=== PATIENT | male | born 1940 | race Caucasian/White ===

== ENCOUNTER 2017-01-26 13:54 | Emergency (ER) | payer MEDICARE ==
[2017-01-26] MEDS ORDERED: SODIUM CHLORIDE 0.9% 1,000 ML IV STA (15:17)
[2017-01-26] MEDS ORDERED: RX INFO: IV CONTRAST WAS GIVEN 1 EACH MISC MISCELLANE PRN (15:17)
[2017-01-26] MEDS ORDERED: HYDROmorphone 1 MG/ML 1 ML SYRINGE IVP STA (15:17)
[2017-01-26] MEDS ORDERED: PANTOPRAZOLE 40 MG/10 ML VIAL IVP STA (15:17)
[2017-01-26] MEDS ORDERED: SODIUM CHLORIDE 0.9% 500 ML IV STA (15:17)
[2017-01-26] MEDS ORDERED: ONDANSETRON 4 MG/2 ML VIAL IVP STA (15:17)
--- NOTE | 2017-01-26 15:47 | ED ---
General Adult HPI - General Chief complaint: Abdominal Pain Stated complaint: Abd Pain Time Seen by Provider: 01/26/17 14:25 Source: patient, RN notes reviewed, old records reviewed Mode of arrival: wheelchair Limitations: physical limitation - History of Present Illness Initial comments: This is a 76-year-old male to the ER for evaluation. This patient is coming in the ER for evaluation regarding abdominal pain. Patient has history of different pain issues back pain. On chronic pain medication. Patient did have a bowel movement today was diminished. No pain in his rectum. Patient has history of cuts the patient, no nausea vomiting or fevers - Related Data Home Medications Medication Instructions Recorded Confirmed Omeprazole [PriLOSEC] 40 mg PO DAILY 01/25/14 01/26/17 Simvastatin [Zocor] 80 mg PO HS 01/25/14 01/26/17 Zolpidem Tartrate [Ambien Cr] 10 mg PO HS 01/25/14 01/26/17 clonazePAM [KlonoPIN] 2 mg PO HS 01/25/14 01/26/17 metFORMIN HCL [Glucophage] 500 mg PO BID 01/25/14 01/26/17 Methadone HCl [Dolophine HCl] 10 mg PO Q8HR PRN 08/12/15 01/26/17 Diclofenac Sodium/Misoprostol 1 tab PO BID 01/26/17 01/26/17 [Diclofenac-Misoprost 75-200 Tb] Lidocaine 5% Patch [Lidoderm] 1 patch TOPICAL DAILY PRN 01/26/17 01/26/17 Polyethylene Glycol 3350 [Miralax] 17 gm PO DAILY PRN 01/26/17 01/26/17 oxyCODONE HCL/ACETAMINOPHEN 1 tab PO TID PRN 01/26/17 01/26/17 [Percocet 10-325 mg] Allergies Allergy/AdvReac Type Severity Reaction Status Date / Time No Known Allergies Allergy Verified 01/26/17 14:34 Review of Systems ROS Statement: Those systems with pertinent positive or pertinent negative responses have been documented in the HPI. ROS Other: All systems not noted in ROS Statement are negative. 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 Hiatial hernia repair, hernia repair inguinal X3 Past Anesthesia/Blood Transfusion Reactions: No Reported Reaction Past Psychological History: Anxiety, Depression Smoking Status: Never smoker Past Alcohol Use History: None Reported Past Drug Use History: None Reported - Past Family History Mother Family Medical History: Pneumonia Additional Family Medical History / Comment(s): at age 34 Father Family Medical History: COPD General Exam Limitations: physical limitation General appearance: alert, in no apparent distress Head exam: Present: atraumatic, normocephalic, normal inspection Eye exam: Present: normal appearance, PERRL, EOMI. Absent: scleral icterus, conjunctival injection, periorbital swelling ENT exam: Present: normal exam, mucous membranes moist Neck exam: Present: normal inspection. Absent: tenderness, meningismus, lymphadenopathy Respiratory exam: Present: normal lung sounds bilaterally. Absent: respiratory distress, wheezes, rales, rhonchi, stridor Cardiovascular Exam: Present: regular rate, normal rhythm, normal heart sounds. Absent: systolic murmur, diastolic murmur, rubs, gallop, clicks GI/Abdominal exam: Present: soft, normal bowel sounds. Absent: distended, tenderness, guarding, rebound, rigid Extremities exam: Present: normal inspection, full ROM, normal capillary refill. Absent: tenderness, pedal edema, joint swelling, calf tenderness Back exam: Present: normal inspection Neurological exam: Present: alert, oriented X3, CN II-XII intact Psychiatric exam: Present: normal affect, normal mood Skin exam: Present: warm, dry, intact, normal color. Absent: rash Course Vital Signs 01/26/17 01/26/17 01/26/17 13:59 15:44 16:47 Temperature 98.1 F 97.7 F Pulse Rate 87 80 59 L Respiratory 20 20 19 Rate Blood Pressure 147/73 162/76 130/64 O2 Sat by Pulse 98 94 L 97 Oximetry 01/26/17 17:35 Temperature Pulse Rate 83 Respiratory 16 Rate Blood Pressure 127/58 O2 Sat by Pulse 97 Oximetry - Reevaluation(s) Reevaluation #1: 01/26/17 18:00 Pain is controlled, patient explained and spoke with regarding constipation. Medical Decision Making - Medical Decision Making 36 male here for evaluation. Patient was seen in regards to bowel pain, patient 's about patient appears related to constipation BODY SANDER is negative lab work is normal. Facial given bowel regimen and discharged home - Lab Data Result diagrams: 01/26/17 14:25 01/26/17 14:25 Lab Results 01/26/17 01/26/17 01/26/17 Range/Units 14:25 14:25 14:25 WBC 6.2 (3.8-10.6) k/uL RBC 4.02 L (4.30-5.90) m/uL Hgb 13.6 (13.0-17.5) gm/dL Hct 41.6 (39.0-53.0) % MCV 103.4 H (80.0-100.0) fL MCH 33.9 (25.0-35.0) pg MCHC 32.8 (31.0-37.0) g/dL RDW 13.6 (11.5-15.5) % Plt Count 150 (150-450) k/uL Neutrophils % 81 % Lymphocytes % 12 % Monocytes % 5 % Eosinophils % 1 % Basophils % 1 % Neutrophils # 5.0 (1.3-7.7) k/uL Lymphocytes # 0.7 L (1.0-4.8) k/uL Monocytes # 0.3 (0-1.0) k/uL Eosinophils # 0.0 (0-0.7) k/uL Basophils # 0.0 (0-0.2) k/uL Macrocytosis Slight Sodium 141 (137-145) mmol/L Potassium 4.2 (3.5-5.1) mmol/L Chloride 106 (98-107) mmol/L Carbon Dioxide 26 (22-30) mmol/L Anion Gap 9 mmol/L BUN 22 H (9-20) mg/dL Creatinine 0.95 (0.66-1.25) mg/dL Est GFR (MDRD) Af Amer >60 (>60 ml/min/1.73 sqM) Est GFR (MDRD) Non-Af >60 (>60 ml/min/1.73 sqM) Glucose 129 H (74-99) mg/dL Plasma Lactic Acid Porfirio (0.7-2.0) mmol/L Calcium 9.0 (8.4-10.2) mg/dL Total Bilirubin 0.5 (0.2-1.3) mg/dL AST 26 (17-59) U/L ALT 38 (21-72) U/L Alkaline Phosphatase 60 (38-126) U/L Troponin I <0.012 (0.000-0.034) ng/mL Total Protein 6.5 (6.3-8.2) g/dL Albumin 3.9 (3.5-5.0) g/dL Amylase <30 L (30-110) U/L Lipase 24 (23-300) U/L Urine Color Urine Appearance (Clear) Urine pH (5.0-8.0) Ur Specific [place] (1.001-1.035) Urine Protein (Negative) Urine Glucose (UA) (Negative) Urine Ketones (Negative) Urine Blood (Negative) Urine Nitrite (Negative) Urine Bilirubin (Negative) Urine Urobilinogen (<2.0) mg/dL Ur Leukocyte Esterase (Negative) 01/26/17 01/26/17 Range/Units 15:51 16:09 WBC (3.8-10.6) k/uL RBC (4.30-5.90) m/uL Hgb (13.0-17.5) gm/dL Hct (39.0-53.0) % MCV (80.0-100.0) fL MCH (25.0-35.0) pg MCHC (31.0-37.0) g/dL RDW (11.5-15.5) % Plt Count (150-450) k/uL Neutrophils % % Lymphocytes % % Monocytes % % Eosinophils % % Basophils % % Neutrophils # (1.3-7.7) k/uL Lymphocytes # (1.0-4.8) k/uL Monocytes # (0-1.0) k/uL Eosinophils # (0-0.7) k/uL Basophils # (0-0.2) k/uL Macrocytosis Sodium (137-145) mmol/L Potassium (3.5-5.1) mmol/L Chloride (98-107) mmol/L Carbon Dioxide (22-30) mmol/L Anion Gap mmol/L BUN (9-20) mg/dL Creatinine (0.66-1.25) mg/dL Est GFR (MDRD) Af Amer (>60 ml/min/1.73 sqM) Est GFR (MDRD) Non-Af (>60 ml/min/1.73 sqM) Glucose (74-99) mg/dL Plasma Lactic Acid Porfirio 0.8 (0.7-2.0) mmol/L Calcium (8.4-10.2) mg/dL Total Bilirubin (0.2-1.3) mg/dL AST (17-59) U/L ALT (21-72) U/L Alkaline Phosphatase (38-126) U/L Troponin I (0.000-0.034) ng/mL Total Protein (6.3-8.2) g/dL Albumin (3.5-5.0) g/dL Amylase (30-110) U/L Lipase (23-300) U/L Urine Color Light Yellow Urine Appearance Clear (Clear) Urine pH 6.5 (5.0-8.0) Ur Specific [place] 1.009 (1.001-1.035) Urine Protein Negative (Negative) Urine Glucose (UA) Negative (Negative) Urine Ketones Negative (Negative) Urine Blood Negative (Negative) Urine Nitrite Negative (Negative) Urine Bilirubin Negative (Negative) Urine Urobilinogen <2.0 (<2.0) mg/dL Ur Leukocyte Esterase Negative (Negative) - Radiology Data Radiology results: report reviewed (CT pelvis positive for constipation), image reviewed Disposition Clinical Impression: Abdominal pain, Constipation Disposition: HOME SELF-CARE Condition: Good Instructions: Constipation (ED) Referrals: Marciano Moyer MD [Primary Care Provider] - 1-2 days
[2017-01-26 15:53] LABS: Basophils % (A) 1 %; CH 34.4; CHCM 33.4; Eosinophils % (A) 1 %; HCT 41.6 % (39.0-53.0); HDW 2.49; HGB 13.6 gm/dL (13.0-17.5); Luc # (Auto) 0.07; Luc % (Auto) 1; Lymphocytes # (A) 0.7 k/uL (1.0-4.8); Lymphocytes % (A) 12 %; MCH 33.9 pg (25.0-35.0); MCHC 32.8 g/dL (31.0-37.0); MCV 103.4 fL (80.0-100.0); Macrocytosis Slight; Monocytes # (A) 0.3 k/uL (0-1.0); Monocytes % (A) 5 %; Neutrophils % (A) 81 %; RBC 4.02 m/uL (4.30-5.90); RDW 13.6 % (11.5-15.5); WBC 6.2 k/uL (3.8-10.6)
[2017-01-26 15:57] LABS: ALT 38 U/L (21-72); AST 26 U/L (17-59); Alkaline Phosphatase 60 U/L (38-126); Amylase <30 U/L (30-110); Anion Gap 9 mmol/L; Blood Urea Nitrogen 22 mg/dL (9-20); Carbon Dioxide 26 mmol/L (22-30); Chloride 106 mmol/L (98-107); Glucose 129 mg/dL (74-99); Non-African American GFR(MDRD) >60 (>60 ml/min/1.73 sqM); Potassium 4.2 mmol/L (3.5-5.1); Sodium 141 mmol/L (137-145); Total Bilirubin 0.5 mg/dL (0.2-1.3); Total Protein 6.5 g/dL (6.3-8.2)
[2017-01-26 16:22] LABS: Appearance,Urine Clear (Clear); Bilirubin,Urine Negative (Negative); Glucose,Urine (UA) Negative (Negative); Ketones,Urine Negative (Negative); Leukocyte Esterase,Urine Negative (Negative); Nitrite,Urine Negative (Negative); PH, Urine 6.5 (5.0-8.0); Protein,Urine Negative (Negative); Specific Gravity,Urine 1.009 (1.001-1.035); UA Billing (MACRO vs. MICRO) CHEM; Urobilinogen,Urine <2.0 mg/dL (<2.0)
--- NOTE | 2017-01-26 17:27 | CT ---
EXAMINATION TYPE: CT abdomen pelvis w con DATE OF EXAM: 01/26/2017 COMPARISON: 09/06/2013 HISTORY: Mid abdominal pain x [address] DLP: 1198.00 mGycm Automated exposure control for dose reduction was used. TECHNIQUE: Helical acquisition of images was performed from the lung bases through the pelvis. CONTRAST: Performed without Oral Contrast and with IV Contrast, patient injected with 100 mL of Omnipaque 300. FINDINGS: There is a hiatal hernia. Lung bases are clear of consolidation. There is no pleural effusion. There is thoracolumbar scoliotic deformity. There is multilevel lumbar posterior fusion surgery. There is m etal artifact. Liver shows no focal defect. Bile ducts are not dilated. Gallbladder appears normal. T here is no sign of a pancreatic mass. There are small calcified splenic granulomata. There are small splenic cysts. There is no adrenal mass. Kidneys show satisfactory contrast opacification. There is no hydronephrosi s. There is no retroperitoneal adenopathy. There is mild retained fecal material in the colon. Bladde r distends smoothly. There is no sign of a pelvic mass. Appendix is not seen. The cecum is in the pel vis. I see no focal bone destruction. There is 15% wedging of L1 vertebral body. There is a surgical clip in the left inguinal region. I see no hernia. IMPRESSION: HIATAL HERNIA. CONSTIPATION. NO SIGN OF ACUTE ABDOMEN AND PELVIS. L1 MILD COMPRESSION FRACTURE IS PRO BABLY OLD.
[2017-01-26] MEDS ORDERED: DICYCLOMINE 10 MG/ML 2 ML AMP IM STA (17:49)
[2017-01-26] MEDS ORDERED: KETOROLAC 30 MG/ML 1 ML VIAL IVP STA (17:49)
[2017-01-26] MEDS ORDERED: GLYCERIN ADULT SUPPOSITORY 1 EACH RECTAL STA (17:49)
[2017-01-26] MEDS ORDERED: SENNOSIDES-DOCUSATE SODIUM 1 EACH TAB PO STA (17:49)
[2017-01-26] MEDS ORDERED: POLYETHYLENE GLYCOL 3350 17 GM POWD.PACK PO STA (17:49)
[2017-01-26] MEDS ORDERED: MAGNESIUM CITRATE 296 ML BOTTLE PO ONE (17:50)
[2017-01-26 18:35] VITALS: BP 126/79; PULSE 76; RESP 18; TEMP 97.9
== END 2017-01-26 18:33 | disposition home or self-care (01) ==
LOC: EC 13:54
DX: K59.00 Constipation, unspecified (principal); R10.9 Unspecified abdominal pain; M54.9 Dorsalgia, unspecified; E11.9 Type 2 diabetes mellitus without complications; K21.9 Gastro-esophageal reflux disease without esophagitis; E78.5 Hyperlipidemia, unspecified; M19.90 Unspecified osteoarthritis, unspecified site; F32.9 Major depressive disorder, single episode, unspecified; F41.9 Anxiety disorder, unspecified; Z85.828 Personal history of other malignant neoplasm of skin; Z79.84 Long term (current) use of oral hypoglycemic drugs; Z79.899 Other long term (current) drug therapy
CPT/HCPCS: 99284; 96374; 96375 ×3; 36415; 80053; 82150; 83605; 83690; 84484; 85025; 81003; 87086; 74177; 96361 ×3; 96372; J0500; J2405; J1885; J1170; Q9967; C9113

== ENCOUNTER → 2017-03-10 | Outpatient (CLI) | payer MEDICARE ==
[2017-03-10 17:38] LABS: EKG EKG PERFORMED
[2017-03-10 17:51] LABS: Basophils % (A) 1 %; CH 33.9; CHCM 32.9; Eosinophils # (A) 0.1 k/uL (0-0.7); Eosinophils % (A) 2 %; HCT 39.6 % (39.0-53.0); HDW 2.37; HGB 13.3 gm/dL (13.0-17.5); Luc # (Auto) 0.15; Luc % (Auto) 4; Lymphocytes # (A) 1.1 k/uL (1.0-4.8); Lymphocytes % (A) 29 %; MCH 34.7 pg (25.0-35.0); MCHC 33.5 g/dL (31.0-37.0); MCV 103.6 fL (80.0-100.0); Macrocytosis Slight; Mean Platelet Volume 7.1; Monocytes # (A) 0.3 k/uL (0-1.0); Monocytes % (A) 8 %; Neutrophils # (A) 2.3 k/uL (1.3-7.7); Neutrophils % (A) 57 %; RBC 3.82 m/uL (4.30-5.90); RDW 12.9 % (11.5-15.5); WBC (Perox) 4.12
[2017-03-10 17:58] LABS: INR 1.2 (<1.2); Partial Thromboplastin Time 26.1 sec (22.0-30.0); Prothrombin Time 11.7 sec (9.0-12.0)
[2017-03-10 17:59] LABS: Anion Gap 10 mmol/L; Blood Urea Nitrogen 19 mg/dL (9-20); Calcium 9.5 mg/dL (8.4-10.2); Carbon Dioxide 25 mmol/L (22-30); Chloride 106 mmol/L (98-107); Glucose 109 mg/dL (74-99); Non-African American GFR(MDRD) >60 (>60 ml/min/1.73 sqM); Potassium 4.6 mmol/L (3.5-5.1); Sodium 141 mmol/L (137-145)
--- NOTE | 2017-03-10 18:18 | XR ---
EXAMINATION TYPE: XR abdomen 1V DATE OF EXAM: 03/10/2017 COMPARISON: 07/26/2013 HISTORY: Abdominal pain TECHNIQUE: Single view FINDINGS: There are paraspinal rods stabilizing the thoracolumbar spine. There is no sign of intestin al obstruction or pneumoperitoneum. Fecal pattern is normal. There is no sign of a mass. There are no pathologic definite calcifications over the kidneys. IMPRESSION: Nonacute abdomen. No change.
--- NOTE | 2017-03-10 18:20 | XR ---
EXAMINATION TYPE: XR chest 2V DATE OF EXAM: 03/10/2017 COMPARISON: 04/22/2016 HISTORY: Preop TECHNIQUE: Frontal and lateral views of the chest are obtained. FINDINGS: There is no heart failure nor confluent pneumonic infiltrate. There is thoracolumbar levos coliosis. Costophrenic angles are clear. There are bilateral neural stimulators over the upper chest. There is thoracolumbar kyphotic curvature. IMPRESSION: No active cardiopulmonary disease. Thoracic spine deformity. No change.
== END | disposition home or self-care (01) ==
LOC: LABWHC1 17:02
PROVIDERS: ATTEND Family Medicine
DX: Z01.818 Encounter for other preprocedural examination (principal); I49.9 Cardiac arrhythmia, unspecified; M48.07 Spinal stenosis, lumbosacral region; R10.84 Generalized abdominal pain
CPT/HCPCS: 36415; 71020; 74000; 80048; 85025; 85610; 85730; 93005

== ENCOUNTER 2017-03-12 16:55 | Emergency (ER) | payer MEDICARE ==
[2017-03-12 17:16] VITALS: RESP 18
--- NOTE | 2017-03-12 18:27 | ED ---
General Adult HPI - General Chief complaint: Abdominal Pain Stated complaint: Abd Pain Time Seen by Provider: 03/12/17 18:02 Source: patient, family, RN notes reviewed, old records reviewed Mode of arrival: wheelchair Limitations: no limitations - History of Present Illness Initial comments: Chief complaint history of present illness is a 76-year-old male here with his . Patient takes Percocet on a daily basis for chronic pain. The patient has been having problems with constipation. When trying various preparations without relief. Patient reports she had left lower quadrant pain cramping which his symptoms of subsided. Patient said he had x-rays done yesterday these cannot be found at this time. He did have lab work done which showed a white count of 4 hemoglobin 13 hematocrit 39 INR 1.2 potassium normal sugar 109 , kidney function good. - Related Data Home Medications Medication Instructions Recorded Confirmed Omeprazole [PriLOSEC] 40 mg PO DAILY 01/25/14 03/12/17 Simvastatin [Zocor] 80 mg PO HS 01/25/14 03/12/17 Zolpidem Tartrate [Ambien Cr] 10 mg PO HS 01/25/14 03/12/17 clonazePAM [KlonoPIN] 2 mg PO HS 01/25/14 03/12/17 metFORMIN HCL [Glucophage] 500 mg PO BID 01/25/14 03/12/17 Methadone HCl [Dolophine HCl] 10 mg PO Q8HR PRN 08/12/15 03/12/17 Diclofenac Sodium/Misoprostol 1 tab PO BID 01/26/17 03/12/17 [Diclofenac-Misoprost 75-200 Tb] Lidocaine 5% Patch [Lidoderm] 1 patch TOPICAL DAILY PRN 01/26/17 03/12/17 Polyethylene Glycol 3350 [Miralax] 17 gm PO DAILY PRN 01/26/17 03/12/17 oxyCODONE HCL/ACETAMINOPHEN 1 tab PO TID PRN 01/26/17 03/12/17 [Percocet 10-325 mg] Allergies Allergy/AdvReac Type Severity Reaction Status Date / Time No Known Allergies Allergy Verified 03/12/17 18:26 Review of Systems ROS Statement: Those systems with pertinent positive or pertinent negative responses have been documented in the HPI. Review of systems. The patient takes laxatives which she hadn't needed to be increased of late because of constipation problems. The patient was in emergency room 4-5 days ago with a complaint of abdominal discomfort at that time a CAT scan with contrast was done showing hiatal hernia with constipation but no sign of acute abdomen is also why L1 mild compression fracture that appeared to be old per the radiologist Dr. Cuevas. Patient states does not think been changed since then. His appetite is not significantly changed to eat a hamburger just prior to coming to emergency room today all systems are reviewed. 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 Surgeries 2 back surgeries, gallbladder, bilateral hernia repair. Family history noncontributory no known ALLERGIES. Patient states he never smoked does not drink alcohol. ROS Other: All systems not noted in ROS Statement are negative. 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 Hiatial hernia repair, hernia repair inguinal X3, deep brain stimulator Past Anesthesia/Blood Transfusion Reactions: No Reported Reaction Past Psychological History: Anxiety, Depression Smoking Status: Never smoker Past Alcohol Use History: None Reported Past Drug Use History: None Reported - Past Family History Mother Family Medical History: Pneumonia Additional Family Medical History / Comment(s): at age 34 Father Family Medical History: COPD General Exam - General Exam Comments Initial Comments: General: The patient is awake and alert, states he is here because he had cramping left lower quadrant during the day which is currently gone now. He ate a hamburger prior to coming to emergency room. He states been having difficulty with constipation. He takes Percocet daily for chronic back pain. Vital signs shows temperature 97.5 pulse 87 respiratory rate 18 pulse ox 94% room air blood pressure 120/70 Eye: Pupils are equal, extra-ocular movements are intact; there is normal conjunctiva bilaterally. No signs of icterus. Ears, nose, mouth and throat: There are moist mucous membranes Neck: She has chronic back pain for which he takes Percocet. Patient has severe kyphosis. Cardiovascular: There is a regular rate and rhythm. No murmur, rub or gallop is appreciated. Respiratory: Lungs are clear to auscultation, respirations are non-labored, breath sounds are equal. No wheezes, stridor, rales, or rhonchi. Gastrointestinal: Soft, non-distended, non-tender abdomen without masses or organomegaly noted. There is no rebound or guarding present. No CVA tenderness. Bowel sounds are unremarkable. Currently no complaints of abdominal pain. Back: Chronic back pain. Severe kyphosis. Musculoskeletal: Normal ROM, no tenderness, There is no pedal edema. 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 He has a deep nerve stimulator to help with tremors. He is being scheduled to have a new battery replaced. Skin: Skin is warm and dry and no rashes or lesions are noted. Limitations: no limitations Course Vital Signs 03/12/17 17:11 Temperature 97.5 F L Pulse Rate 87 Respiratory 18 Rate Blood Pressure 120/70 O2 Sat by Pulse 94 L Oximetry Medical Decision Making - Medical Decision Making X-ray performed yesterday was reviewed by radiologist his findings are there are paraspinal chevy stabilizing the thoracolumbar spine. There is no sign of intestinal obstruction or pneumoperitoneum. Fecal pattern is normal. There is no sign of mass. There are no pathologic definite calcifications over the kidneys. Impression nonacute abdomen. No change. As read by Dr. Cuevas x- ray of the chest was done and reviewed by radiologist his impression is no acute cardiopulmonary disease. Thoracic spine deformity. No change. Patient was given enema. With good results. The patient be discharged home and advised to continue with home stool softeners, bulky diet and follow-up with family physician. Disposition Clinical Impression: Constipation due to opioid therapy Disposition: HOME SELF-CARE Condition: Stable Instructions: Constipation (ED), High Fiber Diet (ED), Fleet Enema (ED) Additional Instructions: Follow-up with family physician. Take his few pain medications as he can as these will cause her to be constipated. Use medications suggested by her family physician to help control bowel movements Referrals: Marciano Myoer MD [Primary Care Provider] - 1-2 days Time of Disposition: 20:25
[2017-03-12 20:41] VITALS: BP 133/81; PULSE 73; TEMP 98.8
== END 2017-03-12 20:40 | disposition home or self-care (01) ==
LOC: EC 16:55
DX: K59.00 Constipation, unspecified (principal); E11.9 Type 2 diabetes mellitus without complications; K21.9 Gastro-esophageal reflux disease without esophagitis; E78.5 Hyperlipidemia, unspecified; Z85.828 Personal history of other malignant neoplasm of skin; Z90.49 Acquired absence of other specified parts of digestive tract; Z98.890 Other specified postprocedural states; Z79.4 Long term (current) use of insulin; Z79.899 Other long term (current) drug therapy
CPT/HCPCS: 99284

== ENCOUNTER 2017-06-26 11:57 | Emergency (ER) | payer MEDICARE ==
--- NOTE | 2017-06-26 13:39 | XR ---
EXAMINATION TYPE: XR abdomen acute w cxr DATE OF EXAM: 06/26/2017 COMPARISON: 03/10/2017 HISTORY: Pain TECHNIQUE: 3 views FINDINGS: There is no sign of intestinal obstruction or pneumoperitoneum. Fecal pattern is normal. There are pa raspinal rods stabilizing a thoracolumbar levoscoliosis. There is no sign of pneumothorax. There is a mild infiltrate at the left lung base and also right upper lobe. IMPRESSION: Bilateral mild pulmonary infiltrates. Nonacute abdomen. Abdomen is stable compared to old exam. Small pulmonary infiltrates are consistent with scarring and appear fairly stable compared to 03/10/2017 est x-ray.
--- NOTE | 2017-06-26 13:43 | XR ---
EXAMINATION TYPE: XR lumbar spine 2 or 3V DATE OF EXAM: 06/26/2017 COMPARISON: NONE HISTORY: Pain after a fall TECHNIQUE: 3 views FINDINGS: There are paraspinal rods and screws stabilizing the lumbar spine and lower thoracic spine. There is thoracolumbar levoscoliosis. There is 20% anterior wedging of T12. This appears stable comp ared to CT scan of 01/26/2017.. IMPRESSION: Previous surgery. Mild thoracolumbar levoscoliosis. No acute bony abnormality.
--- NOTE | 2017-06-26 13:46 | XR ---
EXAMINATION TYPE: XR thoracic spine complete DATE OF EXAM: 06/26/2017 COMPARISON: 03/10/2017 HISTORY: Pain after falling TECHNIQUE: 3 views FINDINGS: There is thoracolumbar kyphotic curvature. There is 75% anterior wedging of T10. There is 2 0% wedging of T12. This appears stable compared to old chest x-ray. There is no thoracic paraspinal m ass. Posterior elements appear intact. There is mild levoscoliosis. IMPRESSION: Kyphotic deformity. Old compression fractures. No acute fracture seen.
[2017-06-26 13:47] VITALS: RESP 18
--- NOTE | 2017-06-26 14:08 | ED ---
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 The patient states he was transferring from his wheelchair to a chair when he fell to the ground. He states he felt like the rods in his back moved. He denies any numbness, tingling, or weakness in his extremities that are worse than normal. He also states he has not had a bowel movement in 5 days. He complains of a little bit of lower abdominal cramping however no significant pain. No vomiting. No fevers or chills. No chest pain. No other complaints. - Related Data Home Medications Medication Instructions Recorded Confirmed Omeprazole [PriLOSEC] 40 mg PO DAILY 01/25/14 06/26/17 Simvastatin [Zocor] 80 mg PO HS 01/25/14 06/26/17 Zolpidem Tartrate [Ambien Cr] 10 mg PO HS 01/25/14 06/26/17 clonazePAM [KlonoPIN] 2 mg PO HS 01/25/14 06/26/17 metFORMIN HCL [Glucophage] 500 mg PO BID 01/25/14 06/26/17 Methadone HCl [Dolophine HCl] 10 mg PO Q8HR PRN 08/12/15 06/26/17 Diclofenac Sodium/Misoprostol 1 tab PO BID 01/26/17 06/26/17 [Diclofenac-Misoprost 75-200 Tb] Lidocaine 5% Patch [Lidoderm] 1 patch TOPICAL DAILY PRN 01/26/17 06/26/17 Polyethylene Glycol 3350 [Miralax] 17 gm PO DAILY 01/26/17 06/26/17 oxyCODONE HCL/ACETAMINOPHEN 1 tab PO TID PRN 01/26/17 06/26/17 [Percocet 10-325 mg] Sennosides [Senna] 8.6 mg PO DAILY 06/26/17 06/26/17 Previous Rx's Medication Instructions Recorded Bisacodyl [Dulcolax] 10 mg RECTAL DAILY PRN #20 supp 06/26/17 Allergies Allergy/AdvReac Type Severity Reaction Status Date / Time No Known Allergies Allergy Verified 06/26/17 12:40 Review of Systems ROS Statement: Those systems with pertinent positive or pertinent negative responses have been documented in the HPI. ROS Other: All systems not noted in ROS Statement are negative. 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 Hiatial hernia repair, hernia repair inguinal X3, deep brain stimulator, brain stimulator repair and battery change Past Anesthesia/Blood Transfusion Reactions: No Reported Reaction Past Psychological History: Anxiety, Depression Smoking Status: Never smoker Past Alcohol Use History: None Reported Past Drug Use History: None Reported - Past Family History Mother Family Medical History: Pneumonia Additional Family Medical History / Comment(s): at age 34 Father Family Medical History: COPD General Exam - General Exam Comments Initial Comments: Constitutional: Awake alert Appears comfortable Head: Normocephalic atraumatic Eyes: no conjunctival injection No scleral icterus EOMI Neck: No JVD Supple Heart: Regular rate rhythm normal S1-S2 no murmurs Lungs: Clear to auscultation bilaterally No wheezing No rales Abdomen: Soft nondistended mild superpubic tenderness without guarding Back: Severe kyphosis and scoliosis of the thoracic and lumbar spine, there is tenderness to palpation along the left paraspinal thoracic spine Extremities: Non edematous DP pulses intact Radial pulses intact Neuro: A&Ox3, 5 out of 5 strength with plantar flexion and dorsiflexion of the lower Chev[place], 2 out of 4 patellar reflexes, sensation intact to light touch in bilateral lower extremities No focal neurologic deficits Psych: Appropriate mood and affect . Limitations: no limitations Course Vital Signs 06/26/17 06/26/17 06/26/17 12:02 13:46 16:35 Temperature 97.5 F L 97.6 F Pulse Rate 97 78 62 Respiratory 16 18 Rate Blood Pressure 113/90 160/90 119/65 O2 Sat by Pulse 97 97 96 Oximetry Medical Decision Making - Medical Decision Making Is a 76-year-old male who came in for back pain after a fall. X-rays did not reveal any acute fractures. The patient states he felt improved after the Lidoderm patches that he placed at home. X-ray of his abdomen did not show any obstruction. He is given an enema here with improvement in his symptoms and a bowel movement. The patient wanted some suppository for home which she was provided. Told to follow-up with his primary doctor. He can return if he had worsening symptoms. All questions were answered. - Lab Data Lab Results 06/26/17 Range/Units 14:34 Urine Color Light Yellow Urine Appearance Clear (Clear) Urine pH 5.0 (5.0-8.0) Ur Specific Girard 1.007 (1.001-1.035) Urine Protein Negative (Negative) Urine Glucose (UA) Negative (Negative) Urine Ketones Negative (Negative) Urine Blood Negative (Negative) Urine Nitrite Negative (Negative) Urine Bilirubin Negative (Negative) Urine Urobilinogen <2.0 (<2.0) mg/dL Ur Leukocyte Esterase Negative (Negative) Disposition Clinical Impression: Back pain, Constipation, Abdominal pain Disposition: HOME SELF-CARE Condition: Stable Instructions: Constipation (ED), Abdominal Pain (ED) Prescriptions: Bisacodyl [Dulcolax] 10 mg RECTAL DAILY PRN #20 supp PRN Reason: Constipation Referrals: Marciano Moyer MD [Primary Care Provider] - 1-2 days
[2017-06-26 14:43] LABS: Appearance,Urine Clear (Clear); Bilirubin,Urine Negative (Negative); Blood,Urine Negative (Negative); Color,Urine Light Yellow; Glucose,Urine (UA) Negative (Negative); Ketones,Urine Negative (Negative); Leukocyte Esterase,Urine Negative (Negative); Nitrite,Urine Negative (Negative); Protein,Urine Negative (Negative); Specific Gravity,Urine 1.007 (1.001-1.035); Urobilinogen,Urine <2.0 mg/dL (<2.0)
[2017-06-26 16:36] VITALS: BP 119/65; PULSE 62; TEMP 97.6
== END 2017-06-26 16:40 | disposition home or self-care (01) ==
LOC: EC 11:57
DX: K59.00 Constipation, unspecified (principal); M54.9 Dorsalgia, unspecified; E11.9 Type 2 diabetes mellitus without complications; K21.9 Gastro-esophageal reflux disease without esophagitis; E78.5 Hyperlipidemia, unspecified; M19.90 Unspecified osteoarthritis, unspecified site; F32.9 Major depressive disorder, single episode, unspecified; F41.9 Anxiety disorder, unspecified; Z85.828 Personal history of other malignant neoplasm of skin; Z79.84 Long term (current) use of oral hypoglycemic drugs; Z79.899 Other long term (current) drug therapy; Z98.890 Other specified postprocedural states; W05.0XXA Fall from non-moving wheelchair, initial encounter
CPT/HCPCS: 72072; 72100; 74022; 81003; 99284

== ENCOUNTER → 2017-11-16 | Outpatient (CLI) | payer MEDICARE ==
[2017-11-16 17:39] LABS: Calcium 9.3 mg/dL (8.4-10.2); Potassium 4.9 mmol/L (3.5-5.1)
== END | disposition home or self-care (01) ==
LOC: LABWHC1 16:22
PROVIDERS: ATTEND Family Medicine
DX: M81.0 Age-related osteoporosis without current pathological fracture (principal)
CPT/HCPCS: 36415; 80051; 82310

== ENCOUNTER → 2017-12-07 | Outpatient (CLI) | payer MEDICARE ==
[~2017-12-07] MED LIST: SODIUM CHLORIDE 0.9% 500 ML in EMPTY BAG 1 BAG IV PRN; ZOLEDRONIC ACID 5 MG in SODIUM CHLORIDE 0.9% 100 ML IV ONE
[2017-12-07 15:14] VITALS: BP 141/76; PULSE 85; RESP 16; TEMP 98.4
== END | disposition home or self-care (01) ==
LOC: PROCWHC3 14:43
PROVIDERS: ATTEND Family Medicine
DX: M81.0 Age-related osteoporosis without current pathological fracture (principal)
CPT/HCPCS: 96365; J3489

== ENCOUNTER 2018-03-15 11:54 | Inpatient (IN) | payer MEDICARE ==
--- NOTE | 2018-03-15 12:00 | XR ---
EXAMINATION TYPE: XR chest 2V DATE OF EXAM: 03/15/2018 COMPARISON: 03/10/2017 INDICATION: Pneumothorax on left, left chest pain since back injections TECHNIQUE: Frontal and lateral views of the chest are obtained. FINDINGS: The heart is midline. The pulmonary vasculature is normal. Chin overlies the right apex limiting the evaluation. Bilateral electronic devices overlie the left c hest. There appears to be a left apical pneumothorax estimated at 30%. Report was called to Dr. Chan by Dr Brown at the time of preliminary interpretation 11:40 hours, 03-15-18. There is exaggeration of the AP diameter. Postsurgical changes are through the thoracic spine. There is a wedge deformity of the mid thoracic level with near complete loss of the anterior vertebral body height. This was present previously.. IMPRESSION: 1. Left apical pneumothorax estimated at 30%. 2. Suspicious acute process not otherwise identified.
--- NOTE | 2018-03-15 12:22 | ED ---
SOB HPI - General Chief Complaint: Shortness of Breath Time Seen by Provider: 03/15/18 12:10 Source: patient, RN notes reviewed Mode of arrival: wheelchair Limitations: no limitations - History of Present Illness Initial Comments: This is a 77-year-old male who is brought in today because of shortness of breath and a pneumothorax on the left as per x-ray that was done after procedure. He apparently was getting an injection this morning started developing shortness of breath on x-ray he was found have approximately 30% pneumothorax on the left side. He does complain some pain when he breathes and shortness of breath no fevers chills nausea vomiting sweats or other symptoms. MD Complaint: shortness of breath - Related Data Home Medications Medication Instructions Recorded Confirmed Omeprazole [PriLOSEC] 40 mg PO DAILY 01/25/14 03/15/18 Simvastatin [Zocor] 80 mg PO HS 01/25/14 03/15/18 Zolpidem Tartrate [Ambien Cr] 10 mg PO HS 01/25/14 03/15/18 clonazePAM [KlonoPIN] 2 mg PO HS 01/25/14 03/15/18 metFORMIN HCL [Glucophage] 500 mg PO BID 01/25/14 03/15/18 Methadone HCl [Dolophine HCl] 10 mg PO Q8HR PRN 08/12/15 03/15/18 Diclofenac Sodium/Misoprostol 1 tab PO BID 01/26/17 03/15/18 [Diclofenac-Misoprost 75-200 Tb] Lidocaine 5% Patch [Lidoderm] 3 patch TOPICAL DAILY PRN 01/26/17 03/15/18 Polyethylene Glycol 3350 [Miralax] 17 gm PO DAILY 01/26/17 03/15/18 oxyCODONE HCL/ACETAMINOPHEN 1 tab PO TID PRN 01/26/17 03/15/18 [Percocet 10-325 mg] Sennosides [Senna] 8.6 mg PO DAILY 06/26/17 03/15/18 Lidocaine 5% Oint [Xylocaine 5% 2 gm TOPICAL TID PRN 03/15/18 03/15/18 Oint] Allergies Allergy/AdvReac Type Severity Reaction Status Date / Time No Known Allergies Allergy Verified 03/15/18 12:06 Review of Systems ROS Statement: Those systems with pertinent positive or pertinent negative responses have been documented in the HPI. ROS Other: All systems not noted in ROS Statement are negative. 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 Hiatial hernia repair, hernia repair inguinal X3, deep brain stimulator, brain stimulator repair and battery change Past Anesthesia/Blood Transfusion Reactions: No Reported Reaction Past Psychological History: Anxiety, Depression Smoking Status: Never smoker - Past Family History Mother Family Medical History: Pneumonia Additional Family Medical History / Comment(s): at age 34 Father Family Medical History: COPD General Exam - General Exam Comments Initial Comments: This is a well-developed sec appearing male who is awake alert oriented 3 Limitations: no limitations General appearance: alert, anxious, in distress Head exam: Present: atraumatic, normocephalic, normal inspection Eye exam: Present: normal appearance, PERRL, EOMI. Absent: scleral icterus, conjunctival injection, periorbital swelling ENT exam: Present: normal exam, mucous membranes moist Neck exam: Present: normal inspection. Absent: tenderness, meningismus, lymphadenopathy Respiratory exam: Present: decreased breath sounds (Decreased breath sounds on the left evidence of kyphosis) Cardiovascular Exam: Present: regular rate, normal rhythm, normal heart sounds. Absent: systolic murmur, diastolic murmur, rubs, gallop, clicks GI/Abdominal exam: Present: soft, normal bowel sounds. Absent: distended, tenderness, guarding, rebound, rigid Extremities exam: Present: normal inspection, full ROM, normal capillary refill. Absent: tenderness, pedal edema, joint swelling, calf tenderness Back exam: Present: normal inspection Neurological exam: Present: alert, oriented X3, CN II-XII intact Psychiatric exam: Present: normal affect, normal mood Skin exam: Present: warm, dry, intact, normal color. Absent: rash Course Vital Signs 03/15/18 03/15/18 03/15/18 12:02 14:17 14:40 Temperature 97.4 F L Pulse Rate 93 96 88 Respiratory 20 20 Rate Blood Pressure 169/98 140/86 130/91 O2 Sat by Pulse 95 97 Oximetry 03/15/18 03/15/18 03/15/18 14:47 15:17 15:22 Temperature Pulse Rate 92 98 96 Respiratory Rate Blood Pressure 139/93 129/95 145/88 O2 Sat by Pulse 98 98 96 Oximetry 03/15/18 03/15/18 03/15/18 15:27 15:32 15:37 Temperature Pulse Rate 96 82 80 Respiratory Rate Blood Pressure 168/96 110/76 136/78 O2 Sat by Pulse 97 98 Oximetry 03/15/18 03/15/18 03/15/18 15:42 15:47 15:52 Temperature Pulse Rate 84 90 92 Respiratory Rate Blood Pressure 141/87 143/90 142/101 O2 Sat by Pulse 97 97 94 L Oximetry Procedures - Chest Tube Insertion Consent Obtained: written consent Time Out Performed: Yes Side of Procedure: left Indication: Pneumothorax Placed on monitor/pulse oximetry: Yes Site Prep: Povidone-Iodine, Chloroprep Local Anesthesia: Lidocaine 1% Insertion Site: 5th Intercostal Space, Midaxillary Scalpel: #10 Open into Pleural Space Using: Trocar Tube Size (Nepalese): Other Returns: Air Sutured in Place: Yes Dressing Applied: Petroleum Gauze, 4x4, Tape Attached to Suction: Yes Type of Suction: Pleuravac Repeat X-ray Results: Lung Inflated Patient Tolerated Procedure: well (0 Ethibond was used to suture the tube in place. I did place a #24-Nepalese catheter) - Procedural Sedation Procedural Sedation Start Time: 15:27 Procedural Sedation Stop Time: 15:52 Indications: other ASA Class: III Mallampati Airway Score: 2 Preparation: shank faker applied, pulse oximeter, capnometry used, supplemental O2 applied, reversal agents at bedside, suction/airway equipment at bedside, IV secured IV Propofol Dose (mgs): 70 Complications: none Patient Tolerated Procedure: well, no complications Medical Decision Making - Medical Decision Making I did discuss [employer] the patient and his family members were present initially a door event was attempted without success due to the patient's anatomy. #24- Nepalese thoracostomy tube was placed without difficulty. I did discuss case with Dr. Brower patient will be admitted with consultation by pulmonary medicine. - Lab Data Result diagrams: 03/15/18 13:34 03/15/18 13:34 Lab Results 03/15/18 03/15/18 Range/Units 13:34 13:34 WBC 5.7 (3.8-10.6) k/uL RBC 4.45 (4.30-5.90) m/uL Hgb 14.7 (13.0-17.5) gm/dL Hct 44.0 (39.0-53.0) % MCV 98.9 (80.0-100.0) fL MCH 33.0 (25.0-35.0) pg MCHC 33.4 (31.0-37.0) g/dL RDW 12.9 (11.5-15.5) % Plt Count 157 (150-450) k/uL Neutrophils % 83 % Lymphocytes % 13 % Monocytes % 3 % Eosinophils % 1 % Basophils % 0 % Neutrophils # 4.7 (1.3-7.7) k/uL Lymphocytes # 0.7 L (1.0-4.8) k/uL Monocytes # 0.2 (0-1.0) k/uL Eosinophils # 0.0 (0-0.7) k/uL Basophils # 0.0 (0-0.2) k/uL Sodium 144 (137-145) mmol/L Potassium 4.5 (3.5-5.1) mmol/L Chloride 108 H (98-107) mmol/L Carbon Dioxide 27 (22-30) mmol/L Anion Gap 9 mmol/L BUN 19 (9-20) mg/dL Creatinine 0.99 (0.66-1.25) mg/dL Est GFR (CKD-EPI)AfAm 85 (>60 ml/min/1.73 sqM) Est GFR (CKD-EPI)NonAf 74 (>60 ml/min/1.73 sqM) Glucose 111 H (74-99) mg/dL Calcium 9.5 (8.4-10.2) mg/dL Magnesium 2.0 (1.6-2.3) mg/dL Total Bilirubin 0.7 (0.2-1.3) mg/dL AST 29 (17-59) U/L ALT 31 (21-72) U/L Alkaline Phosphatase 71 (38-126) U/L Total Protein 7.2 (6.3-8.2) g/dL Albumin 4.2 (3.5-5.0) g/dL - Radiology Data Radiology results: report reviewed (I did review the imaging before and after the tube thoracostomy the lung was inflated), image reviewed Disposition Clinical Impression: Pneumothorax on left Disposition: ADMITTED IP TO THIS [facility] Condition: Stable Referrals: Sam Chan DO [Doctor of Osteopathic Medicine] - 1-2 days
[2018-03-15] MEDS ORDERED: fentaNYL (PF) 50 MCG/ML 2 ML AMP IV STA (12:56)
[2018-03-15] MEDS ORDERED: LIDOCAINE 1% INJ 10MG/ML (20 ML MDV) SQ ONE (13:46)
[2018-03-15 13:48] LABS: Basophils % (A) 0 %; Eosinophils % (A) 1 %; HGB 14.7 gm/dL (13.0-17.5); Lymphocytes # (A) 0.7 k/uL (1.0-4.8); Lymphocytes % (A) 13 %; MCHC 33.4 g/dL (31.0-37.0); MCV 98.9 fL (80.0-100.0); Mean Platelet Volume 7.1; Monocytes # (A) 0.2 k/uL (0-1.0); Monocytes % (A) 3 %; Neutrophils # (A) 4.7 k/uL (1.3-7.7); Neutrophils % (A) 83 %; Platelet Count 157 k/uL (150-450); RBC 4.45 m/uL (4.30-5.90); RDW 12.9 % (11.5-15.5); WBC 5.7 k/uL (3.8-10.6)
[2018-03-15] MEDS ORDERED: HYDROmorphone 1 MG/ML 1 ML SYRINGE IVP STA (13:53)
[2018-03-15] MEDS ORDERED: LORazepam 2 MG/ML INJ IV STA (13:53)
[2018-03-15 13:58] LABS: Albumin 4.2 g/dL (3.5-5.0); Calcium 9.5 mg/dL (8.4-10.2); Potassium 4.5 mmol/L (3.5-5.1); Total Bilirubin 0.7 mg/dL (0.2-1.3); Total Protein 7.2 g/dL (6.3-8.2)
[2018-03-15] MEDS ORDERED: PROPOFOL 10 MG/ML 20 ML VIAL IV ONE (14:47)
--- NOTE | 2018-03-15 16:04 | XR ---
EXAMINATION TYPE: XR chest 1V portable DATE OF EXAM: 03/15/2018 COMPARISON: 03/15/2018 earlier exam INDICATION: Tube placement, previous pneumothorax TECHNIQUE: Single frontal view of the chest is obtained. FINDINGS: The heart size is normal. The pulmonary vasculature is normal. The lungs are clear. There is a chest tube along the left base. Previous left pneumothorax has resolved. IMPRESSION: 1. 1 resolution previous left-sided pneumothorax. 2. Chest tube on the left base.
[2018-03-15] MEDS ORDERED: NALOXONE 0.4 MG/ML 1 ML VIAL IV PRN (16:43)
[2018-03-15] MEDS ORDERED: oxyCODONE-APAP 10-325MG 1 EACH TAB PO PRN (16:45)
[2018-03-15] MEDS ORDERED: LIDOCAINE 2% GEL 30 ML TUBE TOPICAL PRN (16:45)
[2018-03-15] MEDS ORDERED: METHADONE 10 MG TAB PO PRN (16:45)
[2018-03-15] MEDS: HYDROmorphone 1 MG/ML 1 ML SYRINGE IVP PRN ×2 (17:52→21:51)
[2018-03-15] MEDS: metFORMIN 500 MG TAB PO SCH (22:10)
[2018-03-15] MEDS: ATORVASTATIN 40 MG TAB PO SCH (22:10)
[2018-03-15] MEDS: ZOLPIDEM 5 MG TAB PO SCH (22:10)
[2018-03-15] MEDS: LIDOCAINE 5% PATCH TOPICAL PRN (22:11)
[2018-03-15] MEDS: SODIUM CHLORIDE 0.9% 1,000 ML IV SCH (22:11)
[2018-03-15 22:34] VITALS: BMI 27.8
[2018-03-16] MEDS: HYDROmorphone 1 MG/ML 1 ML SYRINGE IVP PRN ×3 (01:09→22:49)
[2018-03-16] MEDS: ZOLPIDEM 5 MG TAB PO SCH (03:01)
--- NOTE | 2018-03-16 07:40 | XR ---
EXAMINATION TYPE: XR chest 1V portable DATE OF EXAM: 03/16/2018 CLINICAL HISTORY: Difficulty breathing progress study. TECHNIQUE: Single AP portable upright view of the chest is obtained. COMPARISON: Chest x-ray from one day earlier and older studies FINDINGS: Underlying marked rotary scoliosis is redemonstrated making evaluation suboptimal. There i s partial visualization of fusion hardware in the thoracolumbar spine. There is persistent left basilar chest tube. Stimulator devices overlie the bilateral chest extending into the neck. There is stable mild cardiomegaly. Lungs remain grossly clear without pleural effusio n or pneumothorax seen bilaterally. IMPRESSION: Overall stable findings, persistent left basilar chest tube without sizable pneumothora x. No new suspicious acute pulmonary process.
[2018-03-16 07:59] LABS: Glucose,Whole Blood 126 mg/dL (75-99)
[2018-03-16] MEDS: metFORMIN 500 MG TAB PO SCH ×2 (08:23→17:40)
[2018-03-16] MEDS: PANTOPRAZOLE 40 MG TABLET PO SCH (08:23)
[2018-03-16] MEDS: SENNOSIDES 8.6 MG TAB PO SCH (08:23)
[2018-03-16] MEDS: POLYETHYLENE GLYCOL 3350 17 GM POWD.PACK PO SCH (08:23)
--- NOTE | 2018-03-16 11:15 | P.GSCN ---
<Jennifer Quiroga - Last Filed: 03/16/18 11:02> History of Present Illness Consult date: 03/16/18 Reason for Consult: Left sided pneumothorax, status post chest tube placement by emergency room physicians. Requesting physician: Pedro Ch History of present illness: This is a 77-year-old male patient who follows with Dr. Moyer on an outpatient basis. He has a previous medical history of diabetes, GERD, hyperlipidemia, neurologic disorder, osteoarthritis, skin cancer, multiple orthopedic surgeries, anxiety and depression, and placement of brain stimulator for chronic pain. Yesterday he had a spinal injection by the pain clinic for better pain control. Post procedure the patient developed severe left-sided chest pain and shortness of breath. Chest x-ray was completed which demonstrated a left-sided apical pneumothorax. The patient was taken to the emergency room where the ER physicians placed a chest tube with complete reexpansion of the left lung. The patient was admitted for workup and treatment. Dr. Xiong from cardiothoracic surgery was consulted or management of the left pleural chest tube. Review of Systems Review of systems was completed and is negative except as noted. 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 Hiatial hernia repair, hernia repair inguinal X3, deep brain stimulator, brain stimulator repair and battery change, egd/colonoscopy, rt thumb sxm cataracats,lt nasal lesion removed /cauterized, bronchoscopy Past Anesthesia/Blood Transfusion Reactions: No Reported Reaction Past Psychological History: Anxiety, Depression Smoking Status: Former smoker Past Alcohol Use History: None Reported Additional Past Alcohol Use History / Comment(s): smoked from 1965 to 1975 1ppd Past Drug Use History: None Reported - Past Family History Mother Family Medical History: Pneumonia Additional Family Medical History / Comment(s): at age 34 Father Family Medical History: COPD Medications and Allergies Home Medications Medication Instructions Recorded Confirmed Type Omeprazole [PriLOSEC] 40 mg PO DAILY 01/25/14 03/15/18 History Simvastatin [Zocor] 80 mg PO HS 01/25/14 03/15/18 History Zolpidem Tartrate [Ambien Cr] 10 mg PO HS 01/25/14 03/15/18 History clonazePAM [KlonoPIN] 2 mg PO HS 01/25/14 03/15/18 History metFORMIN HCL [Glucophage] 500 mg PO BID 01/25/14 03/15/18 History Methadone HCl [Dolophine HCl] 10 mg PO Q8HR PRN 08/12/15 03/15/18 History Diclofenac Sodium/Misoprostol 1 tab PO BID 01/26/17 03/15/18 History [Diclofenac-Misoprost 75-200 Tb] Lidocaine 5% Patch [Lidoderm] 3 patch TOPICAL DAILY PRN 01/26/17 03/15/18 History Polyethylene Glycol 3350 [Miralax] 17 gm PO DAILY 01/26/17 03/15/18 History oxyCODONE HCL/ACETAMINOPHEN 1 tab PO TID PRN 01/26/17 03/15/18 History [Percocet 10-325 mg] Sennosides [Senna] 8.6 mg PO DAILY 06/26/17 03/15/18 History Lidocaine 5% Oint [Xylocaine 5% 2 gm TOPICAL TID PRN 03/15/18 03/15/18 History Oint] Allergies Allergy/AdvReac Type Severity Reaction Status Date / Time No Known Allergies Allergy Verified 03/15/18 12:06 Surgical - Exam Vital Signs Temp Pulse Resp BP Pulse Ox 97.4 F L 93 20 169/98 95 03/15/18 12:02 03/15/18 12:02 03/15/18 12:02 03/15/18 12:02 03/15/18 12:02 - General well developed, well nourished, no distress, moderate pain - Eyes PERRL, normal ocular movement - ENT no hearing loss - Neck no masses, no bruits, trachea midline - Respiratory Lungs sounds diminished bilaterally. Respirations even, nonlabored. Currently on 4 L nasal cannula with oxygen saturation 98%. Left pleural chest tube present, it was connected to suction this morning, minimal serous drainage in the collection chamber, no air leak present. - Cardiovascular S1, S2 present. Regular rate and rhythm. Palpable peripheral pulses bilaterally. No edema present. No calf pain or tenderness noted. - Abdomen Abdomen: soft, non tender, bowel sounds - Genitourinary Deferred - Rectum Deferred - Integumentary no rash, no growths - Neurologic normal sensation - Psychiatric oriented to time, oriented to person, oriented to place, speech is normal, memory intact Results - Labs 03/15/18 13:34 03/15/18 13:34 Abnormal Lab Results - Last 24 Hours (Table) 03/15/18 03/15/18 03/16/18 Range/Units 13:34 13:34 07:42 Lymphocytes # 0.7 L (1.0-4.8) k/uL Chloride 108 H (98-107) mmol/L Glucose 111 H (74-99) mg/dL POC Glucose (mg/dL) 126 H (75-99) mg/dL Diabetes panel 03/15/18 Range/Units 13:34 Sodium 144 (137-145) mmol/L Potassium 4.5 (3.5-5.1) mmol/L Chloride 108 H (98-107) mmol/L Carbon Dioxide 27 (22-30) mmol/L BUN 19 (9-20) mg/dL Creatinine 0.99 (0.66-1.25) mg/dL Glucose 111 H (74-99) mg/dL Calcium 9.5 (8.4-10.2) mg/dL AST 29 (17-59) U/L ALT 31 (21-72) U/L Alkaline Phosphatase 71 (38-126) U/L Total Protein 7.2 (6.3-8.2) g/dL Albumin 4.2 (3.5-5.0) g/dL Calcium panel 03/15/18 Range/Units 13:34 Calcium 9.5 (8.4-10.2) mg/dL Albumin 4.2 (3.5-5.0) g/dL Pituitary panel 03/15/18 Range/Units 13:34 Sodium 144 (137-145) mmol/L Potassium 4.5 (3.5-5.1) mmol/L Chloride 108 H (98-107) mmol/L Carbon Dioxide 27 (22-30) mmol/L BUN 19 (9-20) mg/dL Creatinine 0.99 (0.66-1.25) mg/dL Glucose 111 H (74-99) mg/dL Calcium 9.5 (8.4-10.2) mg/dL Adrenal panel 03/15/18 Range/Units 13:34 Sodium 144 (137-145) mmol/L Potassium 4.5 (3.5-5.1) mmol/L Chloride 108 H (98-107) mmol/L Carbon Dioxide 27 (22-30) mmol/L BUN 19 (9-20) mg/dL Creatinine 0.99 (0.66-1.25) mg/dL Glucose 111 H (74-99) mg/dL Calcium 9.5 (8.4-10.2) mg/dL Total Bilirubin 0.7 (0.2-1.3) mg/dL AST 29 (17-59) U/L ALT 31 (21-72) U/L Alkaline Phosphatase 71 (38-126) U/L Total Protein 7.2 (6.3-8.2) g/dL Albumin 4.2 (3.5-5.0) g/dL - Imaging Chest x-ray: report reviewed, image reviewed Assessment and Plan (1) Pneumothorax on left Current Visit: Yes Status: Acute Code(s): J93.9 - PNEUMOTHORAX, UNSPECIFIED SNOMED Code(s): 992515657 Plan: The patient's was seen and examined at the bedside. Chart/diagnostics were reviewed. The case was discussed in detail with Dr. Xiong. This morning we removed the patient's chest tube from suction as his pneumothorax has resolved on x-ray and he has no air leak. We will repeat his x-ray tomorrow morning, if he has no recurrence of his pneumothorax and there continues to be no air leak we will discontinue his left pleural chest tube tomorrow. We will recommend incentive spirometry use 10 times every hour while awake. Pain control per primary care services. Thank you Dr. Ch for this consult. We look forward to working with you the care of your patient. Time with Patient: Greater than 30 <Steve Xiong - Last Filed: 03/16/18 14:53> Surgical - Exam Vital Signs Temp Pulse Resp BP Pulse Ox 97.4 F L 93 20 169/98 95 03/15/18 12:02 03/15/18 12:02 03/15/18 12:02 03/15/18 12:02 03/15/18 12:02 Results - Labs 03/15/18 13:34 03/15/18 13:34 Abnormal Lab Results - Last 24 Hours (Table) 03/16/18 03/16/18 Range/Units 07:42 11:19 POC Glucose (mg/dL) 126 H 102 H (75-99) mg/dL Assessment and Plan Plan: The patient was seen and examined. I agree with the above assessment and plan. The patient is a 77-year-old male with a history of multiple medical problems including chronic pain. Apparently he was getting an injection yesterday due to his chronic pain and a follow-up chest x-ray revealed a pneumothorax. A left -sided chest tube was placed in the emergency department with complete resolution of the pneumothorax. This morning there is no evidence of air leak and his lung appears to be expanded on imaging studies. We will place the chest tube to [facility] today. Thank you for allowing me to participate in the care of this patient. Should you have any further questions please feel free to call me at your earliest convenience.
[2018-03-16 11:22] LABS: Glucose,Whole Blood 102 mg/dL (75-99)
[2018-03-16] MEDS: KETOROLAC 30 MG/ML 1 ML VIAL IVP SCH ×2 (12:23→17:40)
--- NOTE | 2018-03-16 13:55 | P.CNPUL ---
History of Present Illness Consult date: 03/16/18 Requesting physician: Aaron Rogers Reason for consult: dyspnea, chest pain, pneumothorax Chief complaint: Left pneumothorax History of present illness: This is 77-year-old white male patient of Dr. Moyer who presented to the emergency department on 03/15/2018 for evaluation of breath, acute left-sided chest discomfort following spinal injection at the [facility] for chronic back pain. Patient follows with Dr. Chan for chronic back pain, related to significant scoliosis, was having ongoing back pain, and was having a spinal injection, when he started having left-sided chest pain, accompanied with dyspnea. He was sent in for an urgent chest x-ray, he revealed left apical pneumothorax estimated at 30%. Patient was then evaluated in the emergency department and left Thoravent placement was attempted unsuccessfully. Left-sided #24 chest tube was then placed, and the Pleur-evac was connected to suction, with subsequent reexpansion of the left lung as evidenced on the follow-up chest x-ray. This morning's chest x-ray was reviewed, and showed no sizable pneumothorax, no acute pulmonary process. Left chest tube is in place. Patient was seen by CT surgery, and his chest tube was placed to waterseal, no evidence of airleak. Patient has a history of smoking, in the remote past, quit 50 years ago, only smoked for a few years. No history of COPD. 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 Patient is having mild to moderate amount of left chest discomfort related to chest tube insertion, he is currently on 4 L per nasal cannula and his pulse ox 95%, last night he did have one episode of low-grade fever 100.5F, afebrile this morning , he been and nonlabored, lung sounds are clear, diminished at the bases. Were seeing this patient for pulmonary management Review of Systems All systems: negative Constitutional: Denies chills, Denies fever Eyes: denies blurred vision, denies pain Ears, nose, mouth and throat: Denies headache, Denies sore throat Cardiovascular: Denies chest pain, Denies shortness of breath Respiratory: Reports dyspnea, Denies cough Gastrointestinal: Denies abdominal pain, Denies diarrhea, Denies nausea, Denies vomiting Musculoskeletal: Denies myalgias Integumentary: Denies pruritus, Denies rash Neurological: Denies numbness, Denies weakness Psychiatric: Denies anxiety, Denies depression Endocrine: Denies fatigue, Denies weight change Past Medical History Past Medical History: Cancer, Diabetes Mellitus, GERD/Reflux, Hyperlipidemia, Neurologic Disorder, Osteoarthritis (OA), Pneumonia, Skin Disorder Additional Past Medical History / Comment(s): 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 Hiatial hernia repair, hernia repair inguinal X3, deep brain stimulator, brain stimulator repair and battery change, egd/colonoscopy, rt thumb sxm cataracats,lt nasal lesion removed /cauterized, bronchoscopy Past Anesthesia/Blood Transfusion Reactions: No Reported Reaction Past Psychological History: Anxiety, Depression Smoking Status: Former smoker Past Alcohol Use History: None Reported Additional Past Alcohol Use History / Comment(s): smoked from 1965 to 1975 1ppd Past Drug Use History: None Reported - Past Family History Mother Family Medical History: Pneumonia Additional Family Medical History / Comment(s): at age 34 Father Family Medical History: COPD Medications and Allergies Home Medications Medication Instructions Recorded Confirmed Type Omeprazole [PriLOSEC] 40 mg PO DAILY 01/25/14 03/15/18 History Simvastatin [Zocor] 80 mg PO HS 01/25/14 03/15/18 History Zolpidem Tartrate [Ambien Cr] 10 mg PO HS 01/25/14 03/15/18 History clonazePAM [KlonoPIN] 2 mg PO HS 01/25/14 03/15/18 History metFORMIN HCL [Glucophage] 500 mg PO BID 01/25/14 03/15/18 History Methadone HCl [Dolophine HCl] 10 mg PO Q8HR PRN 08/12/15 03/15/18 History Diclofenac Sodium/Misoprostol 1 tab PO BID 01/26/17 03/15/18 History [Diclofenac-Misoprost 75-200 Tb] Lidocaine 5% Patch [Lidoderm] 3 patch TOPICAL DAILY PRN 01/26/17 03/15/18 History Polyethylene Glycol 3350 [Miralax] 17 gm PO DAILY 01/26/17 03/15/18 History oxyCODONE HCL/ACETAMINOPHEN 1 tab PO TID PRN 01/26/17 03/15/18 History [Percocet 10-325 mg] Sennosides [Senna] 8.6 mg PO DAILY 06/26/17 03/15/18 History Lidocaine 5% Oint [Xylocaine 5% 2 gm TOPICAL TID PRN 03/15/18 03/15/18 History Oint] Allergies Allergy/AdvReac Type Severity Reaction Status Date / Time No Known Allergies Allergy Verified 03/15/18 12:06 Physical Exam Vitals: Vital Signs Temp Pulse Pulse Resp BP BP BP 03/16/18 08:14 16 03/16/18 07:25 98.7 F 93 16 130/69 03/16/18 07:17 03/16/18 01:13 98.1 F 03/16/18 00:44 100.5 F H 113 H 20 137/69 03/15/18 22:00 113 H 03/15/18 18:22 97.0 F L 103 H 18 145/90 03/15/18 17:22 102 H 174/101 03/15/18 16:52 100 119/103 03/15/18 16:22 86 128/86 03/15/18 15:52 92 142/101 03/15/18 15:47 90 143/90 03/15/18 15:42 84 141/87 03/15/18 15:37 80 136/78 03/15/18 15:32 82 110/76 03/15/18 15:27 96 168/96 03/15/18 15:22 96 145/88 03/15/18 15:17 98 129/95 03/15/18 14:47 92 139/93 03/15/18 14:40 88 130/91 03/15/18 14:17 96 20 140/86 Pulse Ox 03/16/18 08:14 03/16/18 07:25 95 03/16/18 07:17 97 03/16/18 01:13 03/16/18 00:44 98 03/15/18 22:00 03/15/18 18:22 99 03/15/18 17:22 100 03/15/18 16:52 03/15/18 16:22 98 03/15/18 15:52 94 L 03/15/18 15:47 97 03/15/18 15:42 97 03/15/18 15:37 03/15/18 15:32 98 03/15/18 15:27 97 03/15/18 15:22 96 03/15/18 15:17 98 03/15/18 14:47 98 03/15/18 14:40 03/15/18 14:17 97 Intake and Output 03/15/18 03/16/18 03/16/18 22:59 06:59 14:59 Other: Voiding Method Urinal Weight 68.946 kg 64.5 kg GENERAL EXAM: Alert, pleasant, 77-year-old white male comfortable in no apparent distress. HEAD: Normocephalic/atraumatic. EYES: Normal reaction of pupils, equal size. Conjunctiva pink, sclera white. NOSE: Clear with pink turbinates. THROAT: No erythema or exudates. NECK: No masses, no JVD, no thyroid enlargement, no adenopathy. CHEST: Left-sided anterior chest wall chest tube is present, acute to Pleur-evac , currently to waterseal, with 10 mL of sanguinous output in the Pleur-evac. Evidence of air leak noted. Patient has significant degree of scoliosis noted LUNGS: Equal air entry with no crackles, wheeze, rhonchi or dullness. Diminished breath sounds CVS: Regular rate and rhythm, normal S1 and S2, no gallops, no murmurs, no rubs ABDOMEN: Soft, nontender. No hepatosplenomegaly, normal bowel sounds, no guarding or rigidity. EXTREMITIES: No clubbing, no edema, no cyanosis, 2+ pulses and upper and lower extremities. MUSCULOSKELETAL: Muscle strength and tone normal. SPINE: No scoliosis or deformity SKIN: No rashes CENTRAL NERVOUS SYSTEM: Alert and oriented -3. No focal deficits, tone is normal in all 4 extremities. PSYCHIATRIC: Alert and oriented -3. Appropriate affect. Intact judgment and insight. Results - Laboratory Findings CBC and BMP: 03/15/18 13:34 03/15/18 13:34 Abnormal lab findings: Abnormal Labs 03/15/18 03/15/18 03/16/18 13:34 13:34 07:42 Lymphocytes # 0.7 L Chloride 108 H Glucose 111 H POC Glucose (mg/dL) 126 H 03/16/18 11:19 Lymphocytes # Chloride Glucose POC Glucose (mg/dL) 102 H - Diagnostic Findings Chest x-ray: report reviewed, image reviewed Additional studies: EKG reviewed Assessment and Plan Plan: Assessment: #1. Acute hypoxic respiratory failure secondary to acute left pneumothorax, status post left chest tube placement with subsequent reexpansion of the left lung #2. Chronic back pain, scoliosis of the spine, previous back surgeries #3. Diabetes mellitus type II #4. Central tremors, status post deep brain stimulators. #5. Osteoarthritis #6. Anxiety, depression #7. Brief and remote history of smoking, quit smoking 50 years ago. Plan: CT surgery has been consulted for chest tube management, today's chest x-ray showed reexpansion of the left lung, chest tube was placed to waterseal. Maintain pain control, encourage deep breathing and coughing, providing incentive spirometer. We'll continue to follow I performed a history & physical examination of the patient and discussed their management with my nurse practitioner, Ann Mcdaniel. I reviewed the nurse practitioner's note and agree with the documented findings and plan of care. Lung sounds are clear, diminished. The findings and the impression was discussed with the patient. I attest to the documentation by the nurse practitioner. Time with Patient: Greater than 30
--- NOTE | 2018-03-16 14:34 | P.HPIM ---
History of Present Illness H&P Date: 03/16/18 Chief Complaint: Shortness of breath, pneumothorax 77-year-old male who presented to the emergency department on 2017 with an acute onset of dyspnea. The patient had underwent a facet block by Dr. Chan for chronic back pain and developed shortness of breath shortly after the procedure was completed. He was sent to the ER for further evaluation. An x-ray completed in the emergency room revealed a left apical pneumothorax estimated at 30%. No other suspicious acute process was identified. A chest tube was inserted in the emergency room and connected to continuous suction. Repeat chest x-ray revealed reexpansion of the left lung. Repeat chest x-ray this morning reveals no pneumothorax bilaterally, no pleural effusions, and no new suspicious acute pulmonary process. The patient was evaluated by pulmonology and also cardiothoracic surgery. His chest tube was placed to waterseal this morning per cardiothoracic surgery. He has had minimal output in his chest tube. There is no air leak present. Patient states his shortness of breath is improving. He denies chest pain or pressure. Denies cough or congestion. Denies nausea or vomiting. He does report some discomfort at the chest tube insertion site. Patient did have one episode of a low-grade fever at 100.5. He has remained afebrile since. His vital signs remained stable. He is on 4 L nasal cannula with oxygen saturations greater than 92%. 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 Hiatial hernia repair, hernia repair inguinal X3, deep brain stimulator, brain stimulator repair and battery change, egd/colonoscopy, rt thumb sxm cataracats,lt nasal lesion removed /cauterized, bronchoscopy Past Anesthesia/Blood Transfusion Reactions: No Reported Reaction Past Psychological History: Anxiety, Depression Smoking Status: Former smoker Past Alcohol Use History: None Reported Additional Past Alcohol Use History / Comment(s): smoked from 1965 to 1975 1ppd Past Drug Use History: None Reported - Past Family History Mother Family Medical History: Pneumonia Additional Family Medical History / Comment(s): at age 34 Father Family Medical History: COPD Medications and Allergies Home Medications Medication Instructions Recorded Confirmed Type Omeprazole [PriLOSEC] 40 mg PO DAILY 01/25/14 03/15/18 History Simvastatin [Zocor] 80 mg PO HS 01/25/14 03/15/18 History Zolpidem Tartrate [Ambien Cr] 10 mg PO HS 01/25/14 03/15/18 History clonazePAM [KlonoPIN] 2 mg PO HS 01/25/14 03/15/18 History metFORMIN HCL [Glucophage] 500 mg PO BID 01/25/14 03/15/18 History Methadone HCl [Dolophine HCl] 10 mg PO Q8HR PRN 08/12/15 03/15/18 History Diclofenac Sodium/Misoprostol 1 tab PO BID 01/26/17 03/15/18 History [Diclofenac-Misoprost 75-200 Tb] Lidocaine 5% Patch [Lidoderm] 3 patch TOPICAL DAILY PRN 01/26/17 03/15/18 History Polyethylene Glycol 3350 [Miralax] 17 gm PO DAILY 01/26/17 03/15/18 History oxyCODONE HCL/ACETAMINOPHEN 1 tab PO TID PRN 01/26/17 03/15/18 History [Percocet 10-325 mg] Sennosides [Senna] 8.6 mg PO DAILY 06/26/17 03/15/18 History Lidocaine 5% Oint [Xylocaine 5% 2 gm TOPICAL TID PRN 03/15/18 03/15/18 History Oint] Allergies Allergy/AdvReac Type Severity Reaction Status Date / Time No Known Allergies Allergy Verified 03/15/18 12:06 Physical Exam Vitals: Vital Signs Temp Pulse Pulse Resp BP BP BP 03/16/18 08:14 16 03/16/18 07:25 98.7 F 93 16 130/69 03/16/18 07:17 03/16/18 01:13 98.1 F 03/16/18 00:44 100.5 F H 113 H 20 137/69 03/15/18 22:00 113 H 03/15/18 18:22 97.0 F L 103 H 18 145/90 03/15/18 17:22 102 H 174/101 03/15/18 16:52 100 119/103 03/15/18 16:22 86 128/86 03/15/18 15:52 92 142/101 03/15/18 15:47 90 143/90 03/15/18 15:42 84 141/87 03/15/18 15:37 80 136/78 03/15/18 15:32 82 110/76 03/15/18 15:27 96 168/96 03/15/18 15:22 96 145/88 03/15/18 15:17 98 129/95 03/15/18 14:47 92 139/93 03/15/18 14:40 88 130/91 03/15/18 14:17 96 20 140/86 Pulse Ox 03/16/18 08:14 03/16/18 07:25 95 03/16/18 07:17 97 03/16/18 01:13 03/16/18 00:44 98 03/15/18 22:00 03/15/18 18:22 99 03/15/18 17:22 100 03/15/18 16:52 03/15/18 16:22 98 03/15/18 15:52 94 L 03/15/18 15:47 97 03/15/18 15:42 97 03/15/18 15:37 03/15/18 15:32 98 03/15/18 15:27 97 03/15/18 15:22 96 03/15/18 15:17 98 03/15/18 14:47 98 03/15/18 14:40 03/15/18 14:17 97 Intake and Output 03/15/18 03/16/18 03/16/18 22:59 06:59 14:59 Other: Voiding Method Urinal Weight 68.946 kg 64.5 kg GENERAL: This is a 77-year-old male in no apparent distress at the time of examination. Pleasant and cooperative. HEENT: Head is atraumatic, normocephalic. Pupils are equal, round, and reactive to light. Sclerae anicteric. Conjunctivae are clear. Mucus membranes of the mouth are moist. Neck is supple. RESPIRATORY: Clear to ausculation. No wheezes, rales, or rhonchi. No use of accessory muscles. Patient maintaining oxygen saturation greater than 92%. Left chest tube noted with minimal drainage in the atrium. Chest tube currently to waterseal. No air leak noted. Mild tenderness noted at chest tube insertion site. CARDIOVASCULAR: Regular rate and rhythm. S1 and S2 noted. No systolic or diastolic murmur auscultated. No JVD noted. No S3 or S4 noted. GASTROINTESTINAL: No distention noted. Abdomen soft and round. Normal active bowel sounds auscultated x 4 quadrants. No pain or tenderness noted upon palpation. INTEGUMENTARY: No cyanosis. No jaundice. No rashes noted. No cellulitis noted. EXTREMITIES: 2+ peripheral pulses. No evidence of peripheral edema. No calf tenderness noted. NEUROLOGIC: Cranial nerves II-XII intact. PSYCHIATRIC: Awake, alert, and oriented X 3. Appropriate affect. Intact judgement and insight. Results CBC & Chem 7: 03/15/18 13:34 03/15/18 13:34 Labs: Abnormal Lab Results - Last 24 Hours (Table) 03/16/18 03/16/18 Range/Units 07:42 11:19 POC Glucose (mg/dL) 126 H 102 H (75-99) mg/dL Thrombosis Risk Factor Assmnt - Choose All That Apply Each Factor Represents 1 point: Medical pt on bed rest Each Risk Factor Represents 3 Points: Age 75 years or older Thrombosis Risk Factor Assessment Total Risk Factor Score: 4 Thrombosis Risk Factor Assessment Level: Moderate Risk Assessment and Plan Plan: ASSESSMENT: Acute left pneumothorax s/p facet block injection outpatient, status post chest tube insertion with reexpansion of left lung Acute hypoxic respiratory failure, secondary to above Chronic back pain secondary to severe scoliosis Diabetes mellitus, type II Gastroesophageal reflux disease Osteoarthritis Hyperlipidemia History of anxiety and depression History of remote nicotine dependence PLAN: Pulmonology and cardiothoracic surgery on consult. Appreciate recommendations and input Continue chest tube to waterseal Repeat chest x-ray in AM Incentive spirometer 10 times an hour while awake Pain control Home meds as appropriate Monitor labs GI prophylaxis: Protonix 40 mg PO Daily DVT prophylaxis: SCDs to bilateral lower extremities Monitor vital signs and address as appropriate Discharge planning: Patient to return home when stable Further recommendations pending patient's course Nurse practitioner note has been reviewed by physician. Signing provider agrees with the documented findings, assessment, and plan of care.
[2018-03-16] MEDS: LIDOCAINE 5% PATCH TOPICAL PRN (15:34)
[2018-03-16 16:57] LABS: Glucose,Whole Blood 129 mg/dL (75-99)
[2018-03-16] MEDS: INSULIN ASPART 100 UNIT/ML 1 ML 10 ML VIAL SQ SCH ×2 (16:59→21:53)
[2018-03-16] MEDS: SODIUM CHLORIDE 0.9% 1,000 ML IV SCH (17:41)
[2018-03-16 20:52] LABS: Glucose,Whole Blood 144 mg/dL (75-99)
[2018-03-16] MEDS ORDERED: ZOLPIDEM 10 MG TAB PO SCH (21:00)
[2018-03-16] MEDS: ATORVASTATIN 40 MG TAB PO SCH (21:53)
[2018-03-16 22:51] LABS: Hemoglobin A1C 6.1 % (4.0-6.0)
[2018-03-17] MEDS: KETOROLAC 30 MG/ML 1 ML VIAL IVP SCH ×3 (01:04→11:33)
[2018-03-17] MEDS: HYDROmorphone 1 MG/ML 1 ML SYRINGE IVP PRN ×2 (03:53→15:11)
[2018-03-17 07:27] LABS: Glucose,Whole Blood 115 mg/dL (75-99)
[2018-03-17] MEDS: INSULIN ASPART 100 UNIT/ML 1 ML 10 ML VIAL SQ SCH ×2 (07:32→13:14)
[2018-03-17] MEDS: PANTOPRAZOLE 40 MG TABLET PO SCH (07:34)
[2018-03-17] MEDS: SENNOSIDES 8.6 MG TAB PO SCH (07:34)
[2018-03-17] MEDS: metFORMIN 500 MG TAB PO SCH (07:34)
[2018-03-17] MEDS: POLYETHYLENE GLYCOL 3350 17 GM POWD.PACK PO SCH (07:35)
--- NOTE | 2018-03-17 10:27 | P.PN ---
Subjective Progress Note Date: 03/17/18 77-year-old male who presented to the emergency department on 2017 with an acute onset of dyspnea. The patient had underwent a facet block by Dr. Chan for chronic back pain and developed shortness of breath shortly after the procedure was completed. He was sent to the ER for further evaluation. An x-ray completed in the emergency room revealed a left apical pneumothorax estimated at 30%. No other suspicious acute process was identified. A chest tube was inserted in the emergency room and connected to continuous suction. Repeat chest x-ray revealed reexpansion of the left lung. Repeat chest x-ray this morning reveals no pneumothorax bilaterally, no pleural effusions, and no new suspicious acute pulmonary process. The patient was evaluated by pulmonology and also cardiothoracic surgery. His chest tube was placed to waterseal this morning per cardiothoracic surgery. He has had minimal output in his chest tube. There is no air leak present. Patient states his shortness of breath is improving. He denies chest pain or pressure. Denies cough or congestion. Denies nausea or vomiting. He does report some discomfort at the chest tube insertion site. Patient did have one episode of a low-grade fever at 100.5. He has remained afebrile since. His vital signs remained stable. He is on 4 L nasal cannula with oxygen saturations greater than 92%. 03/17/2018 Patient seen and examined at the bedside. Patient is awake and alert. Chest tube remains to water seal. No air leak noted. Patient denies shortness of breath. Vital signs remain stable. Repeat CXR this morning is pending. Objective - Vital Signs Vital signs: Vital Signs Temp 98.7 F 03/17/18 05:45 Pulse 84 03/17/18 05:45 Resp 14 03/17/18 05:45 BP 136/76 03/17/18 05:45 Pulse Ox 95 03/17/18 08:44 Intake & Output 03/16/18 03/17/18 03/17/18 18:59 06:59 18:59 Intake Total 750 Output Total 310 500 Balance 440 -500 Intake: Oral 750 Output: Chest Tube Drainage 10 Chest Tube Left 10 Urine 300 500 Other: # Voids 1 - Exam GENERAL: This is a 77-year-old male in no apparent distress at the time of examination. Pleasant and cooperative. HEENT: Head is atraumatic, normocephalic. Pupils are equal, round, and reactive to light. Sclerae anicteric. Conjunctivae are clear. Mucus membranes of the mouth are moist. Neck is supple. RESPIRATORY: Clear to ausculation. No wheezes, rales, or rhonchi. No use of accessory muscles. Patient maintaining oxygen saturation greater than 92%. Left chest tube noted with minimal drainage in the atrium. Chest tube currently to waterseal. No air leak noted. Mild tenderness noted at chest tube insertion site. CARDIOVASCULAR: Regular rate and rhythm. S1 and S2 noted. No systolic or diastolic murmur auscultated. No JVD noted. No S3 or S4 noted. GASTROINTESTINAL: No distention noted. Abdomen soft and round. Normal active bowel sounds auscultated x 4 quadrants. No pain or tenderness noted upon palpation. INTEGUMENTARY: No cyanosis. No jaundice. No rashes noted. No cellulitis noted. EXTREMITIES: 2+ peripheral pulses. No evidence of peripheral edema. No calf tenderness noted. NEUROLOGIC: Cranial nerves II-XII intact. PSYCHIATRIC: Awake, alert, and oriented X 3. Appropriate affect. Intact judgement and insight. - Labs CBC & Chem 7: 03/15/18 13:34 03/15/18 13:34 Labs: Abnormal Lab Results - Last 24 Hours (Table) 03/15/18 03/16/18 03/16/18 Range/Units 13:34 11:19 16:53 POC Glucose (mg/dL) 102 H 129 H (75-99) mg/dL Hemoglobin A1c 6.1 H (4.0-6.0) % 03/16/18 03/17/18 Range/Units 20:34 07:22 POC Glucose (mg/dL) 144 H 115 H (75-99) mg/dL Hemoglobin A1c (4.0-6.0) % Assessment and Plan Plan: ASSESSMENT: Acute left pneumothorax s/p facet block injection outpatient, status post chest tube insertion with reexpansion of left lung Acute hypoxic respiratory failure, secondary to above Chronic back pain secondary to severe scoliosis Diabetes mellitus, type II Gastroesophageal reflux disease Osteoarthritis Hyperlipidemia History of anxiety and depression History of remote nicotine dependence PLAN: Pulmonology and cardiothoracic surgery on consult. Appreciate recommendations and input Continue chest tube to waterseal Repeat chest x-ray this AM. await results. Incentive spirometer 10 times an hour while awake Pain control Home meds as appropriate Monitor labs GI prophylaxis: Protonix 40 mg PO Daily DVT prophylaxis: SCDs to bilateral lower extremities Monitor vital signs and address as appropriate Discharge planning: Patient to return home when stable Further recommendations pending patient's course Nurse practitioner note has been reviewed by physician. Signing provider agrees with the documented findings, assessment, and plan of care.
--- NOTE | 2018-03-17 11:26 | XR ---
EXAMINATION TYPE: XR chest 2V DATE OF EXAM: 03/17/2018 COMPARISON: 03/16/2018 HISTORY: Shortness of breath TECHNIQUE: Frontal and lateral views of the chest are obtained. FINDINGS: Scattered senescent parenchymal changes noted. Hyperinflation compatible with COPD. Left-sided chest tube is in place. Left apical pneumothorax persists. Heart size is stable. Mediastinal structures are stable and grossly unremarkable. No evidence for hilar prominence. Degenerative changes dorsal spine. IMPRESSION: 1. Left-sided chest tube is in place. Left apical pneumothorax persists.
--- NOTE | 2018-03-17 13:10 | P.PN ---
Subjective Progress Note Date: 03/17/18 Principal diagnosis: Acute hypoxemic respiratory failure secondary to acute left pneumothorax, status post left chest tube placement with subsequent reexpansion of the left lung This is 77-year-old white male patient of Dr. Moyer who presented to the emergency department on 03/15/2018 for evaluation of breath, acute left-sided chest discomfort following spinal injection at the [facility] for chronic back pain. Patient follows with Dr. Chan for chronic back pain, related to significant scoliosis, was having ongoing back pain, and was having a spinal injection, when he started having left-sided chest pain, accompanied with dyspnea. He was sent in for an urgent chest x-ray, he revealed left apical pneumothorax estimated at 30%. Patient was then evaluated in the emergency department and left Thoravent placement was attempted unsuccessfully. Left-sided #24 chest tube was then placed, and the Pleur-evac was connected to suction, with subsequent reexpansion of the left lung as evidenced on the follow-up chest x-ray. This morning's chest x-ray was reviewed, and showed no sizable pneumothorax, no acute pulmonary process. Left chest tube is in place. Patient was seen by CT surgery, and his chest tube was placed to waterseal, no evidence of airleak. Patient has a history of smoking, in the remote past, quit 50 years ago, only smoked for a few years. No history of COPD. 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 Patient is having mild to moderate amount of left chest discomfort related to chest tube insertion, he is currently on 4 L per nasal cannula and his pulse ox 95%, last night he did have one episode of low-grade fever 100.5F, afebrile this morning , he been and nonlabored, lung sounds are clear, diminished at the bases. Were seeing this patient for pulmonary management On 03/17/2018 patient seen in follow-up on medical surgical floor. Left chest tube is in place, to waterseal, no evidence of air leak. No worsening shortness of breath, patient is compliant with his incentive spirometry, able to achieve 1500 on it. Repeat chest x-ray was taken, results are pending at this time. Lung sounds are positive for minimal crackles at the left lower base , no rhonchi, no wheezes. Room air pulse ox is 96%, patient is afebrile, hemodynamically stable, mild to moderate amount of discomfort at the left chest tube site. No other complaints. Objective - Vital Signs Vital signs: Vital Signs Temp 98.7 F 03/17/18 05:45 Pulse 84 03/17/18 05:45 Resp 14 03/17/18 05:45 BP 136/76 03/17/18 05:45 Pulse Ox 96 03/17/18 11:25 Intake & Output 03/16/18 03/17/18 03/17/18 18:59 06:59 18:59 Intake Total 750 Output Total 310 500 Balance 440 -500 Intake: Oral 750 Output: Chest Tube Drainage 10 Chest Tube Left 10 Urine 300 500 Other: # Voids 1 - Exam GENERAL EXAM: Alert, pleasant, 77-year-old white male comfortable in no apparent distress. HEAD: Normocephalic/atraumatic. EYES: Normal reaction of pupils, equal size. Conjunctiva pink, sclera white. NOSE: Clear with pink turbinates. THROAT: No erythema or exudates. NECK: No masses, no JVD, no thyroid enlargement, no adenopathy. CHEST: Left-sided anterior chest wall chest tube is present, acute to Pleur-evac , currently to waterseal, with 10 mL of sanguinous output in the Pleur-evac. Evidence of air leak noted. Patient has significant degree of scoliosis noted LUNGS: Equal air entry with no crackles, wheeze, rhonchi or dullness. Diminished breath sounds, with limited crackles at the left lower base CVS: Regular rate and rhythm, normal S1 and S2, no gallops, no murmurs, no rubs ABDOMEN: Soft, nontender. No hepatosplenomegaly, normal bowel sounds, no guarding or rigidity. EXTREMITIES: No clubbing, no edema, no cyanosis, 2+ pulses and upper and lower extremities. MUSCULOSKELETAL: Muscle strength and tone normal. SPINE: No scoliosis or deformity SKIN: No rashes CENTRAL NERVOUS SYSTEM: Alert and oriented -3. No focal deficits, tone is normal in all 4 extremities. PSYCHIATRIC: Alert and oriented -3. Appropriate affect. Intact judgment and insight. - Labs CBC & Chem 7: 03/15/18 13:34 03/15/18 13:34 Labs: Abnormal Lab Results - Last 24 Hours (Table) 03/15/18 03/16/18 03/16/18 Range/Units 13:34 16:53 20:34 POC Glucose (mg/dL) 129 H 144 H (75-99) mg/dL Hemoglobin A1c 6.1 H (4.0-6.0) % 03/17/18 Range/Units 07:22 POC Glucose (mg/dL) 115 H (75-99) mg/dL Hemoglobin A1c (4.0-6.0) % Assessment and Plan Plan: Assessment: #1. Acute hypoxic respiratory failure secondary to acute left pneumothorax, status post left chest tube placement with subsequent reexpansion of the left lung #2. Chronic back pain, scoliosis of the spine, previous back surgeries #3. Diabetes mellitus type II #4. Central tremors, status post deep brain stimulators. #5. Osteoarthritis #6. Anxiety, depression #7. Brief and remote history of smoking, quit smoking 50 years ago. Plan: Continue encouraging incentive spirometry, repeat chest x-ray has been taken, and shows persistence of left apical pneumothorax, CT surgery is managing the chest tube, which remains to waterseal. Maintain pain control, deep breathing and coughing, increase activity as tolerated. Continue to follow I performed a history & physical examination of the patient and discussed their management with my nurse practitioner, Ann Mcdaniel. I reviewed the nurse practitioner's note and agree with the documented findings and plan of care. Lung sounds are clear, diminished. The findings and the impression was discussed with the patient. I attest to the documentation by the nurse practitioner. Time with Patient: Less than 30
--- NOTE | 2018-03-17 14:18 | XR ---
EXAMINATION TYPE: XR chest 2V DATE OF EXAM: 03/17/2018 COMPARISON: 03/17/2018 HISTORY: Shortness of breath TECHNIQUE: Frontal and lateral views of the chest are obtained. FINDINGS: Examination is limited by patient positioning. Left basilar chest tube is unchanged in position. Tiny Left apical pneumothorax is unchanged. Heart size is stable. Mediastinal structures are stable and grossly unremarkable. No evidence for hilar prominence. Degenerative changes dorsal spine. IMPRESSION: 1. Left basilar chest tube is unchanged in position. Tiny Left apical pneumothorax is unchanged.
--- NOTE | 2018-03-17 14:21 | P.PN ---
Subjective Progress Note Date: 03/17/18 Principal diagnosis: Left-sided pneumothorax. Previous medical history of diabetes, GERD, hyperlipidemia, neurological disorder, osteoarthritis, skin cancer, multiple orthopedic surgeries, anxiety, depression, and placement of brain stimulator for chronic pain. POD #2 placement of left-sided pleural chest tube by the emergency room physicians. Patient is currently lying in bed in no acute distress. Does complain of some pain at the chest tube site but otherwise no new complaints. Left pleural chest tube was placed to waterseal yesterday with no air leak present currently. Clamped this morning. Objective - Vital Signs Vital signs: Vital Signs Temp 98.7 F 03/17/18 05:45 Pulse 84 03/17/18 05:45 Resp 14 03/17/18 05:45 BP 136/76 03/17/18 05:45 Pulse Ox 96 03/17/18 11:25 Intake & Output 03/16/18 03/17/18 03/17/18 18:59 06:59 18:59 Intake Total 750 Output Total 310 500 Balance 440 -500 Intake: Oral 750 Output: Chest Tube Drainage 10 Chest Tube Left 10 Urine 300 500 Other: # Voids 1 - Constitutional General appearance: Present: cooperative, no acute distress - Respiratory Details: Lungs sounds diminished bilaterally. Respirations even, nonlabored. Currently on 1 L nasal cannula with oxygen saturation 97%. Left pleural chest tube present to waterseal, minimal serous drainage in the collection chamber, no air leak present. - Cardiovascular Details: S1, S2 present. Regular rate and rhythm. Palpable peripheral pulses bilaterally. No edema present. No calf pain or tenderness noted. - Gastrointestinal Gastrointestinal Comment(s): Abdomen soft, nontender, nondistended. Active bowel sounds 4 quadrants. Tolerating diet. - Genitourinary Genitourinary Comment(s): Continues to void. - Integumentary Integumentary Comment(s): Skin is warm and dry with evidence of good perfusion. Left pleural chest tube site covered with dry intact dressing. - Neurologic Neurologic: Present: CNII-XII intact - Psychiatric Psychiatric: Present: A&O x's 3, appropriate affect, intact judgment & insight - Allied health notes Allied health notes reviewed: nursing - Labs CBC & Chem 7: 03/15/18 13:34 03/15/18 13:34 Labs: Abnormal Lab Results - Last 24 Hours (Table) 03/15/18 03/16/18 03/16/18 Range/Units 13:34 16:53 20:34 POC Glucose (mg/dL) 129 H 144 H (75-99) mg/dL Hemoglobin A1c 6.1 H (4.0-6.0) % 03/17/18 Range/Units 07:22 POC Glucose (mg/dL) 115 H (75-99) mg/dL Hemoglobin A1c (4.0-6.0) % - Imaging and Cardiology Chest x-ray: report reviewed, image reviewed Assessment and Plan (1) Pneumothorax on left Current Visit: Yes Status: Acute Code(s): J93.9 - PNEUMOTHORAX, UNSPECIFIED SNOMED Code(s): 689968630 Plan: 1. Chest tube was clamped this morning. Will repeat x-ray. If no significant change will discontinue pleural chest tube. 2. Will repeat chest x-ray once chest tube is discontinued. Stable may discharged home from our standpoint. 3. Encourage incentive spirometry use. 4. Management of pain and other comorbidities per primary care service. 5. More recommendations to follow. Time with Patient: Greater than 30
[2018-03-17 15:49] VITALS: BP 144/63; PULSE 90; RESP 16; TEMP 98.4
--- NOTE | 2018-03-17 17:23 | XR ---
EXAMINATION TYPE: XR chest 1V portable DATE OF EXAM: 03/17/2018 COMPARISON: 03/17/2018 HISTORY: Chest tube removal TECHNIQUE: Single frontal view of the chest is obtained. FINDINGS: There is no heart failure nor confluent pneumonic infiltrate. There are bilateral axillary neurostimulators. There is possible small left apical pneumothorax. Exam is limited. There is slight blunting of right costophrenic angle. Small right pleural effusion is possible. IMPRESSION: Chest tube has been removed. Possible small left apical pneumothorax.
[2018-03-17] MEDS ORDERED: LIDOCAINE 5% PATCH TOPICAL SCH (21:00)
== END 2018-03-17 17:20 | disposition home or self-care (01) | DRG 199 ==
LOC: EDSTATUS 11:54 → EC 11:54 → 4MS4W 16:43
PROVIDERS: ADMIT Family Medicine; ATTEND Family Medicine
PROC: 0W9B30Z Drainage of Left Pleural Cavity with Drainage Device, Percutaneous Approach (ICD-10-PCS; principal; 2018-03-15)
DX: J95.811 Postprocedural pneumothorax (principal); J96.01 Acute respiratory failure with hypoxia; Y83.8 Other surgical procedures as the cause of abnormal reaction of the patient, or of later complication, without mention of misadventure at the time of the procedure; E11.9 Type 2 diabetes mellitus without complications; E78.5 Hyperlipidemia, unspecified; F32.9 Major depressive disorder, single episode, unspecified; F41.9 Anxiety disorder, unspecified; G25.81 Restless legs syndrome; G89.29 Other chronic pain; J45.909 Unspecified asthma, uncomplicated; K21.9 Gastro-esophageal reflux disease without esophagitis; M19.90 Unspecified osteoarthritis, unspecified site; M41.9 Scoliosis, unspecified; Z82.5 Family history of asthma and other chronic lower respiratory diseases; Z85.828 Personal history of other malignant neoplasm of skin; Z87.891 Personal history of nicotine dependence; Z79.84 Long term (current) use of oral hypoglycemic drugs; Z79.899 Other long term (current) drug therapy; Z90.49 Acquired absence of other specified parts of digestive tract
CPT/HCPCS: 32551; 36415; 71045; 71046; 80053; 83036; 83735; 85025; 93005; 94760; 96374; 96375; 96376; 99152; 99285

== ENCOUNTER → 2018-05-04 | Outpatient (CLI) | payer MEDICARE ==
[2018-05-04 16:15] LABS: Basophils % (A) 0 %; Eosinophils % (A) 1 %; HCT 43.4 % (39.0-53.0); HGB 13.5 gm/dL (13.0-17.5); Lymphocytes # (A) 1.1 k/uL (1.0-4.8); Lymphocytes % (A) 19 %; MCH 31.8 pg (25.0-35.0); MCHC 31.1 g/dL (31.0-37.0); MCV 102.2 fL (80.0-100.0); Macrocytosis Slight; Mean Platelet Volume 6.8; Monocytes # (A) 0.4 k/uL (0-1.0); Monocytes % (A) 7 %; Neutrophils # (A) 4.1 k/uL (1.3-7.7); Neutrophils % (A) 72 %; Platelet Count 196 k/uL (150-450); RBC 4.25 m/uL (4.30-5.90); RDW 13.7 % (11.5-15.5); WBC 5.6 k/uL (3.8-10.6)
[2018-05-05 02:47] LABS: Albumin 4.3 g/dL (3.80-4.90); Albumin/Globulin Ratio 2.05 (1.20-2.10); Anion Gap 9.2 mmol/L (4.00-12.00); Bilirubin, Conjugated 0.2 mg/dL (0.20-0.40); Bilirubin,Unconjugated 0.2 mg/dL; Calcium 9.1 mg/dL (8.7-10.3); Carbon Dioxide 26.8 mmol/L (21.6-31.8); Globulin 2.1 g/dL (2.1-3.7); Potassium 4.6 mmol/L (3.5-5.5); Total Bilirubin 0.4 mg/dL (0.2-1.2); Total Protein 6.4 g/dL (6.2-8.2)
== END ==
LOC: LABWHC1 15:22
PROVIDERS: ATTEND Physical Medicine & Rehabilitation
DX: Z01.818 Encounter for other preprocedural examination (principal); M54.5 Low back pain; M41.26 Other idiopathic scoliosis, lumbar region; M48.07 Spinal stenosis, lumbosacral region; M43.17 Spondylolisthesis, lumbosacral region; G89.4 Chronic pain syndrome; M47.817 Spondylosis without myelopathy or radiculopathy, lumbosacral region; M51.17 Intervertebral disc disorders with radiculopathy, lumbosacral region; M40.203 Unspecified kyphosis, cervicothoracic region; G89.0 Central pain syndrome; M40.295 Other kyphosis, thoracolumbar region; M40.292 Other kyphosis, cervical region; E78.5 Hyperlipidemia, unspecified; M81.0 Age-related osteoporosis without current pathological fracture; Z87.09 Personal history of other diseases of the respiratory system; M25.511 Pain in right shoulder; M25.512 Pain in left shoulder; E11.9 Type 2 diabetes mellitus without complications; M94.221 Chondromalacia, right elbow; M62.81 Muscle weakness (generalized); Z98.1 Arthrodesis status; R07.81 Pleurodynia
CPT/HCPCS: 36415; 80048; 80076; 84443; 85025; 93005

== ENCOUNTER 2018-07-04 12:44 | Emergency (ER) | payer MEDICARE ==
[2018-07-04 13:05] VITALS: RESP 18
--- NOTE | 2018-07-04 13:18 | ED ---
General Adult HPI - General Chief complaint: Abdominal Pain Stated complaint: ABDOMINAL PAIN Time Seen by Provider: 07/04/18 13:00 Source: patient, RN notes reviewed Mode of arrival: EMS Limitations: no limitations - History of Present Illness Initial comments: This is a 77-year-old male who presents emergency Department complaining of a two-week history of abdominal pain. Patient states he is often constipated but he did get an enema this morning and had some results but he still has abdominal pain. Patient states the pain is in the left upper quadrant. Patient states this is typical of the pain he has when he has constant. Patient states he takes narcotics for chronic back pain. Patient denies any fever chills per patient denies any vomiting. Patient states he is still eating and drinking. Patient denies any dysuria hematuria urinary frequency. Patient states she does not ambulate secondary to previous neck surgeries. - Related Data Home Medications Medication Instructions Recorded Confirmed Omeprazole [PriLOSEC] 40 mg PO DAILY 01/25/14 07/04/18 Simvastatin [Zocor] 80 mg PO HS 01/25/14 07/04/18 Zolpidem Tartrate [Ambien Cr] 10 mg PO HS PRN 01/25/14 07/04/18 clonazePAM [KlonoPIN] 2 mg PO HS 01/25/14 07/04/18 metFORMIN HCL [Glucophage] 500 mg PO BID 01/25/14 07/04/18 Diclofenac Sodium/Misoprostol 1 tab PO BID 01/26/17 07/04/18 [Diclofenac-Misoprost 75-200 Tb] oxyCODONE HCL/ACETAMINOPHEN 1 tab PO TID PRN 01/26/17 07/04/18 [Percocet 10-325 mg] DULoxetine HCL [Cymbalta] 120 mg PO DAILY 07/04/18 07/04/18 Linaclotide [Linzess] 145 mcg PO DAILY 07/04/18 07/04/18 Methadone HCl [Dolophine HCl] 10 mg PO TID PRN 07/04/18 07/04/18 Montelukast [Singulair] 10 mg PO DAILY 07/04/18 07/04/18 Naldemedine Tosylate [Symproic] 0.2 mg PO DAILY 07/04/18 07/04/18 Naloxegol Oxalate [Movantik] 25 mg PO BID 07/04/18 07/04/18 Allergies Allergy/AdvReac Type Severity Reaction Status Date / Time No Known Allergies Allergy Verified 07/04/18 13:44 Review of Systems ROS Statement: Those systems with pertinent positive or pertinent negative responses have been documented in the HPI. ROS Other: All systems not noted in ROS Statement are negative. 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 Hiatial hernia repair, hernia repair inguinal X3, deep brain stimulator, brain stimulator repair and battery change, egd/colonoscopy, rt thumb sxm cataracats,lt nasal lesion removed /cauterized, bronchoscopy Past Anesthesia/Blood Transfusion Reactions: No Reported Reaction Past Psychological History: Anxiety, Depression Smoking Status: Former smoker Past Alcohol Use History: None Reported Past Drug Use History: None Reported - Past Family History Mother Family Medical History: Pneumonia Additional Family Medical History / Comment(s): at age 34 Father Family Medical History: COPD General Exam - General Exam Comments Initial Comments: GENERAL: Patient is well-developed and well-nourished. Patient is nontoxic and well- hydrated and is in mild distress. ENT: Neck is soft and supple. No significant lymphadenopathy is noted. Oropharynx is clear. Moist mucous membranes. Neck has full range of motion without eliciting any pain. EYES: The sclera were anicteric and conjunctiva were pink and moist. Extraocular movements were intact and pupils were equal round and reactive to light. Eyelids were unremarkable. PULMONARY: Unlabored respirations. Good breath sounds bilaterally. No audible rales rhonchi or wheezing was noted. CARDIOVASCULAR: There is a regular rate and rhythm without any murmurs gallops or rubs. ABDOMEN: Minimal tenderness left upper quadrant. No palpable organomegaly was noted. There is no palpable pulsatile mass. SKIN: Skin is clear with no lesions or rashes and otherwise unremarkable. NEUROLOGIC: Patient is alert and oriented x3. Cranial nerves II through XII are grossly intact. Motor and sensory are also intact. Normal speech, volume and content. Symmetrical smile. MUSCULOSKELETAL: Normal extremities with adequate strength and full range of motion. No lower extremity swelling or edema. No calf tenderness. LYMPHATICS: No significant lymphadenopathy is noted PSYCHIATRIC: Normal psychiatric evaluation. Limitations: no limitations Course Vital Signs 07/04/18 07/04/18 12:55 14:00 Temperature 98.6 F Pulse Rate 101 H 89 Respiratory 18 18 Rate Blood Pressure 146/96 146/92 O2 Sat by Pulse 94 L 93 L Oximetry Medical Decision Making - Medical Decision Making I will back into room to reevaluate the patient he was eating a sandwich and drinking and felt fine. Patient states his abdominal pain had subsided and he wanted to go home. KUB showed no acute abnormality. - Lab Data Result diagrams: 07/04/18 13:41 07/04/18 13:41 Lab Results 07/04/18 07/04/18 07/04/18 Range/Units 13:41 13:41 13:41 WBC 8.3 (3.8-10.6) k/uL RBC 4.05 L (4.30-5.90) m/uL Hgb 13.4 (13.0-17.5) gm/dL Hct 40.4 (39.0-53.0) % MCV 99.9 (80.0-100.0) fL MCH 33.1 (25.0-35.0) pg MCHC 33.1 (31.0-37.0) g/dL RDW 12.7 (11.5-15.5) % Plt Count 166 (150-450) k/uL Neutrophils % (Manual) 90 % Lymphocytes % (Manual) 7 % Monocytes % (Manual) 3 % Neutrophils # (Manual) 7.47 (1.3-7.7) k/uL Lymphocytes # (Manual) 0.58 L (1.0-4.8) k/uL Monocytes # (Manual) 0.25 (0-1.0) k/uL Nucleated RBCs 0 (0-0) /100 WBC Manual Slide Review Performed RBC Morphology Normal Sodium 139 (137-145) mmol/L Potassium 4.5 (3.5-5.1) mmol/L Chloride 106 (98-107) mmol/L Carbon Dioxide 24 (22-30) mmol/L Anion Gap 9 mmol/L BUN 16 (9-20) mg/dL Creatinine 1.00 (0.66-1.25) mg/dL Est GFR (CKD-EPI)AfAm 84 (>60 ml/min/1.73 sqM) Est GFR (CKD-EPI)NonAf 73 (>60 ml/min/1.73 sqM) Glucose 117 H (74-99) mg/dL Calcium 9.4 (8.4-10.2) mg/dL Total Bilirubin 0.9 (0.2-1.3) mg/dL AST 36 (17-59) U/L ALT 38 (21-72) U/L Alkaline Phosphatase 60 (38-126) U/L Total Protein 7.2 (6.3-8.2) g/dL Albumin 4.3 (3.5-5.0) g/dL Amylase 41 (30-110) U/L Lipase 42 (23-300) U/L Urine Color Light Yellow Urine Appearance Clear (Clear) Urine pH 5.0 (5.0-8.0) Ur Specific [place] 1.003 (1.001-1.035) Urine Protein Negative (Negative) Urine Glucose (UA) Negative (Negative) Urine Ketones Negative (Negative) Urine Blood Negative (Negative) Urine Nitrite Negative (Negative) Urine Bilirubin Negative (Negative) Urine Urobilinogen <2.0 (<2.0) mg/dL Ur Leukocyte Esterase Negative (Negative) Disposition Clinical Impression: Abdominal pain Disposition: HOME SELF-CARE Instructions: Abdominal Pain (ED) Is patient prescribed a controlled substance at d/c from ED?: No Referrals: Marciano Moyer MD [Primary Care Provider] - 1-2 days Time of Disposition: 16:48
[2018-07-04 14:15] LABS: Appearance,Urine Clear (Clear); Bilirubin,Urine Negative (Negative); Blood,Urine Negative (Negative); Color,Urine Light Yellow; Glucose,Urine (UA) Negative (Negative); Ketones,Urine Negative (Negative); Leukocyte Esterase,Urine Negative (Negative); Nitrite,Urine Negative (Negative); Protein,Urine Negative (Negative); Specific Gravity,Urine 1.003 (1.001-1.035); Urobilinogen,Urine <2.0 mg/dL (<2.0)
[2018-07-04 14:17] LABS: Albumin 4.3 g/dL (3.5-5.0); Calcium 9.4 mg/dL (8.4-10.2); Potassium 4.5 mmol/L (3.5-5.1); Total Bilirubin 0.9 mg/dL (0.2-1.3); Total Protein 7.2 g/dL (6.3-8.2)
--- NOTE | 2018-07-04 14:21 | XR ---
EXAMINATION TYPE: XR KUB DATE OF EXAM: 07/04/2018 CLINICAL DATA: 77-year-old male left upper quadrant abdominal pain for 2 weeks, constipation, PHH COMPARISON: 07/26/2013 and chest x-ray 04/13/2018 and 03/10/2017 FINDINGS: Generator devices projecting at the bilateral hemithoraces. Lung bases appear clear with similar nodu larity at the right infrahilar region, likely prominent vessel on end, unchanged from 2017. Lung bases are clear. No evidence for free intraperitoneal air. No dilated small bowel or air-fluid levels. Scattered air is seen throughout the colon extending dist ally into the rectum. No significant stool burden. Some phleboliths in the pelvis. Thoracolumbar fusion hardware with prominent levoconvex curvature of the thoracic spine. IMPRESSION: 1. Scoliotic deformity with prior posterior thoracolumbar fusion. 2. Nonobstructive bowel gas pattern. No free air. No significant stool burden.
[2018-07-04 15:14] LABS: Nucleated Red Blood Cells 0 /100 WBC (0-0); Total Cells Counted 100
[2018-07-04] MEDS ORDERED: ACETAMINOPHEN TAB 325 MG TAB PO STA (15:54)
[2018-07-04 16:11] LABS: Neutrophils % (M) 90 %
[2018-07-04 16:12] LABS: Platelet Count 166 k/uL (150-450)
[2018-07-04 16:24] LABS: Lymphocytes # (M) 0.58 k/uL (1.0-4.8); Monocytes # (M) 0.25 k/uL (0-1.0); Neutrophils # (M) 7.47 k/uL (1.3-7.7); WBC 8.3 k/uL (3.8-10.6)
[2018-07-04 16:25] LABS: HCT 40.4 % (39.0-53.0); HGB 13.4 gm/dL (13.0-17.5); MCH 33.1 pg (25.0-35.0); MCHC 33.1 g/dL (31.0-37.0); MCV 99.9 fL (80.0-100.0); Mean Platelet Volume 7.6; RBC 4.05 m/uL (4.30-5.90); RDW 12.7 % (11.5-15.5)
[2018-07-04 17:05] VITALS: BP 128/85; PULSE 93; TEMP 98.7
== END 2018-07-04 17:03 | disposition home or self-care (01) ==
LOC: EC 12:44
DX: R10.12 Left upper quadrant pain (principal); M54.9 Dorsalgia, unspecified; G89.29 Other chronic pain; E11.9 Type 2 diabetes mellitus without complications; E78.5 Hyperlipidemia, unspecified; K21.9 Gastro-esophageal reflux disease without esophagitis; F41.9 Anxiety disorder, unspecified; F32.9 Major depressive disorder, single episode, unspecified; Z79.84 Long term (current) use of oral hypoglycemic drugs; Z79.899 Other long term (current) drug therapy; Z87.891 Personal history of nicotine dependence; Z85.828 Personal history of other malignant neoplasm of skin
CPT/HCPCS: 36415; 74018; 80053; 81003; 82150; 83690; 85025; 99284

== ENCOUNTER 2019-06-05 17:35 | Emergency (ER) | payer MEDICARE ==
[2019-06-05 17:51] VITALS: RESP 18; TEMP 97.9
[2019-06-05] MEDS ORDERED: SODIUM CHLORIDE 0.9% 500 ML 500 ML IV STA (18:16)
--- NOTE | 2019-06-05 18:29 | ED ---
Weakness HPI <Aaron Rogers - Last Filed: 06/05/19 20:41> - General Source: patient Mode of arrival: wheelchair Limitations: no limitations <Laxmi Ortega - Last Filed: 06/05/19 23:12> - General Chief complaint: Weakness Stated complaint: fall Time Seen by Provider: 06/05/19 18:08 - History of Present Illness Initial comments: 78-year-old male medically debilitated patient presents to the emergency department today for evaluation of generalized weakness and sleeping more than usual. Patient states symptoms have been worsening over the last 2 days. He is also experiencing nasal congestion and drainage. States he is coughing up clear sputum. Does report some mild shortness of breath. Denies chest pain, abdominal pain, nausea, or vomiting. Denies numbness or tingling to his extremities. Patient is wheelchair bound but does occasionally perform one-stop self transfers which has been unable to do over the last 2 days. Denies any fevers or chills with this. Denies any dysuria, urinary urgency, urinary frequency. Patient is incontinent of urine and does wear brief, this is usual for him. Patient denies any recent rash, diarrhea, constipation, back pain, numbness, tingling, dizziness, headache, visual changes, or any other complaints. (Laxmi Ortega) - Related Data Home Medications Medication Instructions Recorded Confirmed Omeprazole [PriLOSEC] 40 mg PO DAILY 01/25/14 07/04/18 Simvastatin [Zocor] 80 mg PO HS 01/25/14 07/04/18 Zolpidem Tartrate [Ambien Cr] 10 mg PO HS PRN 01/25/14 07/04/18 clonazePAM [KlonoPIN] 2 mg PO HS 01/25/14 07/04/18 metFORMIN HCL [Glucophage] 500 mg PO BID 01/25/14 07/04/18 Diclofenac Sodium/Misoprostol 1 tab PO BID 01/26/17 07/04/18 [Diclofenac-Misoprost 75-200 Tb] oxyCODONE HCL/ACETAMINOPHEN 1 tab PO TID PRN 01/26/17 07/04/18 [Percocet 10-325 mg] DULoxetine HCL [Cymbalta] 120 mg PO DAILY 07/04/18 07/04/18 Linaclotide [Linzess] 145 mcg PO DAILY 07/04/18 07/04/18 Methadone HCl [Dolophine HCl] 10 mg PO TID PRN 07/04/18 07/04/18 Montelukast [Singulair] 10 mg PO DAILY 07/04/18 07/04/18 Naldemedine Tosylate [Symproic] 0.2 mg PO DAILY 07/04/18 07/04/18 Naloxegol Oxalate [Movantik] 25 mg PO BID 07/04/18 07/04/18 Previous Rx's Medication Instructions Recorded Azithromycin 250 mg PO DAILY 4 Days #4 tab 06/05/19 Allergies Allergy/AdvReac Type Severity Reaction Status Date / Time No Known Allergies Allergy Verified 06/05/19 17:51 Review of Systems ROS Other: All systems not noted in ROS Statement are negative. <Aaron Rogers - Last Filed: 06/05/19 20:41> ROS Other: All systems not noted in ROS Statement are negative. <Laxmi Ortega - Last Filed: 06/05/19 23:12> ROS Statement: Those systems with pertinent positive or pertinent negative responses have been documented in the HPI. 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 Hiatial hernia repair, hernia repair inguinal X3, deep brain stimulator, brain stimulator repair and battery change, egd/colonoscopy, rt thumb sxm cataracats,lt nasal lesion removed/cauterized, bronchoscopy Past Anesthesia/Blood Transfusion Reactions: No Reported Reaction Past Psychological History: Anxiety, Depression Smoking Status: Former smoker Past Alcohol Use History: None Reported Past Drug Use History: None Reported - Past Family History Mother Family Medical History: Pneumonia Additional Family Medical History / Comment(s): at age 34 Father Family Medical History: COPD <Laxmi Ortega - Last Filed: 06/05/19 23:12> General Exam Limitations: no limitations General appearance: alert, in no apparent distress, other (This is a well- developed, well-nourished elderly male patient in no acute distress. Patient is wheelchair-bound appears to be kyphotic. Temperature is 97.9F, pulse 79, respirations 18, blood pressure 137/74, pulse ox 93% on room air.) Eye exam: Present: normal appearance, PERRL, EOMI. Absent: scleral icterus, conjunctival injection, periorbital swelling ENT exam: Present: normal exam, normal oropharynx, mucous membranes moist Respiratory exam: Present: normal lung sounds bilaterally. Absent: respiratory distress, wheezes, rales, rhonchi, stridor Cardiovascular Exam: Present: regular rate, normal rhythm, normal heart sounds. Absent: systolic murmur, diastolic murmur, rubs, gallop, clicks GI/Abdominal exam: Present: soft, normal bowel sounds. Absent: distended, tenderness, guarding, rebound, rigid Neurological exam: Present: alert, oriented X3, CN II-XII intact Psychiatric exam: Present: normal affect, normal mood Skin exam: Present: warm, dry, intact, normal color. Absent: rash <Laxmi Ortega - Last Filed: 06/05/19 23:12> Course <Aaron Rogers - Last Filed: 06/05/19 20:41> Vital Signs 06/05/19 06/05/19 06/05/19 17:48 19:50 21:58 Temperature 97.9 F Pulse Rate 79 66 64 Respiratory 18 18 18 Rate Blood Pressure 137/74 133/61 120/69 O2 Sat by Pulse 93 L 94 L 93 L Oximetry - Reevaluation(s) Reevaluation #1: 06/05/19 20:41 FITNESS AND WELLNESS DIRECTOR supervision: I personally [id number] evaluation the patient did discuss the findings with the patient and his . He did present with complaints of weakness the workup revealed that he had renal insufficiency prerenal azotemia dehydration. He was given IV fluids and did feel improved he does have evidence of upper respiratory infection he will be placed on appropriate medication. I do agree with the assessment and plan. (Aaron Rogers) Medical Decision Making - Lab Data Result diagrams: 06/05/19 18:40 06/05/19 18:40 <Aaron Rogers - Last Filed: 06/05/19 20:41> - Lab Data Result diagrams: 06/05/19 18:40 06/05/19 18:40 - Radiology Data Radiology results: report reviewed, image reviewed <Laxmi Ortega - Last Filed: 06/05/19 23:12> - Medical Decision Making 78-year-old male patient presents to the emergency department today for evaluation of cough and nasal drainage. He is also experiencing generalized weakness. Physical examination reveals clear equal lung sounds. He is afebrile normal vital signs. He is neurologically intact with no focal deficits. Labs reviewed and did reveal increased and BUN and creatinine consistent with dehydration. Chest x-ray showed no acute cardiopulmonary process. He will be given a azithromycin for upper respiratory infection. He was given IV fluids. We discharged office primary care physician for recheck in 1-2 days. Return parameters were discussed in detail. He verbalizes understanding and agrees with this plan. (Laxmi Ortega) - Lab Data Lab Results 06/05/19 06/05/19 06/05/19 Range/Units 18:40 18:40 18:40 WBC 7.2 (3.8-10.6) k/uL RBC 3.32 L (4.30-5.90) m/uL Hgb 11.2 L (13.0-17.5) gm/dL Hct 33.5 L (39.0-53.0) % MCV 100.9 H (80.0-100.0) fL MCH 33.7 (25.0-35.0) pg MCHC 33.4 (31.0-37.0) g/dL RDW 12.5 (11.5-15.5) % Plt Count 171 (150-450) k/uL Neutrophils % 76 % Lymphocytes % 12 % Monocytes % 6 % Eosinophils % 3 % Basophils % 0 % Neutrophils # 5.5 (1.3-7.7) k/uL Lymphocytes # 0.8 L (1.0-4.8) k/uL Monocytes # 0.5 (0-1.0) k/uL Eosinophils # 0.2 (0-0.7) k/uL Basophils # 0.0 (0-0.2) k/uL PT (9.0-12.0) sec INR (<1.2) APTT (22.0-30.0) sec Sodium 140 (137-145) mmol/L Potassium 5.0 (3.5-5.1) mmol/L Chloride 108 H (98-107) mmol/L Carbon Dioxide 24 (22-30) mmol/L Anion Gap 8 mmol/L BUN 36 H (9-20) mg/dL Creatinine 1.37 H (0.66-1.25) mg/dL Est GFR (CKD-EPI)AfAm 57 (>60 ml/min/1.73 sqM) Est GFR (CKD-EPI)NonAf 49 (>60 ml/min/1.73 sqM) Glucose 112 H (74-99) mg/dL Plasma Lactic Acid Porfirio 0.9 (0.7-2.0) mmol/L Calcium 9.1 (8.4-10.2) mg/dL Magnesium 2.1 (1.6-2.3) mg/dL Total Bilirubin 0.6 (0.2-1.3) mg/dL AST 32 (17-59) U/L ALT 23 (21-72) U/L Alkaline Phosphatase 60 (38-126) U/L Troponin I (0.000-0.034) ng/mL Total Protein 6.3 (6.3-8.2) g/dL Albumin 3.6 (3.5-5.0) g/dL Urine Color Urine Appearance (Clear) Urine pH (5.0-8.0) Ur Specific [place] (1.001-1.035) Urine Protein (Negative) Urine Glucose (UA) (Negative) Urine Ketones (Negative) Urine Blood (Negative) Urine Nitrite (Negative) Urine Bilirubin (Negative) Urine Urobilinogen (<2.0) mg/dL Ur Leukocyte Esterase (Negative) Urine RBC (0-5) /hpf Urine WBC (0-5) /hpf Urine Bacteria (None) /hpf Urine Mucus (None) /hpf Influenza Type A RNA (Not Detectd) Influenza Type B (PCR) (Not Detectd) 06/05/19 06/05/19 06/05/19 Range/Units 18:40 18:40 18:40 WBC (3.8-10.6) k/uL RBC (4.30-5.90) m/uL Hgb (13.0-17.5) gm/dL Hct (39.0-53.0) % MCV (80.0-100.0) fL MCH (25.0-35.0) pg MCHC (31.0-37.0) g/dL RDW (11.5-15.5) % Plt Count (150-450) k/uL Neutrophils % % Lymphocytes % % Monocytes % % Eosinophils % % Basophils % % Neutrophils # (1.3-7.7) k/uL Lymphocytes # (1.0-4.8) k/uL Monocytes # (0-1.0) k/uL Eosinophils # (0-0.7) k/uL Basophils # (0-0.2) k/uL PT 10.0 (9.0-12.0) sec INR 0.9 (<1.2) APTT 26.0 (22.0-30.0) sec Sodium (137-145) mmol/L Potassium (3.5-5.1) mmol/L Chloride (98-107) mmol/L Carbon Dioxide (22-30) mmol/L Anion Gap mmol/L BUN (9-20) mg/dL Creatinine (0.66-1.25) mg/dL Est GFR (CKD-EPI)AfAm (>60 ml/min/1.73 sqM) Est GFR (CKD-EPI)NonAf (>60 ml/min/1.73 sqM) Glucose (74-99) mg/dL Plasma Lactic Acid Porfirio (0.7-2.0) mmol/L Calcium (8.4-10.2) mg/dL Magnesium (1.6-2.3) mg/dL Total Bilirubin (0.2-1.3) mg/dL AST (17-59) U/L ALT (21-72) U/L Alkaline Phosphatase (38-126) U/L Troponin I <0.012 (0.000-0.034) ng/mL Total Protein (6.3-8.2) g/dL Albumin (3.5-5.0) g/dL Urine Color Yellow Urine Appearance Clear (Clear) Urine pH 5.0 (5.0-8.0) Ur Specific [place] 1.015 (1.001-1.035) Urine Protein Trace H (Negative) Urine Glucose (UA) Negative (Negative) Urine Ketones Negative (Negative) Urine Blood Trace H (Negative) Urine Nitrite Negative (Negative) Urine Bilirubin Negative (Negative) Urine Urobilinogen <2.0 (<2.0) mg/dL Ur Leukocyte Esterase Negative (Negative) Urine RBC 1 (0-5) /hpf Urine WBC 1 (0-5) /hpf Urine Bacteria Rare H (None) /hpf Urine Mucus Rare H (None) /hpf Influenza Type A RNA (Not Detectd) Influenza Type B (PCR) (Not Detectd) 06/05/19 Range/Units 18:42 WBC (3.8-10.6) k/uL RBC (4.30-5.90) m/uL Hgb (13.0-17.5) gm/dL Hct (39.0-53.0) % MCV (80.0-100.0) fL MCH (25.0-35.0) pg MCHC (31.0-37.0) g/dL RDW (11.5-15.5) % Plt Count (150-450) k/uL Neutrophils % % Lymphocytes % % Monocytes % % Eosinophils % % Basophils % % Neutrophils # (1.3-7.7) k/uL Lymphocytes # (1.0-4.8) k/uL Monocytes # (0-1.0) k/uL Eosinophils # (0-0.7) k/uL Basophils # (0-0.2) k/uL PT (9.0-12.0) sec INR (<1.2) APTT (22.0-30.0) sec Sodium (137-145) mmol/L Potassium (3.5-5.1) mmol/L Chloride (98-107) mmol/L Carbon Dioxide (22-30) mmol/L Anion Gap mmol/L BUN (9-20) mg/dL Creatinine (0.66-1.25) mg/dL Est GFR (CKD-EPI)AfAm (>60 ml/min/1.73 sqM) Est GFR (CKD-EPI)NonAf (>60 ml/min/1.73 sqM) Glucose (74-99) mg/dL Plasma Lactic Acid Porfirio (0.7-2.0) mmol/L Calcium (8.4-10.2) mg/dL Magnesium (1.6-2.3) mg/dL Total Bilirubin (0.2-1.3) mg/dL AST (17-59) U/L ALT (21-72) U/L Alkaline Phosphatase (38-126) U/L Troponin I (0.000-0.034) ng/mL Total Protein (6.3-8.2) g/dL Albumin (3.5-5.0) g/dL Urine Color Urine Appearance (Clear) Urine pH (5.0-8.0) Ur Specific [place] (1.001-1.035) Urine Protein (Negative) Urine Glucose (UA) (Negative) Urine Ketones (Negative) Urine Blood (Negative) Urine Nitrite (Negative) Urine Bilirubin (Negative) Urine Urobilinogen (<2.0) mg/dL Ur Leukocyte Esterase (Negative) Urine RBC (0-5) /hpf Urine WBC (0-5) /hpf Urine Bacteria (None) /hpf Urine Mucus (None) /hpf Influenza Type A RNA Not Detected (Not Detectd) Influenza Type B (PCR) Not Detected (Not Detectd) - Radiology Data Two-view x-ray of the chest is obtained. Report reviewed in its entirety. I mpression by Dr. Kamla Valadez shows no definite acute radiographic process. (Laxmi Ortega) Disposition <Aaron Rogers - Last Filed: 06/05/19 20:41> Is patient prescribed a controlled substance at d/c from ED?: No Time of Disposition: 20:46 <Laxmi Ortega - Last Filed: 06/05/19 23:12> Clinical Impression: Viral upper respiratory infection, Dehydration Disposition: HOME SELF-CARE Condition: Good Instructions (If sedation given, give patient instructions): Dehydration (ED), Upper Respiratory Infection (ED) Additional Instructions: Increase fluids. Complete antibiotic prescription filled. Follow-up with your primary care physician for recheck in 1-2 days. Return to the emergency department immediately for any new, worsening, or concerning symptoms. Prescriptions: Azithromycin 250 mg PO DAILY 4 Days #4 tab Referrals: Marciano Moyer MD [Primary Care Provider] - 1-2 days
[2019-06-05 19:10] LABS: Basophils % (A) 0 %; Eosinophils # (A) 0.2 k/uL (0-0.7); Eosinophils % (A) 3 %; HCT 33.5 % (39.0-53.0); HGB 11.2 gm/dL (13.0-17.5); Lymphocytes # (A) 0.8 k/uL (1.0-4.8); Lymphocytes % (A) 12 %; MCH 33.7 pg (25.0-35.0); MCHC 33.4 g/dL (31.0-37.0); MCV 100.9 fL (80.0-100.0); Mean Platelet Volume 7.7; Monocytes # (A) 0.5 k/uL (0-1.0); Monocytes % (A) 6 %; Neutrophils # (A) 5.5 k/uL (1.3-7.7); Neutrophils % (A) 76 %; Platelet Count 171 k/uL (150-450); RBC 3.32 m/uL (4.30-5.90); RDW 12.5 % (11.5-15.5); WBC 7.2 k/uL (3.8-10.6)
[2019-06-05 19:13] LABS: Albumin 3.6 g/dL (3.5-5.0); Calcium 9.1 mg/dL (8.4-10.2); Magnesium 2.1 mg/dL (1.6-2.3); Total Bilirubin 0.6 mg/dL (0.2-1.3); Total Protein 6.3 g/dL (6.3-8.2)
[2019-06-05 19:24] LABS: Appearance,Urine Clear (Clear); Bacteria,Urine Rare /hpf; Bilirubin,Urine Negative (Negative); Blood,Urine Trace (Negative); Color,Urine Yellow; Glucose,Urine (UA) Negative (Negative); Ketones,Urine Negative (Negative); Leukocyte Esterase,Urine Negative (Negative); Mucus,Urine Rare /hpf; Nitrite,Urine Negative (Negative); Protein,Urine Trace (Negative); RBC,Urine 1 /hpf (0-5); Specific Gravity,Urine 1.015 (1.001-1.035); Urobilinogen,Urine <2.0 mg/dL (<2.0)
[2019-06-05 19:25] LABS: INR 0.9 (<1.2)
--- NOTE | 2019-06-05 19:25 | XR ---
EXAMINATION: XR chest 2V DATE AND TIME: 06/05/2019 7:02 PM CLINICAL INDICATION: PHH; Weakness TECHNIQUE: Departmental protocol COMPARISON: 03/17/2018 FINDINGS: Bilateral pacemakers redemonstrated. Bilateral spine orthopedic hardware appear intact. The lungs appear to be clear and well-expanded bilaterally. The pleural spaces are negative. The cardiac silhouette is borderline enlarged. The remainder of the mediastinal silhouette is unremar kable as seen. The skeletal structures and soft tissues are negative for acute findings. IMPRESSION: No definite acute radiographic process.
[2019-06-05] MEDS ORDERED: SODIUM CHLORIDE 0.9% 500 ML 500 ML IV ONE (19:58)
[2019-06-05] MEDS ORDERED: AZITHROMYCIN 500 MG TAB PO STA (20:43)
[2019-06-05 21:59] VITALS: BP 120/69; PULSE 64
== END 2019-06-05 22:00 | disposition home or self-care (01) ==
LOC: EC 17:35
DX: E86.0 Dehydration (principal); J06.9 Acute upper respiratory infection, unspecified; R53.1 Weakness; R32 Unspecified urinary incontinence; M40.209 Unspecified kyphosis, site unspecified; E11.9 Type 2 diabetes mellitus without complications; K21.9 Gastro-esophageal reflux disease without esophagitis; E78.5 Hyperlipidemia, unspecified; M19.90 Unspecified osteoarthritis, unspecified site; F32.9 Major depressive disorder, single episode, unspecified; F41.9 Anxiety disorder, unspecified; Z87.891 Personal history of nicotine dependence; Z79.1 Long term (current) use of non-steroidal anti-inflammatories (NSAID); Z79.84 Long term (current) use of oral hypoglycemic drugs; Z79.899 Other long term (current) drug therapy; Z87.01 Personal history of pneumonia (recurrent); Z85.828 Personal history of other malignant neoplasm of skin; Z99.3 Dependence on wheelchair; Z96.698 Presence of other orthopedic joint implants
CPT/HCPCS: 36415; 71046; 80053; 81001; 83605; 83735; 84484; 85025; 85610; 85730; 87502; 93005; 96360; 96361; 99285

== ENCOUNTER → 2019-12-24 | Outpatient (CLI) | payer MEDICARE ==
--- NOTE | 2019-12-24 09:25 | US ---
EXAMINATION TYPE: US abdomen complete DATE OF EXAM: 12/24/2019 COMPARISON: None CLINICAL HISTORY: 79-year-old male R10.31 Right lower quadrant pain. TECHNIQUE: Multiple sonographic images of the abdomen are obtained. FINDINGS: EXAM MEASUREMENTS: Liver Length: 10.3 cm Gallbladder Wall: 0.2 cm CBD: 0.3 cm Spleen: 7.8 cm Right Kidney: 5.7 x 3.6 x 3.5 cm Left Kidney: 8.5 x 4.7 x 4.2 cm Project Geologist notes: US exam is technically limited due to to severe patient kyphosis. Pancreas: Obscured by bowel gas Liver: Very limited intercostal views Gallbladder: wnl Evidence for sonographic Shearer's sign: no CBD: wnl Spleen: wnl Right Kidney: small for size. No hydronephrosis. Left Kidney: isoechoic, solid mass is seen at superomedial pole measuring 3.0 x 3.6 x 3.4cm. No hydr onephrosis. Upper IVC: wnl Abd Aorta: limitedly seen, but size is wnl IMPRESSION: 1. Limited visualization of structures due to severe patient kyphosis. 2. Unable to exclude a 3.6 cm solid mass upper pole left kidney. Contrast enhanced renal mass protoco l CT or MRI recommended to further evaluate.
== END | disposition home or self-care (01) ==
LOC: RADUSWWP 07:06
PROVIDERS: ATTEND Family Medicine
DX: M40.209 Unspecified kyphosis, site unspecified (principal); R10.31 Right lower quadrant pain
CPT/HCPCS: 76700

== ENCOUNTER → 2020-04-02 | Outpatient (CLI) | payer MEDICARE | END | disposition home or self-care (01) | LOC: LABWHC1 14:19 | PROVIDERS: ATTEND Physical Medicine & Rehabilitation | DX: M54.5 Low back pain (principal); M48.07 Spinal stenosis, lumbosacral region; M43.17 Spondylolisthesis, lumbosacral region; G89.4 Chronic pain syndrome; M47.817 Spondylosis without myelopathy or radiculopathy, lumbosacral region; M51.17 Intervertebral disc disorders with radiculopathy, lumbosacral region; M40.203 Unspecified kyphosis, cervicothoracic region; G89.0 Central pain syndrome; M40.295 Other kyphosis, thoracolumbar region; M40.292 Other kyphosis, cervical region; M81.0 Age-related osteoporosis without current pathological fracture; M95.4 Acquired deformity of chest and rib; M99.08 Segmental and somatic dysfunction of rib cage; M99.88 Other biomechanical lesions of rib cage; M25.511 Pain in right shoulder; M25.512 Pain in left shoulder | CPT/HCPCS: 36415; 93005 ==

== ENCOUNTER → 2020-08-14 | Outpatient (CLI) | payer MEDICARE | END | disposition home or self-care (01) | LOC: LABWHC1 11:08 | PROVIDERS: ATTEND Anesthesiology | DX: Z20.822 Contact with and (suspected) exposure to COVID-19 (principal) | CPT/HCPCS: U0003; C9803 ==

== ENCOUNTER → 2020-10-01 | Outpatient (CLI) | payer MEDICARE ==
[2020-10-01 22:51] LABS: HCT 37.8 % (39.6-50.0); HGB 11.8 g/dL (13.0-17.0); MCHC 31.2 g/dL (32.0-37.0); MCV 105.6 fL (80.0-97.0); Mean Platelet Volume 12.3 fL (9.5-12.2); Platelet Count 157 X 10*3/uL (140-440); RBC 3.58 X 10*6/uL (4.40-5.60); RDW 12.6 % (11.5-14.5); WBC 5.54 X 10*3/uL (4.50-10.00)
[2020-10-01 23:22] LABS: Basophils # (A) 0.04 X 10*3/uL (0.00-0.10); Basophils % (A) 0.7 %; Eosinophils # (A) 0.22 X 10*3/uL (0.04-0.35); Lymphocytes # (A) 1.94 X 10*3/uL (0.90-5.00); Monocytes # (A) 0.51 X 10*3/uL (0.20-1.00); Monocytes % (A) 9.2 %; Neutrophils # (A) 2.82 X 10*3/uL (1.80-7.70); Neutrophils % (A) 50.9 %
[2020-10-02 00:35] LABS: Hemoglobin A1C 5.8 % (4.0-6.0)
[2020-10-02 02:21] LABS: African American GFR (CKD) 38.3 (60.0-200.0); Albumin 4.2 g/dL (3.80-4.90); Albumin/Globulin Ratio 2.1 (1.60-3.17); BUN/Creat Ratio 22.11 Ratio (12.00-20.00); Calcium 8.6 mg/dL (8.7-10.3); Chol/HDL Ratio 3.56; LDL Cholesterol,Calculated 69.8 mg/dL (0.0-131.0); Potassium 4.7 mmol/L (3.5-5.5); Total Bilirubin 0.3 mg/dL (0.3-1.2); Total Protein 6.2 g/dL (6.2-8.2); VLDL Calculation 17.2 mg/dL (5.00-40.00)
== END ==
LOC: LABWHC1 11:48
PROVIDERS: ATTEND Family Medicine
DX: E11.9 Type 2 diabetes mellitus without complications (principal); M41.20 Other idiopathic scoliosis, site unspecified; G25.0 Essential tremor; R35.0 Frequency of micturition
CPT/HCPCS: 36415; 80053; 80061; 83036; 84153; 84443; 85025

== ENCOUNTER 2020-11-28 06:15 | Emergency (ER) | payer MEDICARE ==
[2020-11-28 06:40] VITALS: TEMP 98.3
--- NOTE | 2020-11-28 06:41 | ED ---
Weakness HPI - General Stated complaint: Weakness Time Seen by Provider: 11/28/20 06:16 Source: patient, EMS, RN notes reviewed Mode of arrival: EMS Limitations: physical limitation - History of Present Illness Initial comments: This a 71-year-old male presents emergency Department with chief complaint of generalized weakness. Patient states she's been little more weak and usual last couple days. He states that he is essentially wheelchair-bound states he transfers to go to the bathroom states that he did fall but no major injuries. Patient states his legs just a little weaker than usual denies chest pain shortness breath headache dizziness abdominal pain including nausea vomiting diarrhea constipation issues. - Related Data Home Medications Medication Instructions Recorded Confirmed Omeprazole [PriLOSEC] 40 mg PO DAILY 01/25/14 07/04/18 Simvastatin [Zocor] 80 mg PO HS 01/25/14 07/04/18 Zolpidem Tartrate [Ambien Cr] 10 mg PO HS PRN 01/25/14 07/04/18 clonazePAM [KlonoPIN] 2 mg PO HS 01/25/14 07/04/18 metFORMIN HCL [Glucophage] 500 mg PO BID 01/25/14 07/04/18 Diclofenac Sodium/Misoprostol 1 tab PO BID 01/26/17 07/04/18 [Diclofenac-Misoprost 75-200 Tb] oxyCODONE HCL/ACETAMINOPHEN 1 tab PO TID PRN 01/26/17 07/04/18 [Percocet 10-325 mg] DULoxetine HCL [Cymbalta] 120 mg PO DAILY 07/04/18 07/04/18 Linaclotide [Linzess] 145 mcg PO DAILY 07/04/18 07/04/18 Methadone HCl [Dolophine HCl] 10 mg PO TID PRN 07/04/18 07/04/18 Montelukast [Singulair] 10 mg PO DAILY 07/04/18 07/04/18 Naldemedine Tosylate [Symproic] 0.2 mg PO DAILY 07/04/18 07/04/18 Naloxegol Oxalate [Movantik] 25 mg PO BID 07/04/18 07/04/18 Previous Rx's Medication Instructions Recorded Azithromycin 250 mg PO DAILY 4 Days #4 tab 06/05/19 Cephalexin [Keflex] 500 mg PO Q8HR #30 cap 11/28/20 Allergies Allergy/AdvReac Type Severity Reaction Status Date / Time No Known Allergies Allergy Verified 06/05/19 17:51 Review of Systems ROS Statement: Those systems with pertinent positive or pertinent negative responses have been documented in the HPI. ROS Other: All systems not noted in ROS Statement are negative. 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 Hiatial hernia repair, hernia repair inguinal X3, deep brain stimulator, brain stimulator repair and battery change, egd/colonoscopy, rt thumb sxm cataracats,lt nasal lesion removed/cauterized, bronchoscopy Past Anesthesia/Blood Transfusion Reactions: No Reported Reaction Past Psychological History: Anxiety, Depression Past Alcohol Use History: None Reported Past Drug Use History: None Reported - Past Family History Mother Family Medical History: Pneumonia Additional Family Medical History / Comment(s): at age 34 Father Family Medical History: COPD General Exam General appearance: alert, in no apparent distress Head exam: Present: atraumatic, normocephalic, normal inspection Eye exam: Present: normal appearance, PERRL, EOMI. Absent: scleral icterus, conjunctival injection, periorbital swelling ENT exam: Present: normal exam, normal oropharynx, mucous membranes moist Neck exam: Present: normal inspection, full ROM. Absent: tenderness, meningismus, lymphadenopathy Respiratory exam: Present: normal lung sounds bilaterally. Absent: respiratory distress, wheezes, rales, rhonchi, stridor Cardiovascular Exam: Present: regular rate, normal rhythm, normal heart sounds. Absent: systolic murmur, diastolic murmur, rubs, gallop, clicks GI/Abdominal exam: Present: soft, normal bowel sounds. Absent: distended, tenderness, guarding, rebound, rigid Extremities exam: Present: normal inspection, full ROM. Absent: tenderness Back exam: Present: full ROM. Absent: tenderness Neurological exam: Present: alert, oriented X3 Skin exam: Present: warm, dry, intact, normal color. Absent: rash Course Vital Signs 11/28/20 06:36 Temperature 98.3 F Pulse Rate 89 Respiratory 16 Rate Blood Pressure 115/65 O2 Sat by Pulse 95 Oximetry Medical Decision Making - Medical Decision Making 79-year-old presented for generalized weakness last couple days. Patient states he had some difficulty transferring from his wheelchair to the bathroom without any major injury labs revealed shows mild elevation of his kidney function from baseline with renal insufficiency/acute kidney injury and evidence of urinary tract infection. I did recommend the patient to be admitted and was given con tact Dr. Moyer patient states that he does not want stay prefers to go home continuous that symptoms may worsen and he'll return if symptoms worsen. - Lab Data Result diagrams: 11/28/20 06:50 11/28/20 06:50 Lab Results 11/28/20 11/28/20 11/28/20 Range/Units 06:50 06:50 06:50 WBC 10.7 H (3.8-10.6) k/uL RBC 3.45 L (4.30-5.90) m/uL Hgb 11.7 L (13.0-17.5) gm/dL Hct 34.5 L (39.0-53.0) % MCV 100.0 (80.0-100.0) fL MCH 33.8 (25.0-35.0) pg MCHC 33.8 (31.0-37.0) g/dL RDW 12.5 (11.5-15.5) % Plt Count 134 L (150-450) k/uL MPV 7.5 Neutrophils % 86 % Lymphocytes % 7 % Monocytes % 4 % Eosinophils % 1 % Basophils % 0 % Neutrophils # 9.2 H (1.3-7.7) k/uL Lymphocytes # 0.8 L (1.0-4.8) k/uL Monocytes # 0.5 (0-1.0) k/uL Eosinophils # 0.1 (0-0.7) k/uL Basophils # 0.0 (0-0.2) k/uL PT (9.0-12.0) sec INR (<1.2) APTT (22.0-30.0) sec Sodium 138 (137-145) mmol/L Potassium 4.3 (3.5-5.1) mmol/L Chloride 104 (98-107) mmol/L Carbon Dioxide 25 (22-30) mmol/L Anion Gap 9 mmol/L BUN 51 H (9-20) mg/dL Creatinine 2.64 H (0.66-1.25) mg/dL Est GFR (CKD-EPI)AfAm 26 (>60 ml/min/1.73 sqM) Est GFR (CKD-EPI)NonAf 22 (>60 ml/min/1.73 sqM) Glucose 123 H (74-99) mg/dL Plasma Lactic Acid Porfirio 1.1 (0.7-2.0) mmol/L Calcium 9.1 (8.4-10.2) mg/dL Magnesium 1.9 (1.6-2.3) mg/dL Total Bilirubin 0.3 (0.2-1.3) mg/dL AST 31 (17-59) U/L ALT 13 (4-49) U/L Alkaline Phosphatase 82 (38-126) U/L Troponin I (0.000-0.034) ng/mL Total Protein 6.2 L (6.3-8.2) g/dL Albumin 3.7 (3.5-5.0) g/dL Urine Color Urine Appearance (Clear) Urine pH (5.0-8.0) Ur Specific [place] (1.001-1.035) Urine Protein (Negative) Urine Glucose (UA) (Negative) Urine Ketones (Negative) Urine Blood (Negative) Urine Nitrite (Negative) Urine Bilirubin (Negative) Urine Urobilinogen (<2.0) mg/dL Ur Leukocyte Esterase (Negative) Urine RBC (0-5) /hpf Urine WBC (0-5) /hpf Urine WBC Clumps (None) /hpf Ur Squamous Epith Cells (0-4) /hpf Amorphous Sediment (None) /hpf Urine Bacteria (None) /hpf Urine Mucus (None) /hpf 11/28/20 11/28/20 11/28/20 Range/Units 06:50 07:35 07:35 WBC (3.8-10.6) k/uL RBC (4.30-5.90) m/uL Hgb (13.0-17.5) gm/dL Hct (39.0-53.0) % MCV (80.0-100.0) fL MCH (25.0-35.0) pg MCHC (31.0-37.0) g/dL RDW (11.5-15.5) % Plt Count (150-450) k/uL MPV Neutrophils % % Lymphocytes % % Monocytes % % Eosinophils % % Basophils % % Neutrophils # (1.3-7.7) k/uL Lymphocytes # (1.0-4.8) k/uL Monocytes # (0-1.0) k/uL Eosinophils # (0-0.7) k/uL Basophils # (0-0.2) k/uL PT 10.3 (9.0-12.0) sec INR 1.0 (<1.2) APTT 19.6 L (22.0-30.0) sec Sodium (137-145) mmol/L Potassium (3.5-5.1) mmol/L Chloride (98-107) mmol/L Carbon Dioxide (22-30) mmol/L Anion Gap mmol/L BUN (9-20) mg/dL Creatinine (0.66-1.25) mg/dL Est GFR (CKD-EPI)AfAm (>60 ml/min/1.73 sqM) Est GFR (CKD-EPI)NonAf (>60 ml/min/1.73 sqM) Glucose (74-99) mg/dL Plasma Lactic Acid Porfirio (0.7-2.0) mmol/L Calcium (8.4-10.2) mg/dL Magnesium (1.6-2.3) mg/dL Total Bilirubin (0.2-1.3) mg/dL AST (17-59) U/L ALT (4-49) U/L Alkaline Phosphatase (38-126) U/L Troponin I 0.019 (0.000-0.034) ng/mL Total Protein (6.3-8.2) g/dL Albumin (3.5-5.0) g/dL Urine Color Light Yellow Urine Appearance Cloudy (Clear) Urine pH 5.0 (5.0-8.0) Ur Specific [place] 1.009 (1.001-1.035) Urine Protein 1+ H (Negative) Urine Glucose (UA) Negative (Negative) Urine Ketones Negative (Negative) Urine Blood Moderate H (Negative) Urine Nitrite Negative (Negative) Urine Bilirubin Negative (Negative) Urine Urobilinogen <2.0 (<2.0) mg/dL Ur Leukocyte Esterase Large H (Negative) Urine RBC 5 (0-5) /hpf Urine WBC 35 H (0-5) /hpf Urine WBC Clumps Few H (None) /hpf Ur Squamous Epith Cells <1 (0-4) /hpf Amorphous Sediment Rare H (None) /hpf Urine Bacteria Few H (None) /hpf Urine Mucus Rare H (None) /hpf Disposition Clinical Impression: Acute kidney injury, Dehydration, Urinary tract infection Disposition: HOME SELF-CARE Condition: Stable Instructions (If sedation given, give patient instructions): Urinary Tract Infection in Men (ED) Additional Instructions: Please return to the Emergency Department if symptoms worsen or any other concerns. Prescriptions: Cephalexin [Keflex] 500 mg PO Q8HR #30 cap Is patient prescribed a controlled substance at d/c from ED?: No Referrals: Marciano Moyer MD [Primary Care Provider] - 1-2 days Time of Disposition: 08:42
[2020-11-28] MEDS: SODIUM CHLORIDE 0.9% 500 ML 500 ML IV STA (07:07)
[2020-11-28 07:19] LABS: Basophils % (A) 0 %; Eosinophils # (A) 0.1 k/uL (0-0.7); Eosinophils % (A) 1 %; HCT 34.5 % (39.0-53.0); HGB 11.7 gm/dL (13.0-17.5); Lymphocytes # (A) 0.8 k/uL (1.0-4.8); Lymphocytes % (A) 7 %; MCH 33.8 pg (25.0-35.0); MCHC 33.8 g/dL (31.0-37.0); Mean Platelet Volume 7.5; Monocytes # (A) 0.5 k/uL (0-1.0); Monocytes % (A) 4 %; Neutrophils # (A) 9.2 k/uL (1.3-7.7); Neutrophils % (A) 86 %; Platelet Count 134 k/uL (150-450); RBC 3.45 m/uL (4.30-5.90); RDW 12.5 % (11.5-15.5); WBC 10.7 k/uL (3.8-10.6)
--- NOTE | 2020-11-28 07:21 | XR ---
EXAMINATION TYPE: XR chest 2V DATE OF EXAM: 11/28/2020 COMPARISON: Chest x-ray June 05, 2019 HISTORY: Weakness. TECHNIQUE: Frontal and lateral views of the chest are obtained. FINDINGS: Persistent demineralization. Persistent underlying rotary scoliosis with attempted surgical correction in the thoracolumbar spine. Exaggerated kyphosis with severe compression type fracture ne ar thoracolumbar junction redemonstrated. Overlying neck stimulators in the anterior chest wall are r edemonstrated. Cardiac silhouette size is stable and upper limits of normal. Chronic parenchymal garcía ges redemonstrated without suspicious new focal airspace opacity, pleural effusion, or pneumothorax s een. Surgical changes near gastroesophageal junction are now present. IMPRESSION: Chronic changes without acute process.
[2020-11-28 07:29] LABS: Albumin 3.7 g/dL (3.5-5.0); Calcium 9.1 mg/dL (8.4-10.2); Magnesium 1.9 mg/dL (1.6-2.3); Potassium 4.3 mmol/L (3.5-5.1); Total Bilirubin 0.3 mg/dL (0.2-1.3); Total Protein 6.2 g/dL (6.3-8.2)
[2020-11-28 08:02] LABS: Amorphous Sediment,Urine Rare /hpf; Appearance,Urine Cloudy (Clear); Bacteria,Urine Few /hpf; Bilirubin,Urine Negative (Negative); Blood,Urine Moderate (Negative); Color,Urine Light Yellow; Glucose,Urine (UA) Negative (Negative); Ketones,Urine Negative (Negative); Leukocyte Esterase,Urine Large (Negative); Mucus,Urine Rare /hpf; Nitrite,Urine Negative (Negative); Protein,Urine 1+ (Negative); RBC,Urine 5 /hpf (0-5); Specific Gravity,Urine 1.009 (1.001-1.035); Squamous Epithelial Cell,Urine <1 /hpf (0-4); Urobilinogen,Urine <2.0 mg/dL (<2.0); WBC,Urine 35 /hpf (0-5)
[2020-11-28 08:07] LABS: Prothrombin Time 10.3 sec (9.0-12.0)
[2020-11-28 08:09] LABS: Partial Thromboplastin Time 19.6 sec (22.0-30.0)
[2020-11-28] MEDS: SODIUM CHLORIDE 0.9% 500 ML 500 ML IV ONE (08:47)
[2020-11-28 08:48] VITALS: BP 121/83; PULSE 84; RESP 17
[2020-11-28] MEDS: cefTRIAXone IN SWFI 1,000 MG/10 ML SYRINGE IVP STA (08:48)
== END 2020-11-28 11:19 | disposition home or self-care (01) ==
LOC: EC 06:15
DX: N17.9 Acute kidney failure, unspecified (principal); N39.0 Urinary tract infection, site not specified; E86.0 Dehydration; E11.9 Type 2 diabetes mellitus without complications; E78.5 Hyperlipidemia, unspecified; K21.9 Gastro-esophageal reflux disease without esophagitis; Z79.84 Long term (current) use of oral hypoglycemic drugs; Z85.828 Personal history of other malignant neoplasm of skin; Z99.3 Dependence on wheelchair; Z90.49 Acquired absence of other specified parts of digestive tract; F32.9 Major depressive disorder, single episode, unspecified
CPT/HCPCS: 36415; 93005; 80053; 83605; 83735; 84484; 85025; 85610; 85730; 81001; 87086; 71046; 99285; 96374; 96361 ×2; J0696; 87077; 87186

== ENCOUNTER 2020-12-03 03:30 | Emergency (ER) | payer MEDICARE ==
[2020-12-03 03:40] VITALS: TEMP 97.8
--- NOTE | 2020-12-03 03:44 | ED ---
Recheck HPI - General Chief Complaint: Recheck/Abnormal Lab/Rx Stated Complaint: Fall, Rib pain Time Seen by Provider: 12/03/20 03:40 Source: patient, EMS Mode of arrival: EMS Limitations: no limitations - Related Data Home Medications Medication Instructions Recorded Confirmed Omeprazole [PriLOSEC] 40 mg PO DAILY 01/25/14 07/04/18 Simvastatin [Zocor] 80 mg PO HS 01/25/14 07/04/18 Zolpidem Tartrate [Ambien Cr] 10 mg PO HS PRN 01/25/14 07/04/18 clonazePAM [KlonoPIN] 2 mg PO HS 01/25/14 07/04/18 metFORMIN HCL [Glucophage] 500 mg PO BID 01/25/14 07/04/18 Diclofenac Sodium/Misoprostol 1 tab PO BID 01/26/17 07/04/18 [Diclofenac-Misoprost 75-200 Tb] oxyCODONE HCL/ACETAMINOPHEN 1 tab PO TID PRN 01/26/17 07/04/18 [Percocet 10-325 mg] DULoxetine HCL [Cymbalta] 120 mg PO DAILY 07/04/18 07/04/18 Linaclotide [Linzess] 145 mcg PO DAILY 07/04/18 07/04/18 Methadone HCl [Dolophine HCl] 10 mg PO TID PRN 07/04/18 07/04/18 Montelukast [Singulair] 10 mg PO DAILY 07/04/18 07/04/18 Naldemedine Tosylate [Symproic] 0.2 mg PO DAILY 07/04/18 07/04/18 Naloxegol Oxalate [Movantik] 25 mg PO BID 07/04/18 07/04/18 Previous Rx's Medication Instructions Recorded Azithromycin 250 mg PO DAILY 4 Days #4 tab 06/05/19 Cephalexin [Keflex] 500 mg PO Q8HR #30 cap 11/28/20 Allergies Allergy/AdvReac Type Severity Reaction Status Date / Time No Known Allergies Allergy Verified 12/03/20 03:40 Review of Systems ROS Statement: Those systems with pertinent positive or pertinent negative responses have been documented in the HPI. ROS Other: All systems not noted in ROS Statement are negative. 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 Hiatial hernia repair, hernia repair inguinal X3, deep brain stimulator, brain stimulator repair and battery change, egd/colonoscopy, rt thumb sxm cataracats,lt nasal lesion removed/cauterized, bronchoscopy Past Anesthesia/Blood Transfusion Reactions: No Reported Reaction Past Psychological History: Anxiety, Depression Smoking Status: Never smoker Past Alcohol Use History: None Reported Past Drug Use History: None Reported - Past Family History Mother Family Medical History: Pneumonia Additional Family Medical History / Comment(s): at age 34 Father Family Medical History: COPD General Exam Limitations: no limitations Course Vital Signs 12/03/20 12/03/20 12/03/20 03:31 05:00 06:00 Temperature 97.8 F Pulse Rate 77 89 72 Respiratory 20 20 16 Rate Blood Pressure 150/94 154/97 150/94 O2 Sat by Pulse 98 97 Oximetry Medical Decision Making - Lab Data Result diagrams: 12/03/20 04:27 12/03/20 04:27 Lab Results 12/03/20 12/03/20 12/03/20 Range/Units 04:27 04:27 04:27 WBC 4.9 (3.8-10.6) k/uL RBC 3.37 L (4.30-5.90) m/uL Hgb 11.2 L (13.0-17.5) gm/dL Hct 33.8 L (39.0-53.0) % MCV 100.2 H (80.0-100.0) fL MCH 33.3 (25.0-35.0) pg MCHC 33.3 (31.0-37.0) g/dL RDW 12.5 (11.5-15.5) % Plt Count 173 (150-450) k/uL MPV 7.1 Neutrophils % 66 % Lymphocytes % 18 % Monocytes % 9 % Eosinophils % 5 % Basophils % 1 % Neutrophils # 3.2 (1.3-7.7) k/uL Lymphocytes # 0.9 L (1.0-4.8) k/uL Monocytes # 0.4 (0-1.0) k/uL Eosinophils # 0.3 (0-0.7) k/uL Basophils # 0.0 (0-0.2) k/uL PT 11.1 (9.0-12.0) sec INR 1.0 (<1.2) APTT 23.6 (22.0-30.0) sec Sodium 141 (137-145) mmol/L Potassium 4.3 (3.5-5.1) mmol/L Chloride 107 (98-107) mmol/L Carbon Dioxide 28 (22-30) mmol/L Anion Gap 6 mmol/L BUN 25 H (9-20) mg/dL Creatinine 1.22 (0.66-1.25) mg/dL Est GFR (CKD-EPI)AfAm 66 (>60 ml/min/1.73 sqM) Est GFR (CKD-EPI)NonAf 57 (>60 ml/min/1.73 sqM) Glucose 114 H (74-99) mg/dL Plasma Lactic Acid Porfirio (0.7-2.0) mmol/L Calcium 9.1 (8.4-10.2) mg/dL Phosphorus 3.7 (2.5-4.5) mg/dL Magnesium 1.7 (1.6-2.3) mg/dL Total Bilirubin 0.1 L (0.2-1.3) mg/dL AST 24 (17-59) U/L ALT 16 (4-49) U/L Alkaline Phosphatase 62 (38-126) U/L Creatine Kinase 67 (55-170) U/L Troponin I (0.000-0.034) ng/mL NT-Pro-B Natriuret Pep pg/mL Total Protein 6.0 L (6.3-8.2) g/dL Albumin 3.4 L (3.5-5.0) g/dL Lipase 28 (23-300) U/L 12/03/20 12/03/20 12/03/20 Range/Units 04:27 04:27 04:27 WBC (3.8-10.6) k/uL RBC (4.30-5.90) m/uL Hgb (13.0-17.5) gm/dL Hct (39.0-53.0) % MCV (80.0-100.0) fL MCH (25.0-35.0) pg MCHC (31.0-37.0) g/dL RDW (11.5-15.5) % Plt Count (150-450) k/uL MPV Neutrophils % % Lymphocytes % % Monocytes % % Eosinophils % % Basophils % % Neutrophils # (1.3-7.7) k/uL Lymphocytes # (1.0-4.8) k/uL Monocytes # (0-1.0) k/uL Eosinophils # (0-0.7) k/uL Basophils # (0-0.2) k/uL PT (9.0-12.0) sec INR (<1.2) APTT (22.0-30.0) sec Sodium (137-145) mmol/L Potassium (3.5-5.1) mmol/L Chloride (98-107) mmol/L Carbon Dioxide (22-30) mmol/L Anion Gap mmol/L BUN (9-20) mg/dL Creatinine (0.66-1.25) mg/dL Est GFR (CKD-EPI)AfAm (>60 ml/min/1.73 sqM) Est GFR (CKD-EPI)NonAf (>60 ml/min/1.73 sqM) Glucose (74-99) mg/dL Plasma Lactic Acid Porfirio 1.0 (0.7-2.0) mmol/L Calcium (8.4-10.2) mg/dL Phosphorus (2.5-4.5) mg/dL Magnesium (1.6-2.3) mg/dL Total Bilirubin (0.2-1.3) mg/dL AST (17-59) U/L ALT (4-49) U/L Alkaline Phosphatase (38-126) U/L Creatine Kinase (55-170) U/L Troponin I <0.012 (0.000-0.034) ng/mL NT-Pro-B Natriuret Pep 344 pg/mL Total Protein (6.3-8.2) g/dL Albumin (3.5-5.0) g/dL Lipase (23-300) U/L - EKG Data -: EKG Interpreted by Me (EKG shows sinus rhythm 66 AK 200 QRS 80 QTC 429) Disposition Clinical Impression: Dehydration, Weakness, Failure to thrive Disposition: HOME SELF-CARE Condition: Fair Instructions (If sedation given, give patient instructions): Weakness (ED) Is patient prescribed a controlled substance at d/c from ED?: No Referrals: Marciano Moyer MD [Primary Care Provider] - 1-2 days
[2020-12-03] MEDS ORDERED: MORPHINE SULFATE 2 MG/ML SYRINGE IVP STA (04:20)
[2020-12-03] MEDS ORDERED: SODIUM CHLORIDE 0.9% 1,000 ML IV STA (04:20)
[2020-12-03] MEDS ORDERED: SODIUM CHLORIDE 0.9% 500 ML 500 ML IV STA (04:20)
[2020-12-03 04:45] LABS: Basophils % (A) 1 %; Eosinophils # (A) 0.3 k/uL (0-0.7); Eosinophils % (A) 5 %; HCT 33.8 % (39.0-53.0); HGB 11.2 gm/dL (13.0-17.5); Lymphocytes # (A) 0.9 k/uL (1.0-4.8); Lymphocytes % (A) 18 %; MCH 33.3 pg (25.0-35.0); MCHC 33.3 g/dL (31.0-37.0); MCV 100.2 fL (80.0-100.0); Mean Platelet Volume 7.1; Monocytes # (A) 0.4 k/uL (0-1.0); Monocytes % (A) 9 %; Neutrophils # (A) 3.2 k/uL (1.3-7.7); Neutrophils % (A) 66 %; Platelet Count 173 k/uL (150-450); RBC 3.37 m/uL (4.30-5.90); RDW 12.5 % (11.5-15.5); WBC 4.9 k/uL (3.8-10.6)
[2020-12-03 05:00] LABS: Albumin 3.4 g/dL (3.5-5.0); Calcium 9.1 mg/dL (8.4-10.2); Magnesium 1.7 mg/dL (1.6-2.3); Phosphorus 3.7 mg/dL (2.5-4.5); Potassium 4.3 mmol/L (3.5-5.1); Total Bilirubin 0.1 mg/dL (0.2-1.3)
[2020-12-03 05:09] LABS: Partial Thromboplastin Time 23.6 sec (22.0-30.0); Prothrombin Time 11.1 sec (9.0-12.0)
--- NOTE | 2020-12-03 05:38 | CT ---
EXAM: CT Chest Without Intravenous Contrast CLINICAL HISTORY: ITS.REASON CT Reason: pain TECHNIQUE: Axial computed tomography images of the chest without intravenous contrast. CTDI is 7 mGy and DLP is 429.8 mGy-cm. This CT exam was performed using one or more of the following dose reduction techniques: automated exposure control, adjustment of the mA and/or kV according to patient size, and/or use of iterative reconstruction technique. COMPARISON: 06/11/2014, CT thoracic and lumbar spine dated 08/27/15 FINDINGS: Lungs: Unremarkable. No mass. No consolidation. Pleural space: Unremarkable. No pneumothorax. No significant effusion. Heart: Unremarkable. No cardiomegaly. No significant pericardial effusion. Bones/joints: T10 compression deformity with near complete loss of vertebral body height anteriorly and no retropulsion. Posterior approach spinal fusion hardware extends from T10-L5. Unchanged mild anterior wedging of the T4 vertebral body. No acute fracture. No dislocation. Soft tissues: Unremarkable. Vasculature: Unremarkable. No thoracic aortic aneurysm. Lymph nodes: Unremarkable. No enlarged lymph nodes. IMPRESSION: 1. No acute intrathoracic process. 2. Exaggerated kyphosis with unchanged T10 compression deformity with near complete loss of vertebral body height anteriorly and no retropulsion. Posterior approach spinal fusion hardware extends from T10- L5. EXAM: CT Abdomen and Pelvis Without Intravenous Contrast CLINICAL HISTORY: ITS.REASON CT Reason: pain TECHNIQUE: Axial computed tomography images of the abdomen and pelvis without intravenous contrast. CTDI is 7 mGy and DLP is 429.9 mGy-cm. This CT exam was performed using one or more of the following dose reduction techniques: automated exposure control, adjustment of the mA and/or kV according to patient size, and/or use of iterative reconstruction technique. COMPARISON: 08/27/2015 CT Lumbar spine FINDINGS: Lung bases: For intrathoracic findings, see concurrent chest CT performed on same date. ABDOMEN: Liver: Unremarkable. Gallbladder and bile ducts: Unremarkable. No calcified stones. No ductal dilation. Pancreas: Unremarkable. No ductal dilation. Spleen: Unremarkable. No splenomegaly. Adrenals: Unremarkable. No mass. Kidneys and ureters: Unremarkable. No obstructing stones. No hydronephrosis. Stomach and bowel: Unremarkable. No obstruction. No mucosal thickening. PELVIS: Appendix: No findings to suggest acute appendicitis. Bladder: Unremarkable. No stones. Reproductive: Unremarkable as visualized. ABDOMEN and PELVIS: Intraperitoneal space: Unremarkable. No free air. No significant fluid collection. Bones/joints: No acute fracture. No dislocation. Soft tissues: Unremarkable. Vasculature: Unremarkable. No abdominal aortic aneurysm. Lymph nodes: Unremarkable. No enlarged lymph nodes. IMPRESSION: No acute intra-abdominal process.
[2020-12-03 06:49] VITALS: BP 146/85; PULSE 78; RESP 20
[2020-12-03 06:59] LABS: Appearance,Urine Clear (Clear); Bilirubin,Urine Negative (Negative); Blood,Urine Negative (Negative); Color,Urine Light Yellow; Glucose,Urine (UA) Negative (Negative); Ketones,Urine Negative (Negative); Leukocyte Esterase,Urine Negative (Negative); Nitrite,Urine Negative (Negative); Protein,Urine Negative (Negative); Specific Gravity,Urine 1.011 (1.001-1.035); Urobilinogen,Urine <2.0 mg/dL (<2.0)
--- NOTE | 2020-12-03 07:26 | XR ---
EXAMINATION TYPE: XR ribs RT w pa chest xray DATE OF EXAM: 12/03/2020 CLINICAL HISTORY: Fall and reached with chest and right-sided rib pain. TECHNIQUE: Single frontal view of the chest is obtained. A frontal and oblique images right-sided rib s. COMPARISON: Chest x-ray 5 days ago FINDINGS: Persistent underlying rotary scoliosis with attempted surgical correction in the thoracolum bar spine. Overlying neck stimulators in the anterior chest wall are redemonstrated. Cardiac silhouet te size is stable and upper limits of normal. Chronic parenchymal changes redemonstrated without susp icious new focal airspace opacity, pleural effusion, or pneumothorax seen. Surgical changes near kandi roesophageal junction are redemonstrated. Dedicated images of right-sided ribs show no obvious acute displaced fracture. Marked narrowing right glenohumeral joint. IMPRESSION: 1. Chronic changes without acute pulmonary process. 2. Suboptimal study without acute displaced right-sided rib fractures seen. Preliminary report for this study provided by [employer].
== END 2020-12-03 08:27 | disposition home or self-care (01) ==
LOC: EC 03:30
DX: R62.7 Adult failure to thrive (principal); R53.1 Weakness; E86.0 Dehydration; E11.9 Type 2 diabetes mellitus without complications; E78.5 Hyperlipidemia, unspecified; M19.90 Unspecified osteoarthritis, unspecified site; K21.9 Gastro-esophageal reflux disease without esophagitis; F32.9 Major depressive disorder, single episode, unspecified; Z90.49 Acquired absence of other specified parts of digestive tract; Z68.21 Body mass index [BMI] 21.0-21.9, adult
CPT/HCPCS: 36415; 93005; 83880; 80053; 82550; 83605; 83690; 83735; 84100; 84484; 85025; 85610; 85730; 81003; 87635; 71101; 71250; 74176; 99284; 96374; 96361 ×2; J2270

== ENCOUNTER 2021-03-21 13:37 | Emergency (ER) | payer MEDICARE ==
[2021-03-21 13:51] VITALS: RESP 20
[2021-03-21] MEDS ORDERED: SODIUM CHLORIDE 0.9% 1,000 ML IV STA (13:59)
--- NOTE | 2021-03-21 14:31 | XR ---
EXAMINATION TYPE: XR KUB DATE OF EXAM: 03/21/2021 COMPARISON: 07/04/2018 HISTORY: Constipation TECHNIQUE: Single view FINDINGS: There is no sign of intestinal obstruction or pneumoperitoneum. There is gas down to the re ctum. There is no evidence of a mass. There is no significant retained fecal material. There is multi level thoracic and lumbar spine fusion surgery. Lung bases are clear of consolidation. IMPRESSION: Nonacute abdomen. No evidence of any significant constipation. No change compared to old exam.
[2021-03-21 15:03] LABS: Basophils % (A) 0 %; Eosinophils % (A) 0 %; HCT 37.2 % (39.0-53.0); HGB 12.1 gm/dL (13.0-17.5); Lymphocytes # (A) 0.4 k/uL (1.0-4.8); Lymphocytes % (A) 8 %; MCH 32.9 pg (25.0-35.0); MCHC 32.5 g/dL (31.0-37.0); MCV 101.3 fL (80.0-100.0); Mean Platelet Volume 8.1; Monocytes # (A) 0.3 k/uL (0-1.0); Monocytes % (A) 6 %; Neutrophils # (A) 4.7 k/uL (1.3-7.7); Neutrophils % (A) 85 %; Platelet Count 164 k/uL (150-450); RBC 3.68 m/uL (4.30-5.90); RDW 12.4 % (11.5-15.5); WBC 5.5 k/uL (3.8-10.6)
[2021-03-21 15:14] LABS: Albumin 3.9 g/dL (3.5-5.0); Calcium 9.2 mg/dL (8.4-10.2); Potassium 4.2 mmol/L (3.5-5.1); Total Bilirubin 0.7 mg/dL (0.2-1.3); Total Protein 6.9 g/dL (6.3-8.2)
--- NOTE | 2021-03-21 16:07 | ED ---
Abdominal Pain HPI - General Chief Complaint: Abdominal Pain Stated Complaint: Consitpation Time Seen by Provider: 03/21/21 13:47 Source: EMS, RN notes reviewed Mode of arrival: EMS Limitations: no limitations - History of Present Illness Initial Comments: Patient is a 80-year-old male that presents to emergency department complaining of constipation. He notes he tried an enema at home but only got very little out. He denied any other issues or complaints. He did note that he recently had surgery to replace a battery in his pacemaker. He was otherwise well- appearing and had no other issues or complaints. He denied chest pain shortness of breath headache nausea vomiting diarrhea fever fatigue chills. - Related Data Home Medications Medication Instructions Recorded Confirmed Omeprazole [PriLOSEC] 40 mg PO DAILY 01/25/14 07/04/18 Simvastatin [Zocor] 80 mg PO HS 01/25/14 07/04/18 Zolpidem Tartrate [Ambien Cr] 10 mg PO HS PRN 01/25/14 07/04/18 clonazePAM [KlonoPIN] 2 mg PO HS 01/25/14 07/04/18 metFORMIN HCL [Glucophage] 500 mg PO BID 01/25/14 07/04/18 Diclofenac Sodium/Misoprostol 1 tab PO BID 01/26/17 07/04/18 [Diclofenac-Misoprost 75-200 Tb] oxyCODONE HCL/ACETAMINOPHEN 1 tab PO TID PRN 01/26/17 07/04/18 [Percocet 10-325 mg] DULoxetine HCL [Cymbalta] 120 mg PO DAILY 07/04/18 07/04/18 Linaclotide [Linzess] 145 mcg PO DAILY 07/04/18 07/04/18 Methadone HCl [Dolophine HCl] 10 mg PO TID PRN 07/04/18 07/04/18 Montelukast [Singulair] 10 mg PO DAILY 07/04/18 07/04/18 Naldemedine Tosylate [Symproic] 0.2 mg PO DAILY 07/04/18 07/04/18 Naloxegol Oxalate [Movantik] 25 mg PO BID 07/04/18 07/04/18 Previous Rx's Medication Instructions Recorded Azithromycin 250 mg PO DAILY 4 Days #4 tab 06/05/19 Cephalexin [Keflex] 500 mg PO Q8HR #30 cap 11/28/20 Allergies Allergy/AdvReac Type Severity Reaction Status Date / Time No Known Allergies Allergy Verified 12/03/20 03:40 Review of Systems ROS Statement: Those systems with pertinent positive or pertinent negative responses have been documented in the HPI. ROS Other: All systems not noted in ROS Statement are negative. 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 Hiatial hernia repair, hernia repair inguinal X3, deep brain stimulator, brain stimulator repair and battery change, egd/colonoscopy, rt thumb sxm cataracats,lt nasal lesion removed/cauterized, bronchoscopy Past Anesthesia/Blood Transfusion Reactions: No Reported Reaction Past Psychological History: Anxiety, Depression Smoking Status: Never smoker Past Alcohol Use History: None Reported Past Drug Use History: None Reported - Past Family History Mother Family Medical History: Pneumonia Additional Family Medical History / Comment(s): at age 34 Father Family Medical History: COPD General Exam Limitations: no limitations General appearance: alert, in no apparent distress Head exam: Present: atraumatic, normocephalic, normal inspection Eye exam: Present: normal appearance, PERRL, EOMI. Absent: scleral icterus, conjunctival injection, periorbital swelling Neck exam: Present: normal inspection. Absent: tenderness, meningismus, l ymphadenopathy Respiratory exam: Present: normal lung sounds bilaterally. Absent: respiratory distress, wheezes, rales, rhonchi, stridor Cardiovascular Exam: Present: regular rate, normal rhythm, normal heart sounds. Absent: systolic murmur, diastolic murmur, rubs, gallop, clicks GI/Abdominal exam: Present: soft, normal bowel sounds. Absent: distended, tenderness, guarding, rebound, rigid Extremities exam: Present: normal inspection, full ROM, normal capillary refill. Absent: tenderness, pedal edema, joint swelling, calf tenderness Neurological exam: Present: alert, oriented X3 Psychiatric exam: Present: normal affect, normal mood Skin exam: Present: warm, dry, intact, normal color. Absent: rash Course Vital Signs 03/21/21 03/21/21 13:45 14:50 Temperature 98.6 F Pulse Rate 113 H 106 H Respiratory 20 20 Rate Blood Pressure 140/103 155/80 O2 Sat by Pulse 95 94 L Oximetry Medical Decision Making - Medical Decision Making 80-year-old male complaining of constipation. Basic labs, KUB ordered. X-ray shows nonacute abdomen with no evidence for constipation. Labs unremarkable. Patient has abdominal pain with no constipation. Case discussed with Dr. Tineo, patient discharge home. - Lab Data Result diagrams: 03/21/21 14:24 03/21/21 14:24 Lab Results 03/21/21 03/21/21 Range/Units 14:24 14:24 WBC 5.5 (3.8-10.6) k/uL RBC 3.68 L (4.30-5.90) m/uL Hgb 12.1 L (13.0-17.5) gm/dL Hct 37.2 L (39.0-53.0) % MCV 101.3 H (80.0-100.0) fL MCH 32.9 (25.0-35.0) pg MCHC 32.5 (31.0-37.0) g/dL RDW 12.4 (11.5-15.5) % Plt Count 164 (150-450) k/uL MPV 8.1 Neutrophils % 85 % Lymphocytes % 8 % Monocytes % 6 % Eosinophils % 0 % Basophils % 0 % Neutrophils # 4.7 (1.3-7.7) k/uL Lymphocytes # 0.4 L (1.0-4.8) k/uL Monocytes # 0.3 (0-1.0) k/uL Eosinophils # 0.0 (0-0.7) k/uL Basophils # 0.0 (0-0.2) k/uL Sodium 137 (137-145) mmol/L Potassium 4.2 (3.5-5.1) mmol/L Chloride 101 (98-107) mmol/L Carbon Dioxide 25 (22-30) mmol/L Anion Gap 11 mmol/L BUN 18 (9-20) mg/dL Creatinine 0.97 (0.66-1.25) mg/dL Est GFR (CKD-EPI)AfAm 86 (>60 ml/min/1.73 sqM) Est GFR (CKD-EPI)NonAf 75 (>60 ml/min/1.73 sqM) Glucose 117 H (74-99) mg/dL Calcium 9.2 (8.4-10.2) mg/dL Total Bilirubin 0.7 (0.2-1.3) mg/dL AST 27 (17-59) U/L ALT 13 (4-49) U/L Alkaline Phosphatase 82 (38-126) U/L Total Protein 6.9 (6.3-8.2) g/dL Albumin 3.9 (3.5-5.0) g/dL - Radiology Data Radiology results: report reviewed, image reviewed KUB: Nonacute abdomen. No evidence of any significant constipation. No change compared to old exam. Disposition Clinical Impression: Abdominal pain Disposition: HOME SELF-CARE Condition: Stable Instructions (If sedation given, give patient instructions): Abdominal Pain (ED) Additional Instructions: Please return to the Emergency Department if symptoms worsen or any other concerns. Follow-up with primary care 1-2 days. The plan fiber, increase oral fluids. Is patient prescribed a controlled substance at d/c from ED?: No Referrals: Marciano Moyer MD [Primary Care Provider] - 1-2 days Time of Disposition: 16:06
[2021-03-21 16:32] VITALS: BP 177/90; PULSE 104; TEMP 98.1
== END 2021-03-21 18:10 | disposition home or self-care (01) ==
LOC: EC 13:37
DX: K59.00 Constipation, unspecified (principal); E11.9 Type 2 diabetes mellitus without complications; K21.9 Gastro-esophageal reflux disease without esophagitis; E78.5 Hyperlipidemia, unspecified; M19.90 Unspecified osteoarthritis, unspecified site; F41.9 Anxiety disorder, unspecified; F32.9 Major depressive disorder, single episode, unspecified; Z90.49 Acquired absence of other specified parts of digestive tract; Z79.84 Long term (current) use of oral hypoglycemic drugs; Z85.828 Personal history of other malignant neoplasm of skin; Z95.0 Presence of cardiac pacemaker
CPT/HCPCS: 74018; 80053; 85025; 96360; 99284

== ENCOUNTER 2021-08-23 20:06 | Emergency (ER) | payer MEDICARE ==
[2021-08-23 20:21] VITALS: BP 149/97; RESP 16
[2021-08-23] MEDS ORDERED: MAG HYDROX/AL HYDROX/SIMETH 30 ML, HYOSCYAMINE ELIXIR 10 ML, LIDOCAINE VISCOUS 2% 10 ML PO STA ×3 (20:47)
--- NOTE | 2021-08-23 20:52 | ED ---
General Adult HPI - General Chief complaint: Abdominal Pain Stated complaint: Abdominal pain Time Seen by Provider: 08/23/21 20:40 Source: patient, EMS, RN notes reviewed, old records reviewed Mode of arrival: EMS Limitations: no limitations - History of Present Illness Initial comments: 80-year-old male alert and oriented 4 presents to the emergency room with complaints of sharp epigastric abdominal pain that started approximately 2 hours ago. Patient states that he called Dr. Mina who told him to come to the emergency room for evaluation. Did have a normal bowel movement today. Patient denies any fevers, no nausea, vomiting or diarrhea. He denies any chest pain or difficulty in breathing. No previous abdominal surgeries. -: hour(s) (2) Location: abdomen (Epigastric) Radiation: abdomen (travels through abdomen diffuse) Severity scale (1-10): 10 Quality: sharp Improves with: none Worsens with: none Associated Symptoms: denies other symptoms Treatments Prior to Arrival: none - Related Data Home Medications Medication Instructions Recorded Confirmed Omeprazole [PriLOSEC] 40 mg PO DAILY 01/25/14 07/04/18 Simvastatin [Zocor] 80 mg PO HS 01/25/14 07/04/18 Zolpidem Tartrate [Ambien Cr] 10 mg PO HS PRN 01/25/14 07/04/18 clonazePAM [KlonoPIN] 2 mg PO HS 01/25/14 07/04/18 metFORMIN HCL [Glucophage] 500 mg PO BID 01/25/14 07/04/18 Diclofenac Sodium/Misoprostol 1 tab PO BID 01/26/17 07/04/18 [Diclofenac-Misoprost 75-200 Tb] oxyCODONE HCL/ACETAMINOPHEN 1 tab PO TID PRN 01/26/17 07/04/18 [Percocet 10-325 mg] DULoxetine HCL [Cymbalta] 120 mg PO DAILY 07/04/18 07/04/18 Linaclotide [Linzess] 145 mcg PO DAILY 07/04/18 07/04/18 Methadone HCl [Dolophine HCl] 10 mg PO TID PRN 07/04/18 07/04/18 Montelukast [Singulair] 10 mg PO DAILY 07/04/18 07/04/18 Naldemedine Tosylate [Symproic] 0.2 mg PO DAILY 07/04/18 07/04/18 Naloxegol Oxalate [Movantik] 25 mg PO BID 07/04/18 07/04/18 Previous Rx's Medication Instructions Recorded Azithromycin 250 mg PO DAILY 4 Days #4 tab 06/05/19 Cephalexin [Keflex] 500 mg PO Q8HR #30 cap 11/28/20 Sucralfate 1 gm PO BID 5 Days #420 ml 08/23/21 Allergies Allergy/AdvReac Type Severity Reaction Status Date / Time No Known Allergies Allergy Verified 08/23/21 20:21 Review of Systems ROS Statement: Those systems with pertinent positive or pertinent negative responses have been documented in the HPI. ROS Other: All systems not noted in ROS Statement are negative. 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 Hiatial hernia repair, hernia repair inguinal X3, deep brain stimulator, brain stimulator repair and battery change, egd/colonoscopy, rt thumb sxm cataracats,lt nasal lesion removed/cauterized, bronchoscopy Past Anesthesia/Blood Transfusion Reactions: No Reported Reaction Past Psychological History: Anxiety, Depression Smoking Status: Never smoker Past Alcohol Use History: None Reported Past Drug Use History: None Reported - Past Family History Mother Family Medical History: Pneumonia Additional Family Medical History / Comment(s): at age 34 Father Family Medical History: COPD General Exam General appearance: alert, in no apparent distress Respiratory exam: Present: decreased breath sounds. Absent: respiratory distress, wheezes, chest wall tenderness, accessory muscle use Cardiovascular Exam: Present: tachycardia GI/Abdominal exam: Present: soft, tenderness (Epigastric). Absent: distended, g uarding, rebound, rigid Extremities exam: Present: normal capillary refill Back exam: Present: other (kyphosis, multiple lidoderm patches in place). Absent: CVA tenderness (R), CVA tenderness (L) Neurological exam: Present: alert, oriented X3 Psychiatric exam: Present: normal affect, normal mood Skin exam: Present: warm, dry, normal color. Absent: cyanosis, diaphoretic Course Vital Signs 08/23/21 08/23/21 20:14 23:02 Temperature 98.5 F 98.6 F Pulse Rate 103 H 89 Respiratory 16 16 Rate Blood Pressure 149/97 149/97 O2 Sat by Pulse 93 L 96 Oximetry Medical Decision Making - Medical Decision Making 80-year-old male presents with epigastric abdominal pain. Patient does have a history of GERD. Patient was given a GI cocktail for his epigastric pain and he states he did get relief. Labs are unremarkable. Abdomen is soft and nontender, vital signs are stable. I did speak with Dr. Moyer who suggested patient double up on his Prilosec and also be prescribed sucralfate. He states he will follow-up with the patient this week in the office. Patient is agreeable to this plan of care. - Lab Data Result diagrams: 08/23/21 20:30 08/23/21 20:30 Lab Results 08/23/21 08/23/21 08/23/21 Range/Units 20:30 20:30 20:30 WBC 6.0 (3.8-10.6) k/uL RBC 3.76 L (4.30-5.90) m/uL Hgb 12.4 L (13.0-17.5) gm/dL Hct 38.5 L (39.0-53.0) % MCV 102.5 H (80.0-100.0) fL MCH 33.1 (25.0-35.0) pg MCHC 32.3 (31.0-37.0) g/dL RDW 14.0 (11.5-15.5) % Plt Count 324 (150-450) k/uL MPV 8.2 Neutrophils % 78 % Lymphocytes % 13 % Monocytes % 7 % Eosinophils % 0 % Basophils % 0 % Neutrophils # 4.7 (1.3-7.7) k/uL Lymphocytes # 0.8 L (1.0-4.8) k/uL Monocytes # 0.4 (0-1.0) k/uL Eosinophils # 0.0 (0-0.7) k/uL Basophils # 0.0 (0-0.2) k/uL Macrocytosis Slight PT 12.8 H (9.0-12.0) sec INR 1.2 H (<1.2) APTT 25.4 (22.0-30.0) sec Sodium (137-145) mmol/L Potassium (3.5-5.1) mmol/L Chloride (98-107) mmol/L Carbon Dioxide (22-30) mmol/L Anion Gap mmol/L BUN (9-20) mg/dL Creatinine (0.66-1.25) mg/dL Est GFR (CKD-EPI)AfAm (>60 ml/min/1.73 sqM) Est GFR (CKD-EPI)NonAf (>60 ml/min/1.73 sqM) Glucose (74-99) mg/dL Calcium (8.4-10.2) mg/dL Total Bilirubin (0.2-1.3) mg/dL AST (17-59) U/L ALT (4-49) U/L Alkaline Phosphatase (38-126) U/L Troponin I (0.000-0.034) ng/mL Total Protein (6.3-8.2) g/dL Albumin (3.5-5.0) g/dL Amylase (30-110) U/L Lipase (23-300) U/L Urine Color Light Yellow Urine Appearance Clear (Clear) Urine pH 5.0 (5.0-8.0) Ur Specific [place] 1.005 (1.001-1.035) Urine Protein Negative (Negative) Urine Glucose (UA) Negative (Negative) Urine Ketones Negative (Negative) Urine Blood Negative (Negative) Urine Nitrite Negative (Negative) Urine Bilirubin Negative (Negative) Urine Urobilinogen <2.0 (<2.0) mg/dL Ur Leukocyte Esterase Negative (Negative) 08/23/21 08/23/21 Range/Units 20:30 20:30 WBC (3.8-10.6) k/uL RBC (4.30-5.90) m/uL Hgb (13.0-17.5) gm/dL Hct (39.0-53.0) % MCV (80.0-100.0) fL MCH (25.0-35.0) pg MCHC (31.0-37.0) g/dL RDW (11.5-15.5) % Plt Count (150-450) k/uL MPV Neutrophils % % Lymphocytes % % Monocytes % % Eosinophils % % Basophils % % Neutrophils # (1.3-7.7) k/uL Lymphocytes # (1.0-4.8) k/uL Monocytes # (0-1.0) k/uL Eosinophils # (0-0.7) k/uL Basophils # (0-0.2) k/uL Macrocytosis PT (9.0-12.0) sec INR (<1.2) APTT (22.0-30.0) sec Sodium 133 L (137-145) mmol/L Potassium 4.5 (3.5-5.1) mmol/L Chloride 99 (98-107) mmol/L Carbon Dioxide 25 (22-30) mmol/L Anion Gap 9 mmol/L BUN 21 H (9-20) mg/dL Creatinine 1.01 (0.66-1.25) mg/dL Est GFR (CKD-EPI)AfAm 82 (>60 ml/min/1.73 sqM) Est GFR (CKD-EPI)NonAf 71 (>60 ml/min/1.73 sqM) Glucose 135 H (74-99) mg/dL Calcium 8.5 (8.4-10.2) mg/dL Total Bilirubin 0.6 (0.2-1.3) mg/dL AST 20 (17-59) U/L ALT 18 (4-49) U/L Alkaline Phosphatase 82 (38-126) U/L Troponin I <0.012 (0.000-0.034) ng/mL Total Protein 7.0 (6.3-8.2) g/dL Albumin 3.8 (3.5-5.0) g/dL Amylase 38 (30-110) U/L Lipase 22 L (23-300) U/L Urine Color Urine Appearance (Clear) Urine pH (5.0-8.0) Ur Specific [place] (1.001-1.035) Urine Protein (Negative) Urine Glucose (UA) (Negative) Urine Ketones (Negative) Urine Blood (Negative) Urine Nitrite (Negative) Urine Bilirubin (Negative) Urine Urobilinogen (<2.0) mg/dL Ur Leukocyte Esterase (Negative) Disposition Clinical Impression: Epigastric pain Disposition: HOME SELF-CARE Condition: Poor Instructions (If sedation given, give patient instructions): Epigastric Pain (ED) Additional Instructions: I did speak with Dr. Moyer and he suggested that you take your Prilosec once in the morning and once at night. He also suggested you take sucralfate which was sent to your pharmacy. He will follow up with you in the office this week. Prescriptions: Sucralfate 1 gm PO BID 5 Days #420 ml Is patient prescribed a controlled substance at d/c from ED?: No Referrals: Marciano Moyer MD [Primary Care Provider] - 1-2 days Time of Disposition: 22:23
[2021-08-23 21:32] LABS: Basophils % (A) 0 %; Eosinophils % (A) 0 %; HCT 38.5 % (39.0-53.0); HGB 12.4 gm/dL (13.0-17.5); Lymphocytes # (A) 0.8 k/uL (1.0-4.8); Lymphocytes % (A) 13 %; MCH 33.1 pg (25.0-35.0); MCHC 32.3 g/dL (31.0-37.0); MCV 102.5 fL (80.0-100.0); Macrocytosis Slight; Mean Platelet Volume 8.2; Monocytes # (A) 0.4 k/uL (0-1.0); Monocytes % (A) 7 %; Neutrophils # (A) 4.7 k/uL (1.3-7.7); Neutrophils % (A) 78 %; Platelet Count 324 k/uL (150-450); RBC 3.76 m/uL (4.30-5.90)
[2021-08-23 21:38] LABS: INR 1.2 (<1.2); Partial Thromboplastin Time 25.4 sec (22.0-30.0); Prothrombin Time 12.8 sec (9.0-12.0)
[2021-08-23 21:43] LABS: Albumin 3.8 g/dL (3.5-5.0); Calcium 8.5 mg/dL (8.4-10.2); Potassium 4.5 mmol/L (3.5-5.1); Total Bilirubin 0.6 mg/dL (0.2-1.3)
[2021-08-23 21:47] LABS: Appearance,Urine Clear (Clear); Bilirubin,Urine Negative (Negative); Blood,Urine Negative (Negative); Color,Urine Light Yellow; Glucose,Urine (UA) Negative (Negative); Ketones,Urine Negative (Negative); Leukocyte Esterase,Urine Negative (Negative); Nitrite,Urine Negative (Negative); Protein,Urine Negative (Negative); Specific Gravity,Urine 1.005 (1.001-1.035); Urobilinogen,Urine <2.0 mg/dL (<2.0)
[2021-08-23 23:03] VITALS: PULSE 89; TEMP 98.6
== END 2021-08-23 23:16 | disposition home or self-care (01) ==
LOC: EC 20:06
DX: R10.13 Epigastric pain (principal); E11.9 Type 2 diabetes mellitus without complications; K21.9 Gastro-esophageal reflux disease without esophagitis; E78.5 Hyperlipidemia, unspecified; M19.90 Unspecified osteoarthritis, unspecified site; F41.9 Anxiety disorder, unspecified; F32.A Depression, unspecified; Z79.84 Long term (current) use of oral hypoglycemic drugs; Z85.820 Personal history of malignant melanoma of skin; Z90.49 Acquired absence of other specified parts of digestive tract; Z79.899 Other long term (current) drug therapy
CPT/HCPCS: 36415; 80053; 81003; 82150; 83690; 84484; 85025; 85610; 85730; 93005; 99284

== ENCOUNTER 2021-08-25 18:55 | Emergency (ER) | payer MEDICARE ==
[2021-08-25 19:02] VITALS: BP 194/103; PULSE 97; RESP 18
[2021-08-25 19:06] VITALS: TEMP 98
--- NOTE | 2021-08-25 19:39 | ED ---
General Adult HPI - General Chief complaint: Abdominal Pain Stated complaint: Abd pain Time Seen by Provider: 08/25/21 18:57 Source: patient, EMS Mode of arrival: EMS Limitations: physical limitation - History of Present Illness Initial comments: Dictation was produced using [employer] dictation software. please excuse any grammatical, word or spelling errors. Chief Complaint: 80-year-old male presents emergency department for right lower quadrant abdominal pain. History of Present Illness: 80-year-old male presents with abdominal pain. States his right lower quadrant. His put on a Lidoderm patch on it. Patient is a poor historian. Was brought in by EMS. Patient was allegedly here in the emergency department 3 days ago being evaluated for shortness of breath. According to chart review patient was evaluated for epigastric abdominal pain. He is discharged home at that time. Patient denies any nausea. No vomiting. No fevers. No urinary symptoms. The ROS documented in this emergency department record has been reviewed and confirmed by me. Those systems with pertinent positive or negative responses have been documented in the HPI. All other systems are other negative and/or noncontributory. PHYSICAL EXAM: General Impression: Alert and oriented x3, not in acute distress HEENT: Normocephalic atraumatic, extra-ocular movements intact, pupils equal and reactive to light bilaterally, mucous membranes moist. Cardiovascular: Heart regular rate and rhythm Chest: Able to complete full sentences, no retractions, no tachypnea Abdomen: abdomen soft, mild tenderness to the right lower quadrant over McBurney's point, non-distended, no organomegaly, no rebound tenderness Musculoskeletal: Pulses present and equal in all extremities, no peripheral edema Motor: no focal deficits noted Neurological: CN II-XII grossly intact, no focal motor or sensory deficits noted Skin: Intact with no visualized rashes Psych: Normal affect and mood ED course: 80-year-old male presents to the emergency department for right lower quadrant abdominal pain. Vital signs upon arrival are within acceptable limits. Patient was evaluated for epigastric abdominal pain 3 days ago there is concern of constipation at that time Laboratory evaluation obtained. CBC unremarkable. No leukocytosis. Coag panel is unremarkable. Abdominal labs urinalysis is negative. Computed tomography scan of the abdomen and pelvis shows COPD, fibrotic changes left lower lobe. No interstitial infiltrate left lower lobe. Impacted subcapital fracture the right femur appears new compared to old exam. This is likely acute. Abdomen is unremarkable. Patient requesting enema. Patient given an enema. More history was obtained from the patient. He states he fell 3 weeks ago onto the hardwood floor. He reports he went to see some of his specialist who told that he did not need an x-ray. He has minimal pain in his groin. Patient's right groin does have very minimal pain with manipulation of the right hip. Neurovascularly intact. Patient is nonambulatory at baseline gets around in the electric wheelchair. Case is discussed in detail with Dr. Sigala who is automation specialist for [facility] orthopedic surgery request that patient follow-up in his office. Patient is agreeable with plan. Patient received an enema. Advised to follow-up with primary care doctor in regards to cost patient treatment. - Related Data Home Medications Medication Instructions Recorded Confirmed Omeprazole [PriLOSEC] 40 mg PO DAILY 01/25/14 07/04/18 Simvastatin [Zocor] 80 mg PO HS 01/25/14 07/04/18 Zolpidem Tartrate [Ambien Cr] 10 mg PO HS PRN 01/25/14 07/04/18 clonazePAM [KlonoPIN] 2 mg PO HS 01/25/14 07/04/18 metFORMIN HCL [Glucophage] 500 mg PO BID 01/25/14 07/04/18 Diclofenac Sodium/Misoprostol 1 tab PO BID 01/26/17 07/04/18 [Diclofenac-Misoprost 75-200 Tb] oxyCODONE HCL/ACETAMINOPHEN 1 tab PO TID PRN 01/26/17 07/04/18 [Percocet 10-325 mg] DULoxetine HCL [Cymbalta] 120 mg PO DAILY 07/04/18 07/04/18 Linaclotide [Linzess] 145 mcg PO DAILY 07/04/18 07/04/18 Methadone HCl [Dolophine HCl] 10 mg PO TID PRN 07/04/18 07/04/18 Montelukast [Singulair] 10 mg PO DAILY 07/04/18 07/04/18 Naldemedine Tosylate [Symproic] 0.2 mg PO DAILY 07/04/18 07/04/18 Naloxegol Oxalate [Movantik] 25 mg PO BID 07/04/18 07/04/18 Previous Rx's Medication Instructions Recorded Azithromycin 250 mg PO DAILY 4 Days #4 tab 06/05/19 Cephalexin [Keflex] 500 mg PO Q8HR #30 cap 11/28/20 Sucralfate 1 gm PO BID 5 Days #420 ml 08/23/21 Allergies Allergy/AdvReac Type Severity Reaction Status Date / Time No Known Allergies Allergy Verified 08/23/21 20:21 Review of Systems ROS Statement: Those systems with pertinent positive or pertinent negative responses have been documented in the HPI. ROS Other: All systems not noted in ROS Statement are negative. 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 Hiatial hernia repair, hernia repair inguinal X3, deep brain stimulator, brain stimulator repair and battery change, egd/colonoscopy, rt thumb sxm cataracats,lt nasal lesion removed/cauterized, bronchoscopy Past Anesthesia/Blood Transfusion Reactions: No Reported Reaction Past Psychological History: Anxiety, Depression Smoking Status: Never smoker Past Alcohol Use History: None Reported Past Drug Use History: None Reported - Past Family History Mother Family Medical History: Pneumonia Additional Family Medical History / Comment(s): at age 34 Father Family Medical History: COPD General Exam Limitations: physical limitation Course Vital Signs 08/25/21 18:57 Temperature 98.0 F Pulse Rate 97 Respiratory 18 Rate Blood Pressure 194/103 O2 Sat by Pulse 93 L Oximetry Medical Decision Making - Lab Data Result diagrams: 08/25/21 19:50 08/25/21 19:50 Lab Results 08/25/21 08/25/21 08/25/21 Range/Units 19:50 19:50 19:50 WBC 6.3 (3.8-10.6) k/uL RBC 3.71 L (4.30-5.90) m/uL Hgb 12.2 L (13.0-17.5) gm/dL Hct 37.6 L (39.0-53.0) % MCV 101.3 H (80.0-100.0) fL MCH 32.8 (25.0-35.0) pg MCHC 32.4 (31.0-37.0) g/dL RDW 13.5 (11.5-15.5) % Plt Count 261 (150-450) k/uL MPV 7.1 Neutrophils % 77 % Lymphocytes % 12 % Monocytes % 8 % Eosinophils % 1 % Basophils % 0 % Neutrophils # 4.9 (1.3-7.7) k/uL Lymphocytes # 0.8 L (1.0-4.8) k/uL Monocytes # 0.5 (0-1.0) k/uL Eosinophils # 0.1 (0-0.7) k/uL Basophils # 0.0 (0-0.2) k/uL Macrocytosis Slight PT 11.8 (9.0-12.0) sec INR 1.1 (<1.2) APTT 23.9 (22.0-30.0) sec Sodium (137-145) mmol/L Potassium (3.5-5.1) mmol/L Chloride (98-107) mmol/L Carbon Dioxide (22-30) mmol/L Anion Gap mmol/L BUN (9-20) mg/dL Creatinine (0.66-1.25) mg/dL Est GFR (CKD-EPI)AfAm (>60 ml/min/1.73 sqM) Est GFR (CKD-EPI)NonAf (>60 ml/min/1.73 sqM) Glucose (74-99) mg/dL Calcium (8.4-10.2) mg/dL Magnesium (1.6-2.3) mg/dL Total Bilirubin (0.2-1.3) mg/dL AST (17-59) U/L ALT (4-49) U/L Alkaline Phosphatase (38-126) U/L Total Protein (6.3-8.2) g/dL Albumin (3.5-5.0) g/dL Lipase (23-300) U/L Urine Color Light Yellow Urine Appearance Clear (Clear) Urine pH 5.0 (5.0-8.0) Ur Specific [place] 1.005 (1.001-1.035) Urine Protein Negative (Negative) Urine Glucose (UA) Negative (Negative) Urine Ketones Negative (Negative) Urine Blood Negative (Negative) Urine Nitrite Negative (Negative) Urine Bilirubin Negative (Negative) Urine Urobilinogen <2.0 (<2.0) mg/dL Ur Leukocyte Esterase Negative (Negative) 08/25/21 Range/Units 19:50 WBC (3.8-10.6) k/uL RBC (4.30-5.90) m/uL Hgb (13.0-17.5) gm/dL Hct (39.0-53.0) % MCV (80.0-100.0) fL MCH (25.0-35.0) pg MCHC (31.0-37.0) g/dL RDW (11.5-15.5) % Plt Count (150-450) k/uL MPV Neutrophils % % Lymphocytes % % Monocytes % % Eosinophils % % Basophils % % Neutrophils # (1.3-7.7) k/uL Lymphocytes # (1.0-4.8) k/uL Monocytes # (0-1.0) k/uL Eosinophils # (0-0.7) k/uL Basophils # (0-0.2) k/uL Macrocytosis PT (9.0-12.0) sec INR (<1.2) APTT (22.0-30.0) sec Sodium 133 L (137-145) mmol/L Potassium 4.0 (3.5-5.1) mmol/L Chloride 100 (98-107) mmol/L Carbon Dioxide 25 (22-30) mmol/L Anion Gap 8 mmol/L BUN 18 (9-20) mg/dL Creatinine 1.07 (0.66-1.25) mg/dL Est GFR (CKD-EPI)AfAm 77 (>60 ml/min/1.73 sqM) Est GFR (CKD-EPI)NonAf 66 (>60 ml/min/1.73 sqM) Glucose 182 H (74-99) mg/dL Calcium 8.6 (8.4-10.2) mg/dL Magnesium 2.0 (1.6-2.3) mg/dL Total Bilirubin 0.5 (0.2-1.3) mg/dL AST 21 (17-59) U/L ALT 15 (4-49) U/L Alkaline Phosphatase 75 (38-126) U/L Total Protein 6.8 (6.3-8.2) g/dL Albumin 3.7 (3.5-5.0) g/dL Lipase 26 (23-300) U/L Urine Color Urine Appearance (Clear) Urine pH (5.0-8.0) Ur Specific [place] (1.001-1.035) Urine Protein (Negative) Urine Glucose (UA) (Negative) Urine Ketones (Negative) Urine Blood (Negative) Urine Nitrite (Negative) Urine Bilirubin (Negative) Urine Urobilinogen (<2.0) mg/dL Ur Leukocyte Esterase (Negative) Disposition Clinical Impression: Hip fracture Disposition: HOME SELF-CARE Condition: Fair Instructions (If sedation given, give patient instructions): Hip Fracture (ED), Constipation (ED) Is patient prescribed a controlled substance at d/c from ED?: No Referrals: Marciano Moyer MD [Primary Care Provider] - 1-2 days Go Sigala MD [STAFF PHYSICIAN] - 1-2 days
[2021-08-25 19:56] LABS: Appearance,Urine Clear (Clear); Basophils % (A) 0 %; Bilirubin,Urine Negative (Negative); Blood,Urine Negative (Negative); Color,Urine Light Yellow; Eosinophils # (A) 0.1 k/uL (0-0.7); Eosinophils % (A) 1 %; Glucose,Urine (UA) Negative (Negative); HCT 37.6 % (39.0-53.0); HGB 12.2 gm/dL (13.0-17.5); Ketones,Urine Negative (Negative); Leukocyte Esterase,Urine Negative (Negative); Lymphocytes # (A) 0.8 k/uL (1.0-4.8); Lymphocytes % (A) 12 %; MCH 32.8 pg (25.0-35.0); MCHC 32.4 g/dL (31.0-37.0); MCV 101.3 fL (80.0-100.0); Macrocytosis Slight; Mean Platelet Volume 7.1; Monocytes # (A) 0.5 k/uL (0-1.0); Monocytes % (A) 8 %; Neutrophils # (A) 4.9 k/uL (1.3-7.7); Neutrophils % (A) 77 %; Nitrite,Urine Negative (Negative); Platelet Count 261 k/uL (150-450); Protein,Urine Negative (Negative); RBC 3.71 m/uL (4.30-5.90); RDW 13.5 % (11.5-15.5); Specific Gravity,Urine 1.005 (1.001-1.035); Urobilinogen,Urine <2.0 mg/dL (<2.0); WBC 6.3 k/uL (3.8-10.6)
[2021-08-25 20:06] LABS: Albumin 3.7 g/dL (3.5-5.0); Calcium 8.6 mg/dL (8.4-10.2); Total Bilirubin 0.5 mg/dL (0.2-1.3); Total Protein 6.8 g/dL (6.3-8.2)
[2021-08-25 20:16] LABS: INR 1.1 (<1.2); Partial Thromboplastin Time 23.9 sec (22.0-30.0); Prothrombin Time 11.8 sec (9.0-12.0)
--- NOTE | 2021-08-25 21:07 | CT ---
EXAMINATION TYPE: CT abdomen pelvis w con DATE OF EXAM: 08/25/2021 COMPARISON: 12/03/2020 HISTORY: RLQ pain, pt very kyphotic, best possible images obtained. CT DLP: 1029.5 mGycm Automated exposure control for dose reduction was used. CONTRAST: Performed with IV Contrast, patient injected with 100 mL of Isovue 300. Images obtained from the diaphragm to the floor the pelvis with IV contrast. There are emphysematous changes in the lower lung cristobal. There is some interstitial infiltrate left lower lobe. Heart size is normal. There is no pericardial effusion. There is small hiatal hernia. Karon er and spleen are intact. There is calcified splenic granuloma. Stomach is intact. There is no sign o f a pancreatic mass. Gallbladder is intact. The bile ducts are nondilated. There is metal artifact from the spinal posterior fusion surgery. Kidneys show satisfactory contrast opacification. There is no hydronephrosis. Delayed images show normal renal excretion. There is no ev idence of retroperitoneal adenopathy. No sign of free air. No sign of a bowel obstruction. There is o steopenia. There is impacted subcapital fracture right femur. There is no dislocation. The bony pelvis appears i ntact. IMPRESSION: COPD. Fibrotic changes left lower lobe. There is some new mild interstitial infiltrate left lower lob e. Impacted subcapital fracture right femur appears new compared to old exam. This is likely acute. No acute abnormality within the abdomen and pelvis.
== END 2021-08-25 23:03 | disposition home or self-care (01) ==
LOC: EC 18:55
DX: S72.001A Fracture of unspecified part of neck of right femur, initial encounter for closed fracture (principal); R10.31 Right lower quadrant pain; E11.9 Type 2 diabetes mellitus without complications; E78.5 Hyperlipidemia, unspecified; K21.9 Gastro-esophageal reflux disease without esophagitis; M19.90 Unspecified osteoarthritis, unspecified site; F32.A Depression, unspecified; F41.9 Anxiety disorder, unspecified; Z79.84 Long term (current) use of oral hypoglycemic drugs; Z79.899 Other long term (current) drug therapy; W19.XXXA Unspecified fall, initial encounter
CPT/HCPCS: 36415; 80053; 83690; 83735; 85025; 85610; 85730; 81003; 74177; 99284; Q9967

== ENCOUNTER → 2021-09-02 | Outpatient (CLI) | payer MEDICARE | END | disposition E | LOC: LABWHC1 16:46 | PROVIDERS: ATTEND Orthopaedic Surgery | DX: Z53.9 Procedure and treatment not carried out, unspecified reason (principal) ==

== ENCOUNTER → 2021-09-03 | Outpatient (CLI) | payer MEDICARE ==
[2021-09-03 14:29] LABS: Basophils % (A) 0 %; Eosinophils # (A) 0.1 k/uL (0-0.7); Eosinophils % (A) 1 %; HCT 39.2 % (39.0-53.0); HGB 12.4 gm/dL (13.0-17.5); Hypochromasia Slight; Lymphocytes # (A) 0.6 k/uL (1.0-4.8); Lymphocytes % (A) 13 %; MCH 32.6 pg (25.0-35.0); MCHC 31.7 g/dL (31.0-37.0); MCV 102.8 fL (80.0-100.0); Macrocytosis Slight; Mean Platelet Volume 7.2; Monocytes # (A) 0.3 k/uL (0-1.0); Monocytes % (A) 6 %; Neutrophils # (A) 3.9 k/uL (1.3-7.7); Neutrophils % (A) 78 %; Platelet Count 168 k/uL (150-450); RBC 3.81 m/uL (4.30-5.90)
[2021-09-03 14:35] LABS: INR 1.1 (<1.2); Partial Thromboplastin Time 26.4 sec (22.0-30.0); Prothrombin Time 11.6 sec (9.0-12.0)
[2021-09-03 19:12] LABS: African American GFR (CKD) 76.1 (60.0-200.0); Albumin 3.9 g/dL (3.8-4.9); Albumin/Globulin Ratio 1.3 (1.60-3.17); Anion Gap 10.5 mmol/L (10.00-18.00); BUN/Creat Ratio 19.07 Ratio (12.00-20.00); Blood Urea Nitrogen 20.4 mg/dL (9.0-27.0); Calcium 9.4 mg/dL (8.7-10.3); Carbon Dioxide 27.3 mmol/L (20.0-27.5); Non-African American GFR(CKD) 65.7 (60.0-200.0); Potassium 4.7 mmol/L (3.5-5.5); Total Bilirubin 0.4 mg/dL (0.30-1.20); Total Protein 6.8 g/dL (6.2-8.2)
[2021-09-03 20:39] LABS: Appearance,Urine Clear (Clear); Bacteria,Urine None Seen /HPF (None Seen); Bilirubin,Urine Negative (Negative); Blood,Urine Negative (Negative); Color,Urine Yellow (Yellow); Ketones,Urine Negative (Negative); Leukocyte Esterase,Urine Negative (Negative); Nitrite,Urine Negative (Negative); Protein,Urine Negative (Negative); RBC,Urine 0-2 /HPF (0-2); Urobilinogen,Urine 0.2 (0.2,1.0); WBC,Urine 0-5 /HPF (0-5)
== END | disposition home or self-care (01) ==
LOC: LABPAT 13:28
PROVIDERS: ATTEND Orthopaedic Surgery
DX: Z01.812 Encounter for preprocedural laboratory examination (principal)
CPT/HCPCS: 80053; 81003; 85025; 85610; 85730; 87070

== ENCOUNTER 2021-09-08 12:46 | Inpatient (IN) | payer MEDICARE ==
[~2021-09-08 12:46] MED LIST changes: -SODIUM CHLORIDE 0.9% 500 ML in EMPTY BAG 1 BAG IV PRN; +TRANEXAMIC ACID IN NACL,ISO-OS 1,000 MG in SALINE 1 100ML.BAG IVPB PRN; -ZOLEDRONIC ACID 5 MG in SODIUM CHLORIDE 0.9% 100 ML IV ONE
[2021-09-08 13:27] LABS: Glucose,Whole Blood 100 mg/dL (75-99)
--- NOTE | 2021-09-08 13:51 | XR ---
EXAMINATION TYPE: AP view pelvis and 2 views right hip DATE OF EXAM: 09/08/2021 COMPARISON: 08/27/2021 HISTORY: 80-year-old male preoperative for hip fracture FINDINGS: Partially visualized lumbar fusion hardware. Degenerative disc disease L5-S1. Patient is rotated. Red emonstrated subcapital femoral neck fracture that is impacted approximately migrated. Surgical clip i n the left side of the pelvis. IMPRESSION: Impacted subcapital femoral neck fracture shows no significant change from 08/27/2021.
[2021-09-08] MEDS ORDERED: ONDANSETRON 4 MG/2 ML VIAL ONE (13:57)
[2021-09-08] MEDS: ONDANSETRON 4 MG/2 ML VIAL IVP ONE ×2 (14:03→20:15)
[2021-09-08] MEDS: DEXAMETHASONE SOD PHOSPHATE 4 MG/ML 1 ML VIAL IV ONE ×2 (14:03→20:15)
[2021-09-08] MEDS ORDERED: NALOXONE 0.4 MG/ML 1 ML VIAL IV PRN (15:44)
[2021-09-08] MEDS ORDERED: ONDANSETRON 4 MG/2 ML VIAL IVP PRN (15:44)
[2021-09-08] MEDS ORDERED: MAGNESIUM HYDROXIDE 2,400 MG/10 ML CUP PO PRN (15:44)
[2021-09-08] MEDS ORDERED: HYDROmorphone 0.5 MG/0.5 ML SYRINGE IVP PRN ×2 (15:44)
[2021-09-08] MEDS ORDERED: HYDROcodone/APAP 7.5-325MG 1 EACH TAB PO PRN ×2 (15:48)
[2021-09-08] MEDS ORDERED: ePHEDrine 50 MG/ML 1 ML VIAL ONE (16:24)
[2021-09-08] MEDS ORDERED: fentaNYL (PF) 50 MCG/ML 2 ML AMP ONE (16:24)
[2021-09-08] MEDS ORDERED: PROPOFOL 10 MG/ML 20 ML VIAL IV ONE (16:24)
[2021-09-08] MEDS ORDERED: TRANEXAMIC ACID IN NACL,ISO-OS 1,000 MG/100 ML BAG ONE (16:24)
[2021-09-08] MEDS ORDERED: LIDOCAINE 1% INJ 10MG/ML (20 ML MDV) ONE (16:24)
[2021-09-08] MEDS ORDERED: LACTATED RINGERS 1,000 ML IV ONE ×2 (16:43→17:18)
[2021-09-08] MEDS ORDERED: ceFAZolin 1,000 MG in SODIUM CHLORIDE 0.9% 1,000 ML IRRIGATION ONE (16:58)
--- NOTE | 2021-09-08 17:15 | P.OP ---
Date of Procedure: 09/08/21 Preoperative Diagnosis: Subcapital fracture right hip Postoperative Diagnosis: Subcapital fracture right hip Procedure(s) Performed: Girdlestone resection arthroplasty right hip Anesthesia: TONI Surgeon: Sam Haas Line Clearance Foreman #1: Soheila Minor Estimated Blood Loss (ml): 50 Pathology: other (Femoral head) Condition: stable Disposition: PACU Indications for Procedure: This is a 80-year-old gentleman that presented to my office with pain in his right hip. He sustained a femoral neck fracture and was originally treated by another physician who recommended nonoperative treatment. He was having 9 out of 10 pain in his right hip while I saw him in the office. I discussed the treatment options which included nonoperative treatment, hemiarthroplasty, and Girdlestone resection arthroplasty. Due to his multiple medical condition and body habitus, I feel that a Girdlestone resection arthroplasty will give him pain relief with the fewest complications. He and his are agreeable to this informed consent was obtained. Operative Findings: The operative findings are consistent with a femoral neck fracture of the right hip. Description of Procedure: Patient was seen and evaluated in the preoperative area, consent was reviewed and the operative site was marked with a skin marker. Patient was then brought to the operating room and given 2 g of Ancef intravenously. A general anes thetic was administered by the anesthesia department. Patient was then placed in a lateral decubitus position and held with a Montral hip positioner. The bony prominences were well-padded and an axillary roll was placed. The hip was then prepped and draped in the usual sterile fashion. A universal timeout was then performed which confirmed the patient's name, surgical site, ALLERGIES, and procedure. A standard anterolateral approach the hip was performed. Skin and subcutaneous tissues were sharply incised with an incision centered over the tip of the greater trochanter. The incision was carefully dissected down to the fascia. The fascia was then split in line with skin incision and a Charnley retractor was gently placed. The abductors were then identified, and the anterior one th ird of the abductors were released off the trochanter and one large sleeve. The fracture hematoma was evacuated and the proximal femur was exposed by externally rotating the femur. The fracture site was readily visualized. Next the proximal femur was osteotomized above the lesser trochanter. This bone was then removed. Attention was then turned to the femoral head. Using a corkscrew, the femoral head was removed from the acetabulum without incident. The hip was again irrigated with pulsatile lavage, then followed by the Irrrisept solution. The abductors were then repaired through drill holes to the bone to the greater trochanter, utilizing #5 Ethibond suture. Next the fascia was repaired with #2 strata fix suture. The subcutaneous tissue was then repaired with 3-0 Vicryl. The subcuticular tissue was then repaired with 3-0 strata fix suture. Skin was then closed with Dermabond tape. A sterile dressing was then applied and the patient was transported to the recovery room in stable condition. Line Clearance Foreman RILEY Aguillon was required due to the complexity of surgery the need for skilled surgical consultant. She assisted with positioning the patient, draping the patient, retraction during the surgery, and closure of the wound.
[2021-09-08] MEDS: HYDROmorphone 0.5 MG/0.5 ML SYRINGE IVP PRN ×3 (17:44→18:39)
[2021-09-08 18:19] LABS: Glucose,Whole Blood 110 mg/dL (75-99)
[2021-09-08] MEDS ORDERED: METHADONE 5 MG TAB PO PRN (19:26)
[2021-09-08] MEDS ORDERED: oxyCODONE-APAP 10-325MG 1 EACH TAB PO PRN (19:40)
[2021-09-08] MEDS: LACTATED RINGERS 1,000 ML IV SCH ×2 (20:15→21:48)
[2021-09-08 20:36] LABS: Glucose,Whole Blood 120 mg/dL (75-99)
[2021-09-08] MEDS: LIDOCAINE 5% PATCH TOPICAL SCH (21:30)
[2021-09-08] MEDS: ASPIRIN 325 MG TAB PO SCH (21:43)
[2021-09-08] MEDS: METHADONE 5 MG TAB PO SCH (21:45)
[2021-09-08] MEDS: SENNOSIDES-DOCUSATE SODIUM 1 EACH TAB PO SCH (21:47)
[2021-09-08] MEDS: ATORVASTATIN 40 MG TAB PO SCH (21:48)
[2021-09-08] MEDS: metFORMIN 500 MG TAB PO SCH (21:48)
[2021-09-08] MEDS: PANTOPRAZOLE 40 MG TABLET PO SCH (21:48)
[2021-09-08] MEDS: SODIUM CHLORIDE 0.9% 1,000 ML IV SCH (21:49)
[2021-09-08] MEDS: clonazePAM 1 MG TAB PO SCH (23:00)
[2021-09-08] MEDS: traZODone HCL 50 MG TAB PO SCH (23:01)
[2021-09-08] MEDS: LIDOCAINE 5% OINTMENT 50 GM JAR TOPICAL SCH (23:01)
[2021-09-09] MEDS: SODIUM CHLORIDE 0.9% 1,000 ML IV SCH (05:44)
[2021-09-09] MEDS: HYDROmorphone 0.5 MG/0.5 ML SYRINGE IVP PRN ×3 (05:56→17:51)
[2021-09-09 06:59] LABS: Glucose,Whole Blood 89 mg/dL (75-99)
[2021-09-09] MEDS: METHADONE 5 MG TAB PO SCH ×3 (09:20→21:06)
[2021-09-09] MEDS: LIDOCAINE 5% PATCH TOPICAL SCH (09:21)
[2021-09-09] MEDS: oxyCODONE-APAP 10-325MG 1 EACH TAB PO PRN (10:27)
[2021-09-09] MEDS: ASPIRIN 325 MG TAB PO SCH ×2 (10:29→21:00)
[2021-09-09 10:31] LABS: Basophils # (A) 0.02 X 10*3/uL (0.00-0.10); Basophils % (A) 0.2 %; Eosinophils # (A) 0.01 X 10*3/uL (0.04-0.35); Eosinophils % (A) 0.1 %; HCT 32.3 % (39.6-50.0); HGB 10.4 g/dL (13.0-17.0); Immature Grans, Automated 0.2 %; Lymphocytes # (A) 1.07 X 10*3/uL (0.90-5.00); Lymphocytes % (A) 12.7 %; MCH 32.3 pg (27.0-32.0); MCHC 32.2 g/dL (32.0-37.0); MCV 100.3 fL (80.0-97.0); Mean Platelet Volume 11.6 fL (9.5-12.2); Monocytes # (A) 0.71 X 10*3/uL (0.20-1.00); Monocytes % (A) 8.4 %; NRBC Per 100 WBC 0 /100 WBCS (0.0-0.0); Neutrophils # (A) 6.62 X 10*3/uL (1.80-7.70); Neutrophils % (A) 78.4 %; Platelet Count 150 X 10*3/uL (140-440); RBC 3.22 X 10*6/uL (4.40-5.60); RDW 13.6 % (11.5-14.5); WBC 8.45 X 10*3/uL (4.50-10.00)
[2021-09-09] MEDS: PANTOPRAZOLE 40 MG TABLET PO SCH ×2 (10:31→10:35)
[2021-09-09] MEDS: DOCUSATE 100 MG CAP PO SCH ×2 (10:35→16:12)
[2021-09-09] MEDS: metFORMIN 500 MG TAB PO SCH ×2 (10:36→21:02)
[2021-09-09] MEDS: LIDOCAINE 5% OINTMENT 50 GM JAR TOPICAL SCH ×4 (10:36→21:07)
--- NOTE | 2021-09-09 11:14 | P.PN ---
Subjective Progress Note Date: 09/09/21 Principal diagnosis: Right femoral neck fracture. S/P Girdlestone procedure right hip. This is a 80-year-old gentleman that presented to my office with pain in his right hip. He sustained a femoral neck fracture and was originally treated by another physician who recommended nonoperative treatment. He was having 9 out of 10 pain in his right hip while I saw him in the office. I discussed the treatment options which included nonoperative treatment, hemiarthroplasty, and Girdlestone resection arthroplasty. Due to his multiple medical condition and body habitus, I feel that a Girdlestone resection arthroplasty will give him pain relief with the fewest complications. He and his are agreeable to this informed consent was obtained. Today is POD #1 S/P Girdlestone procedure of the right hip. The patient is stable from an orthopedic standpoint. There are no new complaints or concerns today. The patient does not respond to questions. Vital signs are stable. Objective - Vital Signs Vital signs: Vital Signs Temp 98.9 F 09/09/21 09:03 Pulse 92 09/09/21 09:03 Resp 16 09/09/21 09:59 BP 99/46 09/09/21 09:03 Pulse Ox 94 L 09/09/21 05:44 Intake & Output 09/08/21 09/09/21 09/09/21 18:59 06:59 18:59 Intake Total 1251 Output Total 50 400 Balance 1201 -400 Weight 51.8 kg Intake: IV 1251 Output: Urine 400 Estimated Blood Loss 50 Other: Voiding Method Urinal Urinal # Voids 2 - Exam This is a 80-year-old male in no acute distress. He is lying on his left side in the position. He does not respond to questions. He is awake. Exam of the right hip reveals that his Optifoam dressing is clean and intact. Pedal pulses +2/4. Capillary refill is less than 3 seconds. - Labs CBC & Chem 7: 09/09/21 05:41 Labs: Abnormal Lab Results - Last 24 Hours (Table) 09/08/21 09/08/21 09/08/21 Range/Units 13:26 18:17 20:35 RBC (4.40-5.60) X 10*6/uL Hgb (13.0-17.0) g/dL Hct (39.6-50.0) % MCV (80.0-97.0) fL MCH (27.0-32.0) pg Eosinophils # (0.04-0.35) X 10*3/uL POC Glucose (mg/dL) 100 H 110 H 120 H (75-99) mg/dL 09/09/21 Range/Units 05:41 RBC 3.22 L (4.40-5.60) X 10*6/uL Hgb 10.4 L (13.0-17.0) g/dL Hct 32.3 L (39.6-50.0) % MCV 100.3 H (80.0-97.0) fL MCH 32.3 H (27.0-32.0) pg Eosinophils # 0.01 L (0.04-0.35) X 10*3/uL POC Glucose (mg/dL) (75-99) mg/dL Assessment and Plan (1) Injury of right hip Current Visit: Yes Status: Acute Code(s): S79.911A - UNSPECIFIED INJURY OF RIGHT HIP, INITIAL ENCOUNTER SNOMED Code(s): 356506814 (2) Status post Girdlestone procedure Current Visit: Yes Status: Acute Code(s): Z98.890 - OTHER SPECIFIED POSTPROCEDURAL STATES SNOMED Code(s): 071633266 (3) Fracture of femoral neck, right Current Visit: Yes Status: Acute Code(s): S72.001A - FRACTURE OF UNSP PART OF NECK OF RIGHT FEMUR, INIT SNOMED Code(s): 6862623 Plan: The clinical findings are discussed with the patient and nursing staff. The patient may be discharged to inpatient rehab tomorrow if cleared medically.
[2021-09-09 11:37] LABS: Glucose,Whole Blood 113 mg/dL (75-99)
[2021-09-09] MEDS: LACTATED RINGERS 1,000 ML IV SCH (15:37)
[2021-09-09] MEDS ORDERED: LIDOCAINE 5% PATCH TOPICAL ONE (16:00)
[2021-09-09] MEDS: ATORVASTATIN 40 MG TAB PO SCH (21:00)
[2021-09-09] MEDS: traZODone HCL 50 MG TAB PO SCH (21:02)
[2021-09-09] MEDS: SENNOSIDES-DOCUSATE SODIUM 1 EACH TAB PO SCH (21:02)
[2021-09-09] MEDS: clonazePAM 1 MG TAB PO SCH (22:00)
[2021-09-10] MEDS: SODIUM CHLORIDE 0.9% 1,000 ML IV SCH ×2 (01:12→12:13)
[2021-09-10] MEDS: metFORMIN 500 MG TAB PO SCH ×2 (07:53→20:26)
[2021-09-10] MEDS: PANTOPRAZOLE 40 MG TABLET PO SCH (07:53)
--- NOTE | 2021-09-10 07:53 | P.PN ---
Subjective Progress Note Date: 09/09/21 Principal diagnosis: Right hip and right upper leg pain presented with multiple falls, several weeks ago was diagnosed with closed fracture right femur. patient is status post postop day 1 from Girdlestone procedure. Currently resting comfortably at this time with pain controlled with current medication regimen. Patient is alert and oriented room air, stable vital signs. Right hip dressing dry and intact Objective - Vital Signs Vital signs: Vital Signs Temp 98.2 F 09/10/21 00:46 Pulse 80 09/10/21 00:46 Resp 15 09/10/21 00:46 BP 108/50 09/10/21 06:44 Pulse Ox 94 L 09/10/21 00:46 Intake & Output 09/09/21 09/10/21 09/10/21 18:59 06:59 18:59 Intake Total 600 Output Total 2049 600 Balance -1450 -600 Intake: Oral 600 Output: Urine 2049 600 Other: Voiding Method Urinal Urinal Diaper External Catheter # Voids 2 - Constitutional General appearance: Present: thin - EENT Eyes: Present: PERRLA, normal appearance ENT: Present: hard of hearing - Neck Neck: Present: normal ROM - Respiratory Respiratory: bilateral: CTA - Cardiovascular Rhythm: regular Heart sounds: normal: S1, S2 - Gastrointestinal General gastrointestinal: Present: normal bowel sounds - Genitourinary Genitourinary Comment(s): Normal male genitalia - Integumentary Integumentary: Present: normal turgor - Neurologic Neurologic: Present: CNII-XII intact - Musculoskeletal Musculoskeletal Comment(s): right hip surgical site covered by dressing that is dry and intact, ROM of right leg and hip intact, - Psychiatric Psychiatric: Present: A&O x's 3, appropriate affect, intact judgment & insight - Labs CBC & Chem 7: 09/09/21 05:41 Labs: Abnormal Lab Results - Last 24 Hours (Table) 09/09/21 09/09/21 Range/Units 05:41 11:36 RBC 3.22 L (4.40-5.60) X 10*6/uL Hgb 10.4 L (13.0-17.0) g/dL Hct 32.3 L (39.6-50.0) % MCV 100.3 H (80.0-97.0) fL MCH 32.3 H (27.0-32.0) pg Eosinophils # 0.01 L (0.04-0.35) X 10*3/uL POC Glucose (mg/dL) 113 H (75-99) mg/dL Assessment and Plan (1) Fracture of femoral neck, right Current Visit: Yes Status: Acute Code(s): S72.001A - FRACTURE OF UNSP PART OF NECK OF RIGHT FEMUR, INIT SNOMED Code(s): 5464547 (2) Injury of right hip Current Visit: Yes Status: Acute Code(s): S79.911A - UNSPECIFIED INJURY OF RIGHT HIP, INITIAL ENCOUNTER SNOMED Code(s): 293991614 (3) Status post Girdlestone procedure Current Visit: Yes Status: Acute Code(s): Z98.890 - OTHER SPECIFIED POSTPROCEDURAL STATES SNOMED Code(s): 989433096 (4) Hip fracture Current Visit: No Status: Acute Code(s): S72.009A - FRACTURE OF UNSP PART OF NECK OF UNSP FEMUR, INIT SNOMED Code(s): 573510029 Plan: Continue current medication regimen as prescribed PT/OT to assess patient Pain management as prescribed Will continue to follow and treat accordingly Time with Patient: Greater than 30
[2021-09-10] MEDS: ASPIRIN 325 MG TAB PO SCH ×2 (07:54→20:26)
[2021-09-10] MEDS: DOCUSATE 100 MG CAP PO SCH ×2 (07:54→16:40)
[2021-09-10] MEDS: METHADONE 5 MG TAB PO SCH ×3 (07:54→20:25)
[2021-09-10] MEDS: LIDOCAINE 5% OINTMENT 50 GM JAR TOPICAL SCH ×4 (07:55→20:26)
[2021-09-10] MEDS ORDERED: IPRATROPIUM-ALBUTEROL 3 ML NEB INHALATION PRN (08:13)
--- NOTE | 2021-09-10 08:48 | XR ---
EXAMINATION TYPE: XR chest 1V portable DATE OF EXAM: 09/10/2021 CLINICAL HISTORY: Difficulty breathing progress study. Fever and hypoxia. TECHNIQUE: 2 AP portable upright views of the chest are obtained. COMPARISON: Chest x-ray and CT chest from December 03, 2020 FINDINGS: Exam suboptimal due to body habitus. Marked exaggerated thoracic kyphosis with long segmen t Garcia rods beginning mid to lower thoracic spine extending to lower lumbar spine redemonstrate d. In addition there are overlying bilateral neck stimulator device is redemonstrated. There is new l eft basilar opacity on current study. Right lung remains clear. Cardiac silhouette size remains withi n normal limits. IMPRESSION: New left basilar opacity consistent with acute infiltrate and/or atelectasis
[2021-09-10] MEDS: LIDOCAINE 5% PATCH TOPICAL SCH (09:10)
[2021-09-10] MEDS: polyethylene glycoL 3350 17 GM POWD.PACK PO SCH (09:22)
[2021-09-10] MEDS: oxyCODONE-APAP 10-325MG 1 EACH TAB PO PRN (09:28)
[2021-09-10] MEDS ORDERED: oxyCODONE-APAP 10-325MG 1 EACH TAB PO PRN (09:36)
--- NOTE | 2021-09-10 09:45 | P.DS ---
Providers Date of admission: 09/09/21 14:10 Expected date of discharge: 09/10/21 Attending physician: Sam Haas Consults: 09/08/21 15:44 Consult Physician Routine Consulting Provider: Marciano Moyer Consult Reason/Comments: medical management Do you want consulting provider notified?: Yes Primary care physician: Marciano Moyer - Discharge Diagnosis(es) (1) Fracture of femoral neck, right Current Visit: Yes Status: Acute (2) Status post Girdlestone procedure Current Visit: Yes Status: Acute Hospital Course: This is a 80-year-old male with known history of subcapital fracture of the right hip. The patient presented for evaluation as an outpatient. After discussion and consideration patient elects to proceed with Girdlestone resection arthroplasty right hip. The patient is seen preoperatively by Dr. Haas and medically cleared for surgery by their primary care physician. Patient is admitted to [facility] on 09/09/2021 for Girdlestone resection arthroplasty right hip. The procedure is performed without complication or sequelae. The patient is doing well postoperatively. Labs and vital signs are stable on day of discharge. On day of discharge patient's hip incision is healing well. There is minimal erythema. There is no drainage noted at this time. There is minimal soft tissue swelling to the hip and thigh. Patient has full foot and ankle motion without difficulty or pain. Calf is soft and nontender to palpation. Neurovascular status to the right lower extremity is intact. Patient is discharged to rehab in good condition. Please see med rec for accurate list of home medications. Plan - Discharge Summary Discharge Rx Participant: No New Discharge Prescriptions: New Aspirin 325 mg PO BID #60 tab Sennosides [Senokot] 2 tab PO DAILY PRN #60 tablet PRN Reason: Constipation Methadone [Dolophine] 15 mg PO TID 3 Days #27 tab Ondansetron Odt [Zofran Odt] 1 tab PO Q8HR PRN #10 tab PRN Reason: Nausea oxyCODONE-APAP 10-325MG [Percocet 10-325 mg] 1 tab PO Q8HR PRN #21 tab PRN Reason: Pain No Action metFORMIN HCL [Glucophage] 500 mg PO BID clonazePAM [KlonoPIN] 2 mg PO HS Simvastatin [Zocor] 80 mg PO HS oxyCODONE HCL/ACETAMINOPHEN [Percocet 10-325 mg] 1 tab PO BID PRN PRN Reason: Pain Methadone HCl [Dolophine HCl] 15 mg PO TID Docusate [Colace] 100 mg PO BID-W/MEALS Omeprazole 20 mg PO BID Ibuprofen 600 mg PO TID-W/MEALS PRN PRN Reason: Pain Sennosides [Senna] 5 tab PO DAILY Tacrolimus 0.1% Ointment 1 applic TOPICAL BID PRN PRN Reason: SCALP Lidocaine 5% Patch [Lidoderm] 3 patch TOPICAL DAILY Lidocaine 5% Oint [Xylocaine 5% Oint] 1 applic TOPICAL QID Ketoconazole 2% Shampoo [Nizoral] 1 applic TOPICAL DIRECTED traZODone HCL 50 mg PO HS polyethylene glycoL 3350 [Miralax] 17 gm PO DAILY Discharge Medication List Simvastatin [Zocor] 80 mg PO HS 01/25/14 [History] clonazePAM [KlonoPIN] 2 mg PO HS 01/25/14 [History] metFORMIN HCL [Glucophage] 500 mg PO BID 01/25/14 [History] oxyCODONE HCL/ACETAMINOPHEN [Percocet 10-325 mg] 1 tab PO BID PRN 01/26/17 [History] Methadone HCl [Dolophine HCl] 15 mg PO TID 07/04/18 [History] Docusate [Colace] 100 mg PO BID-W/MEALS 08/25/21 [History] Ibuprofen 600 mg PO TID-W/MEALS PRN 08/25/21 [History] Ketoconazole 2% Shampoo [Nizoral] 1 applic TOPICAL DIRECTED 08/25/21 [History] Lidocaine 5% Oint [Xylocaine 5% Oint] 1 applic TOPICAL QID 08/25/21 [History] Lidocaine 5% Patch [Lidoderm] 3 patch TOPICAL DAILY 08/25/21 [History] Omeprazole 20 mg PO BID 08/25/21 [History] Tacrolimus 0.1% Ointment 1 applic TOPICAL BID PRN 08/25/21 [History] Sennosides [Senna] 5 tab PO DAILY 09/04/21 [History] polyethylene glycoL 3350 [Miralax] 17 gm PO DAILY 09/04/21 [History] traZODone HCL 50 mg PO HS 09/04/21 [History] Aspirin 325 mg PO BID #60 tab 03/15/22 [Rx] Ondansetron Odt [Zofran Odt] 1 tab PO Q8HR PRN #10 tab 09/08/21 [Rx] Sennosides [Senokot] 2 tab PO DAILY PRN #60 tablet 09/08/21 [Rx] Methadone [Dolophine] 15 mg PO TID 3 Days #27 tab 09/10/21 [Rx] oxyCODONE-APAP 10-325MG [Percocet 10-325 mg] 1 tab PO Q8HR PRN #21 tab 09/10/21 [Rx] Follow up Appointment(s)/Referral(s): Marciano Moyer MD [Primary Care Provider] - 3 Days Sam Haas DO [Doctor of Osteopathic Medicine] - 2 Weeks Activity/Diet/Wound Care/Special Instructions: JOEY Barrera in 3 days Leave dressing intact. Dressing may be removed by home care nurse or by patient in 7 days. Then change dressing twice daily until follow up. May shower with initial dressing intact and after removal. If dressing become saturated, please remove. Please take aspirin 325mg twice daily for 30 days to prevent blood clots. Recommend use of compression stockings daily until follow up to help prevent swelling and blood clots. May remove at night before sleeping. Please follow-up with [facility] in 2 weeks and call with any questions or concerns, . Discharge Disposition: TRANSFER TO SNF/ECF Care Plan Goals (MU): Prescription for methadone sent electronically to [facility] long-term pharmacy 09/09/2021
[2021-09-10] MEDS: BUDESONIDE 0.5 MG/2 ML NEBU INHALATION SCH ×2 (12:21→19:09)
[2021-09-10] MEDS: IPRATROPIUM-ALBUTEROL 3 ML NEB INHALATION SCH ×3 (12:21→19:09)
[2021-09-10 12:22] LABS: Appearance,Urine Clear (Clear); Bilirubin,Urine Negative (Negative); Blood,Urine Negative (Negative); Color,Urine Yellow; Glucose,Urine (UA) Negative (Negative); Ketones,Urine Negative (Negative); Leukocyte Esterase,Urine Negative (Negative); Nitrite,Urine Negative (Negative); Protein,Urine Negative (Negative); Specific Gravity,Urine 1.015 (1.001-1.035); Urobilinogen,Urine <2.0 mg/dL (<2.0)
[2021-09-10] MEDS: AZITHROMYCIN 500 MG in SODIUM CHLORIDE 0.9% 250 ML IVPB SCH (12:50)
[2021-09-10] MEDS: HYDROmorphone 0.5 MG/0.5 ML SYRINGE IVP PRN (13:38)
--- NOTE | 2021-09-10 14:25 | P.PN ---
Subjective Progress Note Date: 09/10/21 09/10/2021 status post Girdlestone resection arthroplasty right hip secondary to subcapital right hip fracture in a patient with history of ankylosing spondylitis ,fell out of his wheelchair. Prior to incident patient was able to transfer self to and from wheelchair, currently unable to sit at side of bed. passing flatus, good diet intake with no nausea or vomiting. Complains of uncontrolled pain on current regimen. T-max 100.2, O2 sats decreased to 90% on room air. Denies cough or congestion. Denies chest pain, palpitations or shortness of breath. Objective - Vital Signs Vital signs: Vital Signs Temp 99.2 F 09/10/21 10:47 Pulse 94 09/10/21 07:50 Resp 16 09/10/21 08:00 BP 107/57 09/10/21 07:50 Pulse Ox 90 L 09/10/21 07:50 Intake & Output 09/09/21 09/10/21 09/10/21 18:59 06:59 18:59 Intake Total 600 100 Output Total 2049 600 Balance -1450 -600 100 Intake: Oral 600 100 Output: Urine 2049 Other: Voiding Method Urinal Urinal Urinal Diaper Diaper External Catheter External Catheter # Voids 2 - Exam PHYSICAL EXAM: VITAL SIGNS: [As above] GENERAL: During up in bed, no acute distress HEENT: Conjunctivae normal. eyes normal. NECK: No JVD. No thyroid enlargement. No LNs CARDIOVASCULAR: S1, S2 regular.No murmur RESPIRATION: Breath sounds diminished in the bases. Fine left basilar crackles. ABDOMEN: Soft, nontender . No guarding. no masses palpable. No ascites, No hepatosplenomegaly.Bowel sounds heard. EXTREMITIES: Right hip dressing clean dry and intact, No edema. no swelling PSYCHIATRY: Alert and oriented X3, mood and affect normal. NERVOUS SYSTEM: Cranial N 2-12 grossly normal. Diffuse weakness No focal deficits. Tone is normal in all 4 extremities. Skin: no lesions, no rash - Labs CBC & Chem 7: 09/09/21 05:41 Assessment and Plan Assessment: Acute subcapital right hip fracture, status post Girdlestone resection arthroplasty right hip Atelectasis, possible community-acquired pneumonia, left basilar History of pneumothorax on the left History of ankylosing spondylitis with chronic back pain, previous back surgeries Osteoarthritis History of deep brain stimulators Diabetes mellitus type 2 Anxiety, depression Prior history of nicotine dependence COPD Hyperlipidemia Plan: Continue on current medication regime ,monitoring and symptomatic treatment. Pain management been further adjusted as per orthopedic surgery. Patient concerned about pain not being controlled prior to leaving for subacute rehab-recommend continue monitoring overnight to ensure pain better controlled prior to discharge. PT. Hypoxia, decreased O2 saturations accompanied by a fever . Chest x-ray and UA with micro- ordered. Aggressive pulmonary toileting with incentive spirometer reinforced. Rocephin and azithromycin initiated. The impression and plan of care has been dictated as directed. : I performed a history and examination of this patient, discussed the same with the dictator. I agree with the dictator's note ,documented as a scribe. Any additional findings or plans will be noted.
[2021-09-10] MEDS: LACTATED RINGERS 1,000 ML IV SCH (16:07)
[2021-09-10] MEDS: oxyCODONE-APAP 10-325MG 1 EACH TAB PO SCH (18:08)
[2021-09-10] MEDS: SENNOSIDES-DOCUSATE SODIUM 1 EACH TAB PO SCH (20:26)
[2021-09-10] MEDS: clonazePAM 1 MG TAB PO SCH (20:26)
[2021-09-10] MEDS: traZODone HCL 50 MG TAB PO SCH (20:26)
[2021-09-10] MEDS: ATORVASTATIN 40 MG TAB PO SCH (20:26)
[2021-09-11] MEDS: oxyCODONE-APAP 10-325MG 1 EACH TAB PO SCH ×2 (00:48→13:20)
[2021-09-11 07:01] LABS: Glucose,Whole Blood 97 mg/dL (75-99)
[2021-09-11] MEDS: polyethylene glycoL 3350 17 GM POWD.PACK PO SCH (07:55)
[2021-09-11] MEDS: METHADONE 5 MG TAB PO SCH ×3 (07:55→20:23)
[2021-09-11] MEDS: ASPIRIN 325 MG TAB PO SCH ×2 (07:58→20:23)
[2021-09-11] MEDS: metFORMIN 500 MG TAB PO SCH ×2 (07:58→20:23)
[2021-09-11] MEDS: LIDOCAINE 5% PATCH TOPICAL SCH (07:58)
[2021-09-11] MEDS: PANTOPRAZOLE 40 MG TABLET PO SCH (07:58)
[2021-09-11] MEDS: DOCUSATE 100 MG CAP PO SCH ×2 (07:58→15:47)
[2021-09-11] MEDS: LIDOCAINE 5% OINTMENT 50 GM JAR TOPICAL SCH ×4 (08:00→20:24)
[2021-09-11] MEDS: SODIUM CHLORIDE 0.9% 1,000 ML IV SCH ×2 (08:01→21:40)
[2021-09-11] MEDS: AZITHROMYCIN 500 MG in SODIUM CHLORIDE 0.9% 250 ML IVPB SCH (08:41)
[2021-09-11 09:25] LABS: African American GFR (CKD) 82.6 (60.0-200.0); Anion Gap 8.9 mmol/L (10.00-18.00); BUN/Creat Ratio 15.1 Ratio (12.00-20.00); Blood Urea Nitrogen 15.1 mg/dL (9.0-27.0); Calcium 7.8 mg/dL (8.7-10.3); Carbon Dioxide 23.1 mmol/L (20.0-27.5); Non-African American GFR(CKD) 71.3 (60.0-200.0); Potassium 4.4 mmol/L (3.5-5.5)
[2021-09-11] MEDS: BUDESONIDE 0.5 MG/2 ML NEBU INHALATION SCH ×2 (09:27→19:38)
[2021-09-11] MEDS: IPRATROPIUM-ALBUTEROL 3 ML NEB INHALATION SCH ×4 (09:27→19:38)
[2021-09-11 09:58] LABS: Basophils # (A) 0.03 X 10*3/uL (0.00-0.10); Basophils % (A) 0.3 %; Eosinophils % (A) 0.9 %; Immature Grans, Automated 0.3 %; Lymphocytes # (A) 1.22 X 10*3/uL (0.90-5.00); Lymphocytes % (A) 11.2 %; MCH 31.8 pg (27.0-32.0); MCHC 30.3 g/dL (32.0-37.0); MCV 105.1 fL (80.0-97.0); Mean Platelet Volume 11.7 fL (9.5-12.2); Monocytes # (A) 1.02 X 10*3/uL (0.20-1.00); Monocytes % (A) 9.4 %; NRBC Per 100 WBC 0 /100 WBCS (0.0-0.0); Neutrophils # (A) 8.47 X 10*3/uL (1.80-7.70); Neutrophils % (A) 77.9 %; Platelet Count 119 X 10*3/uL (140-440); RBC 3.14 X 10*6/uL (4.40-5.60); RDW 13.9 % (11.5-14.5); WBC 10.87 X 10*3/uL (4.50-10.00)
--- NOTE | 2021-09-11 10:15 | P.PN ---
Subjective Progress Note Date: 09/11/21 This is a 80-year-old male who is status post Girdlestone resection arthroplasty right hip. This is postoperative day #3 and patient is seen and evaluated at bedside today. Patient is very drowsy this morning, but does confirm that his right hip is painful. Objective - Vital Signs Vital signs: Vital Signs Temp 99.7 F H 09/11/21 07:51 Pulse 92 09/11/21 09:38 Resp 18 09/11/21 09:38 BP 113/62 09/11/21 07:51 Pulse Ox 95 09/11/21 09:27 Intake & Output 09/10/21 09/11/21 09/11/21 18:59 06:59 18:59 Intake Total 100 50 Output Total 1550 100 Balance -1450 -50 Intake: Oral 100 50 Output: Urine 1550 100 Other: Voiding Method Urinal External Catheter External Catheter Diaper External Catheter # Voids 2 1 - Exam Vital signs are stable. Patient is in no acute distress and is lying comfortably in bed. Patient is very drowsy this morning. Calf is soft and nontender to palpation. Dressing is clean, dry, and intact. Sensation intact. Neurovascular status and circulatory status are intact. - Labs CBC & Chem 7: 09/11/21 04:44 09/11/21 04:44 Labs: Abnormal Lab Results - Last 24 Hours (Table) 09/11/21 09/11/21 Range/Units 04:44 04:44 WBC 10.87 H (4.50-10.00) X 10*3/uL RBC 3.14 L (4.40-5.60) X 10*6/uL Hgb 10.0 L (13.0-17.0) g/dL Hct 33.0 L (39.6-50.0) % MCV 105.1 H (80.0-97.0) fL MCHC 30.3 L (32.0-37.0) g/dL Plt Count 119 L (140-440) X 10*3/uL Neutrophils # 8.47 H (1.80-7.70) X 10*3/uL Monocytes # 1.02 H (0.20-1.00) X 10*3/uL Anion Gap 8.90 L (10.00-18.00) mmol/L Calcium 7.8 L (8.7-10.3) mg/dL Assessment and Plan (1) Fracture of femoral neck, right Current Visit: Yes Status: Acute Code(s): S72.001A - FRACTURE OF UNSP PART OF NECK OF RIGHT FEMUR, INIT SNOMED Code(s): 7474715 (2) Status post Girdlestone procedure Current Visit: Yes Status: Acute Code(s): Z98.890 - OTHER SPECIFIED POSTPROCEDURAL STATES SNOMED Code(s): 174356267 Plan: Continue routine postop care and pain control. Continue anticoagulation with aspirin. Continue physical therapy. Leave dressing in place for 7 days. Appreciate input from internal medicine. Pain management has been consulted. Patient is awaiting rehab placement.
[2021-09-11 11:11] LABS: Glucose,Whole Blood 113 mg/dL (75-99)
[2021-09-11] MEDS: ACETAMINOPHEN IV (For NPO) 1,000 MG in EMPTY BAG 1 BAG IVPB SCH ×2 (11:45→16:52)
--- NOTE | 2021-09-11 12:12 | P.PN ---
Subjective Progress Note Date: 09/11/21 09/10/2021 status post Girdlestone resection arthroplasty right hip secondary to subcapital right hip fracture in a patient with history of ankylosing spondylitis ,fell out of his wheelchair. Prior to incident patient was able to transfer self to and from wheelchair, currently unable to sit at side of bed. passing flatus, good diet intake with no nausea or vomiting. Complains of uncontrolled pain on current regimen. T-max 100.2, O2 sats decreased to 90% on room air. Denies cough or congestion. Denies chest pain, palpitations or shortness of breath. 09/11/2021 . He complains of significant right hip pain prohibiting him from participating with PT at this time. Drowsy. Denies chest pain, palpitations. Maintained on Rocephin, Zithromax secondary to atelectasis, possible early pneumonia. Maintaining O2 sats in the mid to high 90s on 2.5 L nasal cannula. T- max 99.7, WBC, 10.87. Objective - Vital Signs Vital signs: Vital Signs Temp 99.7 F H 09/11/21 07:51 Pulse 92 09/11/21 09:38 Resp 18 09/11/21 09:38 BP 113/62 09/11/21 07:51 Pulse Ox 95 09/11/21 09:27 Intake & Output 09/10/21 09/11/21 09/11/21 18:59 06:59 18:59 Intake Total 100 50 Output Total 1550 100 Balance -1450 -50 Intake: Oral 100 50 Output: Urine 1550 100 Other: Voiding Method Urinal External Catheter External Catheter Diaper External Catheter # Voids 2 1 - Exam PHYSICAL EXAM: VITAL SIGNS: [As above] GENERAL: During up in bed, no acute distress, drowsy HEENT: Conjunctivae normal. eyes normal. NECK: No JVD. No thyroid enlargement. No LNs CARDIOVASCULAR: S1, S2 regular.No murmur RESPIRATION: Breath sounds diminished in the bases. Fine left basilar crackles. ABDOMEN: Soft, nontender . No guarding. no masses palpable.Bowel sounds heard. EXTREMITIES: Right hip dressing clean dry and intact, No edema. no swelling PSYCHIATRY: Alert and oriented X3, mood and affect normal. NERVOUS SYSTEM: Cranial N 2-12 grossly normal. Diffuse weakness No focal deficits. Tone is normal in all 4 extremities. Skin: warm and dry, no rash - Labs CBC & Chem 7: 09/11/21 04:44 09/11/21 04:44 Labs: Abnormal Lab Results - Last 24 Hours (Table) 09/11/21 09/11/21 09/11/21 Range/Units 04:44 04:44 11:10 WBC 10.87 H (4.50-10.00) X 10*3/uL RBC 3.14 L (4.40-5.60) X 10*6/uL Hgb 10.0 L (13.0-17.0) g/dL Hct 33.0 L (39.6-50.0) % MCV 105.1 H (80.0-97.0) fL MCHC 30.3 L (32.0-37.0) g/dL Plt Count 119 L (140-440) X 10*3/uL Neutrophils # 8.47 H (1.80-7.70) X 10*3/uL Monocytes # 1.02 H (0.20-1.00) X 10*3/uL Anion Gap 8.90 L (10.00-18.00) mmol/L POC Glucose (mg/dL) 113 H (75-99) mg/dL Calcium 7.8 L (8.7-10.3) mg/dL Assessment and Plan Assessment: Acute subcapital right hip fracture, status post Girdlestone resection arthroplasty right hip Atelectasis, possible community-acquired pneumonia, left basilar Acute hypoxic respiratory failure secondary to the above History of pneumothorax on the left History of ankylosing spondylitis with chronic back pain, previous back surgeries Osteoarthritis History of deep brain stimulators Diabetes mellitus type 2 Anxiety, depression Prior history of nicotine dependence COPD Hyperlipidemia Plan: Continue on current medication regime ,monitoring and symptomatic treatment. Continues to have uncontrolled pain preventing him from being able to participate with physical therapy . patient drowsy with no further adjustments at this time as per orthopedic surgery. pain management services consulted.oxygen requirements have worsened as well, now requiring 2-1/2 L nasal cannula O2 -maintain IV antibiotics. Aggressive pulmonary toileting with incentive spirometer reinforced. Hold discharge. The impression and plan of care has been dictated as directed. : I performed a history and examination of this patient, discussed the same with the dictator. I agree with the dictator's note ,documented as a scribe. Any additional findings or plans will be noted.
--- NOTE | 2021-09-11 13:48 | P.PAINCN ---
History of Present Illness - Reason for Consult Consult date: 09/11/21 - History of Present Illness This is 80 years old male who had a chronic pain syndrome , was treated as an outpatient with Percocet 10/325 every 8 hours and methadone 15 mg 3 times a day, he was admitted to [facility] secondary to right hip fracture, and patient had the right total hip arthroplasty, patient continued to complain of right hip pain and he is started on Dilaudid IV when necessary, and pain management consultation was requested today during the interview in the patient's room patient was very drowsy , but he is awake, and I was not able to carry full conversation with the patient, the best option at this point is to continue his current medication and discontinue IV Dilaudid, and recommend to start patient on the IV Tylenol when necessary, continue methadone 50 mg 3 times a day and Percocet 10/325 every 8 hours when necessary and patient was tolerating these medication as an outpatient. 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 Hx tendonitis of elbow. "Deep brain stimulator due to working with lead." Deep Brain Stimulator placed to control Essential Tremors in upper extremities. Chronic back pain. Hx bronchitis. Scoliosis. Wheelchair bound. History of Any Multi-Drug Resistant Organisms: None Reported Past Surgical History: Back Surgery, Cholecystectomy, Hernia Repair Additional Past Surgical History / Comment(s): Back surgery with megan and and screws, screws started to loosen and had it repaired. Hiatal hernia repair, inguinal hernia repair X3, deep brain stimulator, brain stimulator repair and battery change, EGD, colonoscopy, right thumb surgery, cataracts removed, left nasal lesion removed/cauterized, bronchoscopy. Past Anesthesia/Blood Transfusion Reactions: No Reported Reaction Additional Past Anesthesia/Blood Transfusion Reaction / Comm: Has never had blood transfusion. Past Psychological History: Anxiety Smoking Status: Former smoker Past Alcohol Use History: None Reported Additional Past Alcohol Use History / Comment(s): Smoked from 1965 to 1975, 1ppd. Past Drug Use History: None Reported - Past Family History Mother Family Medical History: Pneumonia Additional Family Medical History / Comment(s): at age 34. Father Family Medical History: COPD Sister(s) Family Medical History: Cancer Medications and Allergies Home Medications Medication Instructions Recorded Confirmed Type Simvastatin [Zocor] 80 mg PO HS 01/25/14 09/08/21 History clonazePAM [KlonoPIN] 2 mg PO HS 01/25/14 09/08/21 History metFORMIN HCL [Glucophage] 500 mg PO BID 01/25/14 09/08/21 History oxyCODONE HCL/ACETAMINOPHEN 1 tab PO BID PRN 01/26/17 09/08/21 History [Percocet 10-325 mg] Methadone HCl [Dolophine HCl] 15 mg PO TID 07/04/18 09/08/21 History Docusate [Colace] 100 mg PO BID-W/MEALS 08/25/21 09/08/21 History Ibuprofen 600 mg PO TID-W/MEALS PRN 08/25/21 09/04/21 History Ketoconazole 2% Shampoo [Nizoral] 1 applic TOPICAL DIRECTED 08/25/21 09/08/21 History Lidocaine 5% Oint [Xylocaine 5% 1 applic TOPICAL QID 08/25/21 09/08/21 History Oint] Lidocaine 5% Patch [Lidoderm] 3 patch TOPICAL DAILY 08/25/21 09/08/21 History Omeprazole 20 mg PO BID 08/25/21 09/08/21 History Tacrolimus 0.1% Ointment 1 applic TOPICAL BID PRN 08/25/21 09/08/21 History Sennosides [Senna] 5 tab PO DAILY 09/04/21 09/08/21 History polyethylene glycoL 3350 [Miralax] 17 gm PO DAILY 09/04/21 09/08/21 History traZODone HCL 50 mg PO HS 09/04/21 09/08/21 History Aspirin 325 mg PO BID #60 tab 09/08/21 Rx Ondansetron Odt [Zofran Odt] 1 tab PO Q8HR PRN #10 tab 09/08/21 Rx Sennosides [Senokot] 2 tab PO DAILY PRN #60 tablet 09/08/21 Rx Clarithromycin [Biaxin] 500 mg PO BID 5 Days #10 tab 09/10/21 Rx Ipratropium-Albuterol Nebulize 3 ml INHALATION RT-QID #120 ml 09/10/21 Rx [Duoneb 0.5 mg-3 mg/3 ml Soln] Methadone [Dolophine] 15 mg PO TID 3 Days #27 tab 09/10/21 Rx oxyCODONE-APAP 10-325MG [Percocet 1 tab PO Q8HR PRN #21 tab 09/10/21 Rx 10-325 mg] Allergies Allergy/AdvReac Type Severity Reaction Status Date / Time No Known Allergies Allergy Verified 09/08/21 13:23 Physical Exam Vitals: Vital Signs Temp Pulse Pulse Resp BP Pulse Ox 09/11/21 12:58 88 18 09/11/21 12:48 90 18 09/11/21 09:38 92 18 09/11/21 09:27 94 18 95 09/11/21 07:51 99.7 F H 85 17 113/62 98 09/11/21 00:53 98.8 F 88 16 96/55 93 L 09/10/21 19:22 109 H 09/10/21 19:13 108 H 09/10/21 19:02 93 L 09/10/21 18:38 98.8 F 125 H 20 135/72 81 L 09/10/21 13:54 99.6 F 92 16 116/61 88 L Intake and Output 09/10/21 09/11/21 09/11/21 22:59 06:59 14:59 Intake Total 50 Output Total 1550 100 Balance -1550 -50 Intake: Oral 50 Output: Urine 1550 100 Other: Voiding Method External Catheter External Catheter # Voids 2 1 Results CBC & Chem 7: 09/11/21 04:44 09/11/21 04:44 Labs: Abnormal Lab Results - Last 24 Hours (Table) 09/11/21 09/11/21 09/11/21 Range/Units 04:44 04:44 11:10 WBC 10.87 H (4.50-10.00) X 10*3/uL RBC 3.14 L (4.40-5.60) X 10*6/uL Hgb 10.0 L (13.0-17.0) g/dL Hct 33.0 L (39.6-50.0) % MCV 105.1 H (80.0-97.0) fL MCHC 30.3 L (32.0-37.0) g/dL Plt Count 119 L (140-440) X 10*3/uL Neutrophils # 8.47 H (1.80-7.70) X 10*3/uL Monocytes # 1.02 H (0.20-1.00) X 10*3/uL Anion Gap 8.90 L (10.00-18.00) mmol/L POC Glucose (mg/dL) 113 H (75-99) mg/dL Calcium 7.8 L (8.7-10.3) mg/dL PQRS Measure Charge Sheet - Pain Location Right Hip Non-Pharmacological Interventions: Darkened Room, Inactivity, Position/Reposition Pharmacological Interventions: PRN Medication Pain Comment: see pain rx charting PQRS Narrative: Smoking Status Former smoker Do You Want the Pneumonia Vaccine Up to Date Vaccine AT THIS TIME? Blood Pressure [Right Arm Left 99/46 Lateral] Blood Pressure [Right Arm 98/47 Supine] Blood Pressure [Right Arm] 113/62 Pain Intensity [Right Hip] 8 Pain Intensity [Abdomen] 8 Pain Intensity [Back] 9 Pain Intensity 8 Pain Scale Used [Right Hip] pt. does not rate but states he is having pain Pain Scale Used [Back] Numeric (1 - 10) Pain Scale Used Numeric (1 - 10) Scale Used Numeric (1 - 10) Home Medications: Ambulatory Orders Simvastatin [Zocor] 80 mg PO HS 01/25/14 clonazePAM [KlonoPIN] 2 mg PO HS 01/25/14 metFORMIN HCL [Glucophage] 500 mg PO BID 01/25/14 oxyCODONE HCL/ACETAMINOPHEN [Percocet 10-325 mg] 1 tab PO BID PRN 01/26/17 Methadone HCl [Dolophine HCl] 15 mg PO TID 07/04/18 Docusate [Colace] 100 mg PO BID-W/MEALS 08/25/21 Ibuprofen 600 mg PO TID-W/MEALS PRN 08/25/21 Ketoconazole 2% Shampoo [Nizoral] 1 applic TOPICAL DIRECTED 08/25/21 Lidocaine 5% Oint [Xylocaine 5% Oint] 1 applic TOPICAL QID 08/25/21 Lidocaine 5% Patch [Lidoderm] 3 patch TOPICAL DAILY 08/25/21 Omeprazole 20 mg PO BID 08/25/21 Tacrolimus 0.1% Ointment 1 applic TOPICAL BID PRN 08/25/21 Sennosides [Senna] 5 tab PO DAILY 09/04/21 polyethylene glycoL 3350 [Miralax] 17 gm PO DAILY 09/04/21 traZODone HCL 50 mg PO HS 09/04/21 Aspirin 325 mg PO BID #60 tab 09/08/21 Ondansetron Odt [Zofran Odt] 1 tab PO Q8HR PRN #10 tab 09/08/21 Sennosides [Senokot] 2 tab PO DAILY PRN #60 tablet 09/08/21 Clarithromycin [Biaxin] 500 mg PO BID 5 Days #10 tab 09/10/21 Ipratropium-Albuterol Nebulize [Duoneb 0.5 mg-3 mg/3 ml Soln] 3 ml INHALATION RT-QID #120 ml 09/10/21 Methadone [Dolophine] 15 mg PO TID 3 Days #27 tab 09/10/21 oxyCODONE-APAP 10-325MG [Percocet 10-325 mg] 1 tab PO Q8HR PRN #21 tab 09/10/21
[2021-09-11] MEDS ORDERED: oxyCODONE-APAP 10-325MG 1 EACH TAB PO PRN (15:16)
[2021-09-11 16:40] LABS: Glucose,Whole Blood 130 mg/dL (75-99)
[2021-09-11] MEDS: LACTATED RINGERS 1,000 ML IV SCH (16:53)
[2021-09-11] MEDS: traZODone HCL 50 MG TAB PO SCH (20:23)
[2021-09-11] MEDS: ATORVASTATIN 40 MG TAB PO SCH (20:23)
[2021-09-11] MEDS: clonazePAM 1 MG TAB PO SCH (20:23)
[2021-09-11] MEDS: SENNOSIDES-DOCUSATE SODIUM 1 EACH TAB PO SCH (20:23)
[2021-09-11 20:25] LABS: Glucose,Whole Blood 168 mg/dL (75-99)
[2021-09-12] MEDS: ACETAMINOPHEN IV (For NPO) 1,000 MG in EMPTY BAG 1 BAG IVPB SCH ×2 (01:06→05:11)
[2021-09-12] MEDS ORDERED: METOCLOPRAMIDE 5 MG/ML 2 ML VIAL ONE (01:22)
--- NOTE | 2021-09-12 01:44 | XR ---
EXAMINATION TYPE: XR chest 1V portable DATE OF EXAM: 09/12/2021 COMPARISON: 09/10/2021 HISTORY: Aspiration TECHNIQUE: Single view FINDINGS: There is some mild airspace infiltrate at both lung bases. This is probably more in the lef t lower lobe. There is bilateral axillary neural stimulators. No heart failure seen. Heart size is no rmal. There is multilevel thoracolumbar fusion surgery. IMPRESSION: There is bilateral lower lobe pneumonia which appears worse than last exam in the right l ower lobe and not changed significantly in the left lower lobe. No heart failure seen.
--- NOTE | 2021-09-12 04:59 | P.EN ---
RN called A team due to hypoxemia , 80 year old male admitted for hip fracture , and currently being treated with antibiotics for pneumonia patient apparently had an episode of emesis and aspirated after which he became hypoxic and A team activated lungs , rales at lung basis patient looks tired, weak overall. vital signs stable hypoxemia improved with supplemental oxygen CXR showed worsening right lower lobe infilterates , possibly due to aspiration acute hypoxic respiratory failure , secondary to aspiration Community acquired pneumonia continue with current antibiotics azithro and rocephine aspiration precautions Reglan for nausea and vomiting continue supportive care NPO speech evaluation 40 minutes were spent in critical care time in the care of this patient , not counting procedure time
[2021-09-12 07:05] LABS: Glucose,Whole Blood 113 mg/dL (75-99)
[2021-09-12] MEDS: SODIUM CHLORIDE 0.9% 1,000 ML IV SCH (07:55)
[2021-09-12] MEDS: DOCUSATE 100 MG CAP PO SCH ×2 (07:56→15:31)
[2021-09-12] MEDS: metFORMIN 500 MG TAB PO SCH ×2 (07:56→20:31)
[2021-09-12] MEDS: polyethylene glycoL 3350 17 GM POWD.PACK PO SCH (07:56)
[2021-09-12] MEDS: METHADONE 5 MG TAB PO SCH ×3 (07:56→21:54)
[2021-09-12] MEDS: ASPIRIN 325 MG TAB PO SCH ×2 (07:56→22:15)
[2021-09-12] MEDS: LACTATED RINGERS 1,000 ML IV SCH (07:56)
[2021-09-12] MEDS: LIDOCAINE 5% PATCH TOPICAL SCH (08:01)
[2021-09-12] MEDS: LIDOCAINE 5% OINTMENT 50 GM JAR TOPICAL SCH ×4 (08:06→22:16)
[2021-09-12] MEDS: BUDESONIDE 0.5 MG/2 ML NEBU INHALATION SCH ×2 (08:16→20:28)
[2021-09-12] MEDS: IPRATROPIUM-ALBUTEROL 3 ML NEB INHALATION SCH ×4 (08:16→20:28)
[2021-09-12] MEDS: AZITHROMYCIN 500 MG in SODIUM CHLORIDE 0.9% 250 ML IVPB SCH (09:10)
--- NOTE | 2021-09-12 10:21 | P.PN ---
Subjective Progress Note Date: 09/12/21 This is a 80-year-old male who is status post Girdlestone resection arthroplasty right hip. This is postoperative day #4 and patient is seen and evaluated at bedside today. An A team was called on the patient earlier this morning for hypoxia after emesis and aspiration. Patient is currently stable. Objective - Vital Signs Vital signs: Vital Signs Temp 98.9 F 09/12/21 07:39 Pulse 88 09/12/21 08:34 Resp 18 09/12/21 08:00 BP 94/49 09/12/21 07:39 Pulse Ox 92 L 09/12/21 07:39 Intake & Output 09/11/21 09/12/21 09/12/21 18:59 06:59 18:59 Intake Total 480 585 Output Total 1200 75 Balance -720 510 Intake: Intake, IV Titration 585 Amount Sodium Chloride 0.9% 1, 585 000 ml @ 65 mls/hr IV . [id number] [facility] Rx#:[id number] Oral 480 Output: Urine 1200 Male - External 600 Emesis 75 Other: Voiding Method External Catheter Diaper Diaper # Voids 1 - Exam Vital signs are stable. Patient is in no acute distress and is lying comfortably in bed. Calf is soft and nontender to palpation. Dressing is clean, dry, and intact. Sensation intact. Neurovascular status and circulatory status are intact. - Labs CBC & Chem 7: 09/11/21 04:44 09/11/21 04:44 Labs: Abnormal Lab Results - Last 24 Hours (Table) 09/11/21 09/11/21 09/11/21 Range/Units 11:10 16:38 20:24 POC Glucose (mg/dL) 113 H 130 H 168 H (75-99) mg/dL 09/12/21 Range/Units 06:58 POC Glucose (mg/dL) 113 H (75-99) mg/dL Assessment and Plan (1) Fracture of femoral neck, right Current Visit: Yes Status: Acute Code(s): S72.001A - FRACTURE OF UNSP PART OF NECK OF RIGHT FEMUR, INIT SNOMED Code(s): 0565622 (2) Status post Girdlestone procedure Current Visit: Yes Status: Acute Code(s): Z98.890 - OTHER SPECIFIED POSTPROCEDURAL STATES SNOMED Code(s): 896334194 Plan: Continue routine postop care and pain control. Continue anticoagulation with aspirin. Leave dressing in place for 7 days. Appreciate input from internal medicine. Patient is awaiting rehab placement.
[2021-09-12 11:13] LABS: Glucose,Whole Blood 102 mg/dL (75-99)
--- NOTE | 2021-09-12 14:26 | P.PN ---
Subjective Progress Note Date: 09/12/21 Principal diagnosis: Postop day #4 post Girdlestone resection arthroplasty right hip, patient complains of significant postoperative discomfort, history of ankylosing spondylitis with significant pain, possible postop pneumonia currently being treated, patient did aspirate last evening, already on IV antibiotics including Rocephin and Zithromax We will schedule swallow study to reevaluate patient's ability to guard his airway Objective - Vital Signs Vital signs: Vital Signs Temp 98.6 F 09/12/21 14:00 Pulse 67 09/12/21 14:00 Resp 20 09/12/21 14:00 BP 113/64 09/12/21 14:00 Pulse Ox 81 L 09/12/21 14:00 Intake & Output 09/11/21 09/12/21 09/12/21 18:59 06:59 18:59 Intake Total 480 585 Output Total 1200 75 Balance -720 510 Intake: Intake, IV Titration 585 Amount Sodium Chloride 0.9% 1, 585 000 ml @ 65 mls/hr IV . [id number] [facility] Rx#:[id number] Oral 480 Output: Urine 1200 Male - External 600 Emesis 75 Other: Voiding Method External Catheter Diaper Diaper # Voids 1 - Exam General: [Patient awake, alert and oriented times 3. Patient patient appears significantly uncomfortable HEENT: [PERRL. EOMI. No pharyngeal erythema or exudate.] Neck: [No adenopathy.] Cardiac: [Heart regular in rate and rhythm. No S3. No S4. No clicks, rubs. No murmur.] Lungs: [Clear to auscultation bilaterally.] Abdomen: [No mass. No organomegaly. Bowel sounds presnt and normoactive in all 4 quadrants.] Extremes: Significant contractures and malformation of bony structures secondary to ankylosing spondylitis Incision clean and dry dressing appears clean and dry : Normal male genitalia Musculoskeletal: [No joint erythema, edema or tenderness.] Skin: [No rash.] Neurologic: [No lateralizing deficits. CN II - XII grossly intact.] Lymphatic: [No adenopathy.] - Labs CBC & Chem 7: 09/11/21 04:44 09/11/21 04:44 Labs: Abnormal Lab Results - Last 24 Hours (Table) 09/11/21 09/11/21 09/12/21 Range/Units 16:38 20:24 06:58 POC Glucose (mg/dL) 130 H 168 H 113 H (75-99) mg/dL 09/12/21 Range/Units 11:11 POC Glucose (mg/dL) 102 H (75-99) mg/dL Assessment and Plan (1) Aspiration into airway Current Visit: Yes Status: Acute Code(s): T17.908A - UNSP FB IN RESP TRACT, PART UNSP CAUSING OTH INJURY, INIT SNOMED Code(s): 130148875 (2) Fracture of femoral neck, right Current Visit: Yes Status: Acute Code(s): S72.001A - FRACTURE OF UNSP PART OF NECK OF RIGHT FEMUR, INIT SNOMED Code(s): 8292341 (3) Status post Girdlestone procedure Current Visit: Yes Status: Acute Code(s): Z98.890 - OTHER SPECIFIED POSTPROCEDURAL STATES SNOMED Code(s): 653329222 Plan: Postop girdle stone procedure hip Possible aspiration with vomitus, patient currently on Rocephin and Zithromax IV We'll obtain swallow study to assess ability to guard airway We'll continue to manage pain Time with Patient: Greater than 30
[2021-09-12] MEDS ORDERED: TACROLIMUS 0.1% TOPICAL PRN (14:28)
[2021-09-12 16:39] LABS: Glucose,Whole Blood 96 mg/dL (75-99)
[2021-09-12 20:18] LABS: Glucose,Whole Blood 89 mg/dL (75-99)
[2021-09-12] MEDS: clonazePAM 1 MG TAB PO SCH (21:20)
[2021-09-12] MEDS: SENNOSIDES-DOCUSATE SODIUM 1 EACH TAB PO SCH (22:16)
[2021-09-12] MEDS: ATORVASTATIN 40 MG TAB PO SCH (22:16)
[2021-09-12] MEDS: traZODone HCL 50 MG TAB PO SCH (22:17)
[2021-09-12] MEDS: KETOCONAZOLE 2% SHAMPOO 1 APPLIC/ML TOPICAL SCH (22:29)
[2021-09-13 02:09] LABS: Glucose,Whole Blood 108 mg/dL (75-99)
[2021-09-13] MEDS: SODIUM CHLORIDE 0.9% 1,000 ML IV SCH ×2 (03:26→18:39)
[2021-09-13] MEDS ORDERED: PANTOPRAZOLE 40 MG/10 ML VIAL IVP ONE (05:44)
[2021-09-13] MEDS ORDERED: FUROSEMIDE 10 MG/ML 4 ML VIAL IV STA (05:45)
[2021-09-13 06:01] LABS: Glucose,Whole Blood 111 mg/dL (75-99)
--- NOTE | 2021-09-13 06:04 | XR ---
EXAMINATION TYPE: XR chest 1V portable DATE OF EXAM: 09/13/2021 CLINICAL HISTORY: Difficulty breathing possible aspiration. TECHNIQUE: Single AP portable upright view of the chest is obtained. COMPARISON: Chest x-ray from one day earlier and older studies. FINDINGS: Exam suboptimal due to body habitus. Marked exaggerated thoracic kyphosis with long segmen t Garcia rods beginning mid to lower thoracic spine extending to lower lumbar spine are redemonst rated. In addition there are overlying bilateral neck stimulator devices redemonstrated. There is increasing left basilar opacity on current study. Right lung shows developing upper lung opa city. Cardiac silhouette size remains within normal limits. IMPRESSION: Worsening left basilar opacity acute infiltrate and/or atelectasis. Developing right uppe r lung acute infiltrate.
[2021-09-13 06:23] LABS: Glucose,Whole Blood 108 mg/dL (75-99)
[2021-09-13 06:24] LABS: African American GFR (CKD) 86 (>60 ml/min/1.73 sqM); Anion Gap 1 mmol/L; Blood Urea Nitrogen 18 mg/dL (9-20); Calcium 7.8 mg/dL (8.4-10.2); Carbon Dioxide 29 mmol/L (22-30); Chloride 106 mmol/L (98-107); Glucose 109 mg/dL (74-99); Non-African American GFR(CKD) 75 (>60 ml/min/1.73 sqM); Potassium 4.5 mmol/L (3.5-5.1); Sodium 136 mmol/L (137-145)
--- NOTE | 2021-09-13 06:30 | P.EN ---
RN called A team due to hypoxemia , and aspiration 80 year old male admitted for hip fracture , and currently being treated with antibiotics for pneumonia patient continues to have repeated episodes of aspiration , his mental status is becoming more lethargic , unable to keep his head up, he also was noticed to have coffee ground emesis , BP 127/67 HR 125, tachypnic , Oxygen sat 88-89% lungs , crackles and rhonchi on right side, diminished breath sounds patient looks tired, lethargic CXR showed worsening right lower mid and upper lobe infilterates , possibly due to aspiration coffee ground emesis acute hypoxic respiratory failure , secondary to aspiration Community acquired pneumonia continue with current antibiotics azithro and rocephine aspiration precautions Reglan for nausea and vomiting continue supportive care NPO speech evaluation discussed with family , and they elected for intubation and mechanical ventilation patient moved to the ICU for vent support initiated on protonix 40 mg IVP BID , and one time dose of 80 mg IVP 40 minutes were spent in critical care time in the care of this patient , not counting procedure time
--- NOTE | 2021-09-13 06:33 | XR ---
EXAMINATION TYPE: XR chest 1V portable DATE OF EXAM: 09/13/2021 CLINICAL HISTORY: Difficulty breathing had to be intubated. TECHNIQUE: Single AP portable semiupright view of the chest is obtained. COMPARISON: Chest x-ray from earlier today and older studies FINDINGS: New endotracheal tube terminates at aortic knob level approximately 4 to 5 cm above the ca henri. Possible new orogastric tube cannot be confirmed extending below diaphragm. Exaggerated thoracic kyphosis with long segment Garcia rods beginning lower thoracic spine extend ing outside the field of view are redemonstrated. In addition there are overlying bilateral neck stim ulator devices redemonstrated. There is persistent left basilar opacity on current study. Right lung shows persist upper lung opacit y. Cardiac silhouette size remains within normal limits. Background chronic parenchymal changes redem onstrated. IMPRESSION: Stable left basilar and less prominent right upper lung acute infiltrates and/or atelecta sis on background chronic changes. New endotracheal tube satisfactory in position. New orogastric tub e likely terminates prior to level of diaphragmatic hiatus, consider advancing.
[2021-09-13 06:38] LABS: Basophils % (A) 0 %; Eosinophils # (A) 0.1 k/uL (0-0.7); Eosinophils % (A) 2 %; HCT 33.5 % (39.0-53.0); HGB 10.6 gm/dL (13.0-17.5); Hypochromasia Moderate; Lymphocytes # (A) 0.5 k/uL (1.0-4.8); Lymphocytes % (A) 7 %; MCH 33.1 pg (25.0-35.0); MCHC 31.5 g/dL (31.0-37.0); MCV 104.9 fL (80.0-100.0); Macrocytosis Slight; Mean Platelet Volume 8.4; Monocytes # (A) 0.6 k/uL (0-1.0); Monocytes % (A) 8 %; Neutrophils # (A) 5.8 k/uL (1.3-7.7); Neutrophils % (A) 81 %; Platelet Count 170 k/uL (150-450); RBC 3.19 m/uL (4.30-5.90); RDW 13.7 % (11.5-15.5); WBC 7.1 k/uL (3.8-10.6)
[2021-09-13] MEDS: NOREPINEPHRINE 4 MG in SODIUM CHLORIDE 0.9% 250 ML IV SCH (06:40)
[2021-09-13] MEDS ORDERED: NOREPINEPHRIN 4 MG-0.9% NS PMX 4 MG/250 ML ML IV ONE (06:40)
[2021-09-13] MEDS ORDERED: SODIUM CHLORIDE 0.9% 2,000 ML IV ONE (07:00)
[2021-09-13 07:22] LABS: ABG Base Excess -1.4 mmol/L; ABG HCO3 25 mmol/L (21-25); ABG Oxygen Saturation 99.3 % (94-97); ABG PCO2 47 mmHg (35-45); ABG PH 7.33 (7.35-7.45); ABG PO2 207 mmHg (83-108); ABG TCO2 26 mmol/L (19-24); Allen Test Performed? Yes
[2021-09-13] MEDS: IPRATROPIUM-ALBUTEROL 3 ML NEB INHALATION SCH ×4 (08:27→19:44)
[2021-09-13] MEDS: BUDESONIDE 0.5 MG/2 ML NEBU INHALATION SCH ×2 (08:27→19:44)
[2021-09-13 09:53] LABS: Appearance,Urine Cloudy (Clear); Bilirubin,Urine Negative (Negative); Blood,Urine Negative (Negative); Color,Urine Yellow; Glucose,Urine (UA) Negative (Negative); Ketones,Urine Negative (Negative); Leukocyte Esterase,Urine Negative (Negative); Mucus,Urine Rare /hpf; Nitrite,Urine Negative (Negative); PH, Urine 5.5 (5.0-8.0); Protein,Urine 1+ (Negative); RBC,Urine 1 /hpf (0-5); Squamous Epithelial Cell,Urine <1 /hpf (0-4); Urobilinogen,Urine <2.0 mg/dL (<2.0); WBC,Urine 3 /hpf (0-5)
[2021-09-13] MEDS: LIDOCAINE 5% PATCH TOPICAL SCH (10:07)
[2021-09-13] MEDS: DOCUSATE 100 MG CAP PO SCH (10:07)
[2021-09-13] MEDS: KETOCONAZOLE 2% SHAMPOO 1 APPLIC/ML TOPICAL SCH (10:07)
[2021-09-13] MEDS: LIDOCAINE 5% OINTMENT 50 GM JAR TOPICAL SCH ×3 (10:07→17:40)
[2021-09-13] MEDS: SENNOSIDES 8.6 MG TAB PO SCH (10:08)
[2021-09-13] MEDS: polyethylene glycoL 3350 17 GM POWD.PACK PO SCH (10:08)
--- NOTE | 2021-09-13 10:14 | P.PN ---
Subjective Progress Note Date: 09/13/21 This is a 80-year-old male who is status post Girdlestone resection arthroplasty right hip. This is postoperative day #5 and patient is seen and evaluated at bedside today. Patient has been transferred to the ICU after being found unresponsive with coffee ground emesis. Objective - Vital Signs Vital signs: Vital Signs Temp 98.7 F 09/13/21 08:15 Pulse 80 09/13/21 10:00 Resp 17 09/13/21 10:00 BP 87/49 09/13/21 10:00 Pulse Ox 94 L 09/13/21 10:00 Intake & Output 09/12/21 09/13/21 09/13/21 18:59 06:59 18:59 Intake Total 1.036 2282.585 Output Total 300 Balance 1.036 1982.585 Weight 59.5 kg Intake: IV 2260 0.9 NaCl- 65 Fluid Bolus 1000 Sodium Chloride 0.9% 1, 195 000 ml @ 65 mls/hr IV . [id number] [facility] Rx#:[id number] Sodium Chloride 0.9% 2, 1000 000 ml @ 999 mls/hr IV . Q2H1M [facility] Rx#:[id number] Intake, IV Titration 1.036 22.585 Amount propofoL 1,000 mg In 1.036 22.585 Empty Bag 1 bag @ 5 MCG/ KG/MIN 1.554 mls/hr IV . Q24H [facility] Rx#:[id number] Output: Urine 300 Other: Voiding Method Diaper # Voids 1 1 1 - Exam Vital signs are stable. Patient is intubated in no acute distress and lying comfortably in bed. Calf is soft and nontender to palpation. Dressing is clean, dry, and intact. Sensation intact. Neurovascular status and circulatory status are intact. - Labs CBC & Chem 7: 09/13/21 06:00 09/13/21 06:00 Labs: Abnormal Lab Results - Last 24 Hours (Table) 09/12/21 09/13/21 09/13/21 Range/Units 11:11 02:07 05:41 RBC (4.30-5.90) m/uL Hgb (13.0-17.5) gm/dL Hct (39.0-53.0) % MCV (80.0-100.0) fL Lymphocytes # (1.0-4.8) k/uL ABG pH (7.35-7.45) ABG pCO2 (35-45) mmHg ABG pO2 (83-108) mmHg ABG Total CO2 (19-24) mmol/L ABG O2 Saturation (94-97) % Sodium (137-145) mmol/L Glucose (74-99) mg/dL POC Glucose (mg/dL) 102 H 108 H 111 H (75-99) mg/dL Calcium (8.4-10.2) mg/dL Urine Protein (Negative) Urine Mucus (None) /hpf 09/13/21 09/13/21 09/13/21 Range/Units 06:00 06:00 06:21 RBC 3.19 L (4.30-5.90) m/uL Hgb 10.6 L (13.0-17.5) gm/dL Hct 33.5 L (39.0-53.0) % MCV 104.9 H (80.0-100.0) fL Lymphocytes # 0.5 L (1.0-4.8) k/uL ABG pH (7.35-7.45) ABG pCO2 (35-45) mmHg ABG pO2 (83-108) mmHg ABG Total CO2 (19-24) mmol/L ABG O2 Saturation (94-97) % Sodium 136 L (137-145) mmol/L Glucose 109 H (74-99) mg/dL POC Glucose (mg/dL) 108 H (75-99) mg/dL Calcium 7.8 L (8.4-10.2) mg/dL Urine Protein (Negative) Urine Mucus (None) /hpf 09/13/21 09/13/21 Range/Units 07:20 08:51 RBC (4.30-5.90) m/uL Hgb (13.0-17.5) gm/dL Hct (39.0-53.0) % MCV (80.0-100.0) fL Lymphocytes # (1.0-4.8) k/uL ABG pH 7.33 L (7.35-7.45) ABG pCO2 47 H (35-45) mmHg ABG pO2 207 H (83-108) mmHg ABG Total CO2 26 H (19-24) mmol/L ABG O2 Saturation 99.3 H (94-97) % Sodium (137-145) mmol/L Glucose (74-99) mg/dL POC Glucose (mg/dL) (75-99) mg/dL Calcium (8.4-10.2) mg/dL Urine Protein 1+ H (Negative) Urine Mucus Rare H (None) /hpf Assessment and Plan (1) Fracture of femoral neck, right Current Visit: Yes Status: Acute Code(s): S72.001A - FRACTURE OF UNSP PART OF NECK OF RIGHT FEMUR, INIT SNOMED Code(s): 7270317 (2) Status post Girdlestone procedure Current Visit: Yes Status: Acute Code(s): Z98.890 - OTHER SPECIFIED POSTPROCEDURAL STATES SNOMED Code(s): 261457852 Plan: Continue routine postop care and pain control. Leave dressing in place for 7 days. Appreciate input from internal medicine.
[2021-09-13] MEDS: ASPIRIN 325 MG TAB PO SCH ×2 (10:15→20:36)
[2021-09-13] MEDS: CHLORHEXIDINE GLUCONATE 15 ML CUP MUCOUS MEM SCH ×2 (10:15→20:36)
[2021-09-13] MEDS: PIPERACILLIN-TAZOBACTAM 3.375 GM in SODIUM CHLORIDE 0.9% 100 ML IVPB SCH ×2 (10:16→17:15)
[2021-09-13] MEDS: PANTOPRAZOLE 40 MG/10 ML VIAL IV SCH (11:43)
--- NOTE | 2021-09-13 12:14 | P.PN ---
Subjective Progress Note Date: 09/13/21 Principal diagnosis: Postop day #5 post Girdlestone resection arthroplasty right hip, patient apparently this morning aspirated coffee-ground emesis which resulted in intubation and movement of the patient to the intensive care unit, which negates the need for a swallow study at this time As above Objective - Vital Signs Vital signs: Vital Signs Temp 98.7 F 09/13/21 08:15 Pulse 72 09/13/21 11:47 Resp 17 09/13/21 10:00 BP 87/49 09/13/21 10:00 Pulse Ox 94 L 09/13/21 10:00 Intake & Output 09/12/21 09/13/21 09/13/21 18:59 06:59 18:59 Intake Total 1.036 2312.319 Output Total 300 Balance 1.036 2012.319 Weight 59.5 kg Intake: IV 2260 0.9 NaCl- 65 Fluid Bolus 1000 Sodium Chloride 0.9% 1, 195 000 ml @ 65 mls/hr IV . [id number] [facility] Rx#:[id number] Sodium Chloride 0.9% 2, 1000 000 ml @ 999 mls/hr IV . Q2H1M [facility] Rx#:[id number] Intake, IV Titration 1.036 52.319 Amount Norepinephrine 4 mg In 29.734 Sodium Chloride 0.9% 250 ml @ 0.05 MCG/KG/MIN 9. 868 mls/hr IV .Q24H [facility] Rx#:[id number] propofoL 1,000 mg In 1.036 22.585 Empty Bag 1 bag @ 5 MCG/ KG/MIN 1.554 mls/hr IV . Q24H [facility] Rx#:[id number] Output: Urine 300 Other: Voiding Method Diaper # Voids 1 1 1 - Exam General: Patient intubated sedated HEENT: [PERRL. Neck: [No adenopathy.] Cardiac: [Heart regular in rate and rhythm. No S3. No S4. No clicks, rubs. No murmur.] Lungs: [Clear to auscultation bilaterally. But diminished Abdomen: [No mass. No organomegaly. Bowel sounds presnt and normoactive in all 4 quadrants.] Extremes: Significant contractures and malformation of bony structures secondary to ankylosing spondylitis Incision clean and dry dressing appears clean and dry : Normal male genitalia Musculoskeletal: [No joint erythema, edema or tenderness.] Skin: [No rash.] Neurologic: [No lateralizing deficits. CN II - XII grossly intact.] Lymphatic: [No adenopathy.] - Labs CBC & Chem 7: 09/13/21 06:00 09/13/21 06:00 Labs: Abnormal Lab Results - Last 24 Hours (Table) 09/13/21 09/13/21 09/13/21 Range/Units 02:07 05:41 06:00 RBC 3.19 L (4.30-5.90) m/uL Hgb 10.6 L (13.0-17.5) gm/dL Hct 33.5 L (39.0-53.0) % MCV 104.9 H (80.0-100.0) fL Lymphocytes # 0.5 L (1.0-4.8) k/uL ABG pH (7.35-7.45) ABG pCO2 (35-45) mmHg ABG pO2 (83-108) mmHg ABG Total CO2 (19-24) mmol/L ABG O2 Saturation (94-97) % Sodium (137-145) mmol/L Glucose (74-99) mg/dL POC Glucose (mg/dL) 108 H 111 H (75-99) mg/dL Calcium (8.4-10.2) mg/dL Urine Protein (Negative) Urine Mucus (None) /hpf 09/13/21 09/13/21 09/13/21 Range/Units 06:00 06:21 07:20 RBC (4.30-5.90) m/uL Hgb (13.0-17.5) gm/dL Hct (39.0-53.0) % MCV (80.0-100.0) fL Lymphocytes # (1.0-4.8) k/uL ABG pH 7.33 L (7.35-7.45) ABG pCO2 47 H (35-45) mmHg ABG pO2 207 H (83-108) mmHg ABG Total CO2 26 H (19-24) mmol/L ABG O2 Saturation 99.3 H (94-97) % Sodium 136 L (137-145) mmol/L Glucose 109 H (74-99) mg/dL POC Glucose (mg/dL) 108 H (75-99) mg/dL Calcium 7.8 L (8.4-10.2) mg/dL Urine Protein (Negative) Urine Mucus (None) /hpf 09/13/21 Range/Units 08:51 RBC (4.30-5.90) m/uL Hgb (13.0-17.5) gm/dL Hct (39.0-53.0) % MCV (80.0-100.0) fL Lymphocytes # (1.0-4.8) k/uL ABG pH (7.35-7.45) ABG pCO2 (35-45) mmHg ABG pO2 (83-108) mmHg ABG Total CO2 (19-24) mmol/L ABG O2 Saturation (94-97) % Sodium (137-145) mmol/L Glucose (74-99) mg/dL POC Glucose (mg/dL) (75-99) mg/dL Calcium (8.4-10.2) mg/dL Urine Protein 1+ H (Negative) Urine Mucus Rare H (None) /hpf Assessment and Plan (1) Aspiration into airway Current Visit: Yes Status: Acute Code(s): T17.908A - UNSP FB IN RESP TRACT, PART UNSP CAUSING OTH INJURY, INIT SNOMED Code(s): 419013710 (2) Fracture of femoral neck, right Current Visit: Yes Status: Acute Code(s): S72.001A - FRACTURE OF UNSP PART OF NECK OF RIGHT FEMUR, INIT SNOMED Code(s): 3426093 (3) Status post Girdlestone procedure Current Visit: Yes Status: Acute Code(s): Z98.890 - OTHER SPECIFIED POSTPROCEDURAL STATES SNOMED Code(s): 123387732 Plan: Postop girdle stone procedure hip Possible aspiration with vomitus, patient currently on Rocephin and Zithromax IV Currently intubated and sedated, will obtain swallow study at later date We'll continue to manage pain Time with Patient: Greater than 30
[2021-09-13 12:32] LABS: HCT 28.3 % (39.6-50.0); HGB 8.6 g/dL (13.0-17.0); MCHC 30.4 g/dL (32.0-37.0); MCV 105.2 fL (80.0-97.0); Mean Platelet Volume 11.5 fL (9.5-12.2); NRBC Per 100 WBC 0 /100 WBCS (0.0-0.0); Platelet Count 138 X 10*3/uL (140-440); RBC 2.69 X 10*6/uL (4.40-5.60); RDW 13.9 % (11.5-14.5); WBC 5.94 X 10*3/uL (4.50-10.00)
[2021-09-13 12:42] LABS: ALT 13 U/L (4-49); AST 30 U/L (17-59); Amylase <30 U/L (30-110); Lipase <10 U/L (23-300)
--- NOTE | 2021-09-13 13:01 | XR ---
EXAMINATION TYPE: XR abdomen 1V DATE OF EXAM: 09/13/2021 12:12 PM CLINICAL HISTORY: OG tube placement TECHNIQUE: Single supine KUB image of the abdomen is obtained. COMPARISON: CT abdomen and pelvis August 25, 2021. FINDINGS: Tip of orogastric tube projects below left hemidiaphragm. Gas is seen in nondistended small and large bowel loops throughout the lower abdomen and pelvis. Surgical changes in the thoracolumbar spine are redemonstrated. Surgical clips at epigastric region are again seen. IMPRESSION: As above.
[2021-09-13 13:53] LABS: Acanthocytes 2+; Basophils # (A) 0.03 X 10*3/uL (0.00-0.10); Basophils % (A) 0.5 %; Eosinophils # (A) 0.07 X 10*3/uL (0.04-0.35); Eosinophils % (A) 1.2 %; Immature Grans, Automated 0.3 %; Lymphocytes # (A) 0.37 X 10*3/uL (0.90-5.00); Lymphocytes % (A) 6.2 %; Monocytes % (A) 10.1 %; Neutrophils # (A) 4.85 X 10*3/uL (1.80-7.70); Neutrophils % (A) 81.7 %
--- NOTE | 2021-09-13 15:01 | P.CNPUL ---
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 This patient is extensively debilitated. The patient was in the hospital because of a femoral neck fracture and the patient was having pain on outpatient basis that was 9 out of 10 in severity. The patient accordingly underwent a Girdlestone procedure by orthopedic surgery regarding this fracture and the halley vazquez's surgery was done on 09/08/2021. The patient is extensively debilitated. The patient is wheelchair-bound at this point in time. 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 The patient's recovery was essentially uneventful. He was becoming more lethargic. He was having difficulties with ongoing pain and for that reason pain medicine was involved in the case as the patient has chronic pain and the patient was being treated with Percocet and methadone on outpatient basis. The recommendation was to use IV Tylenol and use methadone 50 mg 3 times a day and Percocet 10/325 every 8 hours. The patient was also given laxatives. Earlier this morning, the patient was found to have emesis. He was found to be aspirating. His mentation became progressively more lethargic and he was unable to keep his at up and he was noted also to have some coffee-ground emesis. No abdominal distention. Denies having any abdominal pain prior to this current episode. The patient desaturated. His CODE STATUS is that she is to follow and the patient was intubated and placed on a mechanical ventilator and following that he was transferred to the intensive care unit. The time of my arrival, the patient was on propofol which is running at 25 mg/kg/m. He was receiving normal saline today to 65 mL an hour. He has already received a total of 2 L of IV fluid bolus in the form of normal saline as the patient was hypotensive. Norepinephrine was running at 0.05 Aaron respiratory per minute. The patient was on a mechanical ventilator on assist control mode at the rate of 16 with a tidal volume of 400 FiO2 of 50% with a PEEP of 5. Blood gas showed a pH of 7.33 with a pCO2 of 47 and pO2 of 207 and this was done and FiO2 of 100%. Orogastric tube was inserted and output has been only 100 mL since the insertion of the tube. The patient was covered with IV Zosyn. 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 Hx tendonitis of elbow. "Deep brain stimulator due to working with lead." Deep Brain Stimulator placed to control Essential Tremors in upper extremities. Chronic back pain. Hx bronchitis. Scoliosis. Wheelchair bound. History of Any Multi-Drug Resistant Organisms: None Reported Past Surgical History: Back Surgery, Cholecystectomy, Hernia Repair Additional Past Surgical History / Comment(s): Back surgery with megan and and screws, screws started to loosen and had it repaired. Hiatal hernia repair, inguinal hernia repair X3, deep brain stimulator, brain stimulator repair and battery change, EGD, colonoscopy, right thumb surgery, cataracts removed, left nasal lesion removed/cauterized, bronchoscopy. Past Anesthesia/Blood Transfusion Reactions: No Reported Reaction Additional Past Anesthesia/Blood Transfusion Reaction / Comment(s): Has never had blood transfusion. Past Psychological History: Anxiety Smoking Status: Former smoker Past Alcohol Use History: None Reported Additional Past Alcohol Use History / Comment(s): Smoked from 1965 to 1975, 1ppd. Past Drug Use History: None Reported - Past Family History Mother Family Medical History: Pneumonia Additional Family Medical History / Comment(s): at age 34. Father Family Medical History: COPD Sister(s) Family Medical History: Cancer Medications and Allergies Home Medications Medication Instructions Recorded Confirmed Type Simvastatin [Zocor] 80 mg PO HS 01/25/14 09/08/21 History clonazePAM [KlonoPIN] 2 mg PO HS 01/25/14 09/08/21 History metFORMIN HCL [Glucophage] 500 mg PO BID 01/25/14 09/08/21 History oxyCODONE HCL/ACETAMINOPHEN 1 tab PO BID PRN 01/26/17 09/08/21 History [Percocet 10-325 mg] Methadone HCl [Dolophine HCl] 15 mg PO TID 07/04/18 09/08/21 History Docusate [Colace] 100 mg PO BID-W/MEALS 08/25/21 09/08/21 History Ibuprofen 600 mg PO TID-W/MEALS PRN 08/25/21 09/04/21 History Ketoconazole 2% Shampoo [Nizoral] 1 applic TOPICAL DIRECTED 08/25/21 09/08/21 History Lidocaine 5% Oint [Xylocaine 5% 1 applic TOPICAL QID 08/25/21 09/08/21 History Oint] Lidocaine 5% Patch [Lidoderm] 3 patch TOPICAL DAILY 08/25/21 09/08/21 History Omeprazole 20 mg PO BID 08/25/21 09/08/21 History Tacrolimus 0.1% Ointment 1 applic TOPICAL BID PRN 08/25/21 09/08/21 History Sennosides [Senna] 5 tab PO DAILY 09/04/21 09/08/21 History polyethylene glycoL 3350 [Miralax] 17 gm PO DAILY 09/04/21 09/08/21 History traZODone HCL 50 mg PO HS 09/04/21 09/08/21 History Aspirin 325 mg PO BID #60 tab 09/08/21 Rx Ondansetron Odt [Zofran Odt] 1 tab PO Q8HR PRN #10 tab 09/08/21 Rx Sennosides [Senokot] 2 tab PO DAILY PRN #60 tablet 09/08/21 Rx Clarithromycin [Biaxin] 500 mg PO BID 5 Days #10 tab 09/10/21 Rx Ipratropium-Albuterol Nebulize 3 ml INHALATION RT-QID #120 ml 09/10/21 Rx [Duoneb 0.5 mg-3 mg/3 ml Soln] Methadone [Dolophine] 15 mg PO TID 3 Days #27 tab 09/10/21 Rx oxyCODONE-APAP 10-325MG [Percocet 1 tab PO Q8HR PRN #21 tab 09/10/21 Rx 10-325 mg] Allergies Allergy/AdvReac Type Severity Reaction Status Date / Time No Known Allergies Allergy Verified 09/08/21 13:23 Physical Exam Vitals: Vital Signs Temp Pulse Pulse Resp BP BP Pulse Ox 09/13/21 14:45 79 16 81/51 96 09/13/21 14:30 129 H 20 90/46 96 09/13/21 14:15 75 16 93/48 96 09/13/21 14:00 78 23 95/47 96 09/13/21 13:45 80 16 106/52 95 09/13/21 13:30 83 16 108/53 94 L 09/13/21 13:15 87 16 154/83 94 L 09/13/21 13:00 98 20 125/63 96 09/13/21 12:45 87 16 106/51 97 09/13/21 12:30 79 18 104/49 96 09/13/21 12:15 83 16 142/86 96 09/13/21 12:00 98.4 F 92 17 98/47 99 09/13/21 11:47 72 09/13/21 11:45 72 16 99/51 98 09/13/21 11:35 74 09/13/21 11:30 73 17 95/50 97 09/13/21 11:15 73 19 112/51 97 09/13/21 11:00 80 16 96/50 98 09/13/21 10:45 75 19 85/46 98 09/13/21 10:30 74 19 83/49 95 09/13/21 10:15 75 19 91/51 96 09/13/21 10:00 80 17 87/49 94 L 09/13/21 09:45 80 88/50 93 L 09/13/21 09:30 87 92/47 94 L 09/13/21 09:15 94 92/52 96 09/13/21 09:00 99 20 134/76 97 09/13/21 08:46 94 09/13/21 08:45 138 H 120/62 90 L 09/13/21 08:30 146 H 95/46 100 09/13/21 08:27 92 09/13/21 08:15 98.7 F 106 H 128/66 100 09/13/21 08:00 109 H 16 133/86 98 09/13/21 07:50 96 18 91/48 99 09/13/21 07:40 94 16 96/51 99 09/13/21 07:30 138 H 16 119/75 95 09/13/21 07:20 135 H 16 99/51 92 L 09/13/21 07:10 138 H 16 123/68 100 09/13/21 07:00 138 H 16 103/55 98 09/13/21 06:50 147 H 22 70/49 94 L 09/13/21 06:40 146 H 20 61/43 94 L 09/13/21 06:30 98.7 F 144 H 23 106/43 95 09/13/21 06:10 105 H 16 92/45 91 L 09/13/21 06:00 120 H 26 H 151/89 83 L 09/13/21 01:33 99.2 F 99 20 121/61 95 09/12/21 23:46 91 98 09/12/21 21:00 99.3 F 09/12/21 20:45 106 H 09/12/21 20:28 109 H 100 09/12/21 20:00 99.7 F H 112 H 21 136/63 93 L 09/12/21 16:07 90 09/12/21 15:50 90 09/12/21 15:30 20 91 L Intake and Output 09/12/21 09/13/21 09/13/21 22:59 06:59 14:59 Intake Total 1.036 2636.547 Output Total 480 Balance 1.036 2156.547 Intake: IV 2520 0.9 NaCl- 65 Fluid Bolus 1000 Sodium Chloride 0.9% 1, 455 000 ml @ 65 mls/hr IV . [id number] KARY Rx#:[id number] Sodium Chloride 0.9% 2, 1000 000 ml @ 999 mls/hr IV . Q2H1M ONE Rx#:[id number] Intake, IV Titration 1.036 116.547 Amount Norepinephrine 4 mg In 64.436 Sodium Chloride 0.9% 250 ml @ 0.05 MCG/KG/MIN 9. 868 mls/hr IV .Q24H KARY Rx#:[id number] propofoL 1,000 mg In 1.036 52.111 Empty Bag 1 bag @ 5 MCG/ KG/MIN 1.554 mls/hr IV . Q24H KARY Rx#:[id number] Output: Urine 480 Other: # Voids 1 1 1 Weight 59.5 kg Patient is sedated and the patient is calm and comfortable, quite debilitated with a body mass index of 24.0. Orogastric and orotracheal tube are both in place. Was sedated with propofol. Head exam was generally normal. There was no scleral icterus or corneal arcus. Mucous membranes were moist. Neck was supple and without jugular venous distension, thyromegaly, or carotid bruits. Carotids were easily palpable bilaterally. There was no adenopathy. Lungs sounds are diminished bilaterally and the patient has scattered rhonchi throughout the lung his bilaterally. The patient has thoracic kyphoscoliosis with significant deformities of his chest wall and the spine Cardiac exam revealed the PMI to be normally situated and sized. The rhythm was regular and no extrasystoles were noted during several minutes of auscultation. The first and second heart sounds were normal and physiologic splitting of the second heart sound was noted. There were no murmurs, rubs, clicks, or gallops. Abdomen is soft. No direct tenderness. No rebound tensile guarding. No ascites. Extremities revealed trace edema in the ankles bilaterally. No signs or clubbing. There is diffuse muscle atrophy in all 4 extremities. Neurologically, no tremors were seen. Patient was sedated. He was grimacing to painful stimulation. Results - Laboratory Findings CBC and BMP: 09/13/21 06:00 09/13/21 06:00 ABG ABG pH 7.33 (7.35-7.45) L 09/13/21 07:20 ABG pCO2 47 mmHg (35-45) H 09/13/21 07:20 ABG pO2 207 mmHg (83-108) H 09/13/21 07:20 ABG O2 Saturation 99.3 % (94-97) H 09/13/21 07:20 Abnormal lab findings: Abnormal Labs 09/08/21 09/08/21 09/08/21 13:26 18:17 20:35 WBC RBC Hgb Hct MCV MCH MCHC Plt Count Neutrophils # Lymphocytes # Monocytes # Eosinophils # ABG pH ABG pCO2 ABG pO2 ABG Total CO2 ABG O2 Saturation Sodium Anion Gap Glucose POC Glucose (mg/dL) 100 H 110 H 120 H Calcium Amylase Lipase Urine Protein Urine Mucus 09/09/21 09/09/21 09/11/21 05:41 11:36 04:44 WBC 10.87 H RBC 3.22 L 3.14 L Hgb 10.4 L 10.0 L Hct 32.3 L 33.0 L MCV 100.3 H 105.1 H MCH 32.3 H MCHC 30.3 L Plt Count 119 L Neutrophils # 8.47 H Lymphocytes # Monocytes # 1.02 H Eosinophils # 0.01 L ABG pH ABG pCO2 ABG pO2 ABG Total CO2 ABG O2 Saturation Sodium Anion Gap Glucose POC Glucose (mg/dL) 113 H Calcium Amylase Lipase Urine Protein Urine Mucus 09/11/21 09/11/21 09/11/21 04:44 11:10 16:38 WBC RBC Hgb Hct MCV MCH MCHC Plt Count Neutrophils # Lymphocytes # Monocytes # Eosinophils # ABG pH ABG pCO2 ABG pO2 ABG Total CO2 ABG O2 Saturation Sodium Anion Gap 8.90 L Glucose POC Glucose (mg/dL) 113 H 130 H Calcium 7.8 L Amylase Lipase Urine Protein Urine Mucus 09/11/21 09/12/21 09/12/21 20:24 06:58 11:11 WBC RBC Hgb Hct MCV MCH MCHC Plt Count Neutrophils # Lymphocytes # Monocytes # Eosinophils # ABG pH ABG pCO2 ABG pO2 ABG Total CO2 ABG O2 Saturation Sodium Anion Gap Glucose POC Glucose (mg/dL) 168 H 113 H 102 H Calcium Amylase Lipase Urine Protein Urine Mucus 09/13/21 09/13/21 09/13/21 02:07 03:11 05:41 WBC RBC 2.69 L Hgb 8.6 L Hct 28.3 L MCV 105.2 H MCH MCHC 30.4 L Plt Count 138 L Neutrophils # Lymphocytes # 0.37 L Monocytes # Eosinophils # ABG pH ABG pCO2 ABG pO2 ABG Total CO2 ABG O2 Saturation Sodium Anion Gap Glucose POC Glucose (mg/dL) 108 H 111 H Calcium Amylase Lipase Urine Protein Urine Mucus 09/13/21 09/13/21 09/13/21 06:00 06:00 06:00 WBC RBC 3.19 L Hgb 10.6 L Hct 33.5 L MCV 104.9 H MCH MCHC Plt Count Neutrophils # Lymphocytes # 0.5 L Monocytes # Eosinophils # ABG pH ABG pCO2 ABG pO2 ABG Total CO2 ABG O2 Saturation Sodium 136 L Anion Gap Glucose 109 H POC Glucose (mg/dL) Calcium 7.8 L Amylase <30 L Lipase <10 L Urine Protein Urine Mucus 09/13/21 09/13/21 09/13/21 06:21 07:20 08:51 WBC RBC Hgb Hct MCV MCH MCHC Plt Count Neutrophils # Lymphocytes # Monocytes # Eosinophils # ABG pH 7.33 L ABG pCO2 47 H ABG pO2 207 H ABG Total CO2 26 H ABG O2 Saturation 99.3 H Sodium Anion Gap Glucose POC Glucose (mg/dL) 108 H Calcium Amylase Lipase Urine Protein 1+ H Urine Mucus Rare H - Diagnostic Findings Chest x-ray: image reviewed Assessment and Plan Plan: 1 acute hypoxic respiratory failure secondary to aspiration/coffee-ground emesis. The patient was found to be hypotensive, hypoxic and is significant acidosis with altered mentation. CODE STATUS was switched and the patient acc ordingly became a full CODE STATUS upon family wishes and the patient was intubated and placed on a mechanical ventilator and the patient got transferred to the intensive care unit. Chest x-ray postintubation shows adequate positioning of the orotracheal tube. At the same time, the patient was found to have basilar pulmonary infiltrate, right upper lobe pulmonary infiltrate and chronic pulmonary changes in addition to extensive and exaggerated thoracic kyphosis with a segment of headache about beginning in the lower thoracic spine. The patient also has overlying bilateral next devices demonstrated. Currently on IV Zosyn 2 acute hypotension, secondary to above, currently on IV fluids. The patient was given a total of 2 L bolus and the patient is currently on pressors with norepinephrine. 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 The patient is postop day #5. Surgical wound site is dry clean and intact 5 severe thoracic kyphoscoliosis 6 chronic back pain/scoliosis of the spine with previous back surgeries 7 chronic pain syndrome 8 degenerative arthritis 9 chronic anxiety/depression 10 hyperlipidemia 11 diabetes mellitus 12 debility and the patient has been essentially wheelchair-bound and the patient has a motorized wheelchair Plan Keep the patient sedated with propofol. Keep the patient intubated on a mechanical ventilator and the blood gases were noted Obtain sputum Gram stain and culture Continue patient IV Zosyn Wean off pressors and discontinue based on the blood pressure control Monitor the output from the NG tube. The patient's abdominal exam is essentially benign and soft. There may be a component of constipation as the patient has been taken extensive amount of narcotic medication. There may be also the potential component of GI bleed as the patient was found to have some groundglass emesis. CAT scan of the abdomen and pelvis was done on 08/25/2021. A repeat x-ray of the abdomen showed gas pattern this is normal and nondistended small bowel and large bowel throughout the lower abdominal area and pelvis. There was some surgical changes in the thoracolumbar spine there was demonstrated. Hold narcotic medication control the pain with some Dilaudid Continue laxative medications Keep the NG tube in place and put the patient IV Protonix Reconciliate rest of the medications. We'll continue to follow make further accommodation based on progress. The patient's surgical wound site in the right hip is dry clean and intact.
[2021-09-13] MEDS ORDERED: TACROLIMUS 0.1% TOPICAL PRN (15:36)
[2021-09-13 18:21] LABS: Glucose,Whole Blood 91 mg/dL (75-99)
[2021-09-13] MEDS: INSULIN ASPART (NovoLOG) 100 UNIT/ML VIAL SQ SCH (18:39)
[2021-09-13] MEDS: SENNOSIDES-DOCUSATE SODIUM 1 EACH TAB PO SCH (20:36)
[2021-09-13] MEDS: clonazePAM 1 MG TAB PO SCH (20:36)
[2021-09-13] MEDS: ATORVASTATIN 40 MG TAB PO SCH (20:36)
[2021-09-13] MEDS: DOCUSATE ORAL SOLN 100 MG/10 ML CUP PO SCH (20:37)
[2021-09-14] MEDS: KETOCONAZOLE 2% SHAMPOO 1 APPLIC/ML TOPICAL SCH ×3 (00:12→20:23)
[2021-09-14] MEDS: LIDOCAINE 5% OINTMENT 50 GM JAR TOPICAL SCH ×5 (00:13→23:14)
[2021-09-14 00:16] LABS: Glucose,Whole Blood 76 mg/dL (75-99)
[2021-09-14] MEDS: INSULIN ASPART (NovoLOG) 100 UNIT/ML VIAL SQ SCH ×5 (00:16→23:25)
[2021-09-14] MEDS: PIPERACILLIN-TAZOBACTAM 3.375 GM in SODIUM CHLORIDE 0.9% 100 ML IVPB SCH ×3 (01:34→16:55)
[2021-09-14 05:59] LABS: Basophils % (A) 0 %; Eosinophils # (A) 0.2 k/uL (0-0.7); Eosinophils % (A) 2 %; Hypochromasia Marked; Lymphocytes # (A) 0.3 k/uL (1.0-4.8); Lymphocytes % (A) 4 %; MCH 32.4 pg (25.0-35.0); MCHC 30.4 g/dL (31.0-37.0); MCV 106.3 fL (80.0-100.0); Macrocytosis Moderate; Mean Platelet Volume 8.4; Monocytes # (A) 0.6 k/uL (0-1.0); Monocytes % (A) 7 %; Neutrophils # (A) 7.6 k/uL (1.3-7.7); Neutrophils % (A) 86 %; Platelet Count 171 k/uL (150-450); RBC 2.64 m/uL (4.30-5.90); RDW 13.5 % (11.5-15.5); WBC 8.8 k/uL (3.8-10.6)
[2021-09-14 06:01] LABS: HGB 8.5 gm/dL (13.0-17.5)
[2021-09-14 06:06] LABS: ABG Base Excess -3.2 mmol/L; ABG HCO3 22 mmol/L (21-25); ABG Oxygen Saturation 98.1 % (94-97); ABG PCO2 40 mmHg (35-45); ABG PH 7.36 (7.35-7.45); ABG PO2 93 mmHg (83-108); ABG TCO2 24 mmol/L (19-24); Allen Test Performed? Yes
[2021-09-14 06:11] LABS: African American GFR (CKD) >90 (>60 ml/min/1.73 sqM); Anion Gap 8 mmol/L; Blood Urea Nitrogen 18 mg/dL (9-20); Calcium 7.4 mg/dL (8.4-10.2); Carbon Dioxide 19 mmol/L (22-30); Chloride 110 mmol/L (98-107); Glucose 84 mg/dL (74-99); Non-African American GFR(CKD) 80 (>60 ml/min/1.73 sqM); Potassium 3.8 mmol/L (3.5-5.1); Sodium 137 mmol/L (137-145)
[2021-09-14 06:14] LABS: Glucose,Whole Blood 90 mg/dL (75-99)
[2021-09-14] MEDS ORDERED: POTASSIUM BICARBONATE/CIT AC 20 MEQ TABLET.EFF NG-TUBE SCH (07:00)
--- NOTE | 2021-09-14 07:46 | XR ---
EXAMINATION TYPE: XR chest 1V DATE OF EXAM: 09/14/2021 COMPARISON: 09/13/2021 HISTORY: 80-year-old male with lung congestion TECHNIQUE: Single frontal view of the chest is obtained. FINDINGS: Exam is markedly limited due to semiupright, markedly kyphotic positioning. Lower thoracic and lumbar fusion hardware. Unable to visualize ET tube. A catheter subtly seen ending at the left base, possib ly due to. Generator devices project over the bilateral chest. Interstitial changes persist. Hazy low er lung densities redemonstrated, increased on the right. IMPRESSION: 1. Nearly nondiagnostic exam. Unable to adequately characterize any lines/catheters. 2. Diffuse interstitial changes persist, correlate for CHF with pulmonary vascular congestion. There may be increasing small bilateral pleural effusions with adjacent atelectasis and/or consolidation, p articularly on the right.
[2021-09-14] MEDS: BUDESONIDE 0.5 MG/2 ML NEBU INHALATION SCH ×2 (08:00→21:12)
[2021-09-14] MEDS: IPRATROPIUM-ALBUTEROL 3 ML NEB INHALATION SCH ×4 (08:00→21:12)
[2021-09-14] MEDS: ASPIRIN 325 MG TAB PO SCH ×2 (08:19→20:40)
[2021-09-14] MEDS: CHLORHEXIDINE GLUCONATE 15 ML CUP MUCOUS MEM SCH ×2 (08:19→20:40)
[2021-09-14] MEDS: SENNOSIDES 8.6 MG TAB PO SCH (08:19)
[2021-09-14] MEDS: PANTOPRAZOLE 40 MG/10 ML VIAL IV SCH (08:20)
[2021-09-14] MEDS: DOCUSATE ORAL SOLN 100 MG/10 ML CUP PO SCH ×2 (08:20→21:05)
[2021-09-14] MEDS: polyethylene glycoL 3350 17 GM POWD.PACK PO SCH (08:20)
[2021-09-14] MEDS: NOREPINEPHRINE 4 MG in SODIUM CHLORIDE 0.9% 250 ML IV SCH (08:48)
[2021-09-14] MEDS: LIDOCAINE 5% PATCH TOPICAL SCH (10:28)
[2021-09-14] MEDS: MORPHINE SULFATE 2 MG/ML SYRINGE IVP PRN (11:17)
--- NOTE | 2021-09-14 11:32 | P.PN ---
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 This patient is extensively debilitated. The patient was in the hospital because of a femoral neck fracture and the patient was having pain on outpatient basis that was 9 out of 10 in severity. The patient accordingly underwent a Girdlestone procedure by orthopedic surgery regarding this fracture and the patient's surgery was done on 09/08/2021. The patient is extensively debilitated. The patient is wheelchair-bound at this point in time. 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 The patient's recovery was essentially uneventful. He was becoming more lethargic. He was having difficulties with ongoing pain and for that reason pain medicine was involved in the case as the patient has chronic pain and the patient was being treated with Percocet and methadone on outpatient basis. The recommendation was to use IV Tylenol and use methadone 50 mg 3 times a day and Percocet 10/325 every 8 hours. The patient was also given laxatives. Earlier this morning, the patient was found to have emesis. He was found to be aspirating. His mentation became progressively more lethargic and he was unable to keep his at up and he was noted also to have some coffee-ground emesis. No abdominal distention. Denies having any abdominal pain prior to this current episode. The patient desaturated. His CODE STATUS is that she is to follow and the patient was intubated and placed on a mechanical ventilator and following that he was transferred to the intensive care unit. The time of my arrival, the patient was on propofol which is running at 25 mg/ kg/m. He was receiving normal saline today to 65 mL an hour. He has already received a total of 2 L of IV fluid bolus in the form of normal saline as the patient was hypotensive. Norepinephrine was running at 0.05 Aaron respiratory per minute. The patient was on a mechanical ventilator on assist control mode at the rate of 16 with a tidal volume of 400 FiO2 of 50% with a PEEP of 5. Blood gas showed a pH of 7.33 with a pCO2 of 47 and pO2 of 207 and this was done and FiO2 of 100%. Orogastric tube was inserted and output has been only 100 mL since the insertion of the tube. The patient was covered with IV Zosyn. On 09/14/2021 patient seen in follow-up in intensive care unit, he is intubated, and sedated, on assist-control mode of ventilation with a rate of 16, tidal was 400, FiO2 of 50% and PEEP of 5. This morning his blood gas shows pO2 of 93, pCO2 of 40, pH of 7.36 and this was done and the above-mentioned bedside on FiO2 of 50%. Today's chest x-ray showing diffuse interstitial changes, correlating for CHF with pulmonary vascular congestion and increasing small bilateral p leural effusions with adjacent atelectasis and/or consolidation, particularly on the right. Patient is currently on 0.9#65 ML per hour, he is on norepinephrine at 0.01 mics per kilo per minute, and improving and at 40 mics per kilo per minute. He is in sinus mechanism with a rate of 95 BPM. he remains on Zosyn for empiric antibiotic coverage for possibility of aspiration related pneumonia. She remains on nebulized bronchodilators. Patient did have a low-grade fever in the last 24 hours, with a T-max of 101F last night at 8 PM. Today's labs have been reviewed, his white blood cell count is 8.8, hemoglobin is 8.5, platelet count is 171, sodium is 137, potassium is 3.8, chloride is 110, CO2 is 19, B1 is 18, creatinine 0.91. Urine output is in the order of 25-30 ML per hour. Surgical incision on the right hip covered with a dressing. Bilateral lower extremities are trace wrapped, without evidence of significant swelling. No acute events overnight. Objective - Vital Signs Vital signs: Vital Signs Temp 98.3 F 09/14/21 08:00 Pulse 100 09/14/21 10:00 Resp 32 H 09/14/21 10:00 BP 97/48 09/14/21 10:00 Pulse Ox 94 L 09/14/21 10:00 Intake & Output 09/13/21 09/14/21 09/14/21 18:59 06:59 18:59 Intake Total 2976.414 927.560 631.533 Output Total 685 600 135 Balance 2291.414 327.560 496.533 Weight 63 kg Intake: IV 2845 815 360 0.9 NaCl- 65 Fluid Bolus 1000 Piperacillin-Tazobactam 3 100 100 .375 gm In Sodium Chloride 0.9% 100 ml @ 25 mls/hr IVPB Q8H [facility] Rx#: [id number] Sodium Chloride 0.9% 1, 780 715 260 000 ml @ 65 mls/hr IV . [id number] [facility] Rx#:[id number] Sodium Chloride 0.9% 2, 1000 000 ml @ 999 mls/hr IV . Q2H1M [facility] Rx#:[id number] Intake, IV Titration 131.414 112.560 151.533 Amount Norepinephrine 4 mg In 79.303 102.400 Sodium Chloride 0.9% 250 ml @ 0.05 MCG/KG/MIN 9. 868 mls/hr IV .Q24H [facility] Rx#:[id number] propofoL 1,000 mg In 52.111 112.560 49.133 Empty Bag 1 bag @ 5 MCG/ KG/MIN 1.554 mls/hr IV . Q24H [facility] Rx#:[id number] Other 120 Output: Gastric Drainage 210 Urine 685 390 135 Other: Voiding Method Indwelling Catheter Indwelling Catheter Indwelling Catheter # Voids 1 - Exam GENERAL EXAM: Sedated, and intubated, 80-year-old frail looking, elderly male, with significant kyphoscoliosis of the spine, currently on assist-control mode of ventilation with a rate of 16, tidal volume was 400, FiO2 of 50% and PEEP of 5 comfortable in no apparent distress. HEAD: Normocephalic/atraumatic. EYES: Normal reaction of pupils, equal size. Conjunctiva pink, sclera white. NOSE: Clear with pink turbinates. THROAT: No erythema or exudates. NECK: No masses, no JVD, no thyroid enlargement, no adenopathy. CHEST: No chest wall deformity. Symmetrical expansion. Left upper chest permanent pacemaker is in place LUNGS: Equal air entry with no crackles, wheeze, rhonchi or dullness. CVS: Regular rate and rhythm, normal S1 and S2, no gallops, no murmurs, no rubs ABDOMEN: Soft, nontender. No hepatosplenomegaly, normal bowel sounds, no guarding or rigidity. EXTREMITIES: No clubbing, no edema, no cyanosis, 2+ pulses and upper and lower extremities. MUSCULOSKELETAL: Muscle strength and tone normal. SPINE: Significant deformity of the spine, kyphoscoliosis SKIN: No rashes, right hip surgical incision is covered with a dressing CENTRAL NERVOUS SYSTEM: Sedated and intubated. No focal deficits, tone is normal in all 4 extremities. - Labs CBC & Chem 7: 09/14/21 05:22 09/14/21 05:22 Labs: Abnormal Lab Results - Last 24 Hours (Table) 09/13/21 09/13/21 09/14/21 Range/Units 03:11 06:00 05:22 RBC 2.69 L 2.64 L (4.40-5.60) X 10*6/uL Hgb 8.6 L 8.5 L D (13.0-17.0) g/dL Hct 28.3 L 28.0 L (39.6-50.0) % MCV 105.2 H 106.3 H (80.0-97.0) fL MCHC 30.4 L 30.4 L (32.0-37.0) g/dL Plt Count 138 L (140-440) X 10*3/uL Lymphocytes # 0.37 L 0.3 L (0.90-5.00) X 10*3/uL ABG O2 Saturation (94-97) % Chloride (98-107) mmol/L Carbon Dioxide (22-30) mmol/L Calcium (8.4-10.2) mg/dL Amylase <30 L (30-110) U/L Lipase <10 L (23-300) U/L 09/14/21 09/14/21 Range/Units 05:22 06:00 RBC (4.40-5.60) X 10*6/uL Hgb (13.0-17.0) g/dL Hct (39.6-50.0) % MCV (80.0-97.0) fL MCHC (32.0-37.0) g/dL Plt Count (140-440) X 10*3/uL Lymphocytes # (0.90-5.00) X 10*3/uL ABG O2 Saturation 98.1 H (94-97) % Chloride 110 H (98-107) mmol/L Carbon Dioxide 19 L (22-30) mmol/L Calcium 7.4 L (8.4-10.2) mg/dL Amylase (30-110) U/L Lipase (23-300) U/L Microbiology - Last 24 Hours (Table) 09/13/21 06:00 Gram Stain - Preliminary Sputum Sputum Culture - Preliminary Assessment and Plan Plan: Assessment: #1. Acute hypoxic respiratory failure and suspected to aspiration/coffee ground emesis, with alteration of mental status, and hypotension. Patient was intubated and placed on mechanical ventilator on 09/13/2021. His CODE STATUS was switched upon family wishes. Today on 09/14/2021 she remains intubated and sedated on mechanical ventilation. Chest x-ray showing diffuse interstitial changes, small bilateral pleural effusions and adjacent atelectasis, and/or consolidation particularly on the right #2. Acute hypotension, secondary to the above, remains on small dose of norepinephrine. #3. History of right hip fracture status post Girdlestone resection arthroplasty of the right hip, the patient is postoperative day #6. Surgical wound site is clean dry and intact #4. History of tremors, post [employer] brain stimulator insertion #5. Severe thoracic kyphoscoliosis #6. Chronic back pain/scoliosis of the spine with previous back surgeries #7. Chronic pain syndrome #8. Degenerative arthritis #9. Chronic anxiety/depression #10. Hyperlipidemia #11. Diabetes mellitus type 2 #12. Debility, patient is wheelchair bound and has a motorized wheelchair Plan: Today's chest x-ray blood gases and labs reviewed Patient was evaluated along with Dr. Rosas will proceed with daily interruption of sedation, assess mental status Wean norepinephrine Continue current antibiotics Continue monitoring NG tube output abdominal x-ray results have been reviewed Continue MiraLAX, Senokot -S, will add Reglan Continue IV Protonix We will add small amount of morphine as needed for discomfort Start tube feedings per dietary recommendations We'll continue to follow I have personally seen and examined the patient, performed the documentation and the assessment and plan as written. Number of minutes spent on the visit: 10 Time with Patient: Greater than 30
[2021-09-14] MEDS ORDERED: SODIUM CHLORIDE 0.9% 1,000 ML IV ONE (11:49)
[2021-09-14] MEDS: SODIUM CHLORIDE 0.9% 1,000 ML IV SCH ×2 (11:58→23:15)
[2021-09-14 12:11] LABS: Glucose,Whole Blood 85 mg/dL (75-99)
[2021-09-14] MEDS: METOCLOPRAMIDE 5 MG/ML 2 ML VIAL IVP SCH ×3 (12:12→23:33)
--- NOTE | 2021-09-14 13:03 | P.PN ---
Subjective Progress Note Date: 09/14/21 This is a 80-year-old male who is status post Girdlestone resection arthroplasty right hip. This is postoperative day #6 and patient is seen and evaluated at bedside today. Patient is intubated and on mechanical ventilation in the ICU. Objective - Vital Signs Vital signs: Vital Signs Temp 98 F 09/14/21 12:00 Pulse 144 H 09/14/21 12:18 Resp 32 H 09/14/21 12:00 BP 74/42 09/14/21 12:00 Pulse Ox 96 09/14/21 12:00 Intake & Output 09/13/21 09/14/21 09/14/21 18:59 06:59 18:59 Intake Total 2976.414 218.765 4115.278 Output Total 685 600 170 Balance 2291.414 111.161 5119.278 Weight 63 kg Intake: IV 2845 815 490 0.9 NaCl- 65 Fluid Bolus 1000 Piperacillin-Tazobactam 3 100 100 .375 gm In Sodium Chloride 0.9% 100 ml @ 25 mls/hr IVPB Q8H [facility] Rx#: [id number] Sodium Chloride 0.9% 1, 780 715 390 000 ml @ 65 mls/hr IV . [id number] [facility] Rx#:[id number] Sodium Chloride 0.9% 2, 1000 000 ml @ 999 mls/hr IV . Q2H1M [facility] Rx#:[id number] Intake, IV Titration 131.414 851.183 3052.278 Amount Norepinephrine 4 mg In 79.303 111.380 Sodium Chloride 0.9% 250 ml @ 0.05 MCG/KG/MIN 9. 868 mls/hr IV .Q24H [facility] Rx#:[id number] Sodium Chloride 0.9% 1, 1000 000 ml @ 999 mls/hr IV . Q1H1M [facility] Rx#:[id number] propofoL 1,000 mg In 52.111 112.560 76.898 Empty Bag 1 bag @ 5 MCG/ KG/MIN 1.554 mls/hr IV . Q24H [facility] Rx#:[id number] Other 120 Output: Gastric Drainage 210 Urine 685 390 170 Other: Voiding Method Indwelling Catheter Indwelling Catheter Indwelling Catheter # Voids 1 - Exam Vital signs are stable. Patient is intubated in no acute distress and lying comfortably in bed. Calf is soft and nontender to palpation. Dressing is clean, dry, and intact. Sensation intact. Neurovascular status and circulatory status are intact. - Labs CBC & Chem 7: 09/14/21 05:22 09/14/21 05:22 Labs: Abnormal Lab Results - Last 24 Hours (Table) 09/13/21 09/14/21 09/14/21 Range/Units 03:11 05:22 05:22 RBC 2.64 L (4.30-5.90) m/uL Hgb 8.5 L D (13.0-17.5) gm/dL Hct 28.0 L (39.0-53.0) % MCV 106.3 H (80.0-100.0) fL MCHC 30.4 L (31.0-37.0) g/dL Lymphocytes # 0.37 L 0.3 L (0.90-5.00) X 10*3/uL ABG O2 Saturation (94-97) % Chloride 110 H (98-107) mmol/L Carbon Dioxide 19 L (22-30) mmol/L Calcium 7.4 L (8.4-10.2) mg/dL 09/14/21 Range/Units 06:00 RBC (4.30-5.90) m/uL Hgb (13.0-17.5) gm/dL Hct (39.0-53.0) % MCV (80.0-100.0) fL MCHC (31.0-37.0) g/dL Lymphocytes # (0.90-5.00) X 10*3/uL ABG O2 Saturation 98.1 H (94-97) % Chloride (98-107) mmol/L Carbon Dioxide (22-30) mmol/L Calcium (8.4-10.2) mg/dL Microbiology - Last 24 Hours (Table) 09/13/21 06:00 Gram Stain - Preliminary Sputum Sputum Culture - Preliminary Assessment and Plan (1) Fracture of femoral neck, right Current Visit: Yes Status: Acute Code(s): S72.001A - FRACTURE OF UNSP PART OF NECK OF RIGHT FEMUR, INIT SNOMED Code(s): 1277940 (2) Status post Girdlestone procedure Current Visit: Yes Status: Acute Code(s): Z98.890 - OTHER SPECIFIED POSTPROCEDURAL STATES SNOMED Code(s): 120395098 Plan: Continue routine postop care and pain control. Leave dressing in place for 7 days. Appreciate input from internal medicine.
[2021-09-14] MEDS ORDERED: LIDOCAINE 1% INJ 10MG/ML (20 ML MDV) SQ ONE (13:53)
--- NOTE | 2021-09-14 14:02 | P.PN ---
Subjective Progress Note Date: 09/14/21 09/10/2021 status post Girdlestone resection arthroplasty right hip secondary to subcapital right hip fracture in a patient with history of ankylosing spondylitis ,fell out of his wheelchair. Prior to incident patient was able to transfer self to and from wheelchair, currently unable to sit at side of bed. passing flatus, good diet intake with no nausea or vomiting. Complains of uncontrolled pain on current regimen. T-max 100.2, O2 sats decreased to 90% on room air. Denies cough or congestion. Denies chest pain, palpitations or shortness of breath. 09/11/2021 . He complains of significant right hip pain prohibiting him from participating with PT at this time. Drowsy. Denies chest pain, palpitations. Maintained on Rocephin, Zithromax secondary to atelectasis, possible early pneumonia. Maintaining O2 sats in the mid to high 90s on 2.5 L nasal cannula. T- max 99.7, WBC, 10.87. 09/14/2021 mechanical vent dependent, FiO2 50%/+5 PEEP, sedated on diprovan and requiring pressor support/levophed. Receiving 1 L fluid bolus. Chest x-ray reporting persistent diffuse interstitial changes with adjacent atelectasis and/or consolidation particularly on the right , possible increasing small bilateral pleural effusions. Continues on Zosyn, nebulized bronchodilators . T-max 101, WBC 8.8. Hemoglobin 8.5, platelets 171. Scheduled for PICC line placement today. No bowel movement, receiving Senokot-S, MiraLAX, Reglan. Pain management with morphine. Sputum culture pending. Telemetry reporting sinus tach, proximal atrial fibrillation, sinus rhythm with frequent PACs-cardiology on consult. Objective - Vital Signs Vital signs: Vital Signs Temp 98.3 F 09/14/21 08:00 Pulse 131 H 09/14/21 09:15 Resp 30 H 09/14/21 09:15 BP 152/63 09/14/21 09:15 Pulse Ox 92 L 09/14/21 09:15 Intake & Output 09/13/21 09/14/21 09/14/21 18:59 06:59 18:59 Intake Total 2976.414 927.560 566.533 Output Total 685 600 105 Balance 2291.414 327.560 461.533 Weight 63 kg Intake: IV 2845 815 295 0.9 NaCl- 65 Fluid Bolus 1000 Piperacillin-Tazobactam 3 100 100 .375 gm In Sodium Chloride 0.9% 100 ml @ 25 mls/hr IVPB Q8H [facility] Rx#: [id number] Sodium Chloride 0.9% 1, 780 715 195 000 ml @ 65 mls/hr IV . [id number] [facility] Rx#:[id number] Sodium Chloride 0.9% 2, 1000 000 ml @ 999 mls/hr IV . Q2H1M [facility] Rx#:[id number] Intake, IV Titration 131.414 112.560 151.533 Amount Norepinephrine 4 mg In 79.303 102.400 Sodium Chloride 0.9% 250 ml @ 0.05 MCG/KG/MIN 9. 868 mls/hr IV .Q24H [facility] Rx#:[id number] propofoL 1,000 mg In 52.111 112.560 49.133 Empty Bag 1 bag @ 5 MCG/ KG/MIN 1.554 mls/hr IV . Q24H [facility] Rx#:[id number] Other 120 Output: Gastric Drainage 210 Urine 685 390 105 Other: Voiding Method Indwelling Catheter Indwelling Catheter Indwelling Catheter # Voids 1 - Exam PHYSICAL EXAM: VITAL SIGNS: [As above] GENERAL: Sitting up in bed, intubated and sedated on diprovan. HEENT: Conjunctivae normal. eyes normal. ET and OG tubes present. PPM left upper chest. NECK: Supple, No JVD CARDIOVASCULAR: S1, S2 regular.No murmur RESPIRATION: Thoracic kyphoscoliosis Breath sounds diminished in the bases. Scattered rhonchi ABDOMEN: Soft, nontender . No guarding. no masses palpable.Bowel sounds heard. EXTREMITIES: Right hip dressing clean dry and intact, bilateral lower extremities, trace edema. NERVOUS SYSTEM: Unable to evaluate, patient sedated and intubated Skin: warm and dry - Labs CBC & Chem 7: 09/14/21 05:22 09/14/21 05:22 Labs: Abnormal Lab Results - Last 24 Hours (Table) 09/13/21 09/13/21 09/14/21 Range/Units 03:11 06:00 05:22 RBC 2.69 L 2.64 L (4.40-5.60) X 10*6/uL Hgb 8.6 L 8.5 L D (13.0-17.0) g/dL Hct 28.3 L 28.0 L (39.6-50.0) % MCV 105.2 H 106.3 H (80.0-97.0) fL MCHC 30.4 L 30.4 L (32.0-37.0) g/dL Plt Count 138 L (140-440) X 10*3/uL Lymphocytes # 0.37 L 0.3 L (0.90-5.00) X 10*3/uL ABG O2 Saturation (94-97) % Chloride (98-107) mmol/L Carbon Dioxide (22-30) mmol/L Calcium (8.4-10.2) mg/dL Amylase <30 L (30-110) U/L Lipase <10 L (23-300) U/L 09/14/21 09/14/21 Range/Units 05:22 06:00 RBC (4.40-5.60) X 10*6/uL Hgb (13.0-17.0) g/dL Hct (39.6-50.0) % MCV (80.0-97.0) fL MCHC (32.0-37.0) g/dL Plt Count (140-440) X 10*3/uL Lymphocytes # (0.90-5.00) X 10*3/uL ABG O2 Saturation 98.1 H (94-97) % Chloride 110 H (98-107) mmol/L Carbon Dioxide 19 L (22-30) mmol/L Calcium 7.4 L (8.4-10.2) mg/dL Amylase (30-110) U/L Lipase (23-300) U/L Microbiology - Last 24 Hours (Table) 09/13/21 06:00 Gram Stain - Preliminary Sputum Sputum Culture - Preliminary Assessment and Plan Assessment: Acute subcapital right hip fracture, status post Girdlestone resection arthroplasty right hip Acute hypoxic respiratory failure , secondary to aspiration with coffee ground emesis, bilateral pneumonia ,mechanical ventilator-dependent. Anemia, etiology unclear, in a patient with coffee ground emesis, possible GI bleed History of pneumothorax on the left History of ankylosing spondylitis with chronic back pain, previous back surge rose Osteoarthritis History of deep brain stimulators Diabetes mellitus type 2 Anxiety, depression Prior history of nicotine dependence COPD Hyperlipidemia Plan: Continue on current medication regime ,monitoring and symptomatic treatment. Maintain antibiotics of Zosyn, sputum culture pending Aspiration precaution. PPI,Pain management. Tube feedings as per dietary. Pressor support/IV fluids. ICU management as per seamless tube drawer. The impression and plan of care has been dictated as directed. : I performed a history and examination of this patient, discussed the same with the dictator. I agree with the dictator's note ,documented as a scribe. Any additional findings or plans will be noted.
--- NOTE | 2021-09-14 14:06 | P.CRDCN ---
History of Present Illness Consult date: 09/14/21 History of present illness: History of Present Illness: The patient is a 80-year-old male with a history of scoliosis, very limited in his physical activity and felt infection the neck of his femur. He underwent surgery on September 08 and early this morning had emesis with coffee-ground material and became acutely dyspneic requiring mechanical ventilation. Cardiology consultation was requested because of atrial arrhythmia. On the monitor he was in sinus mechanism with atrial arrhythmia and possible short bursts of atrial fibrillation. He is now in sinus mechanism after receiving IV fluid. His blood pressure is under good control. Talking to his daughter the sam huff has no history of cardiac disease, no history of CHF or myocardial infarction. He has a history of diabetes mellitus. Uses the wheelchair. He has no history of peripheral edema, PND or orthopnea. He was hypotensive earlier. He has no documented history of hypertension or recent smoking. Review of Systems: Obtained from the family Respiratory: [No history of asthma, bronchitis or recent cough.] GI: [She had nausea and vomiting today. No history of peptic ulcer disease. No recent GI bleed.] : [No hematuria or dysuria.] Nervous System: He has severe chronic pain with severe degenerative arthritis and kyphoscoliosis Physical Examination: Blood pressure 116/55 with a heart rate in the 90s, intubated, sedated Head: [Normocephalic.] Eyes: [Sclerae nonicteric.] Neck: [Good carotid upstroke, no bruit, no jugular venous distention.] Lungs: Mild decrease in the breath sounds with mild crackles Heart: [Regular rate and rhythm, S1-S2, no S3, no rub. No murmur.] Abdomen: [Soft nontender, positive bowel sounds no organomegaly.] Extremities: Javad wrapping on both legs Labs: EKG shows sinus mechanism with no acute ST segment changes. Telemetry shows sinus mechanism with short burst of PAT. Hemoglobin 8.5 BUN and creatinine 18 and 0.91, potassium 3.8. Impression: 1. Status post fall and fractured hip, status post surgery 2. Respiratory failure with aspiration pneumonia 3. Atrial tachycardia resolved after IV fluid 4. History of diabetes 5. Severe kyphoscoliosis 6. Anemia Plan: 1. Continue with IV fluid 2. Obtain an echocardiogram with Doppler 3. Follow heart rate and depending on that further recommendations will be made 4. 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 Hx tendonitis of elbow. "Deep brain stimulator due to working with lead." Deep Brain Stimulator placed to control Essential Tremors in upper extremities. Chronic back pain. Hx bronchitis. Scoliosis. Wheelchair bound. History of Any Multi-Drug Resistant Organisms: None Reported Past Surgical History: Back Surgery, Cholecystectomy, Hernia Repair Additional Past Surgical History / Comment(s): Back surgery with megan and and screws, screws started to loosen and had it repaired. Hiatal hernia repair, inguinal hernia repair X3, deep brain stimulator, brain stimulator repair and battery change, EGD, colonoscopy, right thumb surgery, cataracts removed, left nasal lesion removed/cauterized, bronchoscopy. Past Anesthesia/Blood Transfusion Reactions: No Reported Reaction Additional Past Anesthesia/Blood Transfusion Reaction / Comment(s): Has never had blood transfusion. Past Psychological History: Anxiety Smoking Status: Former smoker Past Alcohol Use History: None Reported Additional Past Alcohol Use History / Comment(s): Smoked from 1965 to 1975, 1ppd. Past Drug Use History: None Reported - Past Family History Mother Family Medical History: Pneumonia Additional Family Medical History / Comment(s): at age 34. Father Family Medical History: COPD Sister(s) Family Medical History: Cancer Medications and Allergies Home Medications Medication Instructions Recorded Confirmed Type Simvastatin [Zocor] 80 mg PO HS 01/25/14 09/08/21 History clonazePAM [KlonoPIN] 2 mg PO HS 01/25/14 09/08/21 History metFORMIN HCL [Glucophage] 500 mg PO BID 01/25/14 09/08/21 History oxyCODONE HCL/ACETAMINOPHEN 1 tab PO BID PRN 01/26/17 09/08/21 History [Percocet 10-325 mg] Methadone HCl [Dolophine HCl] 15 mg PO TID 07/04/18 09/08/21 History Docusate [Colace] 100 mg PO BID-W/MEALS 08/25/21 09/08/21 History Ibuprofen 600 mg PO TID-W/MEALS PRN 08/25/21 09/04/21 History Ketoconazole 2% Shampoo [Nizoral] 1 applic TOPICAL DIRECTED 08/25/21 09/08/21 History Lidocaine 5% Oint [Xylocaine 5% 1 applic TOPICAL QID 08/25/21 09/08/21 History Oint] Lidocaine 5% Patch [Lidoderm] 3 patch TOPICAL DAILY 08/25/21 09/08/21 History Omeprazole 20 mg PO BID 08/25/21 09/08/21 History Tacrolimus 0.1% Ointment 1 applic TOPICAL BID PRN 08/25/21 09/08/21 History Sennosides [Senna] 5 tab PO DAILY 09/04/21 09/08/21 History polyethylene glycoL 3350 [Miralax] 17 gm PO DAILY 09/04/21 09/08/21 History traZODone HCL 50 mg PO HS 09/04/21 09/08/21 History Aspirin 325 mg PO BID #60 tab 09/08/21 Rx Ondansetron Odt [Zofran Odt] 1 tab PO Q8HR PRN #10 tab 09/08/21 Rx Sennosides [Senokot] 2 tab PO DAILY PRN #60 tablet 09/08/21 Rx Clarithromycin [Biaxin] 500 mg PO BID 5 Days #10 tab 09/10/21 Rx Ipratropium-Albuterol Nebulize 3 ml INHALATION RT-QID #120 ml 09/10/21 Rx [Duoneb 0.5 mg-3 mg/3 ml Soln] Methadone [Dolophine] 15 mg PO TID 3 Days #27 tab 09/10/21 Rx oxyCODONE-APAP 10-325MG [Percocet 1 tab PO Q8HR PRN #21 tab 09/10/21 Rx 10-325 mg] Allergies Allergy/AdvReac Type Severity Reaction Status Date / Time No Known Allergies Allergy Verified 09/08/21 13:23 Physical Exam Vitals: Vital Signs Temp Pulse Resp BP Pulse Ox 09/14/21 13:45 93 27 H 116/55 98 09/14/21 13:30 90 31 H 112/52 98 09/14/21 13:15 90 30 H 85/52 97 09/14/21 13:00 144 H 29 H 88/51 98 09/14/21 12:45 144 H 30 H 105/46 97 09/14/21 12:30 130 H 30 H 79/50 99 09/14/21 12:18 144 H 09/14/21 12:15 116 H 29 H 85/46 97 09/14/21 12:08 142 H 09/14/21 12:00 98 F 144 H 32 H 74/42 96 09/14/21 11:45 142 H 33 H 82/51 95 09/14/21 11:30 161 H 29 H 141/71 96 09/14/21 11:15 107 H 30 H 136/79 96 09/14/21 11:00 112 H 38 H 136/79 97 09/14/21 10:45 106 H 30 H 101/54 96 09/14/21 10:30 104 H 30 H 95/51 95 09/14/21 10:15 99 31 H 98/48 95 09/14/21 10:00 100 32 H 97/48 94 L 09/14/21 09:45 111 H 29 H 96/43 94 L 09/14/21 09:30 113 H 31 H 120/52 93 L 09/14/21 09:15 131 H 30 H 152/63 92 L 09/14/21 09:00 128 H 32 H 132/73 91 L 09/14/21 08:45 117 H 31 H 126/105 94 L 09/14/21 08:30 112 H 32 H 113/93 95 09/14/21 08:29 95 09/14/21 08:15 101 H 26 H 110/53 97 09/14/21 08:10 97 09/14/21 08:00 98.3 F 86 29 H 117/53 97 09/14/21 07:45 88 27 H 118/54 97 09/14/21 07:30 77 26 H 111/52 97 09/14/21 07:00 74 27 H 106/51 97 09/14/21 06:45 74 28 H 108/51 97 09/14/21 06:30 75 28 H 112/52 97 09/14/21 06:15 78 25 H 106/51 98 09/14/21 06:00 75 28 H 96/48 98 09/14/21 05:45 75 29 H 100/50 97 09/14/21 05:30 76 26 H 97/50 96 09/14/21 05:15 80 28 H 102/50 95 09/14/21 05:00 83 29 H 111/52 95 09/14/21 04:45 86 28 H 112/55 96 09/14/21 04:30 86 28 H 156/62 95 09/14/21 04:15 98 25 H 125/98 96 09/14/21 04:00 99.3 F 103 H 29 H 129/105 95 09/14/21 03:45 80 29 H 118/53 97 09/14/21 03:30 80 25 H 117/56 97 09/14/21 03:15 81 25 H 103/51 97 09/14/21 03:00 78 25 H 97/49 96 09/14/21 02:45 79 28 H 95/48 95 09/14/21 02:30 82 28 H 97/47 94 L 09/14/21 02:15 85 29 H 101/49 94 L 09/14/21 02:00 88 29 H 127/57 92 L 09/14/21 01:45 93 25 H 148/90 93 L 09/14/21 01:30 106 H 30 H 140/80 94 L 09/14/21 01:15 101 H 24 116/55 97 09/14/21 01:00 82 23 104/49 97 09/14/21 00:45 79 27 H 109/48 96 09/14/21 00:30 80 27 H 106/50 96 09/14/21 00:15 80 26 H 106/49 96 09/14/21 00:00 80 27 H 107/48 96 09/13/21 23:45 98.9 F 80 25 H 101/48 96 09/13/21 23:30 77 27 H 101/51 96 09/13/21 23:15 80 24 104/49 96 09/13/21 23:00 79 26 H 103/49 96 09/13/21 22:45 79 26 H 102/51 97 09/13/21 22:30 78 27 H 104/50 97 09/13/21 22:15 80 23 98/47 97 09/13/21 22:00 99.9 F H 80 25 H 99/47 96 09/13/21 21:45 80 24 96/47 96 09/13/21 21:30 81 25 H 99/45 95 09/13/21 21:15 83 26 H 101/46 95 09/13/21 21:00 87 26 H 133/53 95 09/13/21 20:45 95 20 129/53 96 09/13/21 20:30 93 19 135/54 95 09/13/21 20:15 94 19 126/54 95 09/13/21 20:00 101 F H 93 20 149/63 96 09/13/21 19:57 90 09/13/21 19:47 90 09/13/21 19:45 95 23 127/75 96 09/13/21 19:30 97 19 125/69 96 09/13/21 19:15 97 18 112/65 97 09/13/21 19:00 81 22 105/48 96 09/13/21 18:45 76 22 97/46 96 09/13/21 18:30 75 99/46 96 09/13/21 18:15 76 101/45 96 09/13/21 18:00 76 24 101/48 96 09/13/21 17:45 78 97/46 96 09/13/21 17:30 79 96/48 96 09/13/21 17:15 77 95/45 96 09/13/21 17:00 79 21 98/46 96 09/13/21 16:45 81 109/49 96 09/13/21 16:41 73 09/13/21 16:30 84 127/58 96 09/13/21 16:15 85 129/59 96 09/13/21 16:00 98.1 F 89 22 145/73 96 09/13/21 15:45 94 135/124 94 L 09/13/21 15:30 95 99/48 97 09/13/21 15:15 96 103/51 96 09/13/21 15:00 86 19 94/47 97 09/13/21 14:45 79 16 81/51 96 09/13/21 14:30 129 H 20 90/46 96 09/13/21 14:15 75 16 93/48 96 09/13/21 14:00 78 23 95/47 96 Intake and Output 09/13/21 09/14/21 09/14/21 22:59 06:59 14:59 Intake Total 534.867 224.438 7953.278 Output Total 445 360 200 Balance 89.867 609.172 0369.278 Intake: IV 520 620 555 Piperacillin-Tazobactam 3 100 100 .375 gm In Sodium Chloride 0.9% 100 ml @ 25 mls/hr IVPB Q8H [facility] Rx#: [id number] Sodium Chloride 0.9% 1, 520 520 455 000 ml @ 65 mls/hr IV . [id number] [facility] Rx#:[id number] Intake, IV Titration 14.867 585.085 3624.278 Amount Norepinephrine 4 mg In 14.867 111.380 Sodium Chloride 0.9% 250 ml @ 0.05 MCG/KG/MIN 9. 868 mls/hr IV .Q24H [facility] Rx#:[id number] Sodium Chloride 0.9% 1, 1000 000 ml @ 999 mls/hr IV . Q1H1M [facility] Rx#:[id number] propofoL 1,000 mg In 112.560 76.898 Empty Bag 1 bag @ 5 MCG/ KG/MIN 1.554 mls/hr IV . Q24H [facility] Rx#:[id number] Other 120 Output: Gastric Drainage 100 110 Urine 345 250 200 Other: Voiding Method Indwelling Catheter Indwelling Catheter Indwelling Catheter Weight 63 kg Results 09/14/21 05:22 09/14/21 05:22 CBC 09/14/21 Range/Units 05:22 WBC 8.8 (3.8-10.6) k/uL RBC 2.64 L (4.30-5.90) m/uL Hgb 8.5 L D (13.0-17.5) gm/dL Hct 28.0 L (39.0-53.0) % Plt Count 171 (150-450) k/uL Comprehensive Metabolic Panel 09/14/21 Range/Units 05:22 Sodium 137 (137-145) mmol/L Potassium 3.8 (3.5-5.1) mmol/L Chloride 110 H (98-107) mmol/L Carbon Dioxide 19 L (22-30) mmol/L BUN 18 (9-20) mg/dL Creatinine 0.91 (0.66-1.25) mg/dL Glucose 84 (74-99) mg/dL Calcium 7.4 L (8.4-10.2) mg/dL Current Medications Generic Name Dose Route Start Last Admin Trade Name Freq PRN Reason Stop Dose Admin Albuterol/Ipratropium 3 ml 09/10/21 12:00 09/14/21 12:05 Ipratropium-Albuterol 3 Ml Neb INHALATION 3 ml RT-QID [facility] Administration Albuterol/Ipratropium 3 ml 09/10/21 08:13 Ipratropium-Albuterol 3 Ml Neb INHALATION RT-Q2H PRN Shortness Of Breath Or Wheezing Aspirin 325 mg 09/08/21 21:00 09/14/21 08:19 Aspirin 325 Mg Tab PO 10/08/21 21:01 325 mg BID KARY Administration Atorvastatin Calcium 40 mg 09/08/21 21:00 09/13/21 20:36 Atorvastatin 40 Mg Tab PO 40 mg HS KARY Administration Budesonide 0.5 mg 09/10/21 11:21 09/14/21 08:00 Budesonide 0.5 Mg/2 Ml Nebu INHALATION 0.5 mg RT-BID K[facility] Administration Chlorhexidine Gluconate 15 ml 09/13/21 09:00 09/14/21 08:19 Chlorhexidine Gluconate 15 Ml Cup MUCOUS MEM 15 ml BID K[facility] Administration Clonazepam 2 mg 09/08/21 21:00 09/13/21 20:36 Clonazepam 1 Mg Tab PO 2 mg HS KARY Administration Docusate Sodium 100 mg 09/13/21 21:00 09/14/21 08:20 Docusate Oral Soln 100 Mg/10 Ml Cup PO 100 mg BID KARY Administration Sodium Chloride 1,000 mls @ 65 mls/hr 09/08/21 15:45 09/14/21 11:58 Saline 0.9% IV 10/08/21 15:46 65 mls/hr .[id number] [facility] Administration Propofol 1,000 mg/ IV Solution 100 mls @ 1.554 mls/hr 09/13/21 06:15 09/14/21 10:45 IV 50 mcg/kg/min .Q24H [facility] 15.54 mls/hr Titration Protocol 5 MCG/KG/MIN Norepinephrine Bitartrate 4 mg 254 mls @ 9.868 mls/hr 09/13/21 07:00 09/14/21 12:23 / Sodium Chloride IV 0.08 mcg/kg/min .Q24H [facility] 15.789 mls/hr Titration Protocol 0.05 MCG/KG/MIN Piperacillin Sod/Tazobactam 100 mls @ 25 mls/hr 09/13/21 09:00 09/14/21 08:20 Sod 3.375 gm/ Sodium Chloride IVPB 25 mls/hr Q8H [facility] Administration Protocol Insulin Aspart 0 unit 09/13/21 18:00 09/14/21 12:10 Insulin Aspart (Novolog) 100 Unit/Ml Vial SQ Not Given Q6H [facility] Protocol Ketoconazole 1 applic 09/12/21 21:00 09/14/21 10:27 Ketoconazole 2% Shampoo 1 Applic/Ml TOPICAL Not Given BID [facility] Lidocaine 1 applic 09/08/21 22:00 09/14/21 10:28 Lidocaine 5% Ointment 50 Gm Jar TOPICAL Not Given QID [facility] Lidocaine 3 patch 09/08/21 22:00 09/14/21 10:28 Lidocaine 5% Patch TOPICAL Not Given DAILY [facility] Protocol Magnesium Hydroxide 2,400 mg 09/08/21 15:44 Magnesium Hydroxide 2,400 Mg/10 Ml Cup PO 10/08/21 15:45 DAILY PRN Constipation Metoclopramide HCl 10 mg 09/14/21 12:00 09/14/21 12:12 Metoclopramide 5 Mg/Ml 2 Ml Vial IVP 10 mg Q6HR [facility] Administration Morphine Sulfate 2 mg 09/14/21 11:13 09/14/21 11:17 Morphine Sulfate 2 Mg/Ml Syringe IVP 2 mg Q4HR PRN Administration Pain/Discomfort Naloxone HCl 0.2 mg 09/08/21 15:44 Naloxone 0.4 Mg/Ml 1 Ml Vial IV 10/08/21 15:45 Q2M PRN Opioid Reversal Patient's Own ( 1 applic 09/13/21 15:36 Tacrolimus 0.1% TOPICAL Ointment 1 Applic) BID PRN SCALP Ondansetron HCl 4 mg 09/08/21 15:44 09/09/21 17:34 Ondansetron 4 Mg/2 Ml Vial IVP 10/08/21 15:45 4 mg Q8H PRN Administration Nausea And Vomiting Pantoprazole Sodium 40 mg 09/13/21 09:00 09/14/21 08:20 Pantoprazole 40 Mg/10 Ml Vial IV 40 mg DAILY [facility] Administration Polyethylene Glycol 17 gm 09/10/21 09:00 09/14/21 08:20 Polyethylene Glycol 3350 17 Gm Powd.Pack PO 17 gm DAILY [facility] Administration Senna 17.2 mg 09/13/21 09:00 09/14/21 08:19 Sennosides 8.6 Mg Tab PO 17.2 mg DAILY [facility] Administration Senna/Docusate Sodium 2 each 09/08/21 21:00 09/13/21 20:36 Sennosides-Docusate Sodium 1 Each Tab PO 10/08/21 21:01 2 each HS [facility] Administration Intake and Output 09/13/21 09/14/21 09/14/21 22:59 06:59 14:59 Intake Total 534.867 861.821 1852.278 Output Total 445 360 200 Balance 89.867 030.872 5063.278 Intake: IV 520 620 555 Piperacillin-Tazobactam 3 100 100 .375 gm In Sodium Chloride 0.9% 100 ml @ 25 mls/hr IVPB Q8H [facility] Rx#: [id number] Sodium Chloride 0.9% 1, 520 520 455 000 ml @ 65 mls/hr IV . [id number] [facility] Rx#:[id number] Intake, IV Titration 14.867 821.253 5237.278 Amount Norepinephrine 4 mg In 14.867 111.380 Sodium Chloride 0.9% 250 ml @ 0.05 MCG/KG/MIN 9. 868 mls/hr IV .Q24H [facility] Rx#:[id number] Sodium Chloride 0.9% 1, 1000 000 ml @ 999 mls/hr IV . Q1H1M [facility] Rx#:[id number] propofoL 1,000 mg In 112.560 76.898 Empty Bag 1 bag @ 5 MCG/ KG/MIN 1.554 mls/hr IV . Q24H [facility] Rx#:[id number] Other 120 Output: Gastric Drainage 100 110 Urine 345 250 200 Other: Voiding Method Indwelling Catheter Indwelling Catheter Indwelling Catheter Weight 63 kg 09/14/21 05:22 09/14/21 05:22
--- NOTE | 2021-09-14 15:10 | XR ---
EXAMINATION TYPE: XR chest 1V portable DATE OF EXAM: 09/14/2021 COMPARISON: 09/14/2021 HISTORY: PICC line placement TECHNIQUE: Single frontal view of the chest is obtained. FINDINGS: Right-sided PICC line seen with the tip near the SVC. Bilateral infiltrate and pleural eff usion noted with cardiac device is a. Extensive postsurgical change noted. NG tube location is indete rminate could be within the distal esophagus. Extensive postsurgical changes are seen.. IMPRESSION: 1. Bilateral infiltrate and pleural effusion stable. Correlate for positioning of the NG tube. 2. PICC line appears in good position.
--- NOTE | 2021-09-14 15:14 | IR ---
PICC LINE PLACEMENT: HISTORY: Infection requiring long-term antibiotic therapy PROCEDURE: Ultrasound guidance of PICC line placement. COMPLICATIONS: None ANESTHESIA: 1. 1% Lidocaine locally. FINDINGS/TECHNIQUE: The procedure was explained to the patient. The risks, complications, benefits and alternatives were discussed and any questions were answered. Informed consent was obtained. The patient was placed supine on the fluoroscopic table and prepped and draped in the usual sterile fash ion. Utilizing a 21 gauge needle and sonographic guidance, access in the right basilic vein was ach ieved and there is placement of a 0.018 guidewire. The vein is patent. A 5-F. sheath was placed ove r the guidewire. The guidewire and dilator were removed and a 5-F. Double lumen PICC line was placed through the sheath with the chest x-ray confirming the tip at the level of the SVC. The sheath was removed, the catheter was flushed and sutured into position. The patient was stable throughout the p rocedure and remained stable upon discharge from the Department of Radiology. The vein puncture was patent under ultrasound. A culp scale image was obtained to document patency of the vein punctured. All elements of the maximal barrier technique were utilized. IMPRESSION: 1. Successful PICC line placement under ultrasound performed bedside within the ICU.
[2021-09-14 17:57] LABS: Glucose,Whole Blood 98 mg/dL (75-99)
[2021-09-14] MEDS: ATORVASTATIN 40 MG TAB PO SCH (20:40)
[2021-09-14] MEDS: SENNOSIDES-DOCUSATE SODIUM 1 EACH TAB PO SCH (20:40)
[2021-09-14] MEDS: clonazePAM 1 MG TAB PO SCH (20:40)
[2021-09-14 23:26] LABS: Glucose,Whole Blood 98 mg/dL (75-99)
[2021-09-15] MEDS: PIPERACILLIN-TAZOBACTAM 3.375 GM in SODIUM CHLORIDE 0.9% 100 ML IVPB SCH ×3 (00:01→16:48)
[2021-09-15 05:35] LABS: ALT 7 U/L (4-49); AST 20 U/L (17-59); African American GFR (CKD) >90 (>60 ml/min/1.73 sqM); Alkaline Phosphatase 58 U/L (38-126); Anion Gap 7 mmol/L; Blood Urea Nitrogen 18 mg/dL (9-20); Calcium 7.4 mg/dL (8.4-10.2); Carbon Dioxide 19 mmol/L (22-30); Chloride 113 mmol/L (98-107); Glucose 110 mg/dL (74-99); Non-African American GFR(CKD) 84 (>60 ml/min/1.73 sqM); Potassium 3.5 mmol/L (3.5-5.1); Sodium 139 mmol/L (137-145); Total Bilirubin 0.5 mg/dL (0.2-1.3); Total Protein 4.3 g/dL (6.3-8.2)
[2021-09-15 05:36] LABS: Basophils % (A) 0 %; Eosinophils # (A) 0.2 k/uL (0-0.7); Eosinophils % (A) 2 %; HCT 27.3 % (39.0-53.0); HGB 8.6 gm/dL (13.0-17.5); Hypochromasia Moderate; Lymphocytes # (A) 0.4 k/uL (1.0-4.8); Lymphocytes % (A) 4 %; MCH 32.6 pg (25.0-35.0); MCHC 31.3 g/dL (31.0-37.0); Macrocytosis Slight; Mean Platelet Volume 7.5; Monocytes # (A) 0.8 k/uL (0-1.0); Monocytes % (A) 7 %; Neutrophils # (A) 8.8 k/uL (1.3-7.7); Neutrophils % (A) 86 %; Platelet Count 160 k/uL (150-450); RBC 2.63 m/uL (4.30-5.90); RDW 13.7 % (11.5-15.5); WBC 10.2 k/uL (3.8-10.6)
[2021-09-15 05:48] LABS: Glucose,Whole Blood 110 mg/dL (75-99)
[2021-09-15 05:55] LABS: ABG Base Excess -3.3 mmol/L; ABG HCO3 22 mmol/L (21-25); ABG Oxygen Saturation 97.2 % (94-97); ABG PCO2 39 mmHg (35-45); ABG PH 7.36 (7.35-7.45); ABG PO2 88 mmHg (83-108); ABG TCO2 23 mmol/L (19-24); Allen Test Performed? Yes
[2021-09-15] MEDS ORDERED: Potassium Replacement Protocol 1 EACH MISC MISCELLANE PRN (05:57)
[2021-09-15 06:06] LABS: Glucose,Whole Blood 115 mg/dL (75-99)
[2021-09-15] MEDS: INSULIN ASPART (NovoLOG) 100 UNIT/ML VIAL SQ SCH ×3 (06:06→18:36)
[2021-09-15] MEDS: METOCLOPRAMIDE 5 MG/ML 2 ML VIAL IVP SCH ×3 (06:09→17:34)
[2021-09-15] MEDS: POTASSIUM BICARBONATE/CIT AC 20 MEQ TABLET.EFF NG-TUBE SCH ×2 (06:09→07:07)
--- NOTE | 2021-09-15 06:20 | XR ---
EXAMINATION TYPE: XR chest 1V DATE OF EXAM: 09/15/2021 CLINICAL HISTORY: Difficulty breathing and lung congestion progress study. TECHNIQUE: Single AP portable upright view of the chest is obtained. COMPARISON: Chest x-ray from one day earlier and older studies. FINDINGS: Stable endotracheal and orogastric tubes. Improved positioning of right-sided PICC line. Exaggerated thoracic kyphosis with long segment Garcia rods beginning lower thoracic spine extend ing outside the field of view are redemonstrated. In addition there are overlying bilateral neck stim ulator devices redemonstrated. There is persistent bibasilar opacity on current study. Right lung shows persist upper lung opacity. Cardiac silhouette size remains within normal limits. Background chronic parenchymal changes redemons trated. IMPRESSION: Stable bibasilar and less prominent right upper lung acute infiltrates and/or atelectasis on background chronic changes. No significant change from one day earlier.
[2021-09-15] MEDS: MORPHINE SULFATE 2 MG/ML SYRINGE IVP PRN ×2 (06:28→17:12)
[2021-09-15] MEDS: NOREPINEPHRINE 4 MG in SODIUM CHLORIDE 0.9% 250 ML IV SCH (07:05)
--- NOTE | 2021-09-15 07:53 | P.PN ---
Subjective Progress Note Date: 09/15/21 PROGRESS NOTE The patient has a history of severe kyphoscoliosis who presented with a fall and fracture of the head of the femur. He was transferred to ICU yesterday his respiratory failure, vomiting of coffee-ground material and probable aspiration pneumonia. Cardiology consultation was requested because of atrial arrhythmia. After receiving IV fluid he continues to be in sinus mechanism without sig nificant arrhythmia. He remains intubated and sedated. His urinary output is stable. He has no ventricular ectopic activity. Hemodynamically he is stable. He is on aspirin, Lipitor 40 mg daily, PHYSICAL EXAMINATION: Blood pressure 111/50 heart rate 86 , intubated and sedated LUNGS: [Clear to auscultation anteriorly] HEART: [Regular rate and rhythm, S1, S2. No S3. No systolic murmur] ABDOMEN: [Soft, positive bowel sounds, no organomegaly] EXTREMETIES: [Wrapping on both legs] LAB: PH 7.36, PaO2 88, hemoglobin 8.6. Potassium 3.5, BUN 18, creatinine 0.83. Chest x-ray shows infiltrate IMPRESSION: 1. Respiratory failure with probable aspiration pneumonia 2. Atrial tachycardia resolved 3. Status post fracture of hip and surgery 4. Severe kyphoscoliosis PLAN: 1. Continue clinical observation, no indication for antiarrhythmic at this time 2. Review the results of the echo 3. We will see him on as-needed basis, please feel free to call us for any question. Objective - Vital Signs Vital signs: Vital Signs Temp 99.7 F H 09/15/21 04:00 Pulse 86 09/15/21 07:00 Resp 30 H 09/15/21 07:00 BP 111/50 09/15/21 07:00 Pulse Ox 93 L 09/15/21 07:00 Intake & Output 09/14/21 09/15/21 09/15/21 18:59 06:59 18:59 Intake Total 2490.963 1351.465 85 Output Total 495 505 60 Balance 1995.963 846.465 25 Weight 63 kg 67 kg Intake: IV 980 880 65 Piperacillin-Tazobactam 3 200 100 .375 gm In Sodium Chloride 0.9% 100 ml @ 25 mls/hr IVPB Q8H [facility] Rx#: [id number] Sodium Chloride 0.9% 1, 780 780 65 000 ml @ 65 mls/hr IV . [id number] [facility] Rx#:[id number] Intake, IV Titration 1380.963 201.465 Amount Norepinephrine 4 mg In 194.897 56.710 Sodium Chloride 0.9% 250 ml @ 0.05 MCG/KG/MIN 9. 868 mls/hr IV .Q24H [facility] Rx#:[id number] Sodium Chloride 0.9% 1, 1000 000 ml @ 999 mls/hr IV . Q1H1M [facility] Rx#:[id number] propofoL 1,000 mg In 186.066 144.755 Empty Bag 1 bag @ 5 MCG/ KG/MIN 1.554 mls/hr IV . Q24H [facility] Rx#:[id number] Tube Feeding 10 180 20 Other 120 90 Output: Urine 395 505 60 Oral Regurgitation 100 Other: Voiding Method Indwelling Catheter Indwelling Catheter - Labs CBC & Chem 7: 09/15/21 05:06 09/15/21 05:06 Labs: Abnormal Lab Results - Last 24 Hours (Table) 09/15/21 09/15/21 09/15/21 Range/Units 05:06 05:06 05:47 RBC 2.63 L (4.30-5.90) m/uL Hgb 8.6 L (13.0-17.5) gm/dL Hct 27.3 L (39.0-53.0) % MCV 104.0 H (80.0-100.0) fL Neutrophils # 8.8 H (1.3-7.7) k/uL Lymphocytes # 0.4 L (1.0-4.8) k/uL ABG O2 Saturation (94-97) % Chloride 113 H (98-107) mmol/L Carbon Dioxide 19 L (22-30) mmol/L Glucose 110 H (74-99) mg/dL POC Glucose (mg/dL) 110 H (75-99) mg/dL Calcium 7.4 L (8.4-10.2) mg/dL Total Protein 4.3 L (6.3-8.2) g/dL Albumin 2.0 L (3.5-5.0) g/dL 09/15/21 09/15/21 Range/Units 05:48 06:04 RBC (4.30-5.90) m/uL Hgb (13.0-17.5) gm/dL Hct (39.0-53.0) % MCV (80.0-100.0) fL Neutrophils # (1.3-7.7) k/uL Lymphocytes # (1.0-4.8) k/uL ABG O2 Saturation 97.2 H (94-97) % Chloride (98-107) mmol/L Carbon Dioxide (22-30) mmol/L Glucose (74-99) mg/dL POC Glucose (mg/dL) 115 H (75-99) mg/dL Calcium (8.4-10.2) mg/dL Total Protein (6.3-8.2) g/dL Albumin (3.5-5.0) g/dL Microbiology - Last 24 Hours (Table) 09/13/21 06:00 Gram Stain - Preliminary Sputum Sputum Culture - Preliminary Yeast species
[2021-09-15] MEDS: IPRATROPIUM-ALBUTEROL 3 ML NEB INHALATION SCH ×4 (07:57→19:36)
[2021-09-15] MEDS: BUDESONIDE 0.5 MG/2 ML NEBU INHALATION SCH ×2 (07:57→19:36)
--- NOTE | 2021-09-15 08:37 | P.PN ---
Subjective Progress Note Date: 09/15/21 This is a 80-year-old male who is status post Girdlestone resection arthroplasty right hip. This is postoperative day #7 and patient is seen and evaluated at bedside today. Patient is intubated and on mechanical ventilation in the ICU. Objective - Vital Signs Vital signs: Vital Signs Temp 99.7 F H 09/15/21 04:00 Pulse 81 09/15/21 08:10 Resp 30 H 09/15/21 07:00 BP 111/50 09/15/21 07:00 Pulse Ox 93 L 09/15/21 07:00 Intake & Output 09/14/21 09/15/21 09/15/21 18:59 06:59 18:59 Intake Total 2490.963 1351.465 85 Output Total 495 505 60 Balance 1995.963 846.465 25 Weight 63 kg 67 kg Intake: IV 980 880 65 Piperacillin-Tazobactam 3 200 100 .375 gm In Sodium Chloride 0.9% 100 ml @ 25 mls/hr IVPB Q8H [facility] Rx#: [id number] Sodium Chloride 0.9% 1, 780 780 65 000 ml @ 65 mls/hr IV . [id number] [facility] Rx#:[id number] Intake, IV Titration 1380.963 201.465 Amount Norepinephrine 4 mg In 194.897 56.710 Sodium Chloride 0.9% 250 ml @ 0.05 MCG/KG/MIN 9. 868 mls/hr IV .Q24H [facility] Rx#:[id number] Sodium Chloride 0.9% 1, 1000 000 ml @ 999 mls/hr IV . Q1H1M [facility] Rx#:[id number] propofoL 1,000 mg In 186.066 144.755 Empty Bag 1 bag @ 5 MCG/ KG/MIN 1.554 mls/hr IV . Q24H [facility] Rx#:[id number] Tube Feeding 10 180 20 Other 120 90 Output: Urine 395 505 60 Oral Regurgitation 100 Other: Voiding Method Indwelling Catheter Indwelling Catheter - Exam Vital signs are stable. Patient is intubated in no acute distress and lying comfortably in bed. Calf is soft and nontender to palpation. Dressing is clean, dry, and intact. Sensation intact. Neurovascular status and circulatory status are intact. - Labs CBC & Chem 7: 09/15/21 05:06 09/15/21 05:06 Labs: Abnormal Lab Results - Last 24 Hours (Table) 09/15/21 09/15/21 09/15/21 Range/Units 05:06 05:06 05:47 RBC 2.63 L (4.30-5.90) m/uL Hgb 8.6 L (13.0-17.5) gm/dL Hct 27.3 L (39.0-53.0) % MCV 104.0 H (80.0-100.0) fL Neutrophils # 8.8 H (1.3-7.7) k/uL Lymphocytes # 0.4 L (1.0-4.8) k/uL ABG O2 Saturation (94-97) % Chloride 113 H (98-107) mmol/L Carbon Dioxide 19 L (22-30) mmol/L Glucose 110 H (74-99) mg/dL POC Glucose (mg/dL) 110 H (75-99) mg/dL Calcium 7.4 L (8.4-10.2) mg/dL Total Protein 4.3 L (6.3-8.2) g/dL Albumin 2.0 L (3.5-5.0) g/dL 09/15/21 09/15/21 Range/Units 05:48 06:04 RBC (4.30-5.90) m/uL Hgb (13.0-17.5) gm/dL Hct (39.0-53.0) % MCV (80.0-100.0) fL Neutrophils # (1.3-7.7) k/uL Lymphocytes # (1.0-4.8) k/uL ABG O2 Saturation 97.2 H (94-97) % Chloride (98-107) mmol/L Carbon Dioxide (22-30) mmol/L Glucose (74-99) mg/dL POC Glucose (mg/dL) 115 H (75-99) mg/dL Calcium (8.4-10.2) mg/dL Total Protein (6.3-8.2) g/dL Albumin (3.5-5.0) g/dL Microbiology - Last 24 Hours (Table) 09/13/21 06:00 Gram Stain - Preliminary Sputum Sputum Culture - Preliminary Yeast species Assessment and Plan (1) Fracture of femoral neck, right Current Visit: Yes Status: Acute Code(s): S72.001A - FRACTURE OF UNSP PART OF NECK OF RIGHT FEMUR, INIT SNOMED Code(s): 9612477 (2) Status post Girdlestone procedure Current Visit: Yes Status: Acute Code(s): Z98.890 - OTHER SPECIFIED POSTP ROCEDURAL STATES SNOMED Code(s): 399398420 Plan: Continue routine postop care and pain control. Appreciate input from internal medicine.
[2021-09-15] MEDS: PANTOPRAZOLE 40 MG/10 ML VIAL IV SCH (09:02)
[2021-09-15] MEDS: ASPIRIN 325 MG TAB PO SCH ×2 (09:02→20:13)
[2021-09-15] MEDS: CHLORHEXIDINE GLUCONATE 15 ML CUP MUCOUS MEM SCH ×2 (09:03→20:13)
[2021-09-15] MEDS: LIDOCAINE 5% PATCH TOPICAL SCH (09:03)
[2021-09-15] MEDS: polyethylene glycoL 3350 17 GM POWD.PACK PO SCH (09:03)
[2021-09-15] MEDS: DOCUSATE ORAL SOLN 100 MG/10 ML CUP PO SCH ×2 (09:03→20:13)
[2021-09-15] MEDS: SENNOSIDES 8.6 MG TAB PO SCH (09:03)
[2021-09-15] MEDS: KETOCONAZOLE 2% SHAMPOO 1 APPLIC/ML TOPICAL SCH ×2 (09:09→20:14)
[2021-09-15] MEDS: ENOXAPARIN 40 MG/0.4 ML SYRINGE SQ SCH (09:09)
[2021-09-15] MEDS: LIDOCAINE 5% OINTMENT 50 GM JAR TOPICAL SCH ×4 (09:10→22:00)
--- NOTE | 2021-09-15 11:05 | P.PN ---
Subjective Progress Note Date: 09/15/21 Principal diagnosis: Aspiration pneumonia This is a 80-year-old male patient got transferred negative cutter to the ICU because of acute aspiration acute hypoxic respiratory failure and hypotension. This patient is extensively debilitated. The patient was in the hospital because of a femoral neck fracture and the patient was having pain on outpatient basis that was 9 out of 10 in severity. The patient accordingly underwent a Girdlestone procedure by orthopedic surgery regarding this fracture and the patient's surgery was done on 09/08/2021. The patient is extensively milo ilitated. The patient is wheelchair-bound at this point in time. 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 The patient's recovery was essentially uneventful. He was becoming more lethargic. He was having difficulties with ongoing pain and for that reason pain medicine was involved in the case as the patient has chronic pain and the patient was being treated with Percocet and methadone on outpatient basis. The recommendation was to use IV Tylenol and use methadone 50 mg 3 times a day and Percocet 10/325 every 8 hours. The patient was also given laxatives. Earlier this morning, the patient was found to have emesis. He was found to be aspirating. His mentation became progressively more lethargic and he was unable to keep his at up and he was noted also to have some coffee-ground emesis. No abdominal distention. Denies having any abdominal pain prior to this current episode. The patient desaturated. His CODE STATUS is that she is to follow and the patient was intubated and placed on a mechanical ventilator and following that he was transferred to the intensive care unit. The time of my arrival, the patient was on propofol which is running at 25 mg/kg/m. He was receiving normal saline today to 65 mL an hour. He has already received a total of 2 L of IV fluid bolus in the form of normal saline as the patient was hypotensive. Norepinephrine was running at 0.05 Aaron respiratory per minute. The patient was on a mechanical ventilator on assist control mode at the rate of 16 with a tidal volume of 400 FiO2 of 50% with a PEEP of 5. Blood gas showed a pH of 7.33 with a pCO2 of 47 and pO2 of 207 and this was done and FiO2 of 100%. Orogastric tube was inserted and output has been only 100 mL since the insertion of the tube. The patient was covered with IV Zosyn. On 09/14/2021 patient seen in follow-up in intensive care unit, he is intubated, and sedated, on assist-control mode of ventilation with a rate of 16, tidal was 400, FiO2 of 50% and PEEP of 5. This morning his blood gas shows pO2 of 93, pCO2 of 40, pH of 7.36 and this was done and the above-mentioned bedside on FiO2 of 50%. Today's chest x-ray showing diffuse interstitial changes, correlating for CHF with pulmonary vascular congestion and increasing small bilateral pleural effusions with adjacent atelectasis and/or consolidation, particularly on the right. Patient is currently on 0.9#65 ML per hour, he is on norepinephrine at 0.01 mics per kilo per minute, and improving and at 40 mics per kilo per minute. He is in sinus mechanism with a rate of 95 BPM. he remains on Zosyn for empiric antibiotic coverage for possibility of aspiration related pneumonia. She remains on nebulized bronchodilators. Patient did have a low-grade fever in the last 24 hours, with a T-max of 101F last night at 8 PM. Today's labs have been reviewed, his white blood cell count is 8.8, hemoglobin is 8.5, platelet count is 171, sodium is 137, potassium is 3.8, chloride is 110, CO2 is 19, B1 is 18, creatinine 0.91. Urine output is in the order of 25-30 ML per hour. Surgical incision on the right hip covered with a dressing. Bilateral lower extremities are trace wrapped, without evidence of significant swelling. No acute events overnight. The patient seemed be 09/15/2021 in follow-up in the intensive care unit. He remains intubated, sedated on mechanical ventilator. Settings are assist- control mode at a rate of 16, tidal volume 400, FiO2 50% and a PEEP of 5. Morning blood gases reveal a P O2 of 88, pCO2 39 and a pH of 7.36. He is sedated on propofol at 45 mcg/kg/m. Currently off the norepinephrine. Normal saline running at 55 ML's per hour. He is being nourished with vital 1.2 at 20 ML's per hour with a goal of 47 ML's per hour. He is on antibiotics in the form of Zosyn. Chest x-ray shows stable bibasilar and less prominent right upper lobe acute infiltrate/atelectasis on background chronic changes. No significant change. Right-sided PICC line in place. Initial sputum culture positive for yeast species. White count 10.2. Hemoglobin 8.6. Sodium 139. Potassium 3.5. Creatinine 0.83. Glucose 110. Continued on DuoNeb inhalations, Pulmicort inhalations. Antibiotics in the form of Zosyn. Right hip surgical dressing dry and intact. No acute events overnight. The plan is for daily interruption of sedation and weaning trials of tolerated. Objective - Vital Signs Vital signs: Vital Signs Temp 98.5 F 09/15/21 08:00 Pulse 84 09/15/21 10:30 Resp 27 H 09/15/21 10:30 BP 134/59 09/15/21 10:30 Pulse Ox 96 09/15/21 10:30 Intake & Output 09/14/21 09/15/21 09/15/21 18:59 06:59 18:59 Intake Total 2490.963 1351.465 694.354 Output Total 495 505 195 Balance 1995.963 846.465 499.354 Weight 63 kg 67 kg Intake: IV 980 880 360 Piperacillin-Tazobactam 3 200 100 100 .375 gm In Sodium Chloride 0.9% 100 ml @ 25 mls/hr IVPB Q8H [facility] Rx#: [id number] Sodium Chloride 0.9% 1, 780 780 260 000 ml @ 65 mls/hr IV . [id number] [facility] Rx#:[id number] Intake, IV Titration 1380.963 201.465 94.354 Amount Norepinephrine 4 mg In 194.897 56.710 Sodium Chloride 0.9% 250 ml @ 0.05 MCG/KG/MIN 9. 868 mls/hr IV .Q24H [facility] Rx#:[id number] Sodium Chloride 0.9% 1, 1000 000 ml @ 999 mls/hr IV . Q1H1M [facility] Rx#:[id number] propofoL 1,000 mg In 186.066 144.755 94.354 Empty Bag 1 bag @ 5 MCG/ KG/MIN 1.554 mls/hr IV . Q24H [facility] Rx#:[id number] Tube Feeding 10 180 90 Other 120 90 150 Output: Urine 395 505 195 Oral Regurgitation 100 Other: Voiding Method Indwelling Catheter Indwelling Catheter Indwelling Catheter - Exam GENERAL EXAM: Sedated, and intubated, 80-year-old frail looking, elderly male, with significant kyphoscoliosis of the spine, currently on assist-control mode of ventilation with a rate of 16, tidal volume was 400, FiO2 of 50% and PEEP of 5 comfortable in no apparent distress. HEAD: Normocephalic/atraumatic. EYES: Sluggish reaction of pupils, equal size. Conjunctiva pink, sclera white. NOSE: Clear with pink turbinates. THROAT: No erythema or exudates. NECK: No masses, no JVD, no thyroid enlargement, no adenopathy. CHEST: No chest wall deformity. Symmetrical expansion. Left upper chest permanent pacemaker is in place LUNGS: Equal air entry with few bilateral scattered rhonchi. CVS: Regular rate and rhythm, normal S1 and S2, no gallops, no murmurs, no rubs ABDOMEN: Soft, nontender. No hepatosplenomegaly, normal bowel sounds, no guarding or rigidity. EXTREMITIES: No clubbing, no edema, no cyanosis, 2+ pulses and upper and lower extremities. MUSCULOSKELETAL: Muscle tone normal. SPINE: Significant deformity of the spine, kyphoscoliosis SKIN: No rashes, right hip surgical incision is covered with a dressing CENTRAL NERVOUS SYSTEM: Sedated and intubated. No focal deficits, tone is normal in all 4 extremities. - Labs CBC & Chem 7: 09/15/21 05:06 09/15/21 05:06 Labs: Abnormal Lab Results - Last 24 Hours (Table) 09/15/21 09/15/21 09/15/21 Range/Units 05:06 05:06 05:47 RBC 2.63 L (4.30-5.90) m/uL Hgb 8.6 L (13.0-17.5) gm/dL Hct 27.3 L (39.0-53.0) % MCV 104.0 H (80.0-100.0) fL Neutrophils # 8.8 H (1.3-7.7) k/uL Lymphocytes # 0.4 L (1.0-4.8) k/uL ABG O2 Saturation (94-97) % Chloride 113 H (98-107) mmol/L Carbon Dioxide 19 L (22-30) mmol/L Glucose 110 H (74-99) mg/dL POC Glucose (mg/dL) 110 H (75-99) mg/dL Calcium 7.4 L (8.4-10.2) mg/dL Total Protein 4.3 L (6.3-8.2) g/dL Albumin 2.0 L (3.5-5.0) g/dL 09/15/21 09/15/21 Range/Units 05:48 06:04 RBC (4.30-5.90) m/uL Hgb (13.0-17.5) gm/dL Hct (39.0-53.0) % MCV (80.0-100.0) fL Neutrophils # (1.3-7.7) k/uL Lymphocytes # (1.0-4.8) k/uL ABG O2 Saturation 97.2 H (94-97) % Chloride (98-107) mmol/L Carbon Dioxide (22-30) mmol/L Glucose (74-99) mg/dL POC Glucose (mg/dL) 115 H (75-99) mg/dL Calcium (8.4-10.2) mg/dL Total Protein (6.3-8.2) g/dL Albumin (3.5-5.0) g/dL Microbiology - Last 24 Hours (Table) 09/13/21 06:00 Gram Stain - Preliminary Sputum Sputum Culture - Preliminary Yeast species Assessment and Plan Assessment: 1 Acute hypoxic respiratory failure and suspected to aspiration/coffee ground emesis, with alteration of mental status, and hypotension. Patient was intubated and placed on mechanical ventilator on 09/13/2021. His CODE STATUS was switched upon family wishes. Today on 09/15/2021 she remains intubated and sedated on mechanical ventilation. Chest x-ray showing diffuse interstitial changes, small bilateral pleural effusions and adjacent atelectasis, and/or consolidation particularly on the right No significant change compared to previous 2 Acute hypotension, secondary to the above, currently off norepinephrine. 3 History of right hip fracture status post Girdlestone resection arthroplasty of the right hip, the patient is postoperative day #7. Surgical wound site is clean dry and intact 4 History of tremors, post [employer] brain stimulator insertion 5 Severe thoracic kyphoscoliosis 6 Chronic back pain/scoliosis of the spine with previous back surgeries 7 Chronic pain syndrome 8 Degenerative arthritis 9 Chronic anxiety/depression 10 Hyperlipidemia 11 Diabetes mellitus type 2 12 Debility, patient is wheelchair bound and has a motorized wheelchair Plan: The patient was seen and evaluated Chest x-ray, ABGs and labs reviewed Add Lovenox for DVT prophylaxis We'll plan for daily interruption of sedation Obtain weaning parameters if tolerated Continue Zosyn We will continue to follow and make further recommendations based on his clinical status I have personally seen and examined the patient, performed the documentation and the assessment and plan as written. Number of minutes spent on the visit: 15.
[2021-09-15 11:59] LABS: Glucose,Whole Blood 110 mg/dL (75-99)
[2021-09-15] MEDS: SODIUM CHLORIDE 0.9% 1,000 ML IV SCH (12:21)
--- NOTE | 2021-09-15 12:34 | ECHOF ---
Referral Reason:hypotension MEASUREMENTS -------- HEIGHT: 157.5 cm WEIGHT: 62.6 kg BP: RVIDd: 3.2 cm (< 3.3) IVSd: 1.3 cm (0.6 - 1.1) LVIDd: 3.5 cm (3.9 - 5.3) LVPWd: 1.4 cm (0.6 - 1.1) IVSs: 1.5 cm LVIDs: 2.9 cm LVPWs: 1.5 cm LA Diam: 4.5 cm (2.7 - 3.8) Ao Diam: 3.2 cm (2.0 - 3.7) AV Cusp: 1.7 cm (1.5 - 2.6) LA Diam: 4.4 cm (2.7 - 3.8) MV EXCURSION: 16.312 mm (> 18.000) MV EF SLOPE: 56 mm/s (70 - 150) EPSS: 0.4 cm MV E Urbano: 0.56 m/s MV DecT: 158 ms MV A [place]: 0.62 m/s MV E/A Ratio: 0.91 RAP: 5.00 mmHg RVSP: 35.51 mmHg FINDINGS -------- Sinus rhythm. This was a technically adequate study. The left ventricular size is normal. Left ventricular wall thickness is normal. Overall left vent ricular systolic function is low-normal with, an EF between 50 - 55 %. The right ventricle is normal in size. The left atrium is mildly dilated. The right atrial size is normal. There is mild aortic valve sclerosis. There is mild aortic regurgitation. Mild mitral annular calcification present. Mild mitral regurgitation is present. Mild tricuspid regurgitation present. There is mild pulmonary hypertension. The right ventricular systolic pressure, as measured by Doppler, is 35.51mmHg. There is no pulmonic regurgitation present. There is a small, generalized pericardial effusion present. CONCLUSIONS -------- 1. The left ventricular size is normal. 2. Left ventricular wall thickness is normal. 3. Overall left ventricular systolic function is low-normal with, an EF between 50 - 55 %. 4. The right ventricle is normal in size. 5. The left atrium is mildly dilated. 6. The right atrial size is normal. 7. There is mild aortic valve sclerosis. 8. There is mild aortic regurgitation. 9. Mild mitral annular calcification present. 10. Mild mitral regurgitation is present. 11. Mild tricuspid regurgitation present. 12. There is mild pulmonary hypertension. 13. The right ventricular systolic pressure, as measured by Doppler, is 35.51mmHg. 14. There is a small, generalized pericardial effusion present. SENIOR [employer] DEVELOPER: Martha Joe RDCS
--- NOTE | 2021-09-15 12:58 | P.PN ---
Subjective Progress Note Date: 09/15/21 09/10/2021 status post Girdlestone resection arthroplasty right hip secondary to subcapital right hip fracture in a patient with history of ankylosing spondylitis ,fell out of his wheelchair. Prior to incident patient was able to transfer self to and from wheelchair, currently unable to sit at side of bed. passing flatus, good diet intake with no nausea or vomiting. Complains of uncontrolled pain on current regimen. T-max 100.2, O2 sats decreased to 90% on room air. Denies cough or congestion. Denies chest pain, palpitations or shortness of breath. 09/11/2021 . He complains of significant right hip pain prohibiting him from participating with PT at this time. Drowsy. Denies chest pain, palpitations. Maintained on Rocephin, Zithromax secondary to atelectasis, possible early pneumonia. Maintaining O2 sats in the mid to high 90s on 2.5 L nasal cannula. T- max 99.7, WBC, 10.87. 09/14/2021 mechanical vent dependent, FiO2 50%/+5 PEEP, sedated on diprovan and requiring pressor support/levophed. Receiving 1 L fluid bolus. Chest x-ray reporting persistent diffuse interstitial changes with adjacent atelectasis and/or consolidation particularly on the right , possible increasing small bilateral pleural effusions. Continues on Zosyn, nebulized bronchodilators . T-max 101, WBC 8.8. Hemoglobin 8.5, platelets 171. Scheduled for PICC line placement today. No bowel movement, receiving Senokot-S, MiraLAX, Reglan. Pain management with morphine. Sputum culture pending. Telemetry reporting sinus tach, proximal atrial fibrillation, sinus rhythm with frequent PACs-cardiology on consult. 09/15/21 vent dependent, FiO2 50%/+5 of PEEP, sedated on diprovan. Maintained on nebulized bronchodilators. Chest x-ray reporting stable bibasilar, less prominent right upper lung acute infiltrates and/or atelectasis on background chronic changes-no significant change from previous day.Currently off pressor support. Afebrile, T-max 99.7, WBC 10.2. Preliminary Sputum culture reporting use species Continues on Zosyn. PICC line placed yesterday Tolerating tube feeds at goal with minimal to no residuals. Passing flatus, no bowel movement. Hemoglobin 8.6, platelets 160. Sedation holiday planned. Objective - Vital Signs Vital signs: Vital Signs Temp 98.5 F 09/15/21 08:00 Pulse 89 09/15/21 11:42 Resp 30 H 09/15/21 11:00 BP 98/46 09/15/21 11:00 Pulse Ox 95 09/15/21 11:00 Intake & Output 09/14/21 09/15/21 09/15/21 18:59 06:59 18:59 Intake Total 2490.963 1351.465 703.211 Output Total 495 505 195 Balance 1995.963 846.465 508.211 Weight 63 kg 67 kg Intake: IV 980 880 360 Piperacillin-Tazobactam 3 200 100 100 .375 gm In Sodium Chloride 0.9% 100 ml @ 25 mls/hr IVPB Q8H [facility] Rx#: [id number] Sodium Chloride 0.9% 1, 780 780 260 000 ml @ 65 mls/hr IV . [id number] [facility] Rx#:[id number] Intake, IV Titration 1380.963 201.465 103.211 Amount Norepinephrine 4 mg In 194.897 56.710 Sodium Chloride 0.9% 250 ml @ 0.05 MCG/KG/MIN 9. 868 mls/hr IV .Q24H [facility] Rx#:[id number] Sodium Chloride 0.9% 1, 1000 000 ml @ 999 mls/hr IV . Q1H1M [facility] Rx#:[id number] propofoL 1,000 mg In 186.066 144.755 103.211 Empty Bag 1 bag @ 5 MCG/ KG/MIN 1.554 mls/hr IV . Q24H [facility] Rx#:[id number] Tube Feeding 10 180 90 Other 120 90 150 Output: Urine 395 505 195 Oral Regurgitation 100 Other: Voiding Method Indwelling Catheter Indwelling Catheter Indwelling Catheter - Exam PHYSICAL EXAM: VITAL SIGNS: [As above] GENERAL: Sitting up in bed, intubated and sedated on diprovan. HEENT: Conjunctivae normal. eyes normal. ET and OG tubes present. PPM left upper chest. NECK: Supple, No JVD CARDIOVASCULAR: S1, S2 regular.No murmur RESPIRATION: Thoracic kyphoscoliosis Breath sounds diminished in the bases. Scattered rhonchi ABDOMEN: Soft, nontender . No guarding. no masses palpable.Bowel sounds heard. EXTREMITIES: Right hip dressing clean dry and intact, bilateral lower extremiti es, Javad wrapped, wearing offloading boots, NERVOUS SYSTEM: Unable to evaluate, patient sedated and intubated Skin: warm and dry - Labs CBC & Chem 7: 09/15/21 05:06 09/15/21 05:06 Labs: Abnormal Lab Results - Last 24 Hours (Table) 09/15/21 09/15/21 09/15/21 Range/Units 05:06 05:06 05:47 RBC 2.63 L (4.30-5.90) m/uL Hgb 8.6 L (13.0-17.5) gm/dL Hct 27.3 L (39.0-53.0) % MCV 104.0 H (80.0-100.0) fL Neutrophils # 8.8 H (1.3-7.7) k/uL Lymphocytes # 0.4 L (1.0-4.8) k/uL ABG O2 Saturation (94-97) % Chloride 113 H (98-107) mmol/L Carbon Dioxide 19 L (22-30) mmol/L Glucose 110 H (74-99) mg/dL POC Glucose (mg/dL) 110 H (75-99) mg/dL Calcium 7.4 L (8.4-10.2) mg/dL Total Protein 4.3 L (6.3-8.2) g/dL Albumin 2.0 L (3.5-5.0) g/dL 09/15/21 09/15/21 Range/Units 05:48 06:04 RBC (4.30-5.90) m/uL Hgb (13.0-17.5) gm/dL Hct (39.0-53.0) % MCV (80.0-100.0) fL Neutrophils # (1.3-7.7) k/uL Lymphocytes # (1.0-4.8) k/uL ABG O2 Saturation 97.2 H (94-97) % Chloride (98-107) mmol/L Carbon Dioxide (22-30) mmol/L Glucose (74-99) mg/dL POC Glucose (mg/dL) 115 H (75-99) mg/dL Calcium (8.4-10.2) mg/dL Total Protein (6.3-8.2) g/dL Albumin (3.5-5.0) g/dL Microbiology - Last 24 Hours (Table) 09/13/21 06:00 Gram Stain - Preliminary Sputum Sputum Culture - Preliminary Yeast species Assessment and Plan Assessment: Acute subcapital right hip fracture, status post Girdlestone resection arthroplasty right hip Acute hypoxic respiratory failure , secondary to aspiration with coffee ground emesis, bilateral pneumonia ,mechanical ventilator-dependent. Anemia, etiology unclear, in a patient with coffee ground emesis, possible GI bleed History of pneumothorax on the left History of ankylosing spondylitis with chronic back pain, previous back surgeries Osteoarthritis History of deep brain stimulators Diabetes mellitus type 2 Anxiety, depression Prior history of nicotine dependence COPD Hyperlipidemia Plan: Continue on current medication regime ,monitoring and symptomatic treatment. Sedation holiday scheduled .continue with tube feeds /aspiration precaution. Maintain on zosyn PPI.stool for Hemoccult.Pain management.ICU management as per spring clipper. The impression and plan of care has been dictated as directed. : I performed a history and examination of this patient, discussed the same with the dictator. I agree with the dictator's note ,documented as a scribe. Any additional findings or plans will be noted.
[2021-09-15 18:26] LABS: Glucose,Whole Blood 158 mg/dL (75-99)
[2021-09-15 20:02] LABS: Glucose,Whole Blood 152 mg/dL (75-99)
[2021-09-15] MEDS: clonazePAM 1 MG TAB PO SCH (20:13)
[2021-09-15] MEDS: SENNOSIDES-DOCUSATE SODIUM 1 EACH TAB PO SCH (20:13)
[2021-09-15] MEDS: ATORVASTATIN 40 MG TAB PO SCH (20:13)
[2021-09-16 00:40] LABS: Glucose,Whole Blood 161 mg/dL (75-99)
[2021-09-16] MEDS: INSULIN ASPART (NovoLOG) 100 UNIT/ML VIAL SQ SCH ×3 (00:51→11:48)
[2021-09-16] MEDS: METOCLOPRAMIDE 5 MG/ML 2 ML VIAL IVP SCH ×3 (00:52→11:48)
[2021-09-16] MEDS: PIPERACILLIN-TAZOBACTAM 3.375 GM in SODIUM CHLORIDE 0.9% 100 ML IVPB SCH ×2 (00:52→08:58)
[2021-09-16] MEDS: MORPHINE SULFATE 2 MG/ML SYRINGE IVP PRN ×2 (01:07→06:31)
[2021-09-16 04:58] LABS: Basophils # (A) 0.1 k/uL (0-0.2); Basophils % (A) 0 %; Eosinophils # (A) 0.2 k/uL (0-0.7); Eosinophils % (A) 2 %; HCT 36.9 % (39.0-53.0); HGB 11.3 gm/dL (13.0-17.5); Hypochromasia Marked; Lymphocytes # (A) 0.8 k/uL (1.0-4.8); Lymphocytes % (A) 6 %; MCH 33.1 pg (25.0-35.0); MCHC 30.6 g/dL (31.0-37.0); MCV 108.1 fL (80.0-100.0); Macrocytosis Moderate; Monocytes % (A) 8 %; Neutrophils # (A) 10.6 k/uL (1.3-7.7); Neutrophils % (A) 82 %; Platelet Count 163 k/uL (150-450); RBC 3.41 m/uL (4.30-5.90); RDW 13.7 % (11.5-15.5); WBC 12.9 k/uL (3.8-10.6)
[2021-09-16 05:24] LABS: African American GFR (CKD) >90 (>60 ml/min/1.73 sqM); Anion Gap 8 mmol/L; Blood Urea Nitrogen 17 mg/dL (9-20); Calcium 7.5 mg/dL (8.4-10.2); Carbon Dioxide 21 mmol/L (22-30); Chloride 112 mmol/L (98-107); Glucose 163 mg/dL (74-99); Non-African American GFR(CKD) 89 (>60 ml/min/1.73 sqM); Sodium 141 mmol/L (137-145)
[2021-09-16 05:32] LABS: Potassium 3.9 mmol/L (3.5-5.1)
[2021-09-16 05:57] LABS: ABG Base Excess -1.2 mmol/L; ABG HCO3 24 mmol/L (21-25); ABG PCO2 40 mmHg (35-45); ABG PH 7.39 (7.35-7.45); ABG PO2 76 mmHg (83-108); ABG TCO2 25 mmol/L (19-24); Allen Test Performed? Yes
[2021-09-16] MEDS ORDERED: POTASSIUM BICARBONATE/CIT AC 20 MEQ TABLET.EFF NG-TUBE SCH (06:00)
[2021-09-16 06:22] LABS: Glucose,Whole Blood 145 mg/dL (75-99)
[2021-09-16] MEDS: IPRATROPIUM-ALBUTEROL 3 ML NEB INHALATION SCH ×4 (07:35→14:35)
[2021-09-16] MEDS: BUDESONIDE 0.5 MG/2 ML NEBU INHALATION SCH (07:36)
--- NOTE | 2021-09-16 08:28 | XR ---
EXAMINATION TYPE: XR chest 1V portable DATE OF EXAM: 09/16/2021 COMPARISON: 09/15/2021 INDICATION: Tube placement TECHNIQUE: Single frontal view of the chest is obtained. FINDINGS: The heart size is prominent. The pulmonary vasculature is normal. There appear to be bilateral pleural effusions. Nasogastric tube transverses the thorax. Endotracheal tube tip appears to be above the sandip. Right-sided PICC line is present the tip near the midline. Patient is rotated to the left in the semiupright position. Electronic devices over the left and right chest. IMPRESSION: 1. Small bilateral pleural effusions. 2. Cardiomegaly. 3. Lines and catheters discussed above.
[2021-09-16] MEDS: NOREPINEPHRINE 4 MG in SODIUM CHLORIDE 0.9% 250 ML IV SCH (08:37)
[2021-09-16] MEDS: ENOXAPARIN 40 MG/0.4 ML SYRINGE SQ SCH (08:58)
[2021-09-16] MEDS: PANTOPRAZOLE 40 MG/10 ML VIAL IV SCH (08:58)
[2021-09-16] MEDS: ASPIRIN 325 MG TAB PO SCH (08:58)
[2021-09-16] MEDS: polyethylene glycoL 3350 17 GM POWD.PACK PO SCH (08:58)
[2021-09-16] MEDS: DOCUSATE ORAL SOLN 100 MG/10 ML CUP PO SCH (08:58)
[2021-09-16] MEDS: SENNOSIDES 8.6 MG TAB PO SCH (08:58)
[2021-09-16] MEDS: CHLORHEXIDINE GLUCONATE 15 ML CUP MUCOUS MEM SCH (08:58)
[2021-09-16] MEDS: KETOCONAZOLE 2% SHAMPOO 1 APPLIC/ML TOPICAL SCH (08:59)
[2021-09-16] MEDS: LIDOCAINE 5% PATCH TOPICAL SCH (08:59)
[2021-09-16] MEDS: LIDOCAINE 5% OINTMENT 50 GM JAR TOPICAL SCH ×2 (08:59→11:48)
[2021-09-16] MEDS ORDERED: FUROSEMIDE 10 MG/ML 2 ML VIAL IV SCH (09:00)
[2021-09-16] MEDS: SODIUM CHLORIDE 0.9% 1,000 ML IV SCH (09:00)
[2021-09-16 09:13] VITALS: BP 174/75
[2021-09-16] MEDS ORDERED: AMIODARONE 360 MG in DEXTROSE 5% IN WATER 200 ML IV ONE ×2 (10:21)
[2021-09-16] MEDS ORDERED: DEXTROSE 5% IN WATER 100 ML with AMIODARONE 150 MG IV ONE (10:21)
[2021-09-16 11:24] LABS: Glucose,Whole Blood 169 mg/dL (75-99)
--- NOTE | 2021-09-16 11:56 | P.PN ---
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 This patient is extensively debilitated. The patient was in the hospital because of a femoral neck fracture and the patient was having pain on outpatient basis that was 9 out of 10 in severity. The patient accordingly underwent a Girdlestone procedure by orthopedic surgery regarding this fracture and the patient's surgery was done on 09/08/2021. The patient is extensively debilitated. The patient is wheelchair-bound at this point in time. 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 The patient's recovery was essentially uneventful. He was becoming more lethargic. He was having difficulties with ongoing pain and for that reason pain medicine was involved in the case as the patient has chronic pain and the patient was being treated with Percocet and methadone on outpatient basis. The recommendation was to use IV Tylenol and use methadone 50 mg 3 times a day and Percocet 10/325 every 8 hours. The patient was also given laxatives. Earlier this morning, the patient was found to have emesis. He was found to be aspirating. His mentation became progressively more lethargic and he was unable to keep his at up and he was noted also to have some coffee-ground emesis. No abdominal distention. Denies having any abdominal pain prior to this current episode. The patient desaturated. His CODE STATUS is that she is to follow and the patient was intubated and placed on a mechanical ventilator and following that he was transferred to the intensive care unit. The time of my arrival, the patient was on propofol which is running at 25 mg/ kg/m. He was receiving normal saline today to 65 mL an hour. He has already received a total of 2 L of IV fluid bolus in the form of normal saline as the patient was hypotensive. Norepinephrine was running at 0.05 Aaron respiratory per minute. The patient was on a mechanical ventilator on assist control mode at the rate of 16 with a tidal volume of 400 FiO2 of 50% with a PEEP of 5. Blood gas showed a pH of 7.33 with a pCO2 of 47 and pO2 of 207 and this was done and FiO2 of 100%. Orogastric tube was inserted and output has been only 100 mL since the insertion of the tube. The patient was covered with IV Zosyn. On 09/14/2021 patient seen in follow-up in intensive care unit, he is intubated, and sedated, on assist-control mode of ventilation with a rate of 16, tidal was 400, FiO2 of 50% and PEEP of 5. This morning his blood gas shows pO2 of 93, pCO2 of 40, pH of 7.36 and this was done and the above-mentioned bedside on FiO2 of 50%. Today's chest x-ray showing diffuse interstitial changes, correlating for CHF with pulmonary vascular congestion and increasing small bilateral p leural effusions with adjacent atelectasis and/or consolidation, particularly on the right. Patient is currently on 0.9#65 ML per hour, he is on norepinephrine at 0.01 mics per kilo per minute, and improving and at 40 mics per kilo per minute. He is in sinus mechanism with a rate of 95 BPM. he remains on Zosyn for empiric antibiotic coverage for possibility of aspiration related pneumonia. She remains on nebulized bronchodilators. Patient did have a low-grade fever in the last 24 hours, with a T-max of 101F last night at 8 PM. Today's labs have been reviewed, his white blood cell count is 8.8, hemoglobin is 8.5, platelet count is 171, sodium is 137, potassium is 3.8, chloride is 110, CO2 is 19, B1 is 18, creatinine 0.91. Urine output is in the order of 25-30 ML per hour. Surgical incision on the right hip covered with a dressing. Bilateral lower extremities are trace wrapped, without evidence of significant swelling. No acute events overnight. On 09/16/2021 patient seen in follow-up in intensive care unit, he remains intubated, and sedated, on assist-control mode of ventilation with a rate of 16, tidal lines 400, FiO2 of 50% and PEEP of 5. This morning's blood gas shows pO2 of 76, pCO2 of 40, and pH of 7.39, this was done on the above-mentioned ventilator settings, his chest x-ray today showing small bilateral pleural effusions, cardiomegaly. Patient is on IV fluids with point tenderness and Edward a 65 ML per hour, and to prevent at 25 mics per kilo per minute, is quite tachypneic, agitated this morning, out of sync with the ventilator. His tachycardic, anxious, blood pressure 174/75, he isn't sinus tach with a rate of 110 BPM. He is being treated for possible aspiration pneumonia, he remains on Zosyn for empiric antibiotic coverage. His sputum culture showed Shavonne glabrata. Patient continues to have low-grade fevers on and off. The rest of his labs have been reviewed, his white blood cell count slightly increased to 12.9 today's labs, hemoglobin is 11.3, sodium is 141, potassium is 3.9, chloride is 112, CO2 is 21, BUN 17 creatinine 0.72. In addition patient is also on amiodarone at 1 mg/m. His echocardiogram showed low normal EF between 50-55%. Mild aortic regurg, mild mitral regurg, mild pulmonary hypertension with the right ventricular systolic pressure of 35.5 mmHg. There was a small generalized pericardial effusion. Patient was not tolerating sedation holiday very well, becoming agitated, restless, tachypneic. In view of his severe kyphoscoliosis, multiple comorbidities he will likely require tracheostomy and PEG tube juliet cement. Objective - Vital Signs Vital signs: Vital Signs Temp 99.9 F H 09/16/21 08:00 Pulse 96 09/16/21 11:00 Resp 33 H 09/16/21 11:00 BP 174/75 09/16/21 09:00 Pulse Ox 96 09/16/21 11:00 Intake & Output 09/15/21 09/16/21 09/16/21 18:59 06:59 18:59 Intake Total 6514.940 5556.769 652.937 Output Total 424 074 1037 Balance 1067.873 887.769 -427.063 Intake: IV 980 880 265 Piperacillin-Tazobactam 3 200 100 .375 gm In Sodium Chloride 0.9% 100 ml @ 25 mls/hr IVPB Q8H [facility] Rx#: [id number] Sodium Chloride 0.9% 1, 780 780 265 000 ml @ 65 mls/hr IV . [id number] [facility] Rx#:[id number] Intake, IV Titration 112.873 48.769 62.937 Amount propofoL 1,000 mg In 112.873 48.769 62.937 Empty Bag 1 bag @ 5 MCG/ KG/MIN 1.554 mls/hr IV . Q24H [facility] Rx#:[id number] Tube Feeding 350 569 235 Other 210 90 90 Output: Urine 064 319 4884 Other: Voiding Method Indwelling Catheter Indwelling Catheter Indwelling Catheter # Bowel Movements 1 1 ABP, PAP, CO, CI - Last Documented Arterial Blood Pressure 115/43 - Exam GENERAL EXAM: Sedated, and intubated, 80-year-old frail looking, elderly male, with significant kyphoscoliosis of the spine, currently on assist-control mode of ventilation with a rate of 16, tidal volume was 400, FiO2 of 50% and PEEP of 5 comfortable in no apparent distress. HEAD: Normocephalic/atraumatic. EYES: Normal reaction of pupils, equal size. Conjunctiva pink, sclera white. NOSE: Clear with pink turbinates. THROAT: No erythema or exudates. NECK: No masses, no JVD, no thyroid enlargement, no adenopathy. CHEST: No chest wall deformity. Symmetrical expansion. Left upper chest permanent pacemaker is in place LUNGS: Equal air entry with no crackles, wheeze, rhonchi or dullness. CVS: Regular rate and rhythm, normal S1 and S2, no gallops, no murmurs, no rubs ABDOMEN: Soft, nontender. No hepatosplenomegaly, normal bowel sounds, no guarding or rigidity. EXTREMITIES: No clubbing, no edema, no cyanosis, 2+ pulses and upper and lower extremities. MUSCULOSKELETAL: Muscle strength and tone normal. SPINE: Significant deformity of the spine, kyphoscoliosis SKIN: No rashes, right hip surgical incision is covered with a dressing CENTRAL NERVOUS SYSTEM: Sedated and intubated. No focal deficits, tone is normal in all 4 extremities. - Labs CBC & Chem 7: 09/16/21 04:25 09/16/21 04:25 Labs: Abnormal Lab Results - Last 24 Hours (Table) 09/15/21 09/15/21 09/15/21 Range/Units 11:57 18:24 20:01 WBC (3.8-10.6) k/uL RBC (4.30-5.90) m/uL Hgb (13.0-17.5) gm/dL Hct (39.0-53.0) % MCV (80.0-100.0) fL MCHC (31.0-37.0) g/dL Neutrophils # (1.3-7.7) k/uL Lymphocytes # (1.0-4.8) k/uL ABG pO2 (83-108) mmHg ABG Total CO2 (19-24) mmol/L Chloride (98-107) mmol/L Carbon Dioxide (22-30) mmol/L Glucose (74-99) mg/dL POC Glucose (mg/dL) 110 H 158 H 152 H (75-99) mg/dL Calcium (8.4-10.2) mg/dL 09/16/21 09/16/21 09/16/21 Range/Units 00:38 04:25 04:25 WBC 12.9 H (3.8-10.6) k/uL RBC 3.41 L (4.30-5.90) m/uL Hgb 11.3 L (13.0-17.5) gm/dL Hct 36.9 L (39.0-53.0) % MCV 108.1 H (80.0-100.0) fL MCHC 30.6 L (31.0-37.0) g/dL Neutrophils # 10.6 H (1.3-7.7) k/uL Lymphocytes # 0.8 L (1.0-4.8) k/uL ABG pO2 (83-108) mmHg ABG Total CO2 (19-24) mmol/L Chloride 112 H (98-107) mmol/L Carbon Dioxide 21 L (22-30) mmol/L Glucose 163 H (74-99) mg/dL POC Glucose (mg/dL) 161 H (75-99) mg/dL Calcium 7.5 L (8.4-10.2) mg/dL 09/16/21 09/16/21 09/16/21 Range/Units 05:51 06:21 11:23 WBC (3.8-10.6) k/uL RBC (4.30-5.90) m/uL Hgb (13.0-17.5) gm/dL Hct (39.0-53.0) % MCV (80.0-100.0) fL MCHC (31.0-37.0) g/dL Neutrophils # (1.3-7.7) k/uL Lymphocytes # (1.0-4.8) k/uL ABG pO2 76 L (83-108) mmHg ABG Total CO2 25 H (19-24) mmol/L Chloride (98-107) mmol/L Carbon Dioxide (22-30) mmol/L Glucose (74-99) mg/dL POC Glucose (mg/dL) 145 H 169 H (75-99) mg/dL Calcium (8.4-10.2) mg/dL Microbiology - Last 24 Hours (Table) 09/13/21 06:00 Gram Stain - Final Sputum Sputum Culture - Final Shavonne glabrata Assessment and Plan Plan: Assessment: #1. Acute hypoxic respiratory failure and suspected to aspiration/coffee ground emesis, with alteration of mental status, and hypotension. Patient was intubated and placed on mechanical ventilator on 09/13/2021. His CODE STATUS was switched upon family wishes. Today on 09/14/2021 he remains intubated and sedated on mechanical ventilation. Chest x-ray showing diffuse interstitial changes, small bilateral pleural effusions and adjacent atelectasis, and/or consolidation particularly on the right #2. Acute hypotension, secondary to the above, remains on small dose of norepinephrine. #3. History of right hip fracture status post Girdlestone resection arthroplasty of the right hip, the patient is postoperative day #8. Surgical wound site is clean dry and intact #4. 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 Severe thoracic kyphoscoliosis #6. Chronic back pain/scoliosis of the spine with previous back surgeries #7. Chronic pain syndrome #8. Degenerative arthritis #9. Chronic anxiety/depression #10. Hyperlipidemia #11. Diabetes mellitus type 2 #12. Debility, patient is wheelchair bound and has a motorized wheelchair #13. A. fib with RVR, started on amiodarone infusion Plan: Today's chest x-ray blood gases and labs reviewed Patient was evaluated along with Dr. 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 fib with RVR, was placed on amiodarone Overall patient is going to be difficult weaning We'll place consult to surgical services for tracheostomy and PEG tube placement However when the family was updated about surgical consultation, the family has decided that they're going to come in and make the patient comfort care Continue supportive treatment for now Until the patient's family comes in and is ready to proceed with comfort care protocol I have personally seen and examined the patient, performed the documentation and the assessment and plan as written. Number of minutes spent on the visit: 10 Time with Patient: Greater than 30
[2021-09-16 12:02] VITALS: TEMP 99
[2021-09-16 13:23] VITALS: BMI 27.0
--- NOTE | 2021-09-16 14:07 | P.PN ---
Subjective Progress Note Date: 09/16/21 09/10/2021 status post Girdlestone resection arthroplasty right hip secondary to subcapital right hip fracture in a patient with history of ankylosing spondylitis ,fell out of his wheelchair. Prior to incident patient was able to transfer self to and from wheelchair, currently unable to sit at side of bed. passing flatus, good diet intake with no nausea or vomiting. Complains of uncontrolled pain on current regimen. T-max 100.2, O2 sats decreased to 90% on room air. Denies cough or congestion. Denies chest pain, palpitations or shortness of breath. 09/11/2021 . He complains of significant right hip pain prohibiting him from participating with PT at this time. Drowsy. Denies chest pain, palpitations. Maintained on Rocephin, Zithromax secondary to atelectasis, possible early pneumonia. Maintaining O2 sats in the mid to high 90s on 2.5 L nasal cannula. T- max 99.7, WBC, 10.87. 09/14/2021 mechanical vent dependent, FiO2 50%/+5 PEEP, sedated on diprovan and requiring pressor support/levophed. Receiving 1 L fluid bolus. Chest x-ray reporting persistent diffuse interstitial changes with adjacent atelectasis and/or consolidation particularly on the right , possible increasing small bilateral pleural effusions. Continues on Zosyn, nebulized bronchodilators . T-max 101, WBC 8.8. Hemoglobin 8.5, platelets 171. Scheduled for PICC line placement today. No bowel movement, receiving Senokot-S, MiraLAX, Reglan. Pain management with morphine. Sputum culture pending. Telemetry reporting sinus tach, proximal atrial fibrillation, sinus rhythm with frequent PACs-cardiology on consult. 09/15/21 vent dependent, FiO2 50%/+5 of PEEP, sedated on diprovan. Maintained on nebulized bronchodilators. Chest x-ray reporting stable bibasilar, less prominent right upper lung acute infiltrates and/or atelectasis on background chronic changes-no significant change from previous day.Currently off pressor support. Afebrile, T-max 99.7, WBC 10.2. Preliminary Sputum culture reporting use species Continues on Zosyn. PICC line placed yesterday Tolerating tube feeds at goal with minimal to no residuals. Passing flatus, no bowel movement. Hemoglobin 8.6, platelets 160. Sedation holiday planned. 09/16/2021 remains vent dependent FiO2 50%/+5 of PEEP. Staff reports patient not following commands when sedation weaned down, but displaying significant pain. This morning while attempting to wean down sedation, patient became agitated, tachypneic, developed atrial fibrillation with RVR, heart rates up into the 150s, amiodarone initiated. T-max 99.9, WBC 12.9. Chest x-ray repo rting bilateral pleural effusions, cardiomegaly. Continues on Zosyn empirically for suspected aspiration pneumonia. Sputum culture reporting Shavonne glabrata. Stool for occult blood negative. Objective - Vital Signs Vital signs: Vital Signs Temp 99 F 09/16/21 12:00 Pulse 87 09/16/21 13:00 Resp 32 H 09/16/21 13:00 BP 174/75 09/16/21 09:00 Pulse Ox 96 09/16/21 13:00 Intake & Output 09/15/21 09/16/21 09/16/21 18:59 06:59 18:59 Intake Total 7044.870 4217.769 872.361 Output Total 588 148 6691 Balance 1067.873 887.769 -732.639 Weight 67 kg Intake: IV 980 880 365 Piperacillin-Tazobactam 3 200 100 .375 gm In Sodium Chloride 0.9% 100 ml @ 25 mls/hr IVPB Q8H [facility] Rx#: [id number] Sodium Chloride 0.9% 1, 780 780 365 000 ml @ 65 mls/hr IV . [id number] [facility] Rx#:[id number] Intake, IV Titration 112.873 48.769 105.361 Amount propofoL 1,000 mg In 112.873 48.769 105.361 Empty Bag 1 bag @ 5 MCG/ KG/MIN 1.554 mls/hr IV . Q24H [facility] Rx#:[id number] Tube Feeding 350 569 282 Other 210 90 120 Output: Urine 016 816 1618 Other: Voiding Method Indwelling Catheter Indwelling Catheter Indwelling Catheter # Bowel Movements 1 1 ABP, PAP, CO, CI - Last Documented Arterial Blood Pressure 123/42 - Exam PHYSICAL EXAM: VITAL SIGNS: [As above] GENERAL: Sitting up in bed, intubated and sedated on diprovan. HEENT: Conjunctivae normal. eyes normal. ET and OG tubes present. PPM left upper chest. NECK: Supple, No JVD CARDIOVASCULAR: S1, S2 regular.irregular, tachycardic,No murmur. RESPIRATION: Thoracic kyphoscoliosis, Breath sounds diminished in the bases. Scattered rhonchi ABDOMEN: Soft, nontender . No guarding. no masses palpable.Bowel sounds heard. EXTREMITIES: Right hip dressing clean dry and intact, bilateral lower extremities, Javad wrapped, wearing offloading boots, NERVOUS SYSTEM: Unable to evaluate, patient sedated and intubated Skin: warm and dry - Labs CBC & Chem 7: 09/16/21 04:25 09/16/21 04:25 Labs: Abnormal Lab Results - Last 24 Hours (Table) 09/15/21 09/15/21 09/16/21 Range/Units 18:24 20:01 00:38 WBC (3.8-10.6) k/uL RBC (4.30-5.90) m/uL Hgb (13.0-17.5) gm/dL Hct (39.0-53.0) % MCV (80.0-100.0) fL MCHC (31.0-37.0) g/dL Neutrophils # (1.3-7.7) k/uL Lymphocytes # (1.0-4.8) k/uL ABG pO2 (83-108) mmHg ABG Total CO2 (19-24) mmol/L Chloride (98-107) mmol/L Carbon Dioxide (22-30) mmol/L Glucose (74-99) mg/dL POC Glucose (mg/dL) 158 H 152 H 161 H (75-99) mg/dL Calcium (8.4-10.2) mg/dL 09/16/21 09/16/21 09/16/21 Range/Units 04:25 04:25 05:51 WBC 12.9 H (3.8-10.6) k/uL RBC 3.41 L (4.30-5.90) m/uL Hgb 11.3 L (13.0-17.5) gm/dL Hct 36.9 L (39.0-53.0) % MCV 108.1 H (80.0-100.0) fL MCHC 30.6 L (31.0-37.0) g/dL Neutrophils # 10.6 H (1.3-7.7) k/uL Lymphocytes # 0.8 L (1.0-4.8) k/uL ABG pO2 76 L (83-108) mmHg ABG Total CO2 25 H (19-24) mmol/L Chloride 112 H (98-107) mmol/L Carbon Dioxide 21 L (22-30) mmol/L Glucose 163 H (74-99) mg/dL POC Glucose (mg/dL) (75-99) mg/dL Calcium 7.5 L (8.4-10.2) mg/dL 09/16/21 09/16/21 Range/Units 06:21 11:23 WBC (3.8-10.6) k/uL RBC (4.30-5.90) m/uL Hgb (13.0-17.5) gm/dL Hct (39.0-53.0) % MCV (80.0-100.0) fL MCHC (31.0-37.0) g/dL Neutrophils # (1.3-7.7) k/uL Lymphocytes # (1.0-4.8) k/uL ABG pO2 (83-108) mmHg ABG Total CO2 (19-24) mmol/L Chloride (98-107) mmol/L Carbon Dioxide (22-30) mmol/L Glucose (74-99) mg/dL POC Glucose (mg/dL) 145 H 169 H (75-99) mg/dL Calcium (8.4-10.2) mg/dL Microbiology - Last 24 Hours (Table) 09/13/21 06:00 Gram Stain - Final Sputum Sputum Culture - Final Shavonne glabrata Assessment and Plan Assessment: Acute subcapital right hip fracture, status post Girdlestone resection arth roplasty right hip Acute hypoxic respiratory failure , secondary to aspiration with coffee ground emesis, bilateral pneumonia ,mechanical ventilator-dependent. A. fib with RVR, amiodarone drip initiated. Anemia, etiology unclear, in a patient with coffee ground emesis, possible GI bleed. Stool for occult blood negative. History of pneumothorax on the left History of ankylosing spondylitis with chronic back pain, previous back surgeries Osteoarthritis History of deep brain stimulators Diabetes mellitus type 2 Anxiety, depression Prior history of nicotine dependence COPD Hyperlipidemia Plan: Continue on current medication regime ,monitoring and symptomatic treatment. Surgery has been consulted by batterboard setter for trach and PEG. Staff reports family does not wish to pursue trach and PEG. Family enroute ,discussing comfort care. Maintain supportive care.ICU management as per batterboard setter. Prognosis guarded given multiple complex medical issues. The impression and plan of care has been dictated as directed. : I performed a history and examination of this patient, discussed the same with the dictator. I agree with the dictator's note ,documented as a scribe. Any additional findings or plans will be noted.
--- NOTE | 2021-09-16 14:10 | OP ---
OPERATIVE REPORT OPERATIVE REPORT: Placement of a left radial arterial line. PREOPERATIVE DIAGNOSIS: Acute hypoxic respiratory failure. POSTOPERATIVE DIAGNOSIS: Acute hypoxic respiratory failure. ANESTHESIA USED: None deployed. PROCEDURE DESCRIPTION: Patient was placed in a supine position. Left wrist was prepared in a sterile fashion and drapes were applied. The left radial artery was palpated, cannulated, a guidewire was placed, and a Cook's catheter was inserted over the guidewire. The guidewire was removed. Good blood flow, good waveform noted. Line was secured using 3.0 silk sutures. No complications. Procedure was well tolerated. MMODL / IJN: [id number] /
[2021-09-16] MEDS ORDERED: LORazepam 2 MG/ML INJ IV PRN (15:01)
[2021-09-16] MEDS ORDERED: ATROPINE OPHTH SOLN 1% 5ML BTL SUBLINGUAL PRN (15:01)
[2021-09-16] MEDS ORDERED: MORPHINE SULFATE 2 MG/ML SYRINGE IV PRN (15:01)
[2021-09-16] MEDS ORDERED: SCOPOLAMINE 1.5MG/72HR PATCH TRANSDERM SCH (15:15)
[2021-09-16] MEDS: MORPHINE SULFATE (100 MG/2 ML) 100 MG in SODIUM CHLORIDE 0.9% 100 ML IV SCH ×2 (15:20→17:25)
[2021-09-16] MEDS: MORPHINE SULFATE 4 MG/ML SYRINGE IV PRN ×4 (15:37→17:02)
[2021-09-16] MEDS ORDERED: AMIODARONE 450 MG in DEXTROSE 5% IN WATER 250 ML IV SCH ×2 (16:30)
[2021-09-16 17:17] VITALS: PULSE 109; RESP 36
== END 2021-09-16 19:04 | disposition expired | DRG 981 ==
LOC: OR 12:46 → EDSTATUS 14:15 → 4SSUR 17:25 → OR 09-09 14:10 → 4SSUR 09-09 14:10 → OBSVTOIN 09-11 06:50 → 2SICU 09-13 06:33
PROVIDERS: ADMIT Family Medicine; ATTEND Family Medicine
PROC: 0QT60ZZ Resection of Right Upper Femur, Open Approach (ICD-10-PCS; principal; 2021-09-08 14:05)
PROC: 5A1945Z Respiratory Ventilation, 24-96 Consecutive Hours (ICD-10-PCS; 2021-09-13)
PROC: 0BH17EZ Insertion of Endotracheal Airway into Trachea, Via Natural or Artificial Opening (ICD-10-PCS; 2021-09-13)
PROC: 3E033XZ Introduction of Vasopressor into Peripheral Vein, Percutaneous Approach (ICD-10-PCS; 2021-09-14)
PROC: 02HV33Z Insertion of Infusion Device into Superior Vena Cava, Percutaneous Approach (ICD-10-PCS; 2021-09-14)
PROC: 0D9670Z Drainage of Stomach with Drainage Device, Via Natural or Artificial Opening (ICD-10-PCS; 2021-09-14)
PROC: 3E0G76Z Introduction of Nutritional Substance into Upper GI, Via Natural or Artificial Opening (ICD-10-PCS; 2021-09-14)
PROC: 4A133B1 Monitoring of Arterial Pressure, Peripheral, Percutaneous Approach (ICD-10-PCS; 2021-09-16)
PROC: 03HY32Z Insertion of Monitoring Device into Upper Artery, Percutaneous Approach (ICD-10-PCS; 2021-09-16)
PROC: 4A133J1 Monitoring of Arterial Pulse, Peripheral, Percutaneous Approach (ICD-10-PCS; 2021-09-16)
DX: J18.9 Pneumonia, unspecified organism (principal); S72.011A Unspecified intracapsular fracture of right femur, initial encounter for closed fracture; J96.01 Acute respiratory failure with hypoxia; J90 Pleural effusion, not elsewhere classified; J44.0 Chronic obstructive pulmonary disease with (acute) lower respiratory infection; I31.3 Pericardial effusion (noninflammatory); K92.0 Hematemesis; I47.1 Supraventricular tachycardia; J98.11 Atelectasis; J69.0 Pneumonitis due to inhalation of food and vomit; I27.20 Pulmonary hypertension, unspecified; I95.9 Hypotension, unspecified; E11.40 Type 2 diabetes mellitus with diabetic neuropathy, unspecified; D64.9 Anemia, unspecified; I48.0 Paroxysmal atrial fibrillation; M45.9 Ankylosing spondylitis of unspecified sites in spine; L98.499 Non-pressure chronic ulcer of skin of other sites with unspecified severity; Z66 Do not resuscitate; Z51.5 Encounter for palliative care; Z20.822 Contact with and (suspected) exposure to COVID-19; I08.0 Rheumatic disorders of both mitral and aortic valves; E78.5 Hyperlipidemia, unspecified; G25.0 Essential tremor; M41.9 Scoliosis, unspecified; M81.0 Age-related osteoporosis without current pathological fracture; K21.9 Gastro-esophageal reflux disease without esophagitis; M19.90 Unspecified osteoarthritis, unspecified site; F32.A Depression, unspecified; F41.9 Anxiety disorder, unspecified; G89.4 Chronic pain syndrome; M54.9 Dorsalgia, unspecified; R29.6 Repeated falls; H91.90 Unspecified hearing loss, unspecified ear; Z79.84 Long term (current) use of oral hypoglycemic drugs; Z79.891 Long term (current) use of opiate analgesic; Z79.899 Other long term (current) drug therapy; Z87.891 Personal history of nicotine dependence; Z90.49 Acquired absence of other specified parts of digestive tract; Z87.19 Personal history of other diseases of the digestive system; Z99.3 Dependence on wheelchair; Z85.828 Personal history of other malignant neoplasm of skin; Z96.82 Presence of neurostimulator; Z98.42 Cataract extraction status, left eye; Z98.41 Cataract extraction status, right eye; Z87.39 Personal history of other diseases of the musculoskeletal system and connective tissue; Z98.890 Other specified postprocedural states; W05.0XXA Fall from non-moving wheelchair, initial encounter; Z82.5 Family history of asthma and other chronic lower respiratory diseases
CPT/HCPCS: 36573; 36600; 71045; 73502; 74018; 80048; 80053; 81001; 81003; 82150; 82272; 82805; 83690; 83735; 84450; 84460; 85025; 85730; 86850; 86900; 86901; 87070; 87205; 87635; 88305; 88311; 93306; 94002; 94003; 94640; 94760